=== PATIENT | female | born 1960 | race Caucasian/White ===

== ENCOUNTER 2018-06-05 16:29 | Inpatient (IN) | payer MEDICARE, MEDICAID, SELFPAY ==
[2018-06-05] VITALS (7 sets, daily range): BP systolic 77–128; BP diastolic 63–96; PULSE 105–127; RESP 16–24; TEMP 36.3–37.1; O2SAT 86–97; BMI 36.6; BMI 36.3; BMI 36.4
--- NOTE | 2018-06-05 16:48 | ED.VISSUMM ---
- ER Visit Summary Date of Service: 06/05/18 Chief Complaint: Cough, cellulitis History of Present Illness: The patient is a 57 F presents to the emergency department multiple complaints. The patient does have multiple medical comorbidities. She is on Coumadin for history of blood clot. She states that over the past 3 days, she had increasing pain and redness on her left posterior thigh. She states she has been having some pain with sitting. She is unsure if she has had fever. She states she is never really had anything like this before. She also been having upper respiratory symptoms. She had a productive cough. She does describe some mild shortness of breath. She does have a history of COPD but is not on home oxygen. She states that she has not been able to establish care with a primary care because of her Medicare. She is to follow with primary care in [place], but has not been able to see someone in some time. Physical Examination: Vital signs reviewed General: Well-nourished, well-developed Head: Normocephalic, atraumatic Eyes: Pupils equal and reactive, extraocular muscles intact Neck, supple, no lymphadenopathy Heart: Regular rate and rhythm Respiratory: No distress, scant wheeze throughout Abdomen: Soft, nontender, nondistended, no peritoneal signs Back: Nontender Extremities: Cellulitis on the left posterior thigh into the buttock. No crepitus., no edema, no cords Skin: Normal color no rash Neuro: Alert and oriented, no focal or lateralizing deficits Test Results: [] Emergency Department Course and Treatment: The patient presents with a left buttock abscess with surrounding cellulitis. She has had systemic symptoms. My suspicion is that she may be septic from this. Metabolic workup was pursued. She does have a leukocytosis. She has mild renal insufficiency, but I am unsure if this is acute or chronic and she has not been here before. Her lactate was normal. The patient was consented for incision and drainage. The area was prepped with chlorhexidine. Lidocaine with epinephrine was injected locally. A cruciate incision was made. A gross amount of purulence was able to be expressed. Loculations were broken with hemostats. The patient did tolerate this procedure. Wound culture was sent. The patient will be started on broad-spectrum antibiotics. Given her systemic symptoms and leukocytosis I do feel that she is going require admission for IV antibiotics. The patient was discussed with the hospitalist. Treatment Plan: [] Disposition: Admission Impression: 1. Left gluteal abscess with cellulitis 2. Sepsis 3. Dyspnea 4. Incision and drainage This note was generated with [employer] - [employer] dictation software. It may contain incorrect words, spelling, and punctuation that were not noted in review of the chart prior to signing ED Disposition - Plan for ED Patient: Chief Complaint: Abscess Referrals: Care Physician,No Primary [Primary Care Provider] -
[2018-06-05] MEDS: 0.9% Normal Saline 1,000 ML 1000 ML IV (17:36)
[2018-06-05] MEDS: Morphine 4 MG/ML Syringe IV (17:38)
[2018-06-05 17:39] LABS: Absolute Lymphocyte Count 2.46 X10^3/ul (0.83-4.51); Absolute Neutrophil Count 9.8 X10^3/uL (2.0-7.7); Basophil# 0.02 X10^3/uL; Basophil% 0.1 % (0-1); Eosinophil# 0.25 X10^3/uL; Eosinophils% 1.8 % (0-5); Hematocrit 41.9 % (37-47); Hemoglobin 13.4 g/dl (12.0-15.0); Lymphocyte # 2.46 X10^3/ul (4.0); Lymphocyte % 17.9 % (19-41); Mean Corpuscular Hgb 28.9 pg (27.0-32.0); Mean Corpuscular Volume 90.5 fL (81-99); Mean Platelet Vol. 10.6 fl (6.2-12.0); Monocyte# 1.14 X10^3/uL; Monocyte% 8.3 % (0-10); Neutrophil # 9.81 X10^3/uL (2.7-7.7); Neutrophil % 71.7 % (47-70); Platelet Count 227 K/mm3 (150-450); RBC Distribution Width CV 13.1 % (11.6-14.6); RBC Distribution Width SD 42.9 fl (35.1-43.9); Red Blood Count 4.63 M/mm3 (4.2-5.4); White Blood Count 13.7 K/mm3 (4.4-11.0)
[2018-06-05] MEDS: Ondansetron 4 MG/2 ML Vial IV (17:39)
[2018-06-05 17:42] LABS: International Normalized Ratio 2.1; Prothrombin Time (Protime)PT. 23.3 SECONDS (11.7-14.9)
[2018-06-05 17:45] LABS: ALB/GLOB Ratio 0.6 RATIO (0.9-2.4); AST(SGOT) 20 U/L (15-37); Alanine Aminotransfer ALT/SGPT 34 U/L (13-56); Albumin, Serum 2.8 g/dL (3.2-5.0); Alkaline Phosphatase 117 U/L (45-117); Anion Gap 9 (5-15); BUN 17 mg/dL (7-18); Calcium,Total 9.2 mg/dL (8.5-10.1); Chloride 106 mmol/L (98-107); Creatinine, Serum 1.42 mg/dL (0.55-1.02); EST Glomerular Filtration Rate 41 mL/min (>60); Est Glom Filt Rate - Afr Amer 49 mL/min (>60); Estimated Creatinine Clearance 36.59 ml/min; Globulin 4.4 g/dL (2.2-4.2); Glucose 110 mg/dL (74-106); Potassium 3.9 mmol/L (3.5-5.1); Protein, Total 7.2 g/dL (6.4-8.2); Sodium Level 140 mmol/L (136-145)
[2018-06-05 17:46] LABS: POSITIVE COUNT NO; POSITIVE DIFFERENTIAL NO; POSITIVE MORPHOLOGY NO
[2018-06-05 18:05] LABS: Lactic Acid 1.3 mmol/L (0.4-2.0)
[2018-06-05] MEDS: Piperacil/Tazobactam 3.375 GM/50 ML ML IV ×2 (18:35→22:45)
--- NOTE | 2018-06-05 19:05 | RAD_ITS ---
STUDY: X-RAY CHEST REASON FOR EXAM: Female, 57 years old. Cough TECHNIQUE: PA and lateral COMPARISON: None. FINDINGS: There is mild nonspecific bilateral perihilar interstitial thickening.. There appears to be minor discoid atelectasis in the right lower lobe There is no demonstrated pleural abnormality. Heart is enlarged. Normal mediastinum and kathleen. Normal visualized pulmonary arteries. Tortuous mildly calcified aortic arch and descending thoracic aorta. Dorsal spine demonstrates moderate spondylosis Normal visualized ribs, clavicles, and shoulders. There is no demonstrated abnormality of the visualized soft tissue structures of the upper abdomen. RAD/Chest PA and Lateral IMPRESSION: Nonspecific bilateral perihilar interstitial thickening. Minor discoid atelectasis in the right lower lobe Electronically Signed: Jasvir Green MD at 19:59 EST , Service support ,
--- NOTE | 2018-06-05 19:41 | PCM.HP.STD ---
Problem List (1) Left posterior thigh abscess Status: Acute (2) COPD Status: Chronic (3) History of a stroke Status: Chronic (4) History of blood clot Status: Chronic (5) CKD stage III Status: Chronic (6) Hypertension Status: Chronic History of Present Illness Date of Admission: 06/05/18 Chief Complaint: Cough and pain over the left buttock The patient is a 57 year old F with multiple comorbidities as listed above including DVT on Coumadin, stroke, COPD came to ED with pain over the left thigh and buttock. Patient is not able to sit for past 3 days. Patient also complained of fever with chills for 2-3 days. Patient has chronic cough but it got worse with clear mucus past 3 weeks. In ED, she did not had fever or chills but tachycardia, blood pressure 77/63 but no tachypnea or hypoxia with mild leukocytosis with left shift. She was found to have posterior aspect of left thigh abscess on the exam. Dr. Sheffield, ER physician did incision and drainage according to him it was about 10 cm. Surrounding area is erythematous and indurated. Chest x-ray is done. Past Medical History Past Medical History (Chronic Problems): Chronic Problems COPD (Chronic) History of a stroke (Chronic) History of blood clot (Chronic) CKD stage III (Chronic) Hypertension (Chronic) Allergies No Known Allergies Allergy (Verified 06/05/18 16:31) Home Medications: Ambulatory Orders Medication Instructions Recorded Aspirin [Aspirin, Baby] 81 mg PO DAILY@0800 06/05/18 B-Complex with Vitamin C [Super B 1 tab PO DAILY 06/05/18 Complex-Vitamin C] Calcium Carbonate [Calcium] 600 mg PO DAILY 06/05/18 Carvedilol [Coreg] 12.5 mg PO BID 06/05/18 Cetirizine HCl [Zyrtec] 10 mg PO DAILY 06/05/18 Duloxetine HCl 120 mg PO QHS 06/05/18 Ergocalciferol [Vitamin D] 100,000 unit PO QWEEK 06/05/18 Fenofibrate 54 mg PO DAILY 06/05/18 Fluticasone 0.05% [Flonase Nasal 1 spray NASAL DAILY 06/05/18 [place]] Fluticasone Propionate [Flovent 2 puff INHALATION BID 06/05/18 Hfa] Guaifenesin 400 mg PO QHS 06/05/18 Hydrochlorothiazide [Hctz] 12.5 mg PO DAILY 06/05/18 Lisinopril 40 mg PO DAILY 06/05/18 Mirabegron [Myrbetriq] 25 mg PO DAILY 06/05/18 Multivitamin [Multiple Vitamins] 1 tab PO BID 06/05/18 Omeprazole 40 mg PO DAILY 06/05/18 Simvastatin 40 mg PO QHS 06/05/18 Tiotropium Alicia [Spiriva 2 puff NASAL DAILY 06/05/18 Respimat] Ubidecarenone [Co Q-10] 100 mg PO DAILY 06/05/18 Warfarin Sodium 1.5 mg PO TUTH 06/05/18 Warfarin [Coumadin (PBKC)] 3 mg PO SUMOWEFRSA 06/05/18 Smoking Status: Current every day smoker Review of Systems Constitutional: Reports: Chills, Fever HEENT: Denies: Head Aches, Sinus Congestion, Sinus Drainage Cardiovascular: Denies: Chest Pain, Palpitations Respiratory: Reports: Cough. Denies: Shortness of Breath, Shortness of breath at rest, Sputum production Gastrointestinal: Denies: Abdominal Pain, Nausea, Vomiting Genitourinary: Denies: Dysuria Musculoskeletal: Reports: Leg Pain, Muscle pain. Denies: Joint Pain, Joint Tenderness Skin: Denies: Rash, Wounds Neurological: Reports: Balance problems. Denies: Focal weakness, Numbness, Tingling Psychiatric: Denies: Anxiety, Depression, Homicidal Ideations, Suicidal Ideations Hematologic/ Lymphatic: Denies: Easy Bruising, Easy Bleeding VTE Information - Inpt Only VTE Present on Admission: No VTE Mechan Device Prophylaxis: None Reason prophylaxis not ordered:: Procedure Not Indicated - Already on Coumadin. INR therapeutic Patient Problems: Active and Suspected Problems Left posterior thigh abscess (Acute) - Physical Exam General: Alert, Oriented x3, Cooperative HEENT: Atraumatic, PERRLA, EOMI, Normocephalic Oral: Dry Mucosa, - - White crust in the posterior aspect of tongue and the deep pharynx pharyngeal throat Neck: Supple, No JVD, Negative Carotid Bruits Lungs: No rhonchi, No wheeze, No rales, Diminished Cardiovascular: Regular rate, Regular Rhythm, Normal S1, Normal S2, No murmurs Abdomen: Bowel Sounds Present, Soft, Non Tender, Non-Distended, - - Chronic urinary incontinence. Prolapse ureter with cystocele Extremities: No edema, Capillary Refill Less than 3 Seconds Skin: Ulcer/ Wound, Rash Present - Surrounding cellulitis present about 10 cm with induration, - - Abscess status post IND in the posterior aspect of left thigh Musculoskeletal: No Tenderness to Palpation of Joints or Extremities Neurological: Cranial nerves II-XII grossly intact Psych/Mental Status: Normal Affect, Appropriate Vital Signs Temp Pulse Resp BP Pulse Ox 97.3 F L 113 H 24 H 119/96 H 86 06/05/18 16:31 06/05/18 18:39 06/05/18 18:39 06/05/18 18:39 06/05/18 18:39 Oxygen Delivery Method Room Air Weight: 207 lb 0.225 oz Body Mass Index (BMI) 36.6 Laboratory Tests Past 24 Hrs 06/05/18 06/05/18 06/05/18 17:15 17:15 17:15 WBC 13.7 H RBC 4.63 Hgb 13.4 Hct 41.9 MCV 90.5 MCH 28.9 MCHC 32.0 RDW 13.1 RDW Differential 42.9 Plt Count 227 MPV 10.6 Immature Gran % (Auto) 0.200 Neut % (Auto) 71.7 H Lymph % (Auto) 17.9 L [place] % (Auto) 8.3 Eos % (Auto) 1.8 Baso % (Auto) 0.1 Absolute Neuts (auto) 9.8 H Absolute Lymphs (auto) 2.46 Total Counted Not Reportable PT 23.3 H INR 2.1 Sodium 140 Potassium 3.9 Chloride 106 Carbon Dioxide 25.0 Anion Gap 9 BUN 17 Creatinine 1.42 H Estim Creat Clear Calc 36.59 Est GFR (MDRD) Af Amer 49 L Est GFR (MDRD) Non-Af 41 L BUN/Creatinine Ratio 12.0 Glucose 110 H Lactic Acid Calcium 9.2 Total Bilirubin 0.40 AST 20 ALT 34 Alkaline Phosphatase 117 Total Protein 7.2 Albumin 2.8 L Globulin 4.4 H Albumin/Globulin Ratio 0.6 L 06/05/18 17:15 WBC RBC Hgb Hct MCV MCH MCHC RDW RDW Differential Plt Count MPV Immature Gran % (Auto) Neut % (Auto) Lymph % (Auto) [place] % (Auto) Eos % (Auto) Baso % (Auto) Absolute Neuts (auto) Absolute Lymphs (auto) Total Counted PT INR Sodium Potassium Chloride Carbon Dioxide Anion Gap BUN Creatinine Estim Creat Clear Calc Est GFR (MDRD) Af Amer Est GFR (MDRD) Non-Af BUN/Creatinine Ratio Glucose Lactic Acid 1.3 Calcium Total Bilirubin AST ALT Alkaline Phosphatase Total Protein Albumin Globulin Albumin/Globulin Ratio Assessment/Plan All Active Problems Left posterior thigh abscess (Acute) The patient is a 57 year old F with multiple comorbidities as listed above including DVT on Coumadin, stroke, COPD came to ED with pain over the left thigh and buttock. Patient is not able to sit for past 3 days. Patient also complained of fever with chills for 2-3 days. Patient has chronic cough but it got worse with clear mucus past 3 weeks. In ED, she did not had fever or chills but tachycardia, blood pressure 77/63 but no tachypnea or hypoxia with mild leukocytosis with left shift. She was found to have posterior aspect of left thigh abscess on the exam. Dr. Sheffield, ER physician did incision and drainage according to him it was about 10 cm. Surrounding area is erythematous and indurated. Chest x-ray is done. 1. Left posterior medial abscess status post incision and drainage in ER: Blood cultures x2, wound culture sent from ER. Patient is being admitted on [facility] for further treatment. Patient was given 1 dose IV vancomycin and Zosyn in ER and will continue on the floor. MRSA from wound. Wound care dressing. 2. COPD with chronic cough probably URI: Chest x-ray shows nonspecific perihilar interstitial stranding with discoid atelectasis in right lower lobe. Mucinex, incentive spirometry and chest physiotherapy. DuoNeb as needed. Influenza test ordered. 3. History of a stroke about 10 years ago with residual balance with blood clot on Coumadin: Patient does not remember which side but seems she has right facial droop. She also was told she had a blood clot unclear whether venous or arterial and she is on Coumadin. INR is therapeutic continue Coumadin. Does not have primary care physician. 4. Hypertension, possible history of coronary artery disease: She further states she has a minor heart attack and she is on aspirin, Coreg, lisinopril and HCTZ and, simvastatin fenofibrate. No echo, stress test or cardiac cath in our system. Probably she had in [place] currently stable. Continue home medications 5. Abnormal kidney function, unclear whether acute or chronic kidney disease: Creatinine 1.42, BUN 17 seems most probably CKD stage III. IV fluid normal saline. 6. Mild hyperglycemia, ruled out diabetes mellitus: A1c ordered for tomorrow a.m. 7. Dyslipidemia: Patient is on both fenofibrate and simvastatin 40 mrem daily. Hold fenofibrate. Lipid profile tomorrow a.m. This note was generated with [employer] dictation software. Every effort was made to ensure accuracy, however computerized risk control field representative mistakes may persist. Clinical Impression(s) from Imaging Studies Chest X-Ray 06/05/18 19:05 IMPRESSION: Nonspecific bilateral perihilar interstitial thickening. Minor discoid atelectasis in the right lower lobe Code Visit Inpatient E&M: 61388 Init Hosp L3
[2018-06-05] MEDS: 0.9% Normal Saline 1,000 ML 100 ML IV (21:25)
[2018-06-05] MEDS: guaiFENesin 1,200 MG Tablet 1200 MG PO (21:50)
[2018-06-05] MEDS: DULoxetine Hcl 60 MG Capsule 120 MG PO (21:52)
[2018-06-05] MEDS: Atorvastatin Calcium 20 MG Tablet PO (21:52)
[2018-06-05] MEDS: Carvedilol 12.5 MG Tablet PO (21:53)
--- NOTE | 2018-06-05 22:14 | PCM.RX.CS ---
Consult Pharmacy has been consulted to manage selected antiobiotic: Vancomycin Type of Consult: New start Suspected Infection: Skin/Soft tissue Prior Doses of Antibiotics Received/Current Regimen: Medications Vancomycin HCl (Vancomycin) 1,000 mg in 200 mls @ 200 mls/hr IV Q24H DORENE Discontinued Medications Vancomycin HCl 1,500 mg/ (Sodium Chloride) 530 mls @ 250 mls/hr IV X1 ONE Stop: 06/05/18 20:37 Last Admin: 06/05/18 21:49 Dose: 250 mls/hr Labs: Sodium 140 mmol/L (136-145) 06/05/18 17:15 Potassium 3.9 mmol/L (3.5-5.1) 06/05/18 17:15 Chloride 106 mmol/L (98-107) 06/05/18 17:15 Carbon Dioxide 25.0 mmol/L (21.0-32.0) 06/05/18 17:15 Anion Gap 9 (5-15) 06/05/18 17:15 BUN 17 mg/dL (7-18) 06/05/18 17:15 Creatinine 1.42 mg/dL (0.55-1.02) H 06/05/18 17:15 Est GFR (MDRD) Af Amer 49 mL/min (>60) L 06/05/18 17:15 Est GFR (MDRD) Non-Af 41 mL/min (>60) L 06/05/18 17:15 BUN/Creatinine Ratio 12.0 RATIO (10-20) 06/05/18 17:15 Glucose 110 mg/dL (74-106) H 06/05/18 17:15 Microbiology: Microbiology 06/05/18 20:40 Mucosa - Nasopharyngeal Influenza Types A,B Direct FA (SMITH) - Final Weight used for dosin kg Estimated Creatinine Clearance: 36 Goal Trough: 10-15 mcg/mL Pharmacy Plan for Drug Dosing: Pharmacy Service will continue to monitor and adjust dosing as required. Follow-Up Labs: Trough Vancomycin Labs to be done on [date and time ordered]: 06/07/18 @8408
[2018-06-06] VITALS (7 sets, daily range): BP systolic 95–136; BP diastolic 62–79; PULSE 81–90; RESP 16–22; TEMP 36.6–36.9; O2SAT 93–97
[2018-06-06 00:11] LABS: Bedside Glucose 144 mg/dL (70-110)
[2018-06-06 00:51] LABS: M R Staph aureus DNA By PCR Negative (Negative); Staph aureus DNA By PCR POSITIVE (Negative)
[2018-06-06 00:52] LABS: Probe Check PASS; Specimen Processing Control PASS
[2018-06-06] MEDS: Piperacil/Tazobactam 3.375 GM/50 ML ML IV (05:54)
[2018-06-06] MEDS: Morphine 2 MG/ML Syringe IV ×2 (05:54→12:50)
[2018-06-06 06:28] LABS: Basophil# 0.05 X10^3/uL; Basophil% 0.5 % (0-1); Eosinophil# 0.41 X10^3/uL; Hematocrit 39.9 % (37-47); Hemoglobin 12.7 g/dl (12.0-15.0); Lymphocyte % 25.6 % (19-41); Mean Corp Hgb Conc 31.8 g/gl (32-36); Mean Corpuscular Hgb 29.5 pg (27.0-32.0); Mean Corpuscular Volume 92.6 fL (81-99); Mean Platelet Vol. 10.8 fl (6.2-12.0); Monocyte# 1.07 X10^3/uL; Monocyte% 10.5 % (0-10); Neutrophil # 6.02 X10^3/uL (2.7-7.7); Neutrophil % 59.2 % (47-70); Platelet Count 201 K/mm3 (150-450); RBC Distribution Width CV 13.3 % (11.6-14.6); RBC Distribution Width SD 43.9 fl (35.1-43.9); Red Blood Count 4.31 M/mm3 (4.2-5.4); White Blood Count 10.2 K/mm3 (4.4-11.0)
[2018-06-06 06:31] LABS: International Normalized Ratio 1.9
[2018-06-06 06:34] LABS: POSITIVE COUNT NO; POSITIVE DIFFERENTIAL NO; POSITIVE MORPHOLOGY NO
[2018-06-06] MEDS: Ipratropium/Albuterol Sulfate 3 ML AMPUL.NEB INHALATION ×3 (06:45→19:00)
[2018-06-06 07:01] LABS: Bedside Glucose 95 mg/dL (70-110)
[2018-06-06 07:32] LABS: Anion Gap 10 (5-15); BUN 23 mg/dL (7-18); BUN/Creat Ratio 17.6 RATIO (10-20); Calcium,Total 8.6 mg/dL (8.5-10.1); Chloride 113 mmol/L (98-107); Cholesterol 105 mg/dL (200); Creatinine, Serum 1.31 mg/dL (0.55-1.02); EST Glomerular Filtration Rate 45 mL/min (>60); Est Glom Filt Rate - Afr Amer 54 mL/min (>60); Estimated Creatinine Clearance 39.67 ml/min; Glucose 91 mg/dL (74-106); High Density Lipoprotein 28 mg/dL; Potassium 4.1 mmol/L (3.5-5.1); Sodium Level 144 mmol/L (136-145); Triglycerides 145 mg/dL; Very Low Density Lipoprotein 29 mg/dL (5-40)
--- NOTE | 2018-06-06 08:09 | PCM.PN.HOSP ---
Patient Problems: Active and Suspected Problems Left posterior thigh abscess (Acute) Subjective: Still with pain in left buttocks, unable to lay directly on it. Vitals/I&O's: Vital Signs Temp Pulse Resp BP Pulse Ox 36.9 C 83 22 H 97/62 93 06/06/18 02:20 06/06/18 06:46 06/06/18 06:46 06/06/18 02:20 06/06/18 06:46 Oxygen Flow Rate (L/min) 1 Oxygen Delivery Method Nasal Cannula Weight: 93.168 kg Body Mass Index (BMI) 36.3 Intake and Output for Last 24 Hours 06/04/18 06/05/18 06/06/18 23:59 23:59 23:59 Intake Total 2029 Balance 2029 General: Alert, No apparent distress HEENT: Atraumatic, Normocephalic Oral: Moist Mucosa, No Gingival or Mucosal Lesions/ Ulcerations Neck: No Nodes, Thyroid Normal Size and Texture Lungs: Clear to auscultation, Normal air movement, No rhonchi, No wheeze Cardiovascular: Regular rate, Regular Rhythm, Normal S1, Normal S2, No murmurs Abdomen: Bowel Sounds Present, Soft, Non Tender, Non-Distended, No Hepato-splenomegaly Extremities: No edema, No Calf Tenderness Skin: - - opened lesion on left buttocks, near anus. no purulence could be expressed. indurated there but also more superficially. decreased erythema overall. Psych/Mental Status: Normal Affect, Appropriate Microbiology Past 72 Hours 06/05/18 20:40 Mucosa - Nasopharyngeal Influenza Types A,B Direct FA (SMITH) - Final Laboratory Results 06/05/18 17:15: WBC 13.7 H, RBC 4.63, Hgb 13.4, Hct 41.9, MCV 90.5, MCH 28.9, MCHC 32.0, RDW 13.1, RDW Differential 42.9, Plt Count 227, MPV 10.6, Immature Gran % (Auto) 0.200, Neut % (Auto) 71.7 H, Lymph % (Auto) 17.9 L, [place] % (Auto) 8.3, Eos % (Auto) 1.8, Baso % (Auto) 0.1, Absolute Neuts (auto) 9.8 H, Absolute Lymphs (auto) 2.46, Total Counted Not Reportable 06/05/18 17:15: PT 23.3 H, INR 2.1 06/05/18 17:15: Sodium 140, Potassium 3.9, Chloride 106, Carbon Dioxide 25.0, Anion Gap 9, BUN 17, Creatinine 1.42 H, Estim Creat Clear Calc 36.59, Est GFR (MDRD) Af Amer 49 L, Est GFR (MDRD) Non-Af 41 L, BUN/Creatinine Ratio 12.0, Glucose 110 H, Calcium 9.2, Total Bilirubin 0.40, AST 20, ALT 34, Alkaline Phosphatase 117, Total Protein 7.2, Albumin 2.8 L, Globulin 4.4 H, Albumin/Globulin Ratio 0.6 L 06/05/18 17:15: Lactic Acid 1.3 06/05/18 22:47: POC Glucose 144 H 06/05/18 23:03: S.aureus Protein A PCR POSITIVE H, MRSA (PCR) Negative 06/06/18 05:50: WBC 10.2, RBC 4.31, Hgb 12.7, Hct 39.9, MCV 92.6, MCH 29.5, MCHC 31.8 L, RDW 13.3, RDW Differential 43.9, Plt Count 201, MPV 10.8, Immature Gran % (Auto) 0.200, Neut % (Auto) 59.2, Lymph % (Auto) 25.6, [place] % (Auto) 10.5 H, Eos % (Auto) 4.0, Baso % (Auto) 0.5, Absolute Neuts (auto) 6.0, Absolute Lymphs (auto) 2.60, Total Counted Not Reportable 06/06/18 05:50: Sodium 144, Potassium 4.1, Chloride 113 H, Carbon Dioxide 21.0, Anion Gap 10, BUN 23 H, Creatinine 1.31 H, Estim Creat Clear Calc 39.67, Est GFR (MDRD) Af Amer 54 L, Est GFR (MDRD) Non-Af 45 L, BUN/Creatinine Ratio 17.6, Glucose 91, Calcium 8.6, Triglycerides 145, Cholesterol 105, LDL Cholesterol 48, VLDL Cholesterol 29, HDL Cholesterol 28 L 06/06/18 05:50: Hemoglobin A1c Pending 06/06/18 05:50: PT 22.0 H, INR 1.9 06/06/18 06:49: POC Glucose 95 Current Medications Al Hydroxide/Mg Hydroxide (Mylanta Ii) 30 ml PO Q6H PRN PRN PRN Reason: Gastric burning Albuterol/Ipratropium (Duoneb) 3 ml INHALATION Q6HWA.RT [facility] Last Admin: 06/06/18 06:45 Dose: 3 ml Aspirin (Aspirin, Baby) 81 mg PO DAILY@0800 [facility] Atorvastatin Calcium (Lipitor) 20 mg PO QHS [facility] Last Admin: 06/05/18 21:52 Dose: 20 mg Bisacodyl (Dulcolax) 10 mg RECTAL DAILY PRN PRN PRN Reason: Constipation Calcium Carbonate (Tums) 500 mg PO DAILY [facility] Carvedilol (Coreg) 12.5 mg PO BID [facility] Last Admin: 06/05/18 21:53 Dose: 12.5 mg Dextrose (D50w Syringe) 0 gm IV X1 PRN; Protocol PRN Reason: Hypoglycemia Duloxetine HCl (Cymbalta) 120 mg PO QHS [facility] Last Admin: 06/05/18 21:52 Dose: 120 mg Ergocalciferol (Vitamin D) 100,000 unit PO QWEEK [facility] Famotidine (Pepcid) 20 mg PO DAILY [facility] Fluticasone Propionate (Flonase Nasal [place]) 1 spray NASAL DAILY [facility] Glucagon () 1 mg IM .X1 PRN PRN Reason: Hypoglycemia Guaifenesin (Mucinex) 1,200 mg PO BID [facility] Last Admin: 06/05/18 21:50 Dose: 1,200 mg Piperacillin Sod/Tazobactam Sod (Zosyn) 3.375 gm in 50 mls @ 12.5 mls/hr IV Q8 [facility] Last Admin: 06/06/18 05:54 Dose: 12.5 mls/hr Vancomycin IV Pharmacy to Dose (1 ea/ Sodium Chloride) 500 mls @ 250 mls/hr IV PRN PRN; Protocol Sodium Chloride () 1,000 mls @ 100 mls/hr IV .Q10H [facility] Stop: 06/06/18 06:34 Last Admin: 06/05/18 21:25 Dose: 100 mls/hr Vancomycin HCl (Vancomycin) 1,000 mg in 200 mls @ 200 mls/hr IV Q24H [facility] Insulin Human Lispro (Humalog Kwikpen (Bkc)) 0 unit SQ ACHS [facility]; Protocol Last Admin: 06/06/18 07:33 Dose: Not Given Loratadine (Claritin) 10 mg PO DAILY [facility] Magnesium Hydroxide (Milk Of Magnesia) 30 ml PO DAILY PRN PRN PRN Reason: Constipation Morphine Sulfate () 1 - 2 mg IV Q4H PRN PRN PRN Reason: SEVERE PAIN (6-10/10) Last Admin: 06/06/18 05:54 Dose: 2 mg Multivitamins (Allbee W/C Caplet, Thera B Comp/C) 1 capsule PO DAILYCM [facility] Multivitamins (Multivitamin) 1 tablet PO BIDCM [facility] Non-Formulary Medication (Tiotropium [place]) 2 puff NASAL DAILY [facility] Nutritional Formula (Lactose Free) (Ensure Enlive) 120 ml PO 4X/DAY [facility] Last Admin: 06/05/18 22:46 Dose: 120 ml Ondansetron HCl (Zofran) 4 mg IV Q8H PRN PRN PRN Reason: NAUSEA Oxycodone HCl (Oxyir) 5 mg PO Q4H PRN PRN PRN Reason: SEVERE PAIN (6-10/10) Pantoprazole Sodium (Protonix) 40 mg PO DAILY [facility] Polyethylene Glycol (Miralax) 17 gm PO DAILY [facility] Psyllium Hydrophilic Mucilloid (Metamucil) 1 packet PO DAILY PRN PRN PRN Reason: CONSTIPATION Senna/Docusate Sodium (Senokot-S, Darline-Colace) 2 tablet PO BID PRN PRN Reason: constipation Sodium Chloride () 5 - 15 ml IV UD PRN PRN Reason: SALINE FLUSH Warfarin Sodium (Coumadin (Pbkc)) 3 mg PO SuMoWeFrSa@1700 [facility] Last Admin: 06/05/18 22:02 Dose: 3 mg Warfarin Sodium (Coumadin (Pbkc)) 1.5 mg PO TuTh@1700 [facility] Zolpidem Tartrate (Ambien (Generic)) 5 mg PO QHS PRN PRN PRN Reason: INSOMNIA Medical Necessity - Tobacco Use Smoking Status: Current every day smoker Tobacco Use: Cigarettes Assessment/Plan All Active Problems Left posterior thigh abscess (Acute) 1. left buttock abscess and cellulitis. suspect staph MRSA swab negative. MSSA positive DC Zosyn, continue Vancomycin monitor closely to see if development of any new abscess. Consider imaging if worse. Continue local wound care 2. CKD 3 stable monitor closely while on Vancomycin. 3. History of CVA on Coumadin (afib?) Continue ASA, statin, coumadin 4. DVT proph: coumadin. Code Visit Inpatient E&M: 03495 Subs Hosp L2
--- NOTE | 2018-06-06 08:17 | PN_ITS ---
Patient Problems: Active and Suspected Problems Left posterior thigh abscess (Acute) Subjective: Still with pain in left buttocks, unable to lay directly on it. Vitals/I&O's: Vital Signs Temp Pulse Resp BP Pulse Ox 36.9 C 83 22 H 97/62 93 06/06/18 02:20 06/06/18 06:46 06/06/18 06:46 06/06/18 02:20 06/06/18 06:46 Oxygen Flow Rate (L/min) 1 Oxygen Delivery Method Nasal Cannula Weight: 93.168 kg Body Mass Index (BMI) 36.3 Intake and Output for Last 24 Hours 06/04/18 06/05/18 06/06/18 23:59 23:59 23:59 Intake Total 2029 Balance 2029 General: Alert, No apparent distress HEENT: Atraumatic, Normocephalic Oral: Moist Mucosa, No Gingival or Mucosal Lesions/ Ulcerations Neck: No Nodes, Thyroid Normal Size and Texture Lungs: Clear to auscultation, Normal air movement, No rhonchi, No wheeze Cardiovascular: Regular rate, Regular Rhythm, Normal S1, Normal S2, No murmurs Abdomen: Bowel Sounds Present, Soft, Non Tender, Non-Distended, No Hepato- splenomegaly Extremities: No edema, No Calf Tenderness Skin: - - opened lesion on left buttocks, near anus. no purulence could be expressed. indurated there but also more superficially. decreased erythema overall. Psych/Mental Status: Normal Affect, Appropriate Microbiology Past 72 Hours 06/05/18 20:40 Mucosa - Nasopharyngeal Influenza Types A,B Direct FA (SMITH) - Final Laboratory Results 06/05/18 17:15: WBC 13.7 H, RBC 4.63, Hgb 13.4, Hct 41.9, MCV 90.5, MCH 28.9, MCHC 32.0, RDW 13.1, RDW Differential 42.9, Plt Count 227, MPV 10.6, Immature Gran % (Auto) 0.200, Neut % (Auto) 71.7 H, Lymph % (Auto) 17.9 L, [place] % (Auto) 8.3, Eos % (Auto) 1.8, Baso % (Auto) 0.1, Absolute Neuts (auto) 9.8 H, Absolute Lymphs (auto) 2.46, Total Counted Not Reportable 06/05/18 17:15: PT 23.3 H, INR 2.1 06/05/18 17:15: Sodium 140, Potassium 3.9, Chloride 106, Carbon Dioxide 25.0, Anion Gap 9, BUN 17, Creatinine 1.42 H, Estim Creat Clear Calc 36.59, Est GFR (MDRD) Af Amer 49 L, Est GFR (MDRD) Non-Af 41 L, BUN/Creatinine Ratio 12.0, Glucose 110 H, Calcium 9.2, Total Bilirubin 0.40, AST 20, ALT 34, Alkaline Phosphatase 117, Total Protein 7.2, Albumin 2.8 L, Globulin 4.4 H, Albumin/Globulin Ratio 0.6 L 06/05/18 17:15: Lactic Acid 1.3 06/05/18 22:47: POC Glucose 144 H 06/05/18 23:03: S.aureus Protein A PCR POSITIVE H, MRSA (PCR) Negative 06/06/18 05:50: WBC 10.2, RBC 4.31, Hgb 12.7, Hct 39.9, MCV 92.6, MCH 29.5, MCHC 31.8 L, RDW 13.3, RDW Differential 43.9, Plt Count 201, MPV 10.8, Immature Gran % (Auto) 0.200, Neut % (Auto) 59.2, Lymph % (Auto) 25.6, [place] % (Auto) 10.5 H, Eos % (Auto) 4.0, Baso % (Auto) 0.5, Absolute Neuts (auto) 6.0, Absolute Lymphs (auto) 2.60, Total Counted Not Reportable 06/06/18 05:50: Sodium 144, Potassium 4.1, Chloride 113 H, Carbon Dioxide 21.0, Anion Gap 10, BUN 23 H, Creatinine 1.31 H, Estim Creat Clear Calc 39.67, Est GFR (MDRD) Af Amer 54 L, Est GFR (MDRD) Non-Af 45 L, BUN/Creatinine Ratio 17.6, Glucose 91, Calcium 8.6, Triglycerides 145, Cholesterol 105, LDL Cholesterol 48, VLDL Cholesterol 29, HDL Cholesterol 28 L 06/06/18 05:50: Hemoglobin A1c Pending 06/06/18 05:50: PT 22.0 H, INR 1.9 06/06/18 06:49: POC Glucose 95 Current Medications Al Hydroxide/Mg Hydroxide (Mylanta Ii) 30 ml PO Q6H PRN PRN PRN Reason: Gastric burning Albuterol/Ipratropium (Duoneb) 3 ml INHALATION Q6HWA.RT [facility] Last Admin: 06/06/18 06:45 Dose: 3 ml Aspirin (Aspirin, Baby) 81 mg PO DAILY@0800 [facility] Atorvastatin Calcium (Lipitor) 20 mg PO QHS [facility] Last Admin: 06/05/18 21:52 Dose: 20 mg Bisacodyl (Dulcolax) 10 mg RECTAL DAILY PRN PRN PRN Reason: Constipation Calcium Carbonate (Tums) 500 mg PO DAILY [facility] Carvedilol (Coreg) 12.5 mg PO BID [facility] Last Admin: 06/05/18 21:53 Dose: 12.5 mg Dextrose (D50w Syringe) 0 gm IV X1 PRN; Protocol PRN Reason: Hypoglycemia Duloxetine HCl (Cymbalta) 120 mg PO QHS [facility] Last Admin: 06/05/18 21:52 Dose: 120 mg Ergocalciferol (Vitamin D) 100,000 unit PO QWEEK [facility] Famotidine (Pepcid) 20 mg PO DAILY [facility] Fluticasone Propionate (Flonase Nasal [place]) 1 spray NASAL DAILY [facility] Glucagon () 1 mg IM .X1 PRN PRN Reason: Hypoglycemia Guaifenesin (Mucinex) 1,200 mg PO BID [facility] Last Admin: 06/05/18 21:50 Dose: 1,200 mg Piperacillin Sod/Tazobactam Sod (Zosyn) 3.375 gm in 50 mls @ 12.5 mls/hr IV Q8 [facility] Last Admin: 06/06/18 05:54 Dose: 12.5 mls/hr Vancomycin IV Pharmacy to Dose (1 ea/ Sodium Chloride) 500 mls @ 250 mls/hr IV PRN PRN; Protocol Sodium Chloride () 1,000 mls @ 100 mls/hr IV .Q10H [facility] Stop: 06/06/18 06:34 Last Admin: 06/05/18 21:25 Dose: 100 mls/hr Vancomycin HCl (Vancomycin) 1,000 mg in 200 mls @ 200 mls/hr IV Q24H [facility] Insulin Human Lispro (Humalog Kwikpen (Bkc)) 0 unit SQ ACHS [facility]; Protocol Last Admin: 06/06/18 07:33 Dose: Not Given Loratadine (Claritin) 10 mg PO DAILY [facility] Magnesium Hydroxide (Milk Of Magnesia) 30 ml PO DAILY PRN PRN PRN Reason: Constipation Morphine Sulfate () 1 - 2 mg IV Q4H PRN PRN PRN Reason: SEVERE PAIN (6-10/10) Last Admin: 06/06/18 05:54 Dose: 2 mg Multivitamins (Allbee W/C Caplet, Thera B Comp/C) 1 capsule PO DAILYCM [facility] Multivitamins (Multivitamin) 1 tablet PO BIDCM [facility] Non-Formulary Medication (Tiotropium [place]fant) 2 puff NASAL DAILY [facility] Nutritional Formula (Lactose Free) (Ensure Enlive) 120 ml PO 4X/DAY [facility] Last Admin: 06/05/18 22:46 Dose: 120 ml Ondansetron HCl (Zofran) 4 mg IV Q8H PRN PRN PRN Reason: NAUSEA Oxycodone HCl (Oxyir) 5 mg PO Q4H PRN PRN PRN Reason: SEVERE PAIN (6-10/10) Pantoprazole Sodium (Protonix) 40 mg PO DAILY [facility] Polyethylene Glycol (Miralax) 17 gm PO DAILY [facility] Psyllium Hydrophilic Mucilloid (Metamucil) 1 packet PO DAILY PRN PRN PRN Reason: CONSTIPATION Senna/Docusate Sodium (Senokot-S, Darline-Colace) 2 tablet PO BID PRN PRN Reason: constipation Sodium Chloride () 5 - 15 ml IV UD PRN PRN Reason: SALINE FLUSH Warfarin Sodium (Coumadin (Pbkc)) 3 mg PO SuMoWeFrSa@1700 [facility] Last Admin: 06/05/18 22:02 Dose: 3 mg Warfarin Sodium (Coumadin (Pbkc)) 1.5 mg PO TuTh@1700 [facility] Zolpidem Tartrate (Ambien (Generic)) 5 mg PO QHS PRN PRN PRN Reason: INSOMNIA Medical Necessity - Tobacco Use Smoking Status: Current every day smoker Tobacco Use: Cigarettes Assessment/Plan All Active Problems Left posterior thigh abscess (Acute) 1. left buttock abscess and cellulitis. suspect staph MRSA swab negative. MSSA positive DC Zosyn, continue Vancomycin monitor closely to see if development of any new abscess. Consider imaging if worse. Continue local wound care 2. CKD 3 stable monitor closely while on Vancomycin. 3. History of CVA on Coumadin (afib?) Continue ASA, statin, coumadin 4. DVT proph: coumadin. Code Visit Inpatient E&M: 97581 Subs Hosp L2
[2018-06-06 08:48] LABS: Hemoglobin A1c 6.3 % (4.2-6.3)
[2018-06-06] MEDS: oxyCODONE 5 MG Tablet PO ×3 (09:18→21:57)
[2018-06-06] MEDS: Carvedilol 12.5 MG Tablet PO ×2 (09:23→21:58)
[2018-06-06] MEDS: Famotidine 20 MG Tablet PO (09:23)
[2018-06-06] MEDS: Aspirin 81 MG TAB.CHEW PO (09:23)
[2018-06-06] MEDS: Loratadine 10 MG Tablet PO (09:23)
[2018-06-06] MEDS: Vitamin B Comp W-C Capsule 1 CAP PO (09:23)
[2018-06-06] MEDS: Multivitamins,Therapeutic Tablet 1 TABLET PO ×2 (09:23→18:00)
[2018-06-06] MEDS: Mirabegron 25 MG TAB.ER.24H PO (09:23)
[2018-06-06] MEDS: Calcium Carbonate 500 MG Tablet PO (09:23)
[2018-06-06] MEDS: Pantoprazole Sodium 40 MG Tablet PO (09:23)
[2018-06-06] MEDS: Polyethylene Glycol 3350 17 GM PACKET PO (09:24)
[2018-06-06] MEDS: guaiFENesin 1,200 MG Tablet 1200 MG PO ×2 (09:40→21:57)
--- NOTE | 2018-06-06 11:10 | CASEMGMT ---
SHERRI KOCH Face to Face with patient for initial transition planning/care coordination assessment. RN CM introduced self and role at [facility]. Patient lying in bed, alert and oriented. Patient willing to participate in assessment and is able to answer all questions appropriately. Care providers, pharmacy, and demographics verified. Patient wishes to discharge home, denies need for home health at this time. Patient does not have current PCP list Patient states she has no further needs or concerns at this time. CM to follow for discharge planning needs that may arise. PCP: Last saw Gaby in January but does not take current insurance. List of PCPs in [place] in-network with insurance provided. Specialists: None Preferred Pharmacy: [facility] Insurance: [employer] [facility] Prescription Benefit: yes Living Will/HPOA: None LNOK: Son Living Arrangements: Patient lives with son in 1 story house, no steps to enter. Patient states she is independent at home. Transportation: Self/Son DME/HHC: Patient states she has nebulizer and oxygen @ 2lpm through [employer]. States she has portable tanks at home but does not use. Disposition Plan: Patient to discharge home with family support and follow-up plans in place. Hanane LOPEZ, RN, CM
[2018-06-06] MEDS: 0.9% NaCl Peripheral Flush Adult/Peds IV (12:51)
[2018-06-06 13:01] LABS: Bedside Glucose 118 mg/dL (70-110)
[2018-06-06 16:55] LABS: Bedside Glucose 99 mg/dL (70-110)
[2018-06-06] MEDS: Fluticasone 0.05% 1 SPRAY NASAL.SRY NASAL (21:58)
[2018-06-06] MEDS: DULoxetine Hcl 60 MG Capsule 120 MG PO (21:58)
[2018-06-06] MEDS: Atorvastatin Calcium 20 MG Tablet PO (21:59)
[2018-06-06] MEDS: Vancomycin IV 1,000 MG/200 ML BAG 200 MG IV (21:59)
[2018-06-06 22:20] LABS: Bedside Glucose 116 mg/dL (70-110)
[2018-06-07 04:10] VITALS: BP 118/70; PULSE 89; RESP 16; TEMP 36.4; O2SAT 95
[2018-06-07] MEDS: oxyCODONE 5 MG Tablet PO (04:19)
[2018-06-07 05:58] LABS: International Normalized Ratio 2.2; Prothrombin Time (Protime)PT. 24.4 SECONDS (11.7-14.9)
[2018-06-07 06:37] LABS: Anion Gap 8 (5-15); BUN 20 mg/dL (7-18); BUN/Creat Ratio 19.6 RATIO (10-20); Calcium,Total 9.1 mg/dL (8.5-10.1); Chloride 113 mmol/L (98-107); Creatinine, Serum 1.02 mg/dL (0.55-1.02); EST Glomerular Filtration Rate 59 mL/min (>60); Est Glom Filt Rate - Afr Amer 72 mL/min (>60); Estimated Creatinine Clearance 50.94 ml/min; Glucose 108 mg/dL (74-106); Potassium 4.4 mmol/L (3.5-5.1); Sodium Level 146 mmol/L (136-145)
[2018-06-07 06:41] LABS: Bedside Glucose 102 mg/dL (70-110)
[2018-06-07 06:55] VITALS: PULSE 94; RESP 16; O2SAT 95
[2018-06-07] MEDS: Ipratropium/Albuterol Sulfate 3 ML AMPUL.NEB INHALATION ×2 (06:55→13:12)
[2018-06-07] MEDS: Vitamin B Comp W-C Capsule 1 CAP PO (08:23)
[2018-06-07] MEDS: Aspirin 81 MG TAB.CHEW PO (08:24)
[2018-06-07] MEDS: Multivitamins,Therapeutic Tablet 1 TABLET PO (08:24)
[2018-06-07] MEDS: Loratadine 10 MG Tablet PO (08:25)
[2018-06-07] MEDS: Polyethylene Glycol 3350 17 GM PACKET PO (08:25)
[2018-06-07] MEDS: Carvedilol 12.5 MG Tablet PO (08:25)
[2018-06-07] MEDS: guaiFENesin 1,200 MG Tablet 1200 MG PO (08:26)
[2018-06-07] MEDS: Mirabegron 25 MG TAB.ER.24H PO (08:26)
[2018-06-07] MEDS: Famotidine 20 MG Tablet PO (08:27)
[2018-06-07] MEDS: Pantoprazole Sodium 40 MG Tablet PO (08:27)
[2018-06-07] MEDS: Calcium Carbonate 500 MG Tablet PO (08:27)
[2018-06-07] MEDS: Cefazolin 1 GM/50 ML BAG IV ×2 (08:30→13:44)
[2018-06-07 10:00] VITALS: RESP 18
--- NOTE | 2018-06-07 11:16 | PCM.DC ---
- Discharge Diagnoses Current Active Problems: Current Active and Chronic Problems Left posterior thigh abscess (Acute) COPD (Chronic) History of a stroke (Chronic) History of blood clot (Chronic) CKD stage III (Chronic) Hypertension (Chronic) You will use the following diet at home:: Cardiac Your food should be the consistency of: Regular Discharge Activity: Return to Normal Activity Keep extremity elevated above heart level: Left Leg Call your doctor if your incision/area has: Continuous Slow Oozing, Increased Pain/ Swelling, Increased Redness Call your doctor if you observe: Fever of 101 or Higher Cleanse incision/area with: Soap & Water, Keep Dressing Clean & Dry Allergies/Adverse Reactions: Allergies No Known Allergies Allergy (Verified 06/05/18 16:31) Medications to take at Discharge Aspirin [Aspirin, Baby] 81 mg PO DAILY@0800 06/05/18 B-Complex with Vitamin C [Super B Complex-Vitamin C] 1 tab PO DAILY 06/05/18 Calcium Carbonate [Calcium] 600 mg PO DAILY 06/05/18 Carvedilol [Coreg] 12.5 mg PO BID 06/05/18 Cetirizine HCl [Zyrtec] 10 mg PO DAILY 06/05/18 Duloxetine HCl 120 mg PO QHS 06/05/18 Ergocalciferol [Vitamin D] 100,000 unit PO QWEEK 06/05/18 Fenofibrate 54 mg PO DAILY 06/05/18 Fluticasone 0.05% [Flonase Nasal [place]] 1 spray NASAL DAILY 06/05/18 Fluticasone Propionate [Flovent Hfa] 2 puff INHALATION BID 06/05/18 Hydrochlorothiazide [Hctz] 12.5 mg PO DAILY 06/05/18 Lisinopril 40 mg PO DAILY 06/05/18 Mirabegron [Myrbetriq] 25 mg PO DAILY 06/05/18 Multivitamin [Multiple Vitamins] 1 tab PO BID 06/05/18 Omeprazole 40 mg PO DAILY 06/05/18 Simvastatin 40 mg PO QHS 06/05/18 Tiotropium [place] [Spiriva Respimat] 2 puff INHALATION DAILY 06/05/18 Ubidecarenone [Co Q-10] 100 mg PO DAILY 06/05/18 Warfarin Sodium 1.5 mg PO TUTH 06/05/18 Warfarin [Coumadin] 3 mg PO SUMOWEFRSA 06/05/18 Albuterol Inhaler [Ventolin Hfa] 1 - 2 puff INHALATION Q4H PRN PRN #1 inhaler 06/07/18 Cephalexin [Keflex] 500 mg PO Q8 #21 capsule 06/07/18 Guaifenesin [Mucinex] 1,200 mg PO BID #14 tablet 06/07/18 Oxycodone [Oxyir] 5 mg PO Q6H PRN 3 Days #12 tablet 06/07/18 The following prescriptions were given: Albuterol Inhaler [Ventolin Hfa] 1 - 2 puff INHALATION Q4H PRN PRN #1 inhaler PRN Reason: Shortness Of Breath Cephalexin [Keflex] 500 mg PO Q8 #21 capsule Guaifenesin [Mucinex] 1,200 mg PO BID #14 tablet Oxycodone [Oxyir] 5 mg PO Q6H PRN 3 Days #12 tablet PRN Reason: Severe Pain (6-10/10) Orders to be completed after discharge: Prothrombin Time w/INR Time Frame: 1 Week, Location: Laboratory Primary Care Physician: Care Physician,No Primary [Primary Care Provider] - Within 2 Weeks Test Results: Test results from this visit will be discussed in further detail at your follow-up appointment, if applicable. Proposed Discharge Date: 06/07/18
--- NOTE | 2018-06-07 11:23 | DS.PCM_ITS ---
Discharge Date and Diagnosis - Problem List Patient Problems: Active and Suspected Problems Abscess, gluteal, left (Acute) Left posterior thigh abscess (Acute) Date of Admission: 06/05/18 Date of Discharge: 06/07/18 - Primary Discharge Diagnosis Active and Suspected Problems Abscess, gluteal, left (Acute) Left posterior thigh abscess (Acute) - Secondary Discharge Diagnosis Chronic Problems COPD (Chronic) History of a stroke (Chronic) History of blood clot (Chronic) CKD stage III (Chronic) Hypertension (Chronic) Hospital Course and Treatment Imaging Results: Clinical Impression(s) from Imaging Studies Chest X-Ray 06/05/18 19:05 IMPRESSION: Nonspecific bilateral perihilar interstitial thickening. Minor discoid atelectasis in the right lower lobe Electronically Signed: Jasvir Green MD at 19:59 EST , Service support , Consultations 06/06/18 05:10 Consult: Onc/Wound/billet driller Routine Comment: Operations: None Procedures: - - I+D of left gluteal abscess in ED. Summary of Care Provided: The patient is a 57 year old F presents with left gluteal abscess. I+D in the ER. +MSSA. Will discharge with keflex. 1. left buttock abscess and cellulitis. +MSSA Keflex for 7 days 2. CKD 3 improved 3. History of CVA on Coumadin (afib?) Continue ASA, statin, coumadin Follow up INR with PCP. 4. Bronchitis Mild MDI. guaifenesin with codeine.[] Patient Problems: Active and Suspected Problems Abscess, gluteal, left (Acute) Left posterior thigh abscess (Acute) - Physical Exam General: Alert, No apparent distress HEENT: Atraumatic, Normocephalic Oral: Moist Mucosa, No Gingival or Mucosal Lesions/ Ulcerations Neck: Supple, No JVD, Negative Carotid Bruits Lungs: Clear to auscultation, Normal air movement Extremities: No edema, No Calf Tenderness Skin: - - wound with no purulence expressed. greatly improved erythema. Psych/Mental Status: Normal Affect, Appropriate Vital Signs Temp Pulse Resp BP Pulse Ox 36.4 C L 94 18 118/70 95 06/07/18 04:10 06/07/18 06:55 06/07/18 10:00 06/07/18 04:10 06/07/18 06:55 Oxygen Flow Rate (L/min) 2 Oxygen Delivery Method Nasal Cannula Weight: 93.168 kg Body Mass Index (BMI) 36.3 Intake and Output for Last 24 Hours 06/05/18 06/06/18 06/07/18 23:59 23:59 23:59 Intake Total 2630 / 2630 878 / 878 Balance 2630 / 2630 878 / 878 Microbiology Past 72 Hours 06/05/18 18:20 Gram Stain - Final Wound - Leg, Left Wound Culture - Final Staphylococcus aureus 06/05/18 20:40 Influenza Types A,B Direct FA (SMITH) - Final Mucosa - Nasopharyngeal Laboratory Tests Past 24 Hrs 06/07/18 06/07/18 05:10 05:10 PT 24.4 H INR 2.2 Sodium 146 H Potassium 4.4 Chloride 113 H Carbon Dioxide 25.0 Anion Gap 8 BUN 20 H Creatinine 1.02 Estim Creat Clear Calc 50.94 Est GFR (MDRD) Af Amer 72 Est GFR (MDRD) Non-Af 59 L BUN/Creatinine Ratio 19.6 Glucose 108 H Calcium 9.1 POC Glucose 06/07/18 06/06/18 06/06/18 06:34 21:51 16:53 POC Glucose 102 116 H 99 06/06/18 12:41 POC Glucose 118 H Discharge Diet: Low fat/ Low Cholesterol Discharge Activity: Return to Normal Activity Keep extremity elevated above heart level: Left Leg Call your doctor if your incision/area has: Continuous Slow Oozing, Increased Pain/ Swelling, Increased Redness Call your doctor if you observe: Fever of 101 or Higher Cleanse incision/area with: Soap & Water, Keep Dressing Clean & Dry Home Medications: Medications to take at Discharge Aspirin [Aspirin, Baby] 81 mg PO DAILY@0800 06/05/18 B-Complex with Vitamin C [Super B Complex-Vitamin C] 1 tab PO DAILY 06/05/18 Calcium Carbonate [Calcium] 600 mg PO DAILY 06/05/18 Carvedilol [Coreg] 12.5 mg PO BID 06/05/18 Cetirizine HCl [Zyrtec] 10 mg PO DAILY 06/05/18 Duloxetine HCl 120 mg PO QHS 06/05/18 Ergocalciferol [Vitamin D] 100,000 unit PO QWEEK 06/05/18 Fenofibrate 54 mg PO DAILY 06/05/18 Fluticasone 0.05% [Flonase Nasal [place]] 1 spray NASAL DAILY 06/05/18 Fluticasone Propionate [Flovent Hfa] 2 puff INHALATION BID 06/05/18 Hydrochlorothiazide [Hctz] 12.5 mg PO DAILY 06/05/18 Lisinopril 40 mg PO DAILY 06/05/18 Mirabegron [Myrbetriq] 25 mg PO DAILY 06/05/18 Multivitamin [Multiple Vitamins] 1 tab PO BID 06/05/18 Omeprazole 40 mg PO DAILY 06/05/18 Simvastatin 40 mg PO QHS 06/05/18 Tiotropium [place] [Spiriva Respimat] 2 puff INHALATION DAILY 06/05/18 Ubidecarenone [Co Q-10] 100 mg PO DAILY 06/05/18 Warfarin Sodium 1.5 mg PO TUTH 06/05/18 Warfarin [Coumadin] 3 mg PO SUMOWEFRSA 06/05/18 Albuterol Inhaler [Ventolin Hfa] 1 - 2 puff INHALATION Q4H PRN PRN #1 inhaler 06/07/18 Cephalexin [Keflex] 500 mg PO Q8 #21 capsule 06/07/18 Guaifenesin [Mucinex] 1,200 mg PO BID #14 tablet 06/07/18 Oxycodone [Oxyir] 5 mg PO Q6H PRN 3 Days #12 tablet 06/07/18 Following Prescrptions Were Given to Patient: Albuterol Inhaler [Ventolin Hfa] 1 - 2 puff INHALATION Q4H PRN PRN #1 inhaler PRN Reason: Shortness Of Breath Cephalexin [Keflex] 500 mg PO Q8 #21 capsule Guaifenesin [Mucinex] 1,200 mg PO BID #14 tablet Oxycodone [Oxyir] 5 mg PO Q6H PRN 3 Days #12 tablet PRN Reason: Severe Pain (6-10/10) Other Amb Orders: Prothrombin Time w/INR Time Frame: 1 Week, Location: Laboratory Primary Care Physician: Care Physician,No Primary [Primary Care Provider] - Within 2 Weeks Disposition: Home Minutes spent on discharge:: 35 Patient Condition:: Good Medical Necessity - Tobacco Use Smoking Status: Current every day smoker Tobacco Use: Cigarettes Meaningful Use Info Meaningful Use Diagnoses (Choose all that apply): None applicable Code Visit Inpatient E&M: 06666 Disch Hosp
[2018-06-07 12:15] LABS: Bedside Glucose 141 mg/dL (70-110)
[2018-06-07 13:12] VITALS: PULSE 94; RESP 16
== END 2018-06-07 15:11 | disposition home or self-care (01) | DRG 872 ==
LOC: ED 17:31 → MS3 19:42
PROVIDERS: Admitting Provider Internal Medicine; Emergency Provider Emergency Medicine; Referring Provider Internal Medicine
DX: A41.9 Sepsis, unspecified organism (principal); L02.31 Cutaneous abscess of buttock; L02.416 Cutaneous abscess of left lower limb; L03.116 Cellulitis of left lower limb; L03.317 Cellulitis of buttock; E78.5 Hyperlipidemia, unspecified; A49.01 Methicillin susceptible Staphylococcus aureus infection, unspecified site; I12.9 Hypertensive chronic kidney disease with stage 1 through stage 4 chronic kidney disease, or unspecified chronic kidney disease; N18.3 Chronic kidney disease, stage 3 (moderate); J44.9 Chronic obstructive pulmonary disease, unspecified; F17.210 Nicotine dependence, cigarettes, uncomplicated; Z79.01 Long term (current) use of anticoagulants; Z86.718 Personal history of other venous thrombosis and embolism; Z86.73 Personal history of transient ischemic attack (TIA), and cerebral infarction without residual deficits
CPT/HCPCS: 36415; 71046; 80048; 80053; 80061; 82962; 83036; 83605; 85025; 85610; 87040; 87070; 87077; 87186; 87205; 87640; 87804; 94640; 94667; 94668; 97802; 99284; 99406; J7030; J7040; A4216; J2405

== ENCOUNTER → 2018-06-14 14:08 | Outpatient (CLI) | payer MEDICARE, SELFPAY ==
[2018-06-05 20:16] VITALS: BMI 36.3
[2018-06-14 14:48] LABS: International Normalized Ratio 2.1; Prothrombin Time (Protime)PT. 23.6 SECONDS (11.7-14.9)
== END ==
DX: Z79.01 Long term (current) use of anticoagulants (principal)
CPT/HCPCS: 85610

== ENCOUNTER → 2019-03-25 09:59 | Outpatient (CLI) | payer MEDICARE, SELFPAY ==
[2018-06-05 20:16] VITALS: BMI 36.3
[2019-03-25 10:33] LABS: International Normalized Ratio 2.3
== END ==
PROVIDERS: Referring Provider Family Medicine; Visit Provider Family Medicine
DX: Z86.73 Personal history of transient ischemic attack (TIA), and cerebral infarction without residual deficits (principal)
CPT/HCPCS: 85610

== ENCOUNTER → 2019-07-02 10:05 | Outpatient (CLI) | payer MEDICARE, SELFPAY ==
[2018-06-05 20:16] VITALS: BMI 36.3
[2019-07-02 10:33] LABS: International Normalized Ratio 2.9; Prothrombin Time (Protime)PT. 30.7 SECONDS (11.7-14.9)
== END ==
PROVIDERS: Referring Provider Family Medicine; Visit Provider Family Medicine
DX: I63.9 Cerebral infarction, unspecified (principal)
CPT/HCPCS: 85610

== ENCOUNTER 2019-07-25 16:29 | Emergency (ER) | payer MEDICARE, SELFPAY ==
[2018-06-05 20:16] VITALS: BMI 36.3
[2019-07-25 16:30] VITALS: BP 128/74; PULSE 95; RESP 17; TEMP 36.6; O2SAT 95; BMI 36.6
--- NOTE | 2019-07-25 16:59 | ED.VIS.GEN ---
History of Present Illness Chief Complaint: Laceration Detail of Chief Complaint: Left index finger laceration Informant: Patient Onset: Today Current Severity: Mild Maximum Severity: Mild Narrative: Patient presents with laceration to the distal aspect of the left index finger. She was using a knife to cut open a bag of popcorn and sliced the end of her left index finger. She is currently on Coumadin. She was able to get bleeding controlled. She is unsure of her last tetanus update. She is very adamant that she does not want stitches. - Past Medical History (1) CKD stage III Status: Chronic (2) COPD Status: Chronic (3) History of a stroke Status: Chronic (4) History of blood clot Status: Chronic (5) Hypertension Status: Chronic Past Medical History - Allergies and Home Meds Allergies/Adverse Reactions: Allergies No Known Allergies Allergy (Verified 07/25/19 16:30) Primary Care Physician: Cipriano Jones MD [Primary Care Provider] - Prior records reviewed: Yes Lives: With Family Smoking Status: Current every day smoker Review of Systems General: Denies: Chills, Fever Eyes: Denies: Visual changes - bilaterally ENT: Denies: Bilateral ear pain Cardiovascular: Denies: Chest pain Respiratory: Denies: Dyspnea, Cough Musculoskeletal: Reports: Extremity Pain Skin: Reports: Wounds Neurological: Denies: Weakness, Parasthesia Allergy: Denies: Uticaria Physical Exam Vital Signs/Narrative: Vital Signs Temp Pulse Resp BP Pulse Ox 07/25/19 16:30 97.8 F 95 17 128/74 H 95 Inital Vital Signs reviewed: Yes General: Well nourished, Well developed Head: Normocephalic ENT: Moist mucous membranes Neck: Supple Cardiovascular: Regular rate, Regular rhythm Respiratory: No distress, CTA bilaterally Abdomen: Soft, Nontender Extremities: - - Three-quarter centimeter flap laceration to the distal aspect of the left index finger. Bleeding controlled. Full range of motion. Sensation intact distally. Neurological: Alert, Oriented x3, Normal Strength, Normal Sensation Psychological: Normal affect Diagnostic/Tx/Re-eval - Medical Decision Making Wound was cleansed. Dermabond is placed over the wound. She will get a big bulky dressing to protect her finger. Tetanus update will be provided. She is due for an INR check this coming Friday. She states has been on the same dose of Coumadin for quite some time and her numbers have always been within range. It will not be rechecked at this time. ED Disposition - Plan for ED Patient: Disposition: Home or Assisted Living Diagnosis: Laceration of left index finger Instructions: LACERATION, Extremity (Skin Glue) Referrals: Cipriano Jones MD [Primary Care Provider] - 1-2 Weeks
[2019-07-25 17:13] VITALS: RESP 16
[2019-07-25] MEDS: Diphth,Pertuss(Acell),Tet Vac 0.5 ML Vial IM (17:13)
== END 2019-07-25 17:27 | disposition home or self-care (01) ==
LOC: ED 17:19
PROVIDERS: Emergency Provider Emergency Medicine; PCP Family Medicine
DX: S61.211A Laceration without foreign body of left index finger without damage to nail, initial encounter (principal); F17.200 Nicotine dependence, unspecified, uncomplicated; Y28.1XXA Contact with knife, undetermined intent, initial encounter; Z79.01 Long term (current) use of anticoagulants
CPT/HCPCS: 90471; 90715; 99282

== ENCOUNTER 2019-08-11 17:17 | Emergency (ER) | payer MEDICARE, SELFPAY ==
[2019-08-11 17:18] VITALS: BP 160/78; PULSE 96; RESP 16; TEMP 36.5; O2SAT 97; BMI 36.5
--- NOTE | 2019-08-11 18:23 | ED.DCSUM_ITS ---
History of Present Illness Chief Complaint: Lower Extremity Injury Informant: Patient Onset: Month(s) Context: Gradual Onset Timing: Continuous, Waxes and wanes Narrative: Patient is a 58-year-old female with history of tobacco use, hypertension and peripheral vascular disease presenting with right leg pain. Patient states she had worsening right leg pain for the past year. She had a home visit which check for peripheral arterial disease. She was told she has severe disease in her right leg. She notes that for the past few months she has had worsening pain with exertion in her right leg. She takes Tylenol but is not have any significant relief. Patient is on Coumadin because of a history of clot in her brain causing a stroke. Patient denies any numbness of the foot but notes she sometimes has some tingling. She states she can walk around [employer] without getting pain in her leg. She did not know if she should follow-up with her primary care doctor what she should do so she came to the emergency room today. Patient recently had a Coumadin check and was told it was normal. Her next Coumadin check is in 1 month. Past Medical History - Allergies and Home Meds Allergies/Adverse Reactions: Allergies No Known Allergies Allergy (Verified 08/11/19 17:18) Primary Care Physician: Cipriano Jones MD [Primary Care Provider] - Ayden Varner MD [STAFF PHYSICIAN] - Past Medical History: - - COPD, history of blood clot, history of stroke, CKD 3, hypertension, peripheral vascular disease Surgical History: noncontributory Smoking Status: Current every day smoker Review of Systems General: Denies: Chills, Fever, Sweats Eyes: Denies: Visual changes - bilaterally, Diplopia ENT: Denies: Rhinorrhea, Sore throat Cardiovascular: Denies: Chest pain, Palpitations Respiratory: Denies: Dyspnea, Cough, Dyspnea on exertion Gastrointestinal: Denies: Abdominal pain, Nausea, Vomiting, Diarrhea, Melena, Hematochezia Genitourinary: Denies: Dysuria, Hematuria, Frequency Musculoskeletal: Reports: Extremity Pain - Right leg. Denies: Back pain Skin: Denies: Rash, Wounds Neurological: Reports: Parasthesia - Intermittent?right foot. Denies: Headache, Weakness, Numbness Physical Exam Vital Signs/Narrative: Vital Signs Temp Pulse Resp BP Pulse Ox 08/11/19 17:18 97.7 F L 96 16 160/78 H 97 Inital Vital Signs reviewed: Yes General: Well nourished, Well developed, No Acute Distress Head: Normocephalic, Atraumatic Eyes: Perrl, EOMI ENT: Moist mucous membranes, No rhinorrhea Neck: Supple, Nontender Cardiovascular: Regular rate, Regular rhythm Respiratory: No distress, Chest nontender Back: Nontender, Normal Inspection Extremities: Nontender, No edema, - - Normal range of motion, no deformity. On the right foot patient has 1+ palpable PT pulse. It is triphasic on Doppler. Patient very faint DP pulse with palpation. It is biphasic on Doppler. Foot is warm with brisk capillary refill.. Negative for: Edema, Calf Tenderness Skin: Normal color, No rash Neurological: Alert, Oriented x3, Cranial nerves II-XII grossly intact, Normal Strength, Normal Sensation Psychological: Normal affect, Normal Mood Diagnostic/Tx/Re-eval - Medical Decision Making Patient is evaluated for chronic right leg pain. Is not significantly changed over the past few days. Patient had an outpatient evaluation of her leg which s howed severe stenosis of her right leg arteries. Patient was concerned as her PCP did not do anything about it and did not know what else to do so she came to the emergency room. Patient is neurovascularly intact. She does not have any signs or symptoms consistent with an acute arterial occlusion. I do not think she requires imaging emergently at this time. She is already on Coumadin. She does have an INR check which was therapeutic. Patient is instructed that she really needs to follow-up with her primary care doctor about this. I do not suspect cellulitis, DVT or other acute pathology that could be causing her leg pain. Likely she does have chronic intermittent claudication that is contributed to her pain. Her history is consistent with this. She is also referred to Dr. Varner as he does vascular surgery for further evaluation of this issue. Patient is ambulatory in the emergency room. Patient is counseled on signs and symptoms requiring return to the emergency room. Patient verbalizes agreement and understand this plan. Patient discharged home in stable and improved condition. ED Disposition - Plan for ED Patient: Disposition: Home or Assisted Living Diagnosis: PAD (peripheral artery disease), Right leg pain Instructions: ED PVD Referrals: Cipriano Jones MD [Primary Care Provider] - Ayden Varner MD [STAFF PHYSICIAN] -
== END 2019-08-11 18:34 | disposition home or self-care (01) ==
PROVIDERS: Emergency Provider Emergency Medicine; PCP Family Medicine
DX: I73.9 Peripheral vascular disease, unspecified (principal); M79.604 Pain in right leg; J44.9 Chronic obstructive pulmonary disease, unspecified; I12.9 Hypertensive chronic kidney disease with stage 1 through stage 4 chronic kidney disease, or unspecified chronic kidney disease; N18.3 Chronic kidney disease, stage 3 (moderate); F17.200 Nicotine dependence, unspecified, uncomplicated; Z79.01 Long term (current) use of anticoagulants
CPT/HCPCS: 99282

== ENCOUNTER → 2019-11-15 14:05 | Outpatient (CLI) | payer MEDICARE, SELFPAY ==
[2019-11-15 15:49] LABS: International Normalized Ratio 1.3
== END ==
PROVIDERS: PCP Family Medicine; Referring Provider Family Medicine; Visit Provider Family Medicine
DX: G45.9 Transient cerebral ischemic attack, unspecified (principal); Z86.718 Personal history of other venous thrombosis and embolism
CPT/HCPCS: 85610

== ENCOUNTER → 2019-12-07 15:16 | Outpatient (CLI) | payer MEDICARE, SELFPAY ==
[2019-12-07 15:38] LABS: International Normalized Ratio 2.9
== END ==
PROVIDERS: PCP Family Medicine; Referring Provider Family Medicine; Visit Provider Family Medicine
DX: G45.9 Transient cerebral ischemic attack, unspecified (principal); Z86.718 Personal history of other venous thrombosis and embolism
CPT/HCPCS: 85610

== ENCOUNTER → 2019-12-21 10:11 | Outpatient (CLI) | payer MEDICARE, SELFPAY ==
[2019-12-21 10:32] LABS: Prothrombin Time (Protime)PT. 38.7 SECONDS (11.7-14.9)
== END ==
PROVIDERS: PCP Family Medicine; Referring Provider Family Medicine; Visit Provider Family Medicine
DX: G45.9 Transient cerebral ischemic attack, unspecified (principal); Z86.718 Personal history of other venous thrombosis and embolism
CPT/HCPCS: 85610

== ENCOUNTER 2019-12-23 18:46 | Emergency (ER) | payer MEDICARE, SELFPAY ==
[2019-12-23 18:47] VITALS: BP 121/59; PULSE 94; RESP 16; TEMP 37.1; O2SAT 96; BMI 37.2
--- NOTE | 2019-12-23 19:25 | RAD_ITS ---
STUDY: X-RAY - LEFT ANKLE REASON FOR EXAM: Female, 59 years old. fall, pain and bruising TECHNIQUE: 3 view(s) of the ankle. COMPARISON: None. FINDINGS: Old healed fracture of the medial malleolus. No acute fracture or dislocation. Small plantar calcaneal spur. No obvious ankle joint effusion. Joint spaces are well-maintained. Moderate lateral soft tissue swelling. RAD/Ankle min 3 Views IMPRESSION: Lateral soft tissue swelling. Otherwise no acute findings. Electronically Signed: Marjan Otto MD at 19:43 EDT Tel , Service support ,
--- NOTE | 2019-12-23 19:57 | ED.VISSUMM ---
- ER Visit Summary Date of Service: 12/23/19 Chief Complaint: Left ankle injury History of Present Illness: The patient is a 59 F who presents with a left ankle injury. It occurred 4 days ago. She states that she tripped and fell injuring her left ankle. She is having electrical pain. Is worse with movement. She has noted some swelling in her ankle that is traveling up her leg. She is on Coumadin for history of a stroke. Her INR was 4.02 days ago. She called her doctor who told her to stop taking her Coumadin for 1 day. When she told that about the injury they told her to come here to get evaluated. Physical Examination: Vital signs are reviewed. Left ankle exam reveals diffuse ankle and foot swelling. She has no tenderness to palpation anywhere patient is full range of motion with minimal pain. She does have ecchymosis of the lower leg up into the calf. There are no hematomas. She does have a right knee abrasion as well. She has great distal pulses. She is neurovascularly intact distally. Test Results: Ankle x-ray reveals soft tissue swelling Emergency Department Course and Treatment: The patient had an ankle x-ray shows only soft tissue swelling. She is having no active bleeding at this time. I do not feel she needs a recheck of her Coumadin today. She will use ice and keep her leg elevated. Since her INR is therapeutic I do not feel she needs an ultrasound of her leg as I doubt that this is a DVT. She will call her doctor tomorrow for follow-up. Treatment Plan: [] Disposition: Discharge Impression: Left ankle sprain This note was generated with [employer] dictation software. It may contain incorrect words, spelling, and punctuation that were not noted in review of the chart prior to signing ED Disposition - Plan for ED Patient: Disposition: Home or Assisted Living Instructions: ED Sprain Ankle W X Ray Referrals: Cipriano Jones MD [Primary Care Provider] -
[2019-12-23 20:07] VITALS: BP 120/60; PULSE 78; RESP 18; O2SAT 96
== END 2019-12-23 20:07 | disposition home or self-care (01) ==
PROVIDERS: Emergency Provider Emergency Medicine; PCP Family Medicine
DX: S93.402A Sprain of unspecified ligament of left ankle, initial encounter (principal); F17.200 Nicotine dependence, unspecified, uncomplicated; E78.00 Pure hypercholesterolemia, unspecified; I10 Essential (primary) hypertension; W01.0XXA Fall on same level from slipping, tripping and stumbling without subsequent striking against object, initial encounter; Z79.01 Long term (current) use of anticoagulants; Z86.73 Personal history of transient ischemic attack (TIA), and cerebral infarction without residual deficits; Z79.82 Long term (current) use of aspirin
CPT/HCPCS: 73610; 99282

== ENCOUNTER → 2019-12-28 11:57 | Outpatient (CLI) | payer MEDICARE, SELFPAY ==
[2019-12-23 18:47] VITALS: BMI 37.2
[2019-12-28 12:26] LABS: International Normalized Ratio 2.4
== END ==
PROVIDERS: PCP Family Medicine; Referring Provider Family Medicine; Visit Provider Family Medicine
DX: G45.9 Transient cerebral ischemic attack, unspecified (principal); Z86.718 Personal history of other venous thrombosis and embolism
CPT/HCPCS: 85610

== ENCOUNTER → 2020-01-21 12:58 | Outpatient (CLI) | payer MEDICARE, SELFPAY ==
[2019-12-23 18:47] VITALS: BMI 37.2
[2020-01-21 13:39] LABS: Prothrombin Time (Protime)PT. 12.4 SECONDS (11.7-14.9)
== END ==
PROVIDERS: PCP Family Medicine; Referring Provider Family Medicine; Visit Provider Family Medicine
DX: G45.9 Transient cerebral ischemic attack, unspecified (principal); Z86.718 Personal history of other venous thrombosis and embolism
CPT/HCPCS: 85610

== ENCOUNTER → 2020-01-24 15:12 | Outpatient (CLI) | payer MEDICARE, SELFPAY ==
[2020-01-24 15:43] LABS: International Normalized Ratio 1.4; Prothrombin Time (Protime)PT. 16.4 SECONDS (11.7-14.9)
== END ==
PROVIDERS: PCP Family Medicine; Referring Provider Family Medicine; Visit Provider Family Medicine
DX: G45.9 Transient cerebral ischemic attack, unspecified (principal); Z86.718 Personal history of other venous thrombosis and embolism
CPT/HCPCS: 85610

== ENCOUNTER → 2020-01-27 15:19 | Outpatient (CLI) | payer MEDICARE, SELFPAY ==
[2020-01-27 16:28] LABS: International Normalized Ratio 2.1; Prothrombin Time (Protime)PT. 22.8 SECONDS (11.7-14.9)
== END ==
PROVIDERS: PCP Family Medicine; Referring Provider Family Medicine; Visit Provider Family Medicine
DX: G45.9 Transient cerebral ischemic attack, unspecified (principal); Z86.718 Personal history of other venous thrombosis and embolism
CPT/HCPCS: 85610

== ENCOUNTER → 2020-02-07 16:00 | Outpatient (CLI) | payer MEDICARE, SELFPAY ==
[2020-02-07 17:23] LABS: Prothrombin Time (Protime)PT. 41.6 SECONDS (11.7-14.9)
[2020-02-07 17:40] LABS: International Normalized Ratio 4.4
== END ==
PROVIDERS: PCP Family Medicine; Referring Provider Family Medicine; Visit Provider Family Medicine
DX: G45.9 Transient cerebral ischemic attack, unspecified (principal); Z86.718 Personal history of other venous thrombosis and embolism
CPT/HCPCS: 85610

== ENCOUNTER → 2020-02-22 11:21 | Outpatient (CLI) | payer MEDICARE, SELFPAY ==
[2020-02-22 11:46] LABS: International Normalized Ratio 2.7; Prothrombin Time (Protime)PT. 28.5 SECONDS (11.7-14.9)
== END ==
PROVIDERS: PCP Family Medicine; Referring Provider Family Medicine; Visit Provider Family Medicine
DX: G45.9 Transient cerebral ischemic attack, unspecified (principal); Z86.718 Personal history of other venous thrombosis and embolism
CPT/HCPCS: 85610

== ENCOUNTER → 2020-05-01 10:31 | Outpatient (CLI) | payer MEDICARE, SELFPAY ==
[2020-05-01 10:51] LABS: International Normalized Ratio 1.6; Prothrombin Time (Protime)PT. 18.1 SECONDS (11.7-14.9)
== END ==
PROVIDERS: PCP Family Medicine; Visit Provider Family Medicine
DX: G45.9 Transient cerebral ischemic attack, unspecified (principal); Z86.718 Personal history of other venous thrombosis and embolism
CPT/HCPCS: 85610

== ENCOUNTER → 2020-05-04 09:54 | Outpatient (CLI) | payer MEDICARE, SELFPAY ==
[2020-05-04 10:22] LABS: International Normalized Ratio 2.2; Prothrombin Time (Protime)PT. 23.9 SECONDS (11.7-14.9)
== END ==
PROVIDERS: PCP Family Medicine; Referring Provider Family Medicine; Visit Provider Family Medicine
DX: G45.9 Transient cerebral ischemic attack, unspecified (principal); Z86.718 Personal history of other venous thrombosis and embolism
CPT/HCPCS: 85610

== ENCOUNTER → 2020-05-11 12:49 | Outpatient (CLI) | payer MEDICARE, SELFPAY ==
[2020-05-11 16:12] LABS: International Normalized Ratio 1.3; Prothrombin Time (Protime)PT. 15.2 SECONDS (11.7-14.9)
== END ==
PROVIDERS: PCP Family Medicine; Referring Provider Family Medicine; Visit Provider Family Medicine
DX: G45.9 Transient cerebral ischemic attack, unspecified (principal); Z86.718 Personal history of other venous thrombosis and embolism
CPT/HCPCS: 85610

== ENCOUNTER → 2020-05-16 12:14 | Outpatient (CLI) | payer MEDICARE, SELFPAY ==
[2020-05-16 12:52] LABS: International Normalized Ratio 1.9; Prothrombin Time (Protime)PT. 21.6 SECONDS (11.7-14.9)
== END ==
PROVIDERS: PCP Family Medicine; Referring Provider Family Medicine; Visit Provider Family Medicine
DX: G45.9 Transient cerebral ischemic attack, unspecified (principal); Z86.718 Personal history of other venous thrombosis and embolism
CPT/HCPCS: 85610

== ENCOUNTER → 2020-05-19 10:43 | Outpatient (CLI) | payer MEDICARE, SELFPAY ==
[2020-05-19 11:50] LABS: International Normalized Ratio 2.5; Prothrombin Time (Protime)PT. 26.4 SECONDS (11.7-14.9)
== END ==
PROVIDERS: PCP Family Medicine; Referring Provider Family Medicine; Visit Provider Family Medicine
DX: G45.9 Transient cerebral ischemic attack, unspecified (principal); Z86.718 Personal history of other venous thrombosis and embolism
CPT/HCPCS: 85610

== ENCOUNTER → 2020-06-02 15:24 | Outpatient (CLI) | payer MEDICARE, SELFPAY ==
[2020-06-02 16:12] LABS: Prothrombin Time (Protime)PT. 40.8 SECONDS (11.7-14.9)
[2020-06-02 16:43] LABS: International Normalized Ratio 4.3
== END ==
PROVIDERS: PCP Family Medicine; Referring Provider Family Medicine; Visit Provider Family Medicine
DX: G45.9 Transient cerebral ischemic attack, unspecified (principal); Z86.718 Personal history of other venous thrombosis and embolism
CPT/HCPCS: 85610

== ENCOUNTER → 2020-06-09 15:13 | Outpatient (CLI) | payer MEDICARE, SELFPAY ==
[2020-06-09 15:45] LABS: International Normalized Ratio 3.3
== END ==
PROVIDERS: PCP Family Medicine; Visit Provider Family Medicine
DX: G45.9 Transient cerebral ischemic attack, unspecified (principal); Z86.718 Personal history of other venous thrombosis and embolism
CPT/HCPCS: 85610

== ENCOUNTER → 2020-06-15 15:07 | Outpatient (CLI) | payer MEDICARE, SELFPAY ==
[2020-06-15 16:26] LABS: Prothrombin Time (Protime)PT. 36.7 SECONDS (11.7-14.9)
[2020-06-15 16:48] LABS: International Normalized Ratio 3.7
== END ==
PROVIDERS: PCP Family Medicine; Referring Provider Family Medicine; Visit Provider Family Medicine
DX: G45.9 Transient cerebral ischemic attack, unspecified (principal); Z86.718 Personal history of other venous thrombosis and embolism
CPT/HCPCS: 85610

== ENCOUNTER → 2020-06-22 09:20 | Outpatient (CLI) | payer MEDICARE, SELFPAY ==
[2020-06-22 09:39] LABS: Prothrombin Time (Protime)PT. 44.5 SECONDS (11.7-14.9)
[2020-06-22 09:56] LABS: International Normalized Ratio 4.7
== END ==
PROVIDERS: PCP Family Medicine; Referring Provider Family Medicine; Visit Provider Family Medicine
DX: G45.9 Transient cerebral ischemic attack, unspecified (principal); Z86.718 Personal history of other venous thrombosis and embolism
CPT/HCPCS: 85610

== ENCOUNTER → 2020-06-27 14:58 | Outpatient (CLI) | payer MEDICARE, SELFPAY ==
[2020-06-27 16:07] LABS: Prothrombin Time (Protime)PT. 38.9 SECONDS (11.7-14.9)
== END ==
PROVIDERS: PCP Family Medicine; Referring Provider Family Medicine; Visit Provider Family Medicine
DX: G45.9 Transient cerebral ischemic attack, unspecified (principal); Z86.718 Personal history of other venous thrombosis and embolism
CPT/HCPCS: 85610

== ENCOUNTER → 2020-07-04 15:03 | Outpatient (CLI) | payer MEDICARE, SELFPAY ==
[2020-07-04 15:42] LABS: International Normalized Ratio 1.8; Prothrombin Time (Protime)PT. 20.5 SECONDS (11.7-14.9)
== END ==
PROVIDERS: PCP Family Medicine; Referring Provider Family Medicine; Visit Provider Family Medicine
DX: G45.9 Transient cerebral ischemic attack, unspecified (principal); Z86.718 Personal history of other venous thrombosis and embolism
CPT/HCPCS: 85610

== ENCOUNTER → 2020-07-13 15:09 | Outpatient (CLI) | payer MEDICARE, SELFPAY ==
[2020-07-13 15:27] LABS: International Normalized Ratio 1.7; Prothrombin Time (Protime)PT. 19.1 SECONDS (11.7-14.9)
== END ==
PROVIDERS: PCP Family Medicine; Visit Provider Family Medicine
DX: G45.9 Transient cerebral ischemic attack, unspecified (principal); Z86.718 Personal history of other venous thrombosis and embolism
CPT/HCPCS: 85610

== ENCOUNTER → 2020-07-21 10:00 | Outpatient (CLI) | payer MEDICARE, SELFPAY ==
[2020-07-21 10:21] LABS: International Normalized Ratio 3.4; Prothrombin Time (Protime)PT. 33.9 SECONDS (11.7-14.9)
== END ==
PROVIDERS: PCP Family Medicine; Referring Provider Family Medicine; Visit Provider Family Medicine
DX: G45.9 Transient cerebral ischemic attack, unspecified (principal); Z86.718 Personal history of other venous thrombosis and embolism
CPT/HCPCS: 85610

== ENCOUNTER → 2020-07-31 15:46 | Outpatient (CLI) | payer MEDICARE, SELFPAY ==
[2020-07-31 17:03] LABS: International Normalized Ratio 3.5
== END ==
PROVIDERS: PCP Family Medicine; Visit Provider Family Medicine
DX: G45.9 Transient cerebral ischemic attack, unspecified (principal); Z86.718 Personal history of other venous thrombosis and embolism
CPT/HCPCS: 85610

== ENCOUNTER → 2020-08-10 14:59 | Outpatient (CLI) | payer MEDICARE, SELFPAY ==
[2020-08-10 15:30] LABS: International Normalized Ratio 2.3; Prothrombin Time (Protime)PT. 24.1 SECONDS (11.7-14.9)
== END ==
PROVIDERS: PCP Family Medicine; Referring Provider Family Medicine; Visit Provider Family Medicine
DX: D68.59 Other primary thrombophilia (principal); Z79.01 Long term (current) use of anticoagulants
CPT/HCPCS: 85610

== ENCOUNTER 2020-08-17 09:48 | Emergency (ER) | payer MEDICARE, SELFPAY ==
[2020-08-17 09:50] VITALS: BP 158/102; PULSE 107; RESP 19; TEMP 36.2; O2SAT 97; BMI 35.3
--- NOTE | 2020-08-17 10:19 | CT_ITS ---
STUDY: CT ABDOMEN AND PELVIS WITH CONTRAST REASON FOR EXAM: Female, 59 years old. Left lower quadrant pain, n/v RADIATION DOSAGE (If Supplied By Facility): CTDIvol = ( 17.99 ) mGy, DLP = ( 1126.05 ) mGycm TECHNIQUE: Transaxial images were obtained from the dome of the diaphragm to the symphysis pubis without oral contrast. IV 100mL Isovue-300 was administered. Sagittal and coronal images were reconstructed. Individualized dose optimization techniques were used for this CT. COMPARISON: None. FINDINGS: The visualized lung bases are unremarkable. The visualized portions of the heart are within normal limits. Normal liver. Normal gallbladder and extrahepatic biliary system. Normal spleen. Normal pancreas. Normal bilateral adrenal glands. Severe left renal atrophy. Multiple bilateral renal cysts. No evidence for obstruction or hydronephrosis. Normal visualized stomach. Normal small intestine. Normal colon. The appendix is visualized and appears normal. Normal abdominal aorta. Normal inferior vena cava. Normal retroperitoneum. Normal urinary bladder. Nonspecific low-attenuation is seen at the lower uterine segment/cervix. Small foci of gas within the anterior left lower abdominal subcutaneous tissues may represent an injection site. Normal osseous structures. CT/Abdomen/Pelvis W IV Cont ONLY IMPRESSION: No acute process identified. Severe left renal atrophy and bilateral renal cysts. Low-attenuation at the cervix/lower uterine segment is nonspecific and may be further evaluated by pelvic sonogram/gynecologic evaluation. Electronically Signed: Andres Resendez MD at 12:30 EDT Tel , Service support ,
--- NOTE | 2020-08-17 10:20 | ED.VIS.GI ---
History of Present Illness Chief Complaint: Abd Pain - Abdominal Pain/Flank Pain Onset: Days - 4 Context: Gradual Onset Timing: Continuous, Waxes and wanes Quality: Aching Location: - - Left side Current Severity: Mild Maximum Severity: Moderate Worsened by: Food Relieved by: Nothing - Nausea/Vomiting/Emesis GI Symptom: Nausea, Vomiting Onset: Yesterday Quality: Nonbilious. Negative for: Blood streaks, Coffee ground, Hematemesis Severity: Mild - Diarrhea/Melena/Hematochezia GI Symptom: Negative for: Diarrhea, Melena, Hematochezia Associated Symptoms: Frequency. Negative for: Dysuria, Hematuria, Urgency Narrative: Patient states since this past weekend she has been nauseated, now vomiting occasionally just food contents nothing that looks like coffee-ground emesis or blood, the nausea is the worst symptom she is having some mild pain with it on the left side when she has it. Also, she stopped smoking several months ago and has had an increased cough with sputum production ever since, but she denies any dyspnea or chest pain. Today she states that she was at PCP office seeing a nurse practitioner for preoperative appointment so that she could have low back surgery tomorrow. During the appointment, they were concerned about her breathing/lungs although the patient states she is not and was not dyspneic, she was sent to the emergency department for that reason. - Past Medical History (1) CKD stage III Status: Chronic (2) COPD Status: Chronic (3) History of a stroke Status: Chronic (4) History of blood clot Status: Chronic (5) Hypertension Status: Chronic (6) Type 2 diabetes mellitus Status: Chronic Past Medical History - Allergies and Home Meds Allergies/Adverse Reactions: Allergies No Known Allergies Allergy (Verified 08/17/20 09:50) Primary Care Physician: Cipriano Jones MD [Primary Care Provider] - Surgical History: noncontributory Smoking Status: Current some day smoker Review of Systems General: Reports: Chills - at times when feels hot. Denies: Malaise, Sweats Eyes: Reports: - - no loss of taste/smell. Denies: Visual changes - bilaterally, Diplopia ENT: Denies: Bilateral ear pain, Rhinorrhea, Sore throat Cardiovascular: Denies: Chest pain, Palpitations Respiratory: Reports: Cough, Sputum. Denies: Dyspnea, Dyspnea on exertion Gastrointestinal: Reports: Abdominal pain, Nausea, Vomiting. Denies: Diarrhea, Melena, Hematochezia Genitourinary: Denies: Dysuria, Hematuria, Frequency Musculoskeletal: Reports: Back pain - chronic low, unchanged. Denies: Myalgias, Swelling, Extremity Pain Skin: Denies: Rash, Wounds Neurological: Denies: Headache, Weakness, Numbness Physical Exam Vital Signs/Narrative: Vital Signs Temp Pulse Resp BP Pulse Ox 08/17/20 09:50 97.2 F L 107 H 19 H 158/102 H 97 Inital Vital Signs reviewed: Yes General: Well nourished, Well developed, Obese, No Acute Distress - Conversive in full sentences Head: Normocephalic, Atraumatic Eyes: Perrl, EOMI ENT: Moist mucous membranes, No rhinorrhea Neck: Supple, Nontender, No lymphadenopathy, No JVD Cardiovascular: Regular rate, Regular rhythm, No murmurs Respiratory: No distress, CTA bilaterally, Chest nontender, Diminished - thorughout, symmetrically Abdomen: Soft, Nondistended, Normal bowel sounds, Tender - Mild throughout left side including left lower quadrant. No other tenderness. Obesity limits exam somewhat.. Negative for: Guarding, Rebound tenderness, Pulsatile mass Back: Nontender, Normal Inspection. Negative for: CVA tenderness Extremities: Nontender, No edema. Negative for: Calf Tenderness Skin: Normal color, No rash, No Trauma Neurological: Alert, Oriented x3, Cranial nerves II-XII grossly intact, Normal Strength, Normal Sensation, Normal Gait Psychological: Normal affect, Normal Mood Diagnostic/Tx/Re-eval Impressions Abdomen/Pelvis CT 08/17/20 10:19 IMPRESSION: No acute process identified. Severe left renal atrophy and bilateral renal cysts. Low-attenuation at the cervix/lower uterine segment is nonspecific and may be further evaluated by pelvic sonogram/gynecologic evaluation. Electronically Signed: Andres Resendez MD at 12:30 EDT Tel , Service support , Chest X-Ray 08/17/20 11:45 IMPRESSION: No acute cardiopulmonary process identified. Electronically Signed: Andres Resendez MD at 12:16 EDT Tel , Service support , 08/17/20 10:19 Abdomen/Pelvis W IV Cont ONLY [CT] Stat 08/17/20 11:45 Chest 1 View (Portable) [RAD] Stat 08/17/20 10:50 Mucosa - Nose SARS-CoV-2 Antigen (Rapid) - Final Laboratory Results 08/17/20 08/17/20 08/17/20 10:35 10:35 11:39 WBC 7.6 RBC 5.52 H Hgb 15.1 H Hct 47.0 MCV 85.1 MCH 27.4 MCHC 32.1 RDW Std Deviation 46.3 H RDW Coeff of Cami 15.8 H Plt Count 191 MPV 9.8 Immature Gran % (Auto) 0.100 Neut % (Auto) 65.4 Lymph % (Auto) 23.2 [place] % (Auto) 8.8 Eos % (Auto) 1.7 Baso % (Auto) 0.8 Absolute Neuts (auto) 5.0 Absolute Lymphs (auto) 1.77 Nucleated RBC % 0 Sodium 140 Potassium 3.6 Chloride 109 H Carbon Dioxide 25.0 Anion Gap 6 BUN 12 Creatinine 0.84 Estim Creat Clear Calc 60.39 Est GFR (MDRD) Af Amer 89 Est GFR (MDRD) Non-Af 74 BUN/Creatinine Ratio 14.3 Glucose 99 Calcium 9.9 Total Bilirubin 0.40 AST 20 ALT 32 Alkaline Phosphatase 142 H Troponin I < 0.015 Total Protein 7.2 Albumin 3.6 Globulin 3.6 Albumin/Globulin Ratio 1.0 Lipase 158 Urine Color Yellow Urine Clarity Sl. Cloudy Urine pH 6.0 Ur Specific [place]ila 1.020 Urine Protein 15 H Urine Glucose (UA) Normal Urine Ketones Negative Urine Occult Blood Negative Urine Nitrite Negative Urine Bilirubin Negative Urine Urobilinogen 1 H Ur Leukocyte Esterase 100 H Urine RBC 0 SEEN Urine WBC 0-5 SEEN Ur Squamous Epith Cells 0-5 SEEN Urine Bacteria 0 SEEN Urine Mucus 0 SEEN - Medical Decision Making As above work-up is unremarkable. Her vital signs are stable except for some hypertension. She states she is on warfarin because of a posterior circulation stroke, since she was scheduled for surgery she has been off of it for a while and doing Lovenox shots. She has had no bleeding. Therefore I do not think she has pulmonary embolus, nor are her symptoms compatible with the likelihood of having that. Her abdominal CT is unremarkable. I do not think that the mild nonspecific findings of the cervix are related to her symptoms and can be followed up on as an outpatient. When asked if she is on something for her stomach, she indicates that she is on a PPI but was advised to stop all of her medications for surgery, including that 1. I recommend that she restarted and she was given a prescription for Reglan to use as needed, and advised to follow-up with her primary doctor. She is comfortable with that plan. ED Disposition - Plan for ED Patient: Disposition: Home or Assisted Living Diagnosis: Cough, Left sided abdominal pain Instructions: ED Abdominal Pain Unkn Cause Fem Prescriptions: Metoclopramide [Reglan] 10 mg PO Q6H PRN #16 tab PRN Reason: Nausea/Vomiting Transmission Status: Pending to [facility] Referrals: Cipriano Jones MD [Primary Care Provider] - 1 Week if not improving Additional Instructions: Go back onto your stomach pill, which should be either omeprazole, esomeprazole, pantoprazole.
[2020-08-17] MEDS: Ondansetron 4 MG/2 ML Vial IV (10:44)
[2020-08-17] MEDS: 0.9% Normal Saline 1,000 ML 1000 ML IV (10:44)
[2020-08-17 10:50] LABS: Absolute Lymphocyte Count 1.77 X10^3/uL (0.83-4.51); Basophil# 0.06 X10^3/uL; Basophil% 0.8 % (0-1); Eosinophil# 0.13 X10^3/uL; Eosinophils% 1.7 % (0-5); Hemoglobin 15.1 g/dL (12.0-15.0); Lymphocyte # 1.77 X10^3/ul (4.0); Lymphocyte % 23.2 % (19-41); Mean Corp Hgb Conc 32.1 g/dL (32-36); Mean Corpuscular Hgb 27.4 pg (27.0-32.0); Mean Corpuscular Volume 85.1 fL (81-99); Mean Platelet Vol. 9.8 fl (6.2-12.0); Monocyte# 0.67 X10^3/uL; Monocyte% 8.8 % (0-10); NRBC Flagged by Analyzer 0 % (0-5); Neutrophil % 65.4 % (47-70); Platelet Count 191 K/mm3 (150-450); RBC Distribution Width CV 15.8 % (11.6-14.6); RBC Distribution Width SD 46.3 fl (35.1-43.9); Red Blood Count 5.52 M/mm3 (4.2-5.4); White Blood Count 7.6 K/mm3 (4.4-11.0)
[2020-08-17 11:08] LABS: AST(SGOT) 20 U/L (15-37); Alanine Aminotransfer ALT/SGPT 32 U/L (13-56); Albumin, Serum 3.6 g/dL (3.2-5.0); Alkaline Phosphatase 142 U/L (45-117); Anion Gap 6 (5-15); BUN 12 mg/dL (7-18); BUN/Creat Ratio 14.3 RATIO (10-20); Calcium,Total 9.9 mg/dL (8.5-10.1); Chloride 109 mmol/L (98-107); Creatinine, Serum 0.84 mg/dL (0.55-1.02); EST Glomerular Filtration Rate 74 mL/min (>60); Est Glom Filt Rate - Afr Amer 89 mL/min (>60); Estimated Creatinine Clearance 60.39 ml/min; Globulin 3.6 g/dL (2.2-4.2); Glucose 99 mg/dL (74-106); Lipase 158 U/L (73-393); Potassium 3.6 mmol/L (3.5-5.1); Protein, Total 7.2 g/dL (6.4-8.2); Sodium Level 140 mmol/L (136-145)
--- NOTE | 2020-08-17 11:45 | RAD_ITS ---
STUDY: X-RAY CHEST REASON FOR EXAM: Female, 59 years old. Cough TECHNIQUE: Single frontal view of the chest. COMPARISON: 06/05/2018. FINDINGS: Cardiac silhouette unremarkable. Pulmonary vascularity unremarkable. Aorta unremarkable. No focal airspace opacities. No pleural effusions. Upper abdomen unremarkable. Osseous structures intact. No pneumothorax. RAD/Chest 1 View (Portable) IMPRESSION: No acute cardiopulmonary process identified. Electronically Signed: Andres Resendez MD at 12:16 EDT Tel , Service support ,
[2020-08-17 11:46] LABS: Bacteria 0 SEEN /hpf (None Seen); Mucous, Urine 0 SEEN /hpf (<or=2+); Red Blood Cells-Urine 0 SEEN /hpf (0-5)
[2020-08-17 11:52] LABS: Color, Urine Yellow (Yellow); Glucose, Dipstick Normal (Normal); Ketone-Dipstick Negative (Negative); Leukocyte Esterase-Dipstick 100 /ul (Negative); Nitrite-Dipstick Negative (Negative); Occult Blood-Urine Negative /ul (Negative); Protein-Dipstick 15 mg/dl (Negative); Urine Bilirubin Dipstick Negative (Negative); Urine Clarity Sl. Cloudy (Clear); Urine Urobilinogen 1 mg/dl (Normal)
[2020-08-17 11:57] LABS: Squamous Epithelial Cells - UA 0-5 SEEN /hpf (5-10); White Blood Cells 0-5 SEEN /hpf (0-5)
[2020-08-17 12:20] VITALS: BP 170/98; PULSE 105; RESP 29; O2SAT 93
[2020-08-17 13:21] VITALS: BP 156/89; PULSE 106; RESP 13; O2SAT 95
== END 2020-08-17 13:22 | disposition home or self-care (01) ==
PROVIDERS: Emergency Provider Emergency Medicine; PCP Family Medicine
DX: R05 Cough (principal); R10.9 Unspecified abdominal pain; E66.9 Obesity, unspecified; F17.200 Nicotine dependence, unspecified, uncomplicated; E11.22 Type 2 diabetes mellitus with diabetic chronic kidney disease; I12.9 Hypertensive chronic kidney disease with stage 1 through stage 4 chronic kidney disease, or unspecified chronic kidney disease; J44.9 Chronic obstructive pulmonary disease, unspecified; N18.30 Chronic kidney disease, stage 3 unspecified; Z86.73 Personal history of transient ischemic attack (TIA), and cerebral infarction without residual deficits; Z79.01 Long term (current) use of anticoagulants; Z79.82 Long term (current) use of aspirin; Z79.84 Long term (current) use of oral hypoglycemic drugs
CPT/HCPCS: 71045; 74177; 80053; 81001; 83690; 84484; 85025; 87426; 96361; 96374; 99283; J7030; Q9967; A4216; J2405

== ENCOUNTER → 2020-08-22 14:59 | Outpatient (CLI) | payer MEDICARE, SELFPAY ==
[2020-08-17 09:50] VITALS: BMI 35.3
[2020-08-22 15:38] LABS: International Normalized Ratio 1.6
== END ==
PROVIDERS: PCP Family Medicine; Visit Provider Family Medicine
DX: Z79.01 Long term (current) use of anticoagulants (principal)
CPT/HCPCS: 85610

== ENCOUNTER → 2020-08-25 15:35 | Outpatient (CLI) | payer MEDICARE, SELFPAY ==
[2020-08-17 09:50] VITALS: BMI 35.3
[2020-08-25 16:07] LABS: International Normalized Ratio 2.3; Prothrombin Time (Protime)PT. 24.8 SECONDS (11.7-14.9)
== END ==
PROVIDERS: PCP Family Medicine; Visit Provider Family Medicine
DX: D68.59 Other primary thrombophilia (principal); Z79.01 Long term (current) use of anticoagulants
CPT/HCPCS: 85610

== ENCOUNTER 2020-08-26 16:22 | Emergency (ER) | payer MEDICARE, SELFPAY ==
[2020-08-26 16:24] VITALS: BP 118/75; PULSE 105; RESP 20; TEMP 36.1; O2SAT 95; BMI 35.2
--- NOTE | 2020-08-26 16:43 | ED.VIS.GEN ---
History of Present Illness Chief Complaint: Laceration Informant: Patient Onset: Hours Context: Sudden Onset Timing: Continuous Quality: Bleeding left medial heel Location: Left medial heel Current Severity: Mild Maximum Severity: Moderate Worsened by: Patient on Coumadin for VTE Relieved by: Nothing Associated Symptoms: No other symptoms Narrative: Patient is a 59-year-old woman who was diagnosed 5 to 6 months ago with diabetes. And is presently on Coumadin for DVT. She was attempting to shave the callus formation of her heel. She sustained a cut medial side of the left heel. Tetanus will need updated. She denies paresthesia, anesthesia motors. She does not see a rn transplant. 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: Acute (2) CKD stage III Status: Chronic (3) COPD Status: Chronic (4) History of blood clot Status: Chronic (5) Hypertension Status: Chronic (6) Type 2 diabetes mellitus Status: Chronic Past Medical History - Allergies and Home Meds Allergies/Adverse Reactions: Allergies No Known Allergies Allergy (Verified 08/26/20 16:23) Primary Care Physician: Cipriano Jones MD [Primary Care Provider] - Prior records reviewed: Yes Past Medical History: - - Vesely documented Surgical History: noncontributory Lives: Alone Smoking Status: Former smoker Alcohol: Rare Drugs: None Review of Systems General: Denies: Chills, Fever, Malaise, Subjective Musculoskeletal: Denies: Swelling, Extremity Pain Skin: Reports: Wounds. Denies: Rash, Abscess Endocrine: Denies: Polyuria, Polydipsia Hematologic: Reports: Easy bruising, Easy bleeding Physical Exam Vital Signs/Narrative: Vital Signs Temp Pulse Resp BP Pulse Ox 08/26/20 16:24 97 F L 105 H 20 H 118/75 95 Inital Vital Signs reviewed: Yes General: Well nourished, Well developed, Obese, No Acute Distress Head: Normocephalic, Atraumatic Eyes: Perrl, EOMI. Negative for: Pale conjunctiva, Scleral icterus Cardiovascular: Regular rate, Regular rhythm Respiratory: No distress Extremities: Nontender, No edema, - - The posterior medial aspect of the left heel is bleeding. There is multiple areas where patient has shaved the skin off. There is no evidence infection. DP PT pulse are palpable. Skin: Normal color, Trauma Neurological: Alert, Oriented x3, Cranial nerves II-XII grossly intact, Normal Strength, Normal Sensation Psychological: Normal affect Diagnostic/Tx/Re-eval - Medical Decision Making Patient was instructed she should not use a razor to attempt to cut off the callus of her heels since she is diabetic and on Coumadin. Recommend follow-up with rn transplant. She is referred to podiatry [facility]. The wound was cleansed and dressing was applied per nursing staff. Tetanus was updated. ED Disposition - Plan for ED Patient: Disposition: Home or Assisted Living Diagnosis: Avulsion of skin of left foot, extermination inspector current use of anticoagulant Instructions: ED Skin Avulsion Referrals: Cipriano Jones MD [Primary Care Provider] - As Needed Nettie Arias DPM [STAFF PHYSICIAN] - 3-5 Days
[2020-08-26] MEDS: Diphth,Pertuss(Acell),Tet Vac 0.5 ML Vial IM (16:56)
[2020-08-26] MEDS: BACITRACIN 15 GM Tube 1 APPLIC TOPICAL (16:58)
[2020-08-26 17:05] VITALS: PULSE 97; RESP 14; O2SAT 98
== END 2020-08-26 17:05 | disposition home or self-care (01) ==
LOC: ED 16:48
PROVIDERS: Emergency Provider Emergency Medicine; PCP Family Medicine
DX: S91.312A Laceration without foreign body, left foot, initial encounter (principal); E66.9 Obesity, unspecified; J44.9 Chronic obstructive pulmonary disease, unspecified; I12.9 Hypertensive chronic kidney disease with stage 1 through stage 4 chronic kidney disease, or unspecified chronic kidney disease; E11.22 Type 2 diabetes mellitus with diabetic chronic kidney disease; N18.30 Chronic kidney disease, stage 3 unspecified; X58.XXXA Exposure to other specified factors, initial encounter; Z87.891 Personal history of nicotine dependence; Z79.01 Long term (current) use of anticoagulants; Z79.82 Long term (current) use of aspirin; Z79.899 Other long term (current) drug therapy; Z79.84 Long term (current) use of oral hypoglycemic drugs
CPT/HCPCS: 90471; 90715; 99283

== ENCOUNTER → 2020-08-31 15:11 | Outpatient (CLI) | payer MEDICARE, SELFPAY ==
[2020-08-26 16:24] VITALS: BMI 35.2
[2020-08-31 15:46] LABS: International Normalized Ratio 2.9; Prothrombin Time (Protime)PT. 29.5 SECONDS (11.7-14.9)
== END ==
PROVIDERS: PCP Family Medicine; Referring Provider Family Medicine; Visit Provider Family Medicine
DX: D68.59 Other primary thrombophilia (principal); Z79.01 Long term (current) use of anticoagulants
CPT/HCPCS: 85610

== ENCOUNTER 2020-09-09 15:45 | Emergency (ER) | payer MEDICARE, SELFPAY ==
[2020-09-09 15:46] VITALS: BP 149/89; PULSE 107; RESP 16; TEMP 36.7; O2SAT 97; BMI 35.2
[2020-09-09 16:28] LABS: Absolute Lymphocyte Count 1.96 X10^3/uL (0.83-4.51); Basophil# 0.04 X10^3/uL; Basophil% 0.6 % (0-1); Eosinophil# 0.23 X10^3/uL; Eosinophils% 3.3 % (0-5); Hematocrit 48.9 % (37-47); Hemoglobin 15.1 g/dL (12.0-15.0); Lymphocyte # 1.96 X10^3/ul (0.83-4.51); Lymphocyte % 27.8 % (19-41); Mean Corp Hgb Conc 30.9 g/dL (32-36); Mean Corpuscular Hgb 25.7 pg (27.0-32.0); Mean Corpuscular Volume 83.2 fL (81-99); Mean Platelet Vol. 9.7 fl (6.2-12.0); Monocyte% 11.4 % (0-10); NRBC Flagged by Analyzer 0 % (0-5); Neutrophil % 56.8 % (47-70); Platelet Count 258 K/mm3 (150-450); RBC Distribution Width CV 15.3 % (11.6-14.6); RBC Distribution Width SD 46.5 fl (35.1-43.9); Red Blood Count 5.88 M/mm3 (4.2-5.4)
--- NOTE | 2020-09-09 16:32 | EDS_ITS ---
HPI History of Present Illness Chief Complaint: Wound Informant: patient Onset/Context/Timing Onset: Weeks (1) Context: Gradual Onset Timing: Continuous Quality: sore, red Location: right lower leg Current Severity: Moderate Maximum Severity: Moderate Worsened by: walking Relieved by: rest Associated Symptoms Associated Symptoms: none Narrative Narrative: Patient states she has had 2 wounds on both of her shins for a long time, she occasionally picks at the scab and the right one subsequently started getting red around it and progressing over the past week. It is sore. She is a diabetic and states her blood sugars were little high today at 125. She denies any fevers, chills, or other systemic symptoms that are new. She does state that for the past month her right upper extremity has been achy throughout it. She denies any chest pain or shortness of breath or symptoms that worsen with exertion. She states that she recently has been resting with her arm on her head or chin for a long period of time each time, and it makes her arm ache worse when she does that. [facility] Medical History (Updated 09/09/20 @ 17:[address] Jensen Mora MD) Anxiety COPD (chronic obstructive pulmonary disease) Coronary artery disease Depression Diabetes Former smoker Hypertension Kidney disease Stroke/cerebrovascular accident Home Medications B-complex with vitamin C [Super B Complex-Vitamin C] 1 tab PO DAILY 06/05/18 [History Last Taken 06/04/18] aspirin 81 mg PO DAILY@0800 06/05/18 [History Last Taken 06/04/18] carvedilol [Coreg] 12.5 mg PO BID 06/05/18 [History Last Taken 06/04/18] coenzyme Q10 [Co Q-10] 100 mg PO DAILY 06/05/18 [History Last Taken 06/04/18] duloxetine 120 mg PO QHS 06/05/18 [History Last Taken 06/04/18] fenofibrate 54 mg PO DAILY 06/05/18 [History Last Taken 06/04/18] fluticasone propionate 1 spray NASAL DAILY 06/05/18 [History Last Taken 06/04/18] mirabegron [Myrbetriq] 25 mg PO DAILY 06/05/18 [History Last Taken 06/04/18] multivitamin [Multiple Vitamins] 1 tab PO DAILY 06/05/18 [History Last Taken 06/04/18] omeprazole 40 mg PO DAILY 06/05/18 [History Last Taken 06/04/18] guaifenesin [Mucus Relief ER] 1,200 mg PO BID #14 tablet 06/07/18 [Rx Last Taken Unknown] albuterol sulfate 2 puff INHALATION Q4H PRN PRN 08/17/20 [History Last Taken Unknown] amlodipine 5 mg PO DAILY 08/17/20 [History Last Taken Unknown] atorvastatin 40 mg PO QHS 08/17/20 [History Last Taken Unknown] cetirizine 10 mg PO DAILY 08/17/20 [History Last Taken Unknown] enoxaparin 40 mg SQ DAILY 08/17/20 [History Last Taken Unknown] fluticasone furoate-vilanterol 1 puff INHALATION DAILY 08/17/20 [History Last Taken Unknown] metformin 1,000 mg PO BID 08/17/20 [History Last Taken Unknown] warfarin 4.5 mg PO DAILY 08/17/20 [History Last Taken 09/08/20] cephalexin 500 mg PO Q6 #40 capsule 09/09/20 [Rx Last Taken Unknown] Allergy/AdvReac Type Severity Reaction Status Date / Time No Known Allergies Allergy Verified 09/09/20 15:46 Social History Smoking Status: Former smoker ROS ROS ED Constitutional Constitutional ED: Denies chills or fever(s) Eyes Eyes: Denies change in vision or diplopia ENT ENT ED: Denies rhinorrhea or sore throat Cardiovascular Cardiovascular: Denies chest pain or palpitations Respiratory/Chest Respiratory/Chest: Denies cough or dyspnea Gastrointestinal Gastrointestinal: Denies abdominal pain, diarrhea, nausea or vomiting Genitourinary Genitourinary ED: Denies dysuria or hematuria Musculoskeletal Musculoskeletal: Reports extremity pain; Denies back pain or neck pain Integumentary Reports rash; Denies abscess Neurologic Neurologic: Denies headache(s), paresthesias or weakness Psychiatric Psychiatric: Denies anxiety or suicidal thoughts EXAM Physical Exam Const Vital Signs: 09/09/20 15:46 Temperature 98.1 F Temperature Source Temporal Pulse Rate 107 H Respiratory Rate 16 Blood Pressure 149/89 H Blood Pressure Mean 109 Pulse Ox 97 Oxygen Delivery Method Room Air Positive well nourished and well developed General Appearance ED: well developed and NAD HEENT Reports moist mucous membranes normocephalic and atraumatic Eyes PERRL and EOMs intact bilaterally Neck full ROM and supple Resp normal respiratory effort and clear to auscultation bilaterally Cardio regular rate, regular rhythm and no murmurs GI non-tender and non-distended Auscultation: normoactive bowel sounds Palpation: soft Back/Spine no CVA tenderness General Back: other FROM Extremity normal to inspection Extremity Narrative: Tender right lower leg around wound that appears to be infected. No abscess. Full range of motion all joints. General Extremety ED: Yes tenderness; Negative for edema or pulses abnormal General Extremity: Negative for edema or pulses abnormal Neuro oriented x3, CN's II-XII intact bilaterally and no sensory deficits noted Sensorium / Orientation: awake and alert Motor Exam: strength 5/5 throughout Psych mental status grossly normal and thought process normal Skin no wounds Rashes: rashes noted Cellulitis Narrative: Tender erythema surrounding and most dense at a scabbed superficial 1 cm diameter wound proximal ureña; cellulitis extends distally toward ankle but not all the way, and feathers/lightens as it goes distal. No lymphangitis. Right lower leg erythematous dry and flat indistinct mild MDM MDM MDM Narrative Medical decision making narrative: Patient does not have a leukocytosis and clinically does not look septic. I do not think she needs further work-up at this time, there is no palpable subcutaneous emphysema, this is clearly appears to be focused around the small ulcerated scabbed wound on her proximal ureña and seems to be spreading distally consistent with cellulitis. She was given a dose of empiric IV Unasyn, and will be prescribed cephalexin to use at home, this is not consistent with MRSA. We discussed reasons to return, she will follow-up and is comfortable with this plan. General wound care recommended for her wound. Lab Data Attestation: I reviewed the patient's lab results. Labs: Laboratory Results - last 24 hr 09/09/20 09/09/20 16:20 16:20 WBC 7.0 RBC 5.88 H Hgb 15.1 H Hct 48.9 H MCV 83.2 MCH 25.7 L MCHC 30.9 L RDW Std Deviation 46.5 H RDW Coeff of Cami 15.3 H Plt Count 258 MPV 9.7 Immature Gran % (Auto) 0.100 Neut % (Auto) 56.8 Lymph % (Auto) 27.8 Bond % (Auto) 11.4 H Eos % (Auto) 3.3 Baso % (Auto) 0.6 Absolute Neuts (auto) 4.0 Absolute Lymphs (auto) 1.96 Nucleated RBC % 0 Sodium 141 Potassium 3.9 Chloride 109 H Carbon Dioxide 25.0 Anion Gap 7 BUN 17 Creatinine 0.96 Estim Creat Clear Calc 52.84 Est GFR (MDRD) Af Amer 76 Est GFR (MDRD) Non-Af 63 BUN/Creatinine Ratio 17.7 Glucose 120 H Calcium 9.8 Discharge Plan Triage Chief Complaint: Wound ED Provider: Jensen Mora Dx/Rx/DC Orders Clinical Impression: Cellulitis of leg, right Instructions: ED Cellulitis Prescriptions: New cephalexin 500 mg capsule 500 mg PO Q6 Qty: 40 RF: 0 No Action multivitamin [Multiple Vitamins] 1 EACH tablet 1 tab PO DAILY RF: 0 carvedilol [Coreg] 12.5 MG tablet 12.5 mg PO BID RF: 0 omeprazole 40 MG capsule,delayed release(DR/EC) 40 mg PO DAILY RF: 0 aspirin 81 MG tablet,chewable 81 mg PO DAILY@0800 RF: 0 fluticasone propionate 1 SPRAY spray,suspension 1 spray NASAL DAILY RF: 0 B-complex with vitamin C [Super B Complex-Vitamin C] 1 EACH tablet 1 tab PO DAILY RF: 0 coenzyme Q10 [Co Q-10] 100 MG capsule 100 mg PO DAILY RF: 0 duloxetine 60 MG capsule,delayed release(DR/EC) 120 mg PO QHS RF: 0 fenofibrate 54 MG tablet 54 mg PO DAILY RF: 0 mirabegron [Myrbetriq] 25 MG tablet extended release 24 hr 25 mg PO DAILY RF: 0 guaifenesin [Mucus Relief ER] 1,200 MG tablet 1,200 mg PO BID Qty: 14 RF: 0 atorvastatin 40 MG tablet 40 mg PO QHS RF: 0 cetirizine 10 MG tablet 10 mg PO DAILY RF: 0 amlodipine 5 MG tablet 5 mg PO DAILY RF: 0 warfarin 4 MG tablet 4.5 mg PO DAILY RF: 0 metformin 500 MG tablet extended release 24 hr 1,000 mg PO BID RF: 0 enoxaparin 40 MG/0.4 ML syringe 40 mg SQ DAILY RF: 0 fluticasone furoate-vilanterol 1 EACH blister with device 1 puff INHALATION DAILY RF: 0 albuterol sulfate 1 INHALER inhaler 2 puff INHALATION Q4H PRN PRN (Reason: Shortness Of Breath) RF: 0 Primary Care Provider: Cipriano Jones Referrals: Cipriano Jones MD [Primary Care Provider] - 3-5 Days if not improving Disposition Disposition: Home, self care
[2020-09-09 16:40] LABS: Anion Gap 7 (5-15); BUN 17 mg/dL (7-18); BUN/Creat Ratio 17.7 RATIO (10-20); Calcium,Total 9.8 mg/dL (8.5-10.1); Chloride 109 mmol/L (98-107); Creatinine, Serum 0.96 mg/dL (0.55-1.02); EST Glomerular Filtration Rate 63 mL/min (>60); Est Glom Filt Rate - Afr Amer 76 mL/min (>60); Estimated Creatinine Clearance 52.84 ml/min; Glucose 120 mg/dL (74-106); Potassium 3.9 mmol/L (3.5-5.1); Sodium Level 141 mmol/L (136-145)
[2020-09-09 17:33] VITALS: BP 148/85; PULSE 98; RESP 16
== END 2020-09-09 17:35 | disposition home or self-care (01) ==
PROVIDERS: Emergency Provider Emergency Medicine; PCP Family Medicine
DX: L03.115 Cellulitis of right lower limb (principal); I25.10 Atherosclerotic heart disease of native coronary artery without angina pectoris; Z87.891 Personal history of nicotine dependence
CPT/HCPCS: 80048; 85025; 96365; 99283; A4216; J0295

== ENCOUNTER → 2020-09-28 14:59 | Outpatient (CLI) | payer MEDICARE, SELFPAY ==
[2020-09-09 15:46] VITALS: BMI 35.2
[2020-09-28 15:27] LABS: International Normalized Ratio 2.3; Prothrombin Time (Protime)PT. 24.2 SECONDS (11.7-14.9)
== END ==
PROVIDERS: PCP Family Medicine; Visit Provider Family Medicine
DX: D68.59 Other primary thrombophilia (principal); Z79.01 Long term (current) use of anticoagulants
CPT/HCPCS: 85610

== ENCOUNTER → 2020-10-31 15:26 | Outpatient (CLI) | payer MEDICARE, SELFPAY ==
[2020-10-31 18:16] LABS: Prothrombin Time (Protime)PT. 44.6 SECONDS (11.7-14.9)
[2020-10-31 18:17] LABS: International Normalized Ratio 4.9
== END ==
PROVIDERS: PCP Family Medicine; Referring Provider Family Medicine; Visit Provider Family Medicine
DX: D68.59 Other primary thrombophilia (principal); Z79.01 Long term (current) use of anticoagulants
CPT/HCPCS: 85610

== ENCOUNTER → 2020-11-08 14:58 | Outpatient (CLI) | payer MEDICARE, SELFPAY ==
[2020-11-08 15:33] LABS: International Normalized Ratio 2.8
== END ==
PROVIDERS: PCP Family Medicine; Referring Provider Family Medicine; Visit Provider Family Medicine
DX: D68.59 Other primary thrombophilia (principal); Z79.01 Long term (current) use of anticoagulants
CPT/HCPCS: 85610

== ENCOUNTER → 2020-11-14 14:59 | Outpatient (CLI) | payer MEDICARE, SELFPAY ==
[2020-11-14 15:27] LABS: International Normalized Ratio 2.5; Prothrombin Time (Protime)PT. 25.8 SECONDS (11.7-14.9)
== END ==
PROVIDERS: PCP Family Medicine; Referring Provider Family Medicine; Visit Provider Family Medicine
DX: D68.59 Other primary thrombophilia (principal); Z79.01 Long term (current) use of anticoagulants
CPT/HCPCS: 85610

== ENCOUNTER → 2020-11-28 15:06 | Outpatient (CLI) | payer MEDICARE, SELFPAY ==
[2020-11-28 15:28] LABS: International Normalized Ratio 3.2; Prothrombin Time (Protime)PT. 32.1 SECONDS (11.7-14.9)
== END ==
PROVIDERS: PCP Family Medicine; Visit Provider Family Medicine
DX: D68.59 Other primary thrombophilia (principal); Z79.01 Long term (current) use of anticoagulants
CPT/HCPCS: 85610

== ENCOUNTER → 2020-12-06 15:07 | Outpatient (CLI) | payer MEDICARE, SELFPAY ==
[2020-12-06 15:33] LABS: International Normalized Ratio 2.1; Prothrombin Time (Protime)PT. 22.5 SECONDS (11.7-14.9)
== END ==
PROVIDERS: PCP Family Medicine; Referring Provider Family Medicine; Visit Provider Family Medicine
DX: D68.59 Other primary thrombophilia (principal); Z79.01 Long term (current) use of anticoagulants
CPT/HCPCS: 85610

== ENCOUNTER → 2020-12-25 | Outpatient (CLI) | payer MEDICARE, SELFPAY ==
[2020-12-25 15:19] LABS: International Normalized Ratio 3.2; Prothrombin Time (Protime)PT. 31.8 SECONDS (11.7-14.9)
== END | disposition home or self-care (01) ==
LOC: LABSPEC 14:58
PROVIDERS: PCP Family Medicine; Visit Provider Family Medicine
DX: D68.59 Other primary thrombophilia (principal); Z79.01 Long term (current) use of anticoagulants
CPT/HCPCS: 85610

== ENCOUNTER → 2021-01-09 15:09 | Outpatient (CLI) | payer MEDICARE, SELFPAY ==
[2021-01-09 15:31] LABS: International Normalized Ratio 3.1; Prothrombin Time (Protime)PT. 31.5 SECONDS (11.7-14.9)
== END ==
PROVIDERS: PCP Family Medicine; Referring Provider Family Medicine; Visit Provider Family Medicine
DX: D68.59 Other primary thrombophilia (principal); Z79.01 Long term (current) use of anticoagulants
CPT/HCPCS: 85610

== ENCOUNTER → 2021-01-20 09:00 | Outpatient (CLI) | payer MEDICARE, SELFPAY ==
[2021-01-19 16:23] LABS: Prothrombin Time (Protime)PT. 30.1 SECONDS (11.7-14.9)
== END ==
PROVIDERS: PCP Family Medicine; Referring Provider Family Medicine; Visit Provider Family Medicine
DX: D68.59 Other primary thrombophilia (principal); Z79.01 Long term (current) use of anticoagulants
CPT/HCPCS: 85610

== ENCOUNTER → 2021-02-12 15:15 | Outpatient (CLI) | payer MEDICARE, SELFPAY ==
[2021-02-12 15:57] LABS: International Normalized Ratio 2.6; Prothrombin Time (Protime)PT. 27.4 SECONDS (11.7-14.9)
== END ==
PROVIDERS: PCP Family Medicine; Referring Provider Family Medicine; Visit Provider Family Medicine
DX: D68.59 Other primary thrombophilia (principal); Z79.01 Long term (current) use of anticoagulants
CPT/HCPCS: 85610

== ENCOUNTER → 2021-03-16 14:58 | Outpatient (CLI) | payer MEDICARE, SELFPAY ==
[2021-03-16 15:20] LABS: International Normalized Ratio 2.6; Prothrombin Time (Protime)PT. 27.3 SECONDS (11.7-14.9)
== END ==
PROVIDERS: PCP Family Medicine; Visit Provider Family Medicine
DX: D68.59 Other primary thrombophilia (principal); Z79.01 Long term (current) use of anticoagulants
CPT/HCPCS: 85610

== ENCOUNTER 2021-04-30 11:51 | Emergency (ER) | payer MEDICARE, SELFPAY ==
[2021-04-30 11:52] VITALS: BP 104/64; PULSE 90; RESP 18; TEMP 36.6; O2SAT 90; BMI 37.2
--- NOTE | 2021-04-30 13:10 | RAD_ITS ---
STUDY: X-RAY CHEST REASON FOR EXAM: Female, 60 years old. cough TECHNIQUE: Single AP portable view of the chest. COMPARISON: 08/17/2020 FINDINGS: Patchy alveolar opacities in lung bases consistent with bibasilar pneumonia. There is no demonstrated pleural abnormality. Normal size heart. Normal mediastinum and kathleen. Normal visualized pulmonary arteries. Normal visualized aortic arch and descending thoracic aorta. Normal visualized thoracic spine. Normal visualized ribs, clavicles, and shoulders. There is no demonstrated abnormality of the visualized soft tissue structures of the upper abdomen. RAD/Chest 1 View (Portable) IMPRESSION: Bibasilar pneumonia. Electronically Signed: Kian Borges MD at 13:29 EST Tel , Service support ,
--- NOTE | 2021-04-30 13:10 | RAD_ITS ---
STUDY: X-RAY - RIGHT SHOULDER REASON FOR EXAM: Female, 60 years old. fall TECHNIQUE: 2 view(s) of the shoulder. COMPARISON: None. FINDINGS: Normal glenohumeral articulation. Normal acromioclavicular joint. Normal acromion. Normal humeral head and visualized proximal humerus. The soft tissue structures are unremarkable. Normal visualized pulmonary apex. RAD/Shoulder min 2 Views IMPRESSION: Normal x-ray examination of the shoulder. Electronically Signed: Kian Borges MD at 13:28 EST Tel , Service support ,
[2021-04-30 13:29] LABS: Color, Urine Yellow (Yellow); Glucose, Dipstick Normal (Normal); Ketone-Dipstick 5 mg/dl (Negative); Leukocyte Esterase-Dipstick 500 /ul (Negative); Nitrite-Dipstick Negative (Negative); Occult Blood-Urine Negative /ul (Negative); Protein-Dipstick 30 mg/dl (Negative); Urine Clarity Sl. Cloudy (Clear); Urine Urobilinogen Normal (Normal)
[2021-04-30 13:30] LABS: Urine Bilirubin Dipstick 1 mg/dL (Negative)
[2021-04-30 13:36] LABS: Bacteria 1+ /hpf (None Seen); Hyaline Cast 0-5 SEEN /lpf (0-5); Mucous, Urine RARE /hpf (<or=2+); Red Blood Cells-Urine 0-5 SEEN /hpf (0-5); Squamous Epithelial Cells - UA 0-5 SEEN /hpf (5-10); White Blood Cells 10-25 SEEN /hpf (0-5)
--- NOTE | 2021-04-30 14:38 | ED.VIS.FALL ---
HPI HPI - Fall History of Present Illness Chief Complaint: Fall Narrative Narrative: Patient presenting for evaluation secondary to multiple complaints. First off patient states that she suffered a mechanical fall over a baby gate. She reports that this happened a couple of days ago, she fell onto her right shoulder, and she is having continuous pain. Pain seems to be mainly worse with range of motion, not necessarily worse with palpation. She denies hitting her head or loss of consciousness. Is not any sort of anticoagulants. Patient additionally states that she has been dealing with some burning on urination think she may have a urinary tract infection. She denies any flank pain. She denies any hematuria. Additionally patient states she has been dealing with a cough and some generalized fatigue. She reports that has been going on over the course of maybe the last 2 weeks. Review of systems otherwise negative. [facility] Medical History Anxiety COPD (chronic obstructive pulmonary disease) Coronary artery disease Depression Diabetes Former smoker Hypertension Kidney disease Stroke/cerebrovascular accident Home Medications B-complex with vitamin C [Super B Complex-Vitamin C] 1 tab PO DAILY 06/05/18 [History Last Taken 06/04/18] aspirin 81 mg PO DAILY@0800 06/05/18 [History Last Taken 06/04/18] carvedilol [Coreg] 12.5 mg PO BID 06/05/18 [History Last Taken 06/04/18] coenzyme Q10 [Co Q-10] 100 mg PO DAILY 06/05/18 [History Last Taken 06/04/18] duloxetine 120 mg PO QHS 06/05/18 [History Last Taken 06/04/18] fenofibrate 54 mg PO DAILY 06/05/18 [History Last Taken 06/04/18] fluticasone propionate 1 spray NASAL DAILY 06/05/18 [History Last Taken 06/04/18] mirabegron [Myrbetriq] 25 mg PO DAILY 06/05/18 [History Last Taken 06/04/18] multivitamin [Multiple Vitamins] 1 tab PO DAILY 06/05/18 [History Last Taken 06/04/18] omeprazole 40 mg PO DAILY 06/05/18 [History Last Taken 06/04/18] guaifenesin [Mucus Relief ER] 1,200 mg PO BID #14 tablet 06/07/18 [Rx Last Taken Unknown] albuterol sulfate 2 puff INHALATION Q4H PRN PRN 08/17/20 [History Last Taken Unknown] amlodipine 5 mg PO DAILY 08/17/20 [History Last Taken Unknown] atorvastatin 40 mg PO QHS 08/17/20 [History Last Taken Unknown] cetirizine 10 mg PO DAILY 08/17/20 [History Last Taken Unknown] enoxaparin 40 mg SQ DAILY 08/17/20 [History Last Taken Unknown] fluticasone furoate-vilanterol 1 puff INHALATION DAILY 08/17/20 [History Last Taken Unknown] metformin 1,000 mg PO BID 08/17/20 [History Last Taken Unknown] warfarin 4.5 mg PO DAILY 08/17/20 [History Last Taken 09/08/20] cephalexin 500 mg PO Q6 #40 capsule 09/09/20 [Rx Last Taken Unknown] cephalexin 500 mg PO Q12 #14 capsule 04/30/21 [Rx Last Taken Unknown] Allergy/AdvReac Type Severity Reaction Status Date / Time No Known Allergies Allergy Verified 04/30/21 11:55 Social History Smoking Status: Former smoker ROS ROS ED Constitutional Constitutional ED: Reports other Details: Fatigue ENT ENT ED: Denies rhinorrhea Cardiovascular Cardiovascular: Denies chest pain Respiratory/Chest Respiratory/Chest: Reports cough Gastrointestinal Gastrointestinal: Denies abdominal pain, diarrhea, nausea or vomiting Genitourinary Genitourinary ED: Reports dysuria Musculoskeletal Musculoskeletal: Reports other Details: Shoulder pain Integumentary Denies rash Neurologic Neurologic: Denies paresthesias or weakness Psychiatric Psychiatric: Denies depression Endocrine Endocrinology: Denies fatigue Allergic/Immunologic Allergic/Immunologic ED: Denies urticaria EXAM Physical Exam Const Vital Signs: 04/30/21 11:52 04/30/21 12:34 Temperature 98 F Temperature Source Temporal Pulse Rate 90 Respiratory Rate 18 Respiratory Effort Normal Non-Labored Respiratory Depth Normal Respiratory Pattern Normal Blood Pressure 104/64 Blood Pressure Mean 77 Pulse Ox 90 Oxygen Delivery Method Room Air Room Air Positive well nourished and well developed General Appearance ED: well developed and NAD HEENT Reports moist mucous membranes Negative for trauma or tenderness Eyes EOMs intact bilaterally Neck no lymphadenopathy, supple and no JVD Chest Wall inspection of chest normal Resp normal respiratory effort and clear to auscultation bilaterally Cardio regular rate, regular rhythm, no murmurs and peripheral pulses 2+ throughout GI normal to inspection, nondistended, normoactive bowel sounds, non-tender and no masses Palpation: soft Back/Spine normal to inspection Extremity normal to inspection Extremity Narrative: Normal range of motion of the right shoulder, minimal pain on range of motion. No signs of deformity. Normal distal sensation and pulses. General Extremety ED: Negative for tenderness Neuro oriented x3 and no sensory deficits noted Sensorium / Orientation: alert Motor Exam: strength 5/5 throughout Psych mental status grossly normal Skin no rashes or lesions noted MDM MDM MDM Narrative Medical decision making narrative: Patient presented for evaluation secondary to a fall, dysuria, and a cough. Chest x-ray was obtained by my personal review as well as radiology demonstrates bibasilar infiltrates. Coronavirus testing was added and was noted to be positive. Shoulder x-ray by my personal interpretation as well as radiology is noted to be negative. Urinalysis was positive for infection. Patient has had Covid symptoms for greater than 2 weeks, does not have hypoxia and is not generally ill appearing. I do not believe that she requires inpatient management. Patient does have a UTI that I believe can be treated with a course of Keflex. She was given reassurance about her mechanical fall and injuries. Patient was discharged Lab Data Labs: Laboratory Results - last 24 hr 04/30/21 13:25 Urine Color Yellow Urine Clarity Sl. Cloudy Urine pH 5.0 Ur Specific [place] 1.020 Urine Protein 30 H Urine Glucose (UA) Normal Urine Ketones 5 H Urine Occult Blood Negative Urine Nitrite Negative Urine Bilirubin 1 H Urine Urobilinogen Normal Ur Leukocyte Esterase 500 H Urine RBC 0-5 SEEN Urine WBC 10-25 SEEN Ur Squamous Epith Cells 0-5 SEEN Urine Bacteria 1+ Hyaline Casts 0-5 SEEN Urine Mucus RARE Radiography Diagnostic Testing: Clinical Impression(s) from Imaging Studies Chest X-Ray 04/30/21 13:10 IMPRESSION: Bibasilar pneumonia. Electronically Signed: Kian Borges MD at 13:29 EST Tel , Service support , Shoulder X-Ray 04/30/21 13:10 IMPRESSION: Normal x-ray examination of the shoulder. Electronically Signed: Kian Borges MD at 13:28 EST Tel , Service support , Discharge Plan Triage Chief Complaint: Fall ED Provider: Сергей Martin Dx/Rx/DC Orders Clinical Impression: Contusion of right shoulder, COVID-19, Urinary tract infection Instructions: Coronavirus Disease 2019 (COVID-19): Caring for Yourself or Others, ED CYSTITIS Female Adult Prescriptions: New cephalexin 500 mg capsule 500 mg PO Q12 Qty: 14 RF: 0 No Action multivitamin [Multiple Vitamins] 1 EACH tablet 1 tab PO DAILY RF: 0 carvedilol [Coreg] 12.5 MG tablet 12.5 mg PO BID RF: 0 omeprazole 40 MG capsule,delayed release(DR/EC) 40 mg PO DAILY RF: 0 aspirin 81 MG tablet,chewable 81 mg PO DAILY@0800 RF: 0 fluticasone propionate 1 SPRAY spray,suspension 1 spray NASAL DAILY RF: 0 B-complex with vitamin C [Super B Complex-Vitamin C] 1 EACH tablet 1 tab PO DAILY RF: 0 coenzyme Q10 [Co Q-10] 100 MG capsule 100 mg PO DAILY RF: 0 duloxetine 60 MG capsule,delayed release(DR/EC) 120 mg PO QHS RF: 0 fenofibrate 54 MG tablet 54 mg PO DAILY RF: 0 mirabegron [Myrbetriq] 25 MG tablet extended release 24 hr 25 mg PO DAILY RF: 0 guaifenesin [Mucus Relief ER] 1,200 MG tablet 1,200 mg PO BID Qty: 14 RF: 0 atorvastatin 40 MG tablet 40 mg PO QHS RF: 0 cetirizine 10 MG tablet 10 mg PO DAILY RF: 0 amlodipine 5 MG tablet 5 mg PO DAILY RF: 0 warfarin 4 MG tablet 4.5 mg PO DAILY RF: 0 metformin 500 MG tablet extended release 24 hr 1,000 mg PO BID RF: 0 enoxaparin 40 MG/0.4 ML syringe 40 mg SQ DAILY RF: 0 fluticasone furoate-vilanterol 1 EACH blister with device 1 puff INHALATION DAILY RF: 0 albuterol sulfate 1 INHALER inhaler 2 puff INHALATION Q4H PRN PRN (Reason: Shortness Of Breath) RF: 0 cephalexin 500 mg capsule 500 mg PO Q6 Qty: 40 RF: 0 Primary Care Provider: Cipriano Jones Referrals: Cipriano Jones MD [Primary Care Provider] - 5-7 Days Disposition Disposition: Home, Self Care
[2021-04-30] MEDS: Cephalexin 250 MG Capsule 500 MG PO (15:00)
== END 2021-04-30 15:08 | disposition home or self-care (01) ==
PROVIDERS: Emergency Provider Emergency Medicine; PCP Family Medicine
DX: S40.011A Contusion of right shoulder, initial encounter (principal); U07.1 COVID-19; N39.0 Urinary tract infection, site not specified; I25.10 Atherosclerotic heart disease of native coronary artery without angina pectoris; Z87.891 Personal history of nicotine dependence; W19.XXXA Unspecified fall, initial encounter
CPT/HCPCS: 71045; 73030; 81001; 87426; 99283

== ENCOUNTER 2021-05-04 04:47 | Inpatient (IN) | payer MEDICARE, SELFPAY ==
[2021-05-04] VITALS (50 sets, daily range): BP systolic 73–210; BP diastolic 47–117; PULSE 74–150; RESP 14–40; TEMP 36.4–40; O2SAT 42–99; BMI 33.6; BMI 33.0
--- NOTE | 2021-05-04 04:59 | CT_ITS ---
EXAM: CT ANGIOGRAPHY CHEST WITHOUT AND WITH INTRAVENOUS CONTRAST : 1960 CLINICAL INDICATION: pulmonary embolism COVID 19 TECHNIQUE: Helically acquired angiography images were obtained of the chest without and with intravenous contrast. This CT exam was performed using one or more of the following dose reduction techniques: automated exposure control, adjustment of the mA and/or kV according to patient size, and/or use of iterative reconstruction technique. This report was created using [employer] report generation technology. MIP reconstructed images were created and reviewed. CONTRAST: IV 100mL [id number] COMPARISON: None. FINDINGS: PULMONARY ARTERIES: Unremarkable. Normal in caliber. No evidence of pulmonary embolism. AORTA: Unremarkable. Normal in caliber. No evidence of dissection. GREAT VESSELS OF AORTIC ARCH: Unremarkable. Normal in caliber. No evidence of dissection. LUNGS AND PLEURAL SPACES: Patchy multilobar pulmonary infiltrates, with peripheral groundglass opacities. Moderate emphysematous changes predominantly in the upper lobes. No mass. No pleural effusion or thickening. No pneumothorax. HEART: Mild cardiomegaly. No pericardial effusion. No signs of right heart strain, ratio of right ventricle to left ventricle measures less than 1. MEDIASTINUM: Unremarkable. No mediastinal or hilar adenopathy. Esophagus is unremarkable. No hiatal hernia. THYROID: Unremarkable. No thyroid lesions. BONES/JOINTS: Degenerative changes of the spine. No suspicious lytic or blastic abnormality. TUBES, LINES AND DEVICES: Endotracheal and enteric tubes in place. CT/CTA Chest W/WO Contrast IMPRESSION: 1. Patchy multilobar pulmonary infiltrates, with peripheral groundglass opacities. Findings are consistent with pneumonia, with typical features of COVID 19 infection. 2. No evidence of pulmonary embolism. 3. Moderate emphysematous changes predominantly in the upper lobes. Individualized dose optimization techniques were used for this CT. at 0741 Reported and signed by: Tucker Jamison MD Electronically Signed: Tucker Jamison MD at 7:40 EST Tel , Service support ,
--- NOTE | 2021-05-04 04:59 | EKG12_ITS ---
Test Reason : DYSRHYTHMIA Blood Pressure : / mmHG Vent. Rate : 150 BPM Atrial Rate : 150 BPM P-R Int : 118 ms QRS Dur : 072 ms QT Int : 266 ms P-R-T Axes : 053 067 057 degrees QTc Int : 420 ms Sinus tachycardia Otherwise normal ECG Confirmed by DAVID HDZ, JEANNA ([id number]), associate editor SCOT MOORE ([id number]) on 05/08/2021 9:35:27 AM Referred By: Confirmed By:JEANNA HERNANDEZ MD
--- NOTE | 2021-05-04 05:03 | EX.ED.DYSGE1 ---
HPI History of Present Illness Chief Complaint: General Illness Informant: patient and EMS Narrative Narrative: 60-year-old female presenting to the emergency department via EMS with a chief complaint of whole body pain. EMS notes that they were called by family patient states that she hurts all over. He states that her pulse oximeter was reading around 50% and that she would not leave oxygen on. The patient appears encephalopathic. I see that the patient was in the emergency room about 4 days ago and diagnosed with Covid and a UTI. At that time she was noting Covid symptoms for about 2 weeks. PFSH PFS Medical History Anxiety COPD (chronic obstructive pulmonary disease) Coronary artery disease Depression Diabetes Former smoker Hypertension Kidney disease Stroke/cerebrovascular accident Home Medications B-complex with vitamin C [Super B Complex-Vitamin C] 1 tab PO DAILY 06/05/18 [History Last Taken 06/04/18] aspirin 81 mg PO DAILY@0800 06/05/18 [History Last Taken 06/04/18] carvedilol [Coreg] 12.5 mg PO BID 06/05/18 [History Last Taken 06/04/18] coenzyme Q10 [Co Q-10] 100 mg PO DAILY 06/05/18 [History Last Taken 06/04/18] duloxetine 120 mg PO QHS 06/05/18 [History Last Taken 06/04/18] fenofibrate 54 mg PO DAILY 06/05/18 [History Last Taken 06/04/18] fluticasone propionate 1 spray NASAL DAILY 06/05/18 [History Last Taken 06/04/18] mirabegron [Myrbetriq] 25 mg PO DAILY 06/05/18 [History Last Taken 06/04/18] multivitamin [Multiple Vitamins] 1 tab PO DAILY 06/05/18 [History Last Taken 06/04/18] omeprazole 40 mg PO DAILY 06/05/18 [History Last Taken 06/04/18] guaifenesin [Mucus Relief ER] 1,200 mg PO BID #14 tablet 06/07/18 [Rx Last Taken Unknown] albuterol sulfate 2 puff INHALATION Q4H PRN PRN 08/17/20 [History Last Taken Unknown] amlodipine 5 mg PO DAILY 08/17/20 [History Last Taken Unknown] atorvastatin 40 mg PO QHS 08/17/20 [History Last Taken Unknown] cetirizine 10 mg PO DAILY 08/17/20 [History Last Taken Unknown] enoxaparin 40 mg SQ DAILY 08/17/20 [History Last Taken Unknown] fluticasone furoate-vilanterol 1 puff INHALATION DAILY 08/17/20 [History Last Taken Unknown] metformin 1,000 mg PO BID 08/17/20 [History Last Taken Unknown] warfarin 4.5 mg PO DAILY 08/17/20 [History Last Taken 09/08/20] cephalexin 500 mg PO Q6 #40 capsule 09/09/20 [Rx Last Taken Unknown] cephalexin 500 mg PO Q12 #14 capsule 04/30/21 [Rx Last Taken Unknown] Allergy/AdvReac Type Severity Reaction Status Date / Time No Known Allergies Allergy Verified 05/04/21 05:01 Social History (Updated 05/04/21 @ 05:[address] Alexy Muhammad, DO) Smoking Status: Current every day smoker ROS ROS ED Review of Systems ROS Unobtainable: due to mental status EXAM Physical Exam Const Vital Signs: 05/04/21 04:50 05/04/21 05:02 05/04/21 05:19 Temperature 97.7 F L Temperature Source Temporal Pulse Rate 128 H 114 H Respiratory Rate 29 H 40 H 40 H Respiratory Effort Short of Breath Respiratory Pattern Tachypnea Blood Pressure 150/76 H 126/87 H Blood Pressure Mean 100 100 Pulse Ox 42 88 78 Oxygen Delivery Method Room Air Non-Rebreather Non-Rebreather Oxygen Flow Rate (L/min) 15 15 Fraction of Inspired Oxygen (FIO2) 05/04/21 05:25 05/04/21 05:29 05/04/21 05:37 Temperature 101 F H Temperature Source Core Pulse Rate 140 H 131 H 148 H Respiratory Rate 14 16 16 Respiratory Effort Respiratory Pattern Normal Blood Pressure 201/108 H 210/117 H Blood Pressure Mean 139 148 Pulse Ox 86 81 87 Oxygen Delivery Method Mechanical Ventilator Mechanical Ventilator Oxygen Flow Rate (L/min) Fraction of Inspired Oxygen (FIO2) 100 05/04/21 05:50 05/04/21 06:00 05/04/21 06:03 Temperature Temperature Source Pulse Rate 150 H 149 H Respiratory Rate 16 18 Respiratory Effort Respiratory Pattern Blood Pressure 187/116 H 167/86 H Blood Pressure Mean 139 113 Pulse Ox 86 87 88 Oxygen Delivery Method Mechanical Ventilator Mechanical Ventilator Oxygen Flow Rate (L/min) Fraction of Inspired Oxygen (FIO2) 100 Positive well nourished, well developed and obese General Appearance ED: well developed Nutritional Appearance: obese HEENT Reports normocephalic, head/scalp atraumatic, TM's clear and moist mucous membranes Negative for trauma Tympanic Membrane ED: Yes TM's clear Eyes PERRL and EOMs intact bilaterally Neck no lymphadenopathy, supple and no JVD Resp clear to auscultation bilaterally Resp Narrative: Patient is tachypneic Cardio regular rate and no murmurs Rate: tachycardic GI normal to inspection, nondistended, normoactive bowel sounds and non-tender Palpation: soft Back/Spine no CVA tenderness and normal ROM Extremity normal to inspection General Extremety ED: Negative for edema General Extremity: Negative for edema Neuro CN's II-XII intact bilaterally Sensorium / Orientation: alert Motor Exam: strength 5/5 throughout Psych mental status grossly normal Mood & Affect: Negative for depressed or tearful Skin no rashes or lesions noted and no wounds MDM MDM MDM Narrative Medical decision making narrative: Patient is cursing at staff fighting staff removing oxygen and resisting IV. We were able to convince her to put a nonrebreather mask on. Unfortunately even on a nonrebreather patient is 70% with a good waveform. I informed the patient that she either needs to have BiPAP or be intubated. The patient tried BiPAP for approximately 2 seconds and then took the mask off. Patient was moved to resuscitation room where she underwent RSI using etomidate and rocuronium. An 8-0 endotracheal tube was passed on the first attempt and secured into place. Equal breath sounds bilateral with good color change. An OG was placed by this physician. My interpretation of the plain films after intubation was adequate placement of the endotracheal tube and OG tube with bilateral multifocal areas of infiltrate. Patient received Decadron 500 cc fluid bolus and was sedated using propofol and fentanyl. Tylenol for fever. Patient was taken to CT to rule out pulmonary embolism. Results of this are currently pending. The patient on the ventilator is still 83 to 85%. I spoke with our director of business services Dr. Looney and our hospitalist Dr. Olvera and the patient will be admitted to the ICU. Lab Data Attestation: I reviewed the patient's lab results. Labs: Laboratory Results - last 24 hr 05/04/21 05/04/21 05/04/21 05:06 05:06 05:06 WBC 7.4 RBC 5.82 H Hgb 13.4 Hct 44.0 MCV 75.6 L MCH 23.0 L MCHC 30.5 L RDW Std Deviation 48.3 H RDW Coeff of Cami 18.7 H Plt Count 259 MPV 10.6 Immature Gran % (Auto) 0.500 Neut % (Auto) 81.4 H Lymph % (Auto) 14.6 L [place] % (Auto) 3.4 Eos % (Auto) 0.0 Baso % (Auto) 0.1 Absolute Neuts (auto) 6.0 Absolute Lymphs (auto) 1.08 Nucleated RBC % 0 Differential Comment SCANNED PT 16.8 H INR 1.4 APTT 34.7 Fibrinogen 534 H D-Dimer Quant (PE/DVT) 0.92 H* Sodium 137 Potassium 3.9 Chloride 104 Carbon Dioxide 24.0 Anion Gap 9 BUN 26 H Creatinine 0.94 Estim Creat Clear Calc 53.31 Est GFR (MDRD) Af Amer 79 Est GFR (MDRD) Non-Af 65 BUN/Creatinine Ratio 27.7 H Glucose 116 H Lactic Acid Calcium 9.1 Total Bilirubin 0.30 AST 88 H ALT 34 Alkaline Phosphatase 157 H Lactate Dehydrogenase 856 H Total Creatine Kinase 123 Troponin I High Sens 25 C-React Prot Ext Range 76.20 H B-Natriuretic Peptide Total Protein 7.1 Albumin 2.6 L Globulin 4.5 H Albumin/Globulin Ratio 0.6 L Procalcitonin Urine Color Urine Clarity Urine pH Ur Specific [place] Urine Protein Urine Glucose (UA) Urine Ketones Urine Occult Blood Urine Nitrite Urine Bilirubin Urine Urobilinogen Ur Leukocyte Esterase Urine RBC Urine WBC Ur Squamous Epith Cells Urine Bacteria Urine Mucus 05/04/21 05/04/21 05/04/21 05:06 05:11 05:31 WBC RBC Hgb Hct MCV MCH MCHC RDW Std Deviation RDW Coeff of Cami Plt Count MPV Immature Gran % (Auto) Neut % (Auto) Lymph % (Auto) [place] % (Auto) Eos % (Auto) Baso % (Auto) Absolute Neuts (auto) Absolute Lymphs (auto) Nucleated RBC % Differential Comment PT INR APTT Fibrinogen D-Dimer Quant (PE/DVT) Sodium Potassium Chloride Carbon Dioxide Anion Gap BUN Creatinine Estim Creat Clear Calc Est GFR (MDRD) Af Amer Est GFR (MDRD) Non-Af BUN/Creatinine Ratio Glucose Lactic Acid 2.1 H* Calcium Total Bilirubin AST ALT Alkaline Phosphatase Lactate Dehydrogenase Total Creatine Kinase Troponin I High Sens C-React Prot Ext Range B-Natriuretic Peptide 49.5 Total Protein Albumin Globulin Albumin/Globulin Ratio Procalcitonin Urine Color Yellow Urine Clarity Clear Urine pH 5.0 Ur Specific [place] 1.015 Urine Protein 30 H Urine Glucose (UA) Normal Urine Ketones Negative Urine Occult Blood 10 H Urine Nitrite Negative Urine Bilirubin Negative Urine Urobilinogen 1 H Ur Leukocyte Esterase Negative Urine RBC 0-5 SEEN Urine WBC 0-5 SEEN Ur Squamous Epith Cells 0 SEEN Urine Bacteria 1+ Urine Mucus 0 SEEN 05/04/21 05:33 WBC RBC Hgb Hct MCV MCH MCHC RDW Std Deviation RDW Coeff of Cami Plt Count MPV Immature Gran % (Auto) Neut % (Auto) Lymph % (Auto) [place] % (Auto) Eos % (Auto) Baso % (Auto) Absolute Neuts (auto) Absolute Lymphs (auto) Nucleated RBC % Differential Comment PT INR APTT Fibrinogen D-Dimer Quant (PE/DVT) Sodium Potassium Chloride Carbon Dioxide Anion Gap BUN Creatinine Estim Creat Clear Calc Est GFR (MDRD) Af Amer Est GFR (MDRD) Non-Af BUN/Creatinine Ratio Glucose Lactic Acid Calcium Total Bilirubin AST ALT Alkaline Phosphatase Lactate Dehydrogenase Total Creatine Kinase Troponin I High Sens C-React Prot Ext Range B-Natriuretic Peptide Total Protein Albumin Globulin Albumin/Globulin Ratio Procalcitonin 0.43 H Urine Color Urine Clarity Urine pH Ur Specific [place] Urine Protein Urine Glucose (UA) Urine Ketones Urine Occult Blood Urine Nitrite Urine Bilirubin Urine Urobilinogen Ur Leukocyte Esterase Urine RBC Urine WBC Ur Squamous Epith Cells Urine Bacteria Urine Mucus ABG Data ABG results: ABG 05/04/21 06:12 Specimen Type ART Sample Site L Radial pH 7.25 L Bicarbonate Actual 22.1 Total CO2 24 Base Excess -5 L O2 Saturation 88 L O2 % 100 ABG pCO2 50.6 H ABG pO2 64 L Earnest Test Positive O2 Delivery Device ET Tube Vent Mode AC Radiography Diagnostic Testing: Clinical Impression(s) from Imaging Studies Chest X-Ray 05/04/21 05:45 IMPRESSION: 1. Endotracheal tube with tip 3 cm above the anika. 2. Worsening bilateral pulmonary infiltrates especially in the lower lobes. Findings consistent with pneumonia. at 0616 Reported and signed by: Tucker Jamison MD Electronically Signed: Tucker Jamison MD at 6:16 EST Tel , Service support , EKG Initial EKG: Attestation: I personally reviewed and interpreted this EKG as follows: Comments: Sinus tachycardia with a ventricular rate of 150 bpm. Critical Care Time Critical Care Time: Yes Critical care time (excluding procedures): 30-74 minutes ( minutes), Including time spent:, Discussing w/Patient &/or Family/Storeroom Keeper, Discussing w/Consultants, Arranging Admission or Transfer and Performing Direct Patient Care at Bedside Discharge Plan Dx/Rx/DC Orders Clinical Impression: COVID-19, COPD, Hypertension, Type 2 diabetes mellitus, Acute hypoxemic respiratory failure due to COVID-19, Subtherapeutic international normalized ratio (INR), Encephalopathy due to 2019-nCoV Disposition Disposition: Acute Care Hospital [facility]
[2021-05-04 05:12] LABS: Absolute Lymphocyte Count 1.08 X10^3/uL (0.83-4.51); Basophil# 0.01 X10^3/uL; Basophil% 0.1 % (0-1); Hemoglobin 13.4 g/dL (12.0-15.0); Lymphocyte # 1.08 X10^3/ul (0.83-4.51); Lymphocyte % 14.6 % (19-41); Mean Corp Hgb Conc 30.5 g/dL (32-36); Mean Corpuscular Volume 75.6 fL (81-99); Mean Platelet Vol. 10.6 fl (6.2-12.0); Monocyte# 0.25 X10^3/uL; Monocyte% 3.4 % (0-10); NRBC Flagged by Analyzer 0 % (0-5); Neutrophil # 6.03 X10^3/uL (2.7-7.7); Neutrophil % 81.4 % (47-70); POSITIVE MORPHOLOGY YES; Platelet Count 259 K/mm3 (150-450); RBC Distribution Width CV 18.7 % (11.6-14.6); RBC Distribution Width SD 48.3 fl (35.1-43.9); Red Blood Count 5.82 M/mm3 (4.2-5.4); White Blood Count 7.4 K/mm3 (4.4-11.0)
--- NOTE | 2021-05-04 05:12 | ED.RN ---
PATIENT RESTLESS/DELIRIOUS AND RIPPING BIPAP MASK OFF. PATIENT OXYGEN SATURATION MID 80'S ON NON-REBREATHER. PATIENT MADE AWARE OF RISKS OF TAKING BIPAP MASK OFF. NEW ORDERS PLACED.
[2021-05-04 05:13] LABS: Differential Indicated SCAN CRITERIA MET
[2021-05-04] MEDS: Etomidate 20 MG/10 ML Vial IV (05:18)
[2021-05-04] MEDS: Rocuronium Bromide 50 MG/5 ML Vial 52 MG IV (05:19)
[2021-05-04 05:21] LABS: International Normalized Ratio 1.4; Prothrombin Time (Protime)PT. 16.8 SECONDS (11.7-14.9)
[2021-05-04 05:22] LABS: Fibrinogen 534 mg/dl (203-444); Partial Thromboplast Time 34.7 Seconds (24.1-36.2)
[2021-05-04 05:25] LABS: Differential Comment SCANNED
[2021-05-04 05:35] LABS: BNP,B-Type NATRIURETIC PEPTIDE 49.5 pg/mL (0-100); D-Dimer Quantitative (DVT/PE) 0.92 FEU/ug/m (0.27-0.49)
[2021-05-04 05:38] LABS: ALB/GLOB Ratio 0.6 RATIO (0.9-2.4); AST(SGOT) 88 U/L (15-37); Alanine Aminotransfer ALT/SGPT 34 U/L (13-56); Albumin, Serum 2.6 g/dL (3.2-5.0); Alkaline Phosphatase 157 U/L (45-117); Anion Gap 9 (5-15); BUN 26 mg/dL (7-18); BUN/Creat Ratio 27.7 RATIO (10-20); CPK Total, Creatine Kinase 123 U/L (26-192); Calcium,Total 9.1 mg/dL (8.5-10.1); Chloride 104 mmol/L (98-107); Creatinine, Serum 0.94 mg/dL (0.55-1.02); EST Glomerular Filtration Rate 65 mL/min (>60); Est Glom Filt Rate - Afr Amer 79 mL/min (>60); Estimated Creatinine Clearance 53.31 ml/min; Globulin 4.5 g/dL (2.2-4.2); Glucose 116 mg/dL (74-106); LDH 856 U/L (84-246); Potassium 3.9 mmol/L (3.5-5.1); Protein, Total 7.1 g/dL (6.4-8.2); Sodium Level 137 mmol/L (136-145); Troponin-I HS 25 pg/mL (3.0-54.0)
[2021-05-04] MEDS: Propofol 10MG/Ml 1,000 MG/100 ML Bottle 5.2 MG CONT INF (05:38)
[2021-05-04] MEDS: Acetaminophen 650 MG Suppository RC (05:44)
--- NOTE | 2021-05-04 05:45 | RAD_ITS ---
EXAM: XR CHEST, 1 VIEW : 1960 CLINICAL INDICATION: tube placement TECHNIQUE: Frontal view of the chest. This report was created using [employer] report generation technology. COMPARISON: 04/30/21 FINDINGS: LUNGS AND PLEURAL SPACES: Worsening bilateral pulmonary infiltrates especially in the lower lobes. No pneumothorax. No effusion. HEART: Unremarkable. Cardiac silhouette not enlarged. MEDIASTINUM: Central airways and mediastinal contour are unremarkable. BONES/JOINTS: Unremarkable. SOFT TISSUES: Unremarkable. TUBES, LINES AND DEVICES: Endotracheal tube with tip 3 cm above the anika. Enteric tube extending below the level of the GE junction into the stomach. RAD/Chest 1 View (Portable) IMPRESSION: 1. Endotracheal tube with tip 3 cm above the anika. 2. Worsening bilateral pulmonary infiltrates especially in the lower lobes. Findings consistent with pneumonia. at 0616 Reported and signed by: Tucker Jamison MD Electronically Signed: Tucker Jamison MD at 6:16 EST Tel , Service support ,
[2021-05-04 05:53] LABS: Lactic Acid 2.1 mmol/L (0.4-1.9)
[2021-05-04 05:57] LABS: Mucous, Urine 0 SEEN /hpf (<or=2+); Squamous Epithelial Cells - UA 0 SEEN /hpf (5-10)
[2021-05-04 06:01] LABS: Color, Urine Yellow (Yellow); Glucose, Dipstick Normal (Normal); Ketone-Dipstick Negative (Negative); Leukocyte Esterase-Dipstick Negative /ul (Negative); Nitrite-Dipstick Negative (Negative); Occult Blood-Urine 10 /ul (Negative); Protein-Dipstick 30 mg/dl (Negative); Specific Gravity, Urine 1.015 (1.002-1.030); Urine Bilirubin Dipstick Negative (Negative); Urine Clarity Clear (Clear); Urine Urobilinogen 1 mg/dl (Normal)
[2021-05-04 06:07] LABS: Bacteria 1+ /hpf (None Seen); Red Blood Cells-Urine 0-5 SEEN /hpf (0-5); White Blood Cells 0-5 SEEN /hpf (0-5)
[2021-05-04 06:14] LABS: Procalcitonin 0.43 ng/mL (0.00-0.09)
[2021-05-04 06:16] LABS: Allen Test Positive; Base Excess -5 mmol/L (-2 to +2); Bicarbonate 22.1 mmol/L (22-26); Blood Gas Specimen Type ART; FI02 100; Mode AC; O2 Delivery Device ET Tube; PO2 64 mmHG (75-100); SITE L Radial; SO2 88 % (95-99); Total Carbon Dioxide 24 mmol/L; pCO2 50.6 mmHg (35-45); pH 7.25 (7.35-7.45)
[2021-05-04] MEDS: fentaNYL 100 MCG/2 ML Ampul IV (06:23)
--- NOTE | 2021-05-04 06:55 | RAD_ITS ---
EXAM: XR ABDOMEN, 1 VIEW : 1960 CLINICAL INDICATION: NG Insertion TECHNIQUE: Frontal supine view of the abdomen/pelvis. This report was created using [employer] report generation technology. COMPARISON: None. FINDINGS: LOWER THORAX: Bilateral lower lobe infiltrates. GASTROINTESTINAL TRACT: Unremarkable. Non-obstructive. No bowel or stomach distention. ORGANS: Unremarkable as visualized. No organomegaly. No abnormal calcifications. BONES/JOINTS: No acute pathology. SOFT TISSUES: No acute pathology. TUBES, LINES AND DEVICES: Enteric tube with tip in the body of the stomach. RAD/Abdomen Single View (Portable) IMPRESSION: Enteric tube with tip in the body of the stomach. at 0732 Reported and signed by: Tucker Jamison MD Electronically Signed: Tucker Jamison MD at 7:32 EST Tel , Service support ,
--- NOTE | 2021-05-04 06:58 | NURSING ---
DR SANDOVAL IN ER
--- NOTE | 2021-05-04 07:00 | NURSING ---
ICU JAIME NASSAR, ACUTE HYPOXEMIC RESP FAILURE
--- NOTE | 2021-05-04 07:14 | HP.PCM.HOS_ITS ---
HPI - General General Date of Admission: 05/04/21 Chief Complaint: hypoxia HPI Narrative JANNETH TSANG, is a 60 F who presents presents to the emergency room with chief complaint of diffuse myalgias. EMS was called to the patient's home where she had a pulse ox reading around 50%. Patient was very encephalopathic as well and does not leaving oxygen on. Patient was sent to the emergency room and was emergently intubated. Patient previously was in the emergency room about 4 days prior diagnosed with a urinary tract affection as well as COVID-19. Apparently patient was having Covid type symptoms for about 2 weeks prior. I was informed by the emergency room physician that she was unvaccinated. There is no family present at bedside. [facility] Medical History Anxiety COPD (chronic obstructive pulmonary disease) Coronary artery disease Depression Diabetes Former smoker Hypertension Kidney disease Stroke/cerebrovascular accident Home Medications B-complex with vitamin C [Super B Complex-Vitamin C] 1 tab PO DAILY 06/05/18 [History Last Taken 06/04/18] aspirin 81 mg PO DAILY@0800 06/05/18 [History Last Taken 06/04/18] carvedilol [Coreg] 12.5 mg PO BID 06/05/18 [History Last Taken 06/04/18] coenzyme Q10 [Co Q-10] 100 mg PO DAILY 06/05/18 [History Last Taken 06/04/18] duloxetine 120 mg PO QHS 06/05/18 [History Last Taken 06/04/18] fenofibrate 54 mg PO DAILY 06/05/18 [History Last Taken 06/04/18] fluticasone propionate 1 spray NASAL DAILY 06/05/18 [History Last Taken 06/04/18] mirabegron [Myrbetriq] 25 mg PO DAILY 06/05/18 [History Last Taken 06/04/18] multivitamin [Multiple Vitamins] 1 tab PO DAILY 06/05/18 [History Last Taken 06/04/18] omeprazole 40 mg PO DAILY 06/05/18 [History Last Taken 06/04/18] guaifenesin [Mucus Relief ER] 1,200 mg PO BID #14 tablet 06/07/18 [Rx Last Taken Unknown] albuterol sulfate 2 puff INHALATION Q4H PRN PRN 08/17/20 [History Last Taken Unknown] amlodipine 5 mg PO DAILY 08/17/20 [History Last Taken Unknown] atorvastatin 40 mg PO QHS 08/17/20 [History Last Taken Unknown] cetirizine 10 mg PO DAILY 08/17/20 [History Last Taken Unknown] enoxaparin 40 mg SQ DAILY 08/17/20 [History Last Taken Unknown] fluticasone furoate-vilanterol 1 puff INHALATION DAILY 08/17/20 [History Last Taken Unknown] metformin 1,000 mg PO BID 08/17/20 [History Last Taken Unknown] warfarin 4.5 mg PO DAILY 08/17/20 [History Last Taken 09/08/20] cephalexin 500 mg PO Q6 #40 capsule 09/09/20 [Rx Last Taken Unknown] cephalexin 500 mg PO Q12 #14 capsule 04/30/21 [Rx Last Taken Unknown] Allergy/AdvReac Type Severity Reaction Status Date / Time No Known Allergies Allergy Verified 05/04/21 05:01 unable to obtain unable to obtain Social History Smoking Status: Current every day smoker ROS Review of Systems ROS Unobtainable: due to endotracheal tube Vital Signs Vital Signs Vital Signs: 05/04/21 04:50 05/04/21 05:02 05/04/21 05:19 Temperature 36.5 C L Temperature Source Temporal Pulse Rate 128 H 114 H Respiratory Rate 29 H 40 H 40 H Respiratory Effort Short of Breath Respiratory Pattern Tachypnea Blood Pressure 150/76 H 126/87 H Blood Pressure Mean 100 100 Pulse Ox 42 88 78 Oxygen Delivery Method Room Air Non-Rebreather Non-Rebreather Oxygen Flow Rate (L/min) 15 15 Fraction of Inspired Oxygen (FIO2) 05/04/21 05:25 05/04/21 05:29 05/04/21 05:37 Temperature 38.3 C H Temperature Source Core Pulse Rate 140 H 131 H 148 H Respiratory Rate 14 16 16 Respiratory Effort Respiratory Pattern Normal Blood Pressure 201/108 H 210/117 H Blood Pressure Mean 139 148 Pulse Ox 86 81 87 Oxygen Delivery Method Mechanical Ventilator Mechanical Ventilator Oxygen Flow Rate (L/min) Fraction of Inspired Oxygen (FIO2) 100 05/04/21 05:50 05/04/21 06:00 05/04/21 06:03 Temperature Temperature Source Pulse Rate 150 H 149 H Respiratory Rate 16 18 Respiratory Effort Respiratory Pattern Blood Pressure 187/116 H 167/86 H Blood Pressure Mean 139 113 Pulse Ox 86 87 88 Oxygen Delivery Method Mechanical Ventilator Mechanical Ventilator Oxygen Flow Rate (L/min) Fraction of Inspired Oxygen (FIO2) 100 05/04/21 06:37 05/04/21 07:04 Temperature 39.4 C H 39.3 C H Temperature Source Core Core Pulse Rate 126 H 126 H Respiratory Rate 27 H 33 H Respiratory Effort Respiratory Pattern Blood Pressure 128/94 H 101/57 L Blood Pressure Mean 105 71 Pulse Ox 85 88 Oxygen Delivery Method Mechanical Ventilator Mechanical Ventilator Oxygen Flow Rate (L/min) Fraction of Inspired Oxygen (FIO2) Weight Weight: 86.1 kg Body Mass Index (BMI) 33.6 Physical Exam Const Constitutional Narrative: Intubated and sedated. HEENT HEENT Narrative: ET tube and OG tube in place Eyes Eyes Narrative: Slight proptosis Neck no lymphadenopathy Resp Resp Narrative: Coarse breath sounds bilaterally Cardio Cardio Narrative: Tachycardic but regular. GI normal to inspection, nondistended, normoactive bowel sounds, soft to palpation, non-tender and non-distended GI Narrative: Obese Extremity normal to inspection and no clubbing, cyanosis or edema Skin no rashes or lesions noted and no wounds Results Lab / Micro Data Attestation: I reviewed the patient's lab results. Result Diagrams: 05/04/21 05:06 05/04/21 05:06 Labs: Laboratory Results - last 24 hr 05/04/21 05:06: WBC 7.4, RBC 5.82 H, Hgb 13.4, Hct 44.0, MCV 75.6 L, MCH 23.0 L, MCHC 30.5 L, RDW Std Deviation 48.3 H, RDW Coeff of Cami 18.7 H, Plt Count 259, MPV 10.6, Immature Gran % (Auto) 0.500, Neut % (Auto) 81.4 H, Lymph % (Auto) 14.6 L, [place] % (Auto) 3.4, Eos % (Auto) 0.0, Baso % (Auto) 0.1, Absolute Neuts (auto) 6.0, Absolute Lymphs (auto) 1.08, Nucleated RBC % 0, Differential Comment SCANNED 05/04/21 05:06: PT 16.8 H, INR 1.4, APTT 34.7, Fibrinogen 534 H, D-Dimer Quant (PE/DVT) 0.92 H* 05/04/21 05:06: Sodium 137, Potassium 3.9, Chloride 104, Carbon Dioxide 24.0, Anion Gap 9, BUN 26 H, Creatinine 0.94, Estim Creat Clear Calc 53.31, Est GFR (MDRD) Af Amer 79, Est GFR (MDRD) Non-Af 65, BUN/Creatinine Ratio 27.7 H, Glucose 116 H, Calcium 9.1, Total Bilirubin 0.30, AST 88 H, ALT 34, Alkaline Phosphatase 157 H, Lactate Dehydrogenase 856 H, Total Creatine Kinase 123, Troponin I High Sens 25, C-React Prot Ext Range 76.20 H, Total Protein 7.1, Albumin 2.6 L, Globulin 4.5 H, Albumin/Globulin Ratio 0.6 L 05/04/21 05:06: B-Natriuretic Peptide 49.5 05/04/21 05:11: Lactic Acid 2.1 H* 05/04/21 05:31: Urine Color Yellow, Urine Clarity Clear, Urine pH 5.0, Ur Specific [place] 1.015, Urine Protein 30 H, Urine Glucose (UA) Normal, Urine Ketones Negative, Urine Occult Blood 10 H, Urine Nitrite Negative, Urine Bilirubin Negative, Urine Urobilinogen 1 H, Ur Leukocyte Esterase Negative, Urine RBC 0-5 SEEN, Urine WBC 0-5 SEEN, Ur Squamous Epith Cells 0 SEEN, Urine Ba cteria 1+, Urine Mucus 0 SEEN 05/04/21 05:33: Procalcitonin 0.43 H ABG Data ABG results: ABG 05/04/21 06:12 Specimen Type ART Sample Site L Radial pH 7.25 L Bicarbonate Actual 22.1 Total CO2 24 Base Excess -5 L O2 Saturation 88 L O2 % 100 ABG pCO2 50.6 H ABG pO2 64 L Earnest Test Positive O2 Delivery Device ET Tube Vent Mode AC Radiology Impression Chest X-Ray 05/04/21 05:45 IMPRESSION: 1. Endotracheal tube with tip 3 cm above the anika. 2. Worsening bilateral pulmonary infiltrates especially in the lower lobes. Findings consistent with pneumonia. at 0616 Reported and signed by: Tucker Jamison MD Electronically Signed: Tucker Jamison MD at 6:16 EST Tel , Service support , CTA of the chest personally reviewed is final report currently pending at the time of this dictation that showed diffuse bilateral dense infiltrates primarily in the bases. No pneumothorax nor any pneumomediastinum. Assessment & Plan Assessment/Plan (1) Encephalopathy due to 2019-nCoV: (2) Subtherapeutic international normalized ratio (INR): (3) Acute hypoxemic respiratory failure due to COVID-19: (4) COVID-19: PLAN: 1. Acute hypoxic and hypercapnic respiratory failure Secondary to COVID-19 pneumonia plus COPD. Waiting on final interpretation of the CT of the chest We will check patient for bacterial pneumonia Intubated on Pulmonary consult Pulmonary toilet 2. Acute COVID-19 pneumonia Reportedly unvaccinated though this has not been verified yet. This would make sense though given her delayed presentation. Apparently the onset was around the 10th Patient has received dexamethasone in emergency room and will continue on floor. Patient is out of the window for remdesivir Consult infectious disease to see if she be a candidate for baricitinib 3. Metabolic encephalopathy Likely due to hypercapnia but also hypoxia 4. Abnormal urinalysis Not indicative of a urinary tract infection and therefore urinary tract infection ruled out 5. Atrial fibrillation Subtherapeutic INR 1.4 Fully anticoagulated with weight-based enoxaparin Continue with carvedilol 6. Diabetes mellitus type 2 Anticipate worsening glycemic control with dexamethasone Sliding scale insulin Hold Metformin 7. VTE prophylaxis: Not indicated as patient is anticoagulated. Charges/Coding Visit Charges Inpatient E&M: 86957 Init Hosp L3
--- NOTE | 2021-05-04 07:15 | NURSING ---
ICU 7
--- NOTE | 2021-05-04 08:20 | RAD_ITS ---
History: Pneumonia EXAMINATION/TECHNIQUE: XR Chest 1 View: Portable COMPARISON: May 04, 2021 FINDINGS: LINES/DEVICES: Endotracheal and endogastric tubes remain in satisfactory position. LUNGS: There space opacification of both lungs not significantly changed. No pneumothorax. MEDIASTINUM AND CARDIOVASCULAR STRUCTURES: Cardiac silhouette not enlarged. Central airways and mediastinal contour are unremarkable. BONES AND SOFT TISSUES: Unremarkable. RAD/Chest 1 View (Portable) IMPRESSION: Stable bilateral pneumonia. Satisfactory intubation. at 0918 Reported and signed by: Alphonso Shoemaker MD Electronically Signed: Alphonso Shoemaker MD at 9:17 EST Tel , Service support ,
[2021-05-04 09:16] LABS: Reflex Lactate? Y
[2021-05-04 10:01] LABS: Allen Test Positive; Base Excess -5 mmol/L (-2 to +2); Bicarbonate 21.3 mmol/L (22-26); Blood Gas Specimen Type ART; FI02 100; Mode AC; O2 Delivery Device Adult Vent; PEEP 18; PO2 70 mmHG (75-100); RR 16; SITE R Radial; SO2 92 % (95-99); Total Carbon Dioxide 23 mmol/L; Vt 400; pCO2 43.8 mmHg (35-45)
--- NOTE | 2021-05-04 10:20 | EX.PCM.CONCC ---
Assessment & Plan Assessment/Plan (1) Acute hypoxemic respiratory failure due to COVID-19: (2) Subtherapeutic international normalized ratio (INR): (3) Encephalopathy due to 2019-nCoV: (4) Type 2 diabetes mellitus: (5) History of blood clot: (6) COPD: PLAN: RECOMMENDATIONS: 1. Continue Decadron to complete a 10-day course 2. Wean PEEP/FiO2 as tolerated 3. Diuresis as necessary to maintain euvolemia 4. Initiate empiric antibiotics/baricitinib if okay with infectious disease 5. Agree with transition to full dose Lovenox 6. Blood sugar checks with probable Lantus IMPRESSIONS: 1. Acute combined respiratory failure secondary to ARDS secondary to COVID-19 in the setting of COPD Patient with extensive emphysematous changes noted on CT scan and a P to F ratio of less than 100. Patient does not appear to be significantly volume overloaded. Cannot exclude a secondary bacterial infection. Infectious disease has been consulted. Could consider empiric antibiotics given high fevers, especially patient is getting baricitinib. 2. Metabolic encephalopathy Patient with hypoxia and hypercarbia on presentation. Patient with very poor vent synchrony initially, so is receiving significant sedation. We will continue to monitor closely. Cannot rule out the need for paralysis to allow for vent synchrony. 3. Recent UTI/A. fib/subtherapeutic INR/nonvaccinated status/diabetes mellitus type 2 Complicates care, management, recovery and prognosis. Coumadin will be very difficult to control in the acute setting. Agree with transition to Lovenox. Will need to follow blood sugars closely. Anticipate need for sliding scale and Lantus forthcoming with the use of Decadron. Patient is currently rate controlled. TIME: 35 minutes critical care time spent addressing patient's ARDS, encephalopathy, A. fib, diabetes mellitus, review of all data and collaboration with care team HPI Consult Data Date of Consult: 05/04/21 HPI Narrative HPI Narrative: JANNETH TSANG is a 60 F, with past medical history listed below, who presents to [facility] on 05[facility]04[facility]2021 via EMS secondary to a chief complaint of whole body pain. Family had reported patient to be evaluated. EMS reported that her saturations were around 50% and she was encephalopathic placed patient reportedly had been in the ER 4 days prior with COVID and a UTI. Patient reportedly has had symptoms for 2 weeks. In the ER, patient was febrile to 101 ?F, tachycardic as high as 148 breaths/min and hypertensive at 210/117. Patient was unable to tolerate a nonrebreather after being noted to be 42% on room air. Patient was subsequently intubated and was noted to have saturations in the upper 80s despite 100% FiO2. Laboratory work-up showed a white blood cell count of 7.4, hemoglobin 13.4 and platelets of 259. D-dimer was slightly elevated 0.9 and INR was 1.4. Chemistries were relatively unremarkable except for an elevated alkaline phosphatase of 157, lactate dehydrogenase of 856 and a CRP of 76.2. Lactate was elevated at 2.1 and BNP was normal at 49.5. UA was unremarkable. Procalcitonin was 0.43. ABG on the ventilator showed a pH of 7.25. Chest x-ray showed bilateral pulmonary infiltrates. Patient arrived at the intensive care unit with very poor vent synchrony and coughing. Significant increase in sedation was effective, but PEEP had to be increased to 16 to achieve appropriate saturations. Patient reportedly is a smoker and unvaccinated, but no additional information could be obtained secondary to intubation and sedation. [facility] Medical History Anxiety COPD (chronic obstructive pulmonary disease) Coronary artery disease Depression Diabetes Former smoker Hypertension Kidney disease Stroke/cerebrovascular accident Home Medications B-complex with vitamin C [Super B Complex-Vitamin C] 1 tab PO DAILY 06/05/18 [History Last Taken 06/04/18] aspirin 81 mg PO DAILY@0800 06/05/18 [History Last Taken 06/04/18] carvedilol [Coreg] 12.5 mg PO BID 06/05/18 [History Last Taken 06/04/18] coenzyme Q10 [Co Q-10] 100 mg PO DAILY 06/05/18 [History Last Taken 06/04/18] duloxetine 120 mg PO QHS 06/05/18 [History Last Taken 06/04/18] fenofibrate 54 mg PO DAILY 06/05/18 [History Last Taken 06/04/18] fluticasone propionate 1 spray NASAL DAILY 06/05/18 [History Last Taken 06/04/18] mirabegron [Myrbetriq] 25 mg PO DAILY 06/05/18 [History Last Taken 06/04/18] multivitamin [Multiple Vitamins] 1 tab PO DAILY 06/05/18 [History Last Taken 06/04/18] omeprazole 40 mg PO DAILY 06/05/18 [History Last Taken 06/04/18] guaifenesin [Mucus Relief ER] 1,200 mg PO BID #14 tablet 06/07/18 [Rx Last Taken Unknown] albuterol sulfate 2 puff INHALATION Q4H PRN PRN 08/17/20 [History Last Taken Unknown] amlodipine 5 mg PO DAILY 08/17/20 [History Last Taken Unknown] atorvastatin 40 mg PO QHS 08/17/20 [History Last Taken Unknown] cetirizine 10 mg PO DAILY 08/17/20 [History Last Taken Unknown] enoxaparin 40 mg SQ DAILY 08/17/20 [History Last Taken Unknown] fluticasone furoate-vilanterol 1 puff INHALATION DAILY 08/17/20 [History Last Taken Unknown] metformin 1,000 mg PO BID 08/17/20 [History Last Taken Unknown] warfarin 4.5 mg PO DAILY 08/17/20 [History Last Taken 09/08/20] cephalexin 500 mg PO Q6 #40 capsule 09/09/20 [Rx Last Taken Unknown] cephalexin 500 mg PO Q12 #14 capsule 04/30/21 [Rx Last Taken Unknown] Allergy/AdvReac Type Severity Reaction Status Date / Time No Known Allergies Allergy Verified 05/04/21 05:01 Family History unable to obtain Surgical History unable to obtain Social History Smoking Status: Current every day smoker ROS Review of Systems ROS Unobtainable: due to encephalopathy and due to endotracheal tube Physical Exam Const Constitutional Narrative: Better synchrony with sedation. Not following commands General Appearance: intubated and patient mechanically ventilated Nutritional Appearance: obese HEENT Mouth: endotracheal tube in place and OG tube in place Eyes Eyes Narrative: Slight proptosis Neck no lymphadenopathy Chest inspection of chest normal Chest: symmetrical chest wall rise; Negative for crepitus Resp Auscultation: rhonchi throughout and diminished lung sounds; Negative for rales or wheezes Cardio regular rhythm, no murmurs, no rub and no gallops Rate: tachycardic GI normal to inspection, nondistended, normoactive bowel sounds, soft to palpation, non-tender and non-distended Extremity normal to inspection and no clubbing, cyanosis or edema Skin no rashes or lesions noted and no wounds Neuro Neuro Narrative: Intubated and sedated Lab / Micro Data Result Diagrams: 05/04/21 05:06 05/04/21 05:06 Labs: Laboratory Results - last 24 hr 05/04/21 05:06: WBC 7.4, RBC 5.82 H, Hgb 13.4, Hct 44.0, MCV 75.6 L, MCH 23.0 L, MCHC 30.5 L, RDW Std Deviation 48.3 H, RDW Coeff of Cami 18.7 H, Plt Count 259, MPV 10.6, Immature Gran % (Auto) 0.500, Neut % (Auto) 81.4 H, Lymph % (Auto) 14.6 L, [place] % (Auto) 3.4, Eos % (Auto) 0.0, Baso % (Auto) 0.1, Absolute Neuts (auto) 6.0, Absolute Lymphs (auto) 1.08, Nucleated RBC % 0, Differential Comment SCANNED 05/04/21 05:06: PT 16.8 H, INR 1.4, APTT 34.7, Fibrinogen 534 H, D-Dimer Quant (PE/DVT) 0.92 H* 05/04/21 05:06: Sodium 137, Potassium 3.9, Chloride 104, Carbon Dioxide 24.0, Anion Gap 9, BUN 26 H, Creatinine 0.94, Estim Creat Clear Calc 53.31, Est GFR (MDRD) Af Amer 79, Est GFR (MDRD) Non-Af 65, BUN/Creatinine Ratio 27.7 H, Glucose 116 H, Calcium 9.1, Total Bilirubin 0.30, AST 88 H, ALT 34, Alkaline Phosphatase 157 H, Lactate Dehydrogenase 856 H, Total Creatine Kinase 123, Troponin I High Sens 25, C-React Prot Ext Range 76.20 H, Total Protein 7.1, Albumin 2.6 L, Globulin 4.5 H, Albumin/Globulin Ratio 0.6 L 05/04/21 05:06: B-Natriuretic Peptide 49.5 05/04/21 05:11: Lactic Acid 2.1 H* 05/04/21 05:31: Urine Color Yellow, Urine Clarity Clear, Urine pH 5.0, Ur Specific [place] 1.015, Urine Protein 30 H, Urine Glucose (UA) Normal, Urine Ketones Negative, Urine Occult Blood 10 H, Urine Nitrite Negative, Urine Bilirubin Negative, Urine Urobilinogen 1 H, Ur Leukocyte Esterase Negative, Urine RBC 0-5 SEEN, Urine WBC 0-5 SEEN, Ur Squamous Epith Cells 0 SEEN, Urine Bacteria 1+, Urine Mucus 0 SEEN 05/04/21 05:33: Procalcitonin 0.43 H ABG Data ABG results: ABG 05/04/21 05/04/21 06:12 09:55 Specimen Type ART ART Sample Site L Radial R Radial pH 7.25 L 7.30 L Bicarbonate Actual 22.1 21.3 L Total CO2 24 23 Base Excess -5 L -5 L O2 Saturation 88 L 92 L O2 % 100 100 ABG pCO2 50.6 H 43.8 ABG pO2 64 L 70 L Earnest Test Positive Positive Respiration Rate 16 O2 Delivery Device ET Tube Adult Vent Vent Mode AC AC Tidal Volume 400 POC PEEP 18 Radiology Impression Chest CTA 05/04/21 04:59 IMPRESSION: 1. Patchy multilobar pulmonary infiltrates, with peripheral groundglass opacities. Findings are consistent with pneumonia, with typical features of COVID 19 infection. 2. No evidence of pulmonary embolism. 3. Moderate emphysematous changes predominantly in the upper lobes. Individualized dose optimization techniques were used for this CT. at 0741 Reported and signed by: Tucker Jamison MD Electronically Signed: Tucker Jamison MD at 7:40 EST Tel , Service support , Chest X-Ray 05/04/21 05:45 IMPRESSION: 1. Endotracheal tube with tip 3 cm above the anika. 2. Worsening bilateral pulmonary infiltrates especially in the lower lobes. Findings consistent with pneumonia. at 0616 Reported and signed by: Tucker Jamison MD Electronically Signed: Tucker Jamison MD at 6:16 EST Tel , Service support , KUB X-Ray 05/04/21 06:55 IMPRESSION: Enteric tube with tip in the body of the stomach. at 0732 Reported and signed by: Tucker Jamison MD Electronically Signed: Tucker Jamison MD at 7:32 EST Tel , Service support , Chest X-Ray 05/04/21 08:20 IMPRESSION: Stable bilateral pneumonia. Satisfactory intubation. at 0918 Reported and signed by: Alphonso Shoemaker MD Electronically Signed: Alphonso Shoemaker MD at 9:17 EST Tel , Service support , Charges/Coding Procedures Hospitalists Procedures: [id number]
--- NOTE | 2021-05-04 10:38 | CON.PCM.ID_ITS ---
Assessment & Plan Assessment/Plan (1) COVID-19: PLAN: COVID-19 pneumonia with respiratory failure in a patient with und erlying COPD. At this time we will continue low-dose dexamethasone 6 mg IV daily, will also initiate IL-6 antagonist given the severity of her presentation. On full dose low molecular weight heparin at this time. HPI Consult Data Date of Consult: 05/04/21 HPI Narrative HPI Narrative: JANNETH TSANG, is a 60 F who presents with progressive shortness of breath and was intubated shortly upon presentation to the emergency department. Patient is currently in the ICU on a ventilator sedated. Patient is COVID-19 positive. Patient has multiple comorbidities including history of tobacco abuse complicated by COPD, on chronic anticoagulant therapy for history of thromboembolic disease. Patient was started on low-dose dexamethasone and full dose low molecular weight heparin. Chest x-ray shows bilateral infiltrates. Apparently patient has not had COVID-19 vaccination. History is basically obtained through reviewing the chart. [facility] Medical History Anxiety COPD (chronic obstructive pulmonary disease) Coronary artery disease Depression Diabetes Former smoker Hypertension Kidney disease Stroke/cerebrovascular accident Home Medications B-complex with vitamin C [Super B Complex-Vitamin C] 1 tab PO DAILY 06/05/18 [History Last Taken 06/04/18] aspirin 81 mg PO DAILY@0800 06/05/18 [History Last Taken 06/04/18] carvedilol [Coreg] 12.5 mg PO BID 06/05/18 [History Last Taken 06/04/18] coenzyme Q10 [Co Q-10] 100 mg PO DAILY 06/05/18 [History Last Taken 06/04/18] duloxetine 120 mg PO QHS 06/05/18 [History Last Taken 06/04/18] fenofibrate 54 mg PO DAILY 06/05/18 [History Last Taken 06/04/18] fluticasone propionate 1 spray NASAL DAILY 06/05/18 [History Last Taken 06/04/18] mirabegron [Myrbetriq] 25 mg PO DAILY 06/05/18 [History Last Taken 06/04/18] multivitamin [Multiple Vitamins] 1 tab PO DAILY 06/05/18 [History Last Taken 06/04/18] omeprazole 40 mg PO DAILY 06/05/18 [History Last Taken 06/04/18] guaifenesin [Mucus Relief ER] 1,200 mg PO BID #14 tablet 06/07/18 [Rx Last Taken Unknown] albuterol sulfate 2 puff INHALATION Q4H PRN PRN 08/17/20 [History Last Taken Unknown] amlodipine 5 mg PO DAILY 08/17/20 [History Last Taken Unknown] atorvastatin 40 mg PO QHS 08/17/20 [History Last Taken Unknown] cetirizine 10 mg PO DAILY 08/17/20 [History Last Taken Unknown] enoxaparin 40 mg SQ DAILY 08/17/20 [History Last Taken Unknown] fluticasone furoate-vilanterol 1 puff INHALATION DAILY 08/17/20 [History Last Taken Unknown] metformin 1,000 mg PO BID 08/17/20 [History Last Taken Unknown] warfarin 4.5 mg PO DAILY 08/17/20 [History Last Taken 09/08/20] cephalexin 500 mg PO Q6 #40 capsule 09/09/20 [Rx Last Taken Unknown] cephalexin 500 mg PO Q12 #14 capsule 04/30/21 [Rx Last Taken Unknown] Allergy/AdvReac Type Severity Reaction Status Date / Time No Known Allergies Allergy Verified 05/04/21 05:01 Family History unable to obtain Surgical History unable to obtain Social History Smoking Status: Current every day smoker Physical Exam Narrative Patient sedated on the ventilator FiO2 100%. Orogastric tube in place to suction. Lungs are some scattered rhonchi heart exam S1-S2 abdomen soft nontender Lab / Micro Data Result Diagrams: 05/04/21 05:06 05/04/21 05:06 Labs: Laboratory Results - last 24 hr 05/04/21 05:06: WBC 7.4, RBC 5.82 H, Hgb 13.4, Hct 44.0, MCV 75.6 L, MCH 23.0 L, MCHC 30.5 L, RDW Std Deviation 48.3 H, RDW Coeff of Cami 18.7 H, Plt Count 259, MPV 10.6, Immature Gran % (Auto) 0.500, Neut % (Auto) 81.4 H, Lymph % (Auto) 14.6 L, [place] % (Auto) 3.4, Eos % (Auto) 0.0, Baso % (Auto) 0.1, Absolute Neuts (auto) 6.0, Absolute Lymphs (auto) 1.08, Nucleated RBC % 0, Differential Comment SCANNED 05/04/21 05:06: PT 16.8 H, INR 1.4, APTT 34.7, Fibrinogen 534 H, D-Dimer Quant (PE/DVT) 0.92 H* 05/04/21 05:06: Sodium 137, Potassium 3.9, Chloride 104, Carbon Dioxide 24.0, Anion Gap 9, BUN 26 H, Creatinine 0.94, Estim Creat Clear Calc 53.31, Est GFR (MDRD) Af Amer 79, Est GFR (MDRD) Non-Af 65, BUN/Creatinine Ratio 27.7 H, Glucose 116 H, Calcium 9.1, Total Bilirubin 0.30, AST 88 H, ALT 34, Alkaline Phosphatase 157 H, Lactate Dehydrogenase 856 H, Total Creatine Kinase 123, Troponin I High Sens 25, C-React Prot Ext Range 76.20 H, Total Protein 7.1, Albumin 2.6 L, Globulin 4.5 H, Albumin/Globulin Ratio 0.6 L 05/04/21 05:06: B-Natriuretic Peptide 49.5 05/04/21 05:11: Lactic Acid 2.1 H* 05/04/21 05:31: Urine Color Yellow, Urine Clarity Clear, Urine pH 5.0, Ur Spec ific [place] 1.015, Urine Protein 30 H, Urine Glucose (UA) Normal, Urine Ketones Negative, Urine Occult Blood 10 H, Urine Nitrite Negative, Urine Bilirubin Negative, Urine Urobilinogen 1 H, Ur Leukocyte Esterase Negative, Urine RBC 0-5 SEEN, Urine WBC 0-5 SEEN, Ur Squamous Epith Cells 0 SEEN, Urine Bacteria 1+, Urine Mucus 0 SEEN 05/04/21 05:33: Procalcitonin 0.43 H ABG Data ABG results: ABG 05/04/21 05/04/21 06:12 09:55 Specimen Type ART ART Sample Site L Radial R Radial pH 7.25 L 7.30 L Bicarbonate Actual 22.1 21.3 L Total CO2 24 23 Base Excess -5 L -5 L O2 Saturation 88 L 92 L O2 % 100 100 ABG pCO2 50.6 H 43.8 ABG pO2 64 L 70 L Earnest Test Positive Positive Respiration Rate 16 O2 Delivery Device ET Tube Adult Vent Vent Mode AC AC Tidal Volume 400 POC PEEP 18 Radiology Impression Chest CTA 05/04/21 04:59 IMPRESSION: 1. Patchy multilobar pulmonary infiltrates, with peripheral groundglass opacities. Findings are consistent with pneumonia, with typical features of COVID 19 infection. 2. No evidence of pulmonary embolism. 3. Moderate emphysematous changes predominantly in the upper lobes. Individualized dose optimization techniques were used for this CT. at 0741 Reported and signed by: Tucker Jamison MD Electronically Signed: Tucker Jamison MD at 7:40 EST Tel , Service support , Chest X-Ray 05/04/21 05:45 IMPRESSION: 1. Endotracheal tube with tip 3 cm above the anika. 2. Worsening bilateral pulmonary infiltrates especially in the lower lobes. Findings consistent with pneumonia. at 0616 Reported and signed by: Tucker Jamison MD Electronically Signed: Tucker Jamison MD at 6:16 EST Tel , Service support , KUB X-Ray 05/04/21 06:55 IMPRESSION: Enteric tube with tip in the body of the stomach. at 0732 Reported and signed by: Tucker Jamison MD Electronically Signed: Tucker Jamison MD at 7:32 EST Tel , Service support , Chest X-Ray 05/04/21 08:20 IMPRESSION: Stable bilateral pneumonia. Satisfactory intubation. at 0918 Reported and signed by: Alphonso Shoemaker MD Electronically Signed: Alphonso Shoemaker MD at 9:17 EST Tel , Service support ,
[2021-05-04] MEDS: Propofol 10MG/Ml 1,000 MG/100 ML Bottle 18.1 MG CONT INF ×4 (11:09→23:02)
[2021-05-04] MEDS: Chlorhexidine 15 ML PO ×2 (11:41→21:01)
[2021-05-04] MEDS: Enoxaparin 100 MG/ML Syringe 90 MG SC ×2 (11:41→21:01)
[2021-05-04] MEDS: Insulin Lispro 100 UNIT/ML INSULN.PEN SC ×2 (11:42→18:02)
[2021-05-04] MEDS: Carvedilol 12.5 MG Tablet NG (11:42)
[2021-05-04] MEDS: Acetaminophen 650 MG/20 ML UDC GT (12:12)
[2021-05-04 12:31] LABS: Bedside Glucose 164 mg/dL (70-110)
--- NOTE | 2021-05-04 13:11 | CASEMGMT ---
Patient currently on vent. RN CM assessment deferred at this time.
--- NOTE | 2021-05-04 13:16 | PCS.PANDOC ---
PANDEMIC DOCUMENTATION INITIATED: Date: 05/04/2021 Time: 729
[2021-05-04 14:25] LABS: Lactic Acid 1.1 mmol/L (0.4-1.9)
[2021-05-04] MEDS: TITRATION PARAMETER CHANGE 1 EACH IV ×2 (14:32)
[2021-05-04] MEDS: 0.9% Saline Lock 10 ML Syringe IV ×2 (15:29→21:00)
[2021-05-04 22:30] LABS: Bedside Glucose 174 mg/dL (70-110)
[2021-05-05] VITALS (35 sets, daily range): BP systolic 86–120; BP diastolic 47–89; PULSE 72–96; RESP 13–31; TEMP 36.2–38.2; O2SAT 87–94
[2021-05-05] MEDS: CHLORHEXIDINE GLUC 2% CLOTH 1 EACH TOWELETTE TOPICAL (00:30)
[2021-05-05] MEDS: TITRATION PARAMETER CHANGE 1 EACH IV ×4 (01:00→09:21)
[2021-05-05 01:06] LABS: Bedside Glucose 146 mg/dL (70-110)
[2021-05-05] MEDS: Propofol 10MG/Ml 1,000 MG/100 ML Bottle 20.1 MG CONT INF (04:14)
[2021-05-05 04:17] LABS: Absolute Lymphocyte Count 1.27 X10^3/uL (0.83-4.51); Absolute Neutrophil Count 16.7 X10^3/uL (2.0-7.7); Basophil# 0.03 X10^3/uL; Basophil% 0.2 % (0-1); Hematocrit 41.5 % (37-47); Hemoglobin 12.4 g/dL (12.0-15.0); Lymphocyte # 1.27 X10^3/ul (0.83-4.51); Lymphocyte % 6.7 % (19-41); Mean Corp Hgb Conc 29.9 g/dL (32-36); Mean Corpuscular Hgb 23.4 pg (27.0-32.0); Mean Corpuscular Volume 78.2 fL (81-99); Mean Platelet Vol. 11.6 fl (6.2-12.0); Monocyte# 0.39 X10^3/uL; Monocyte% 2.1 % (0-10); NRBC Flagged by Analyzer 0.1 % (0-5); Neutrophil # 16.74 X10^3/uL (2.7-7.7); Neutrophil % 88.9 % (47-70); POSITIVE COUNT YES; Platelet Count 181 K/mm3 (150-450); RBC Distribution Width CV 19.1 % (11.6-14.6); RBC Distribution Width SD 52.2 fl (35.1-43.9); Red Blood Count 5.31 M/mm3 (4.2-5.4); White Blood Count 18.8 K/mm3 (4.4-11.0)
[2021-05-05 04:21] LABS: Differential Indicated SCAN CRITERIA MET
[2021-05-05] MEDS: Etomidate 20 MG/10 ML Vial 10 MG IV ×2 (05:50→06:40)
[2021-05-05 05:57] LABS: Differential Comment SCANNED; Platelet Estimate ADEQUATE (ADEQ)
[2021-05-05] MEDS: Propofol 10MG/Ml 1,000 MG/100 ML Bottle 25.1 MG CONT INF ×2 (06:20→08:56)
[2021-05-05 06:43] LABS: ALB/GLOB Ratio 0.6 RATIO (0.9-2.4); AST(SGOT) 100 U/L (15-37); Alanine Aminotransfer ALT/SGPT 44 U/L (13-56); Albumin, Serum 2.4 g/dL (3.2-5.0); Alkaline Phosphatase 204 U/L (45-117); Anion Gap 9 (5-15); BUN 44 mg/dL (7-18); BUN/Creat Ratio 31.7 RATIO (10-20); Calcium,Total 8.3 mg/dL (8.5-10.1); Chloride 108 mmol/L (98-107); Creatinine, Serum 1.39 mg/dL (0.55-1.02); EST Glomerular Filtration Rate 41 mL/min (>60); Est Glom Filt Rate - Afr Amer 50 mL/min (>60); Estimated Creatinine Clearance 36.05 ml/min; Globulin 4.1 g/dL (2.2-4.2); Glucose 129 mg/dL (74-106); Potassium 4.8 mmol/L (3.5-5.1); Protein, Total 6.5 g/dL (6.4-8.2); Sodium Level 141 mmol/L (136-145)
[2021-05-05 06:46] LABS: Bedside Glucose 122 mg/dL (70-110)
--- NOTE | 2021-05-05 07:07 | PN.CC_ITS ---
Assessment & Plan Assessment/Plan (1) Acute hypoxemic respiratory failure due to COVID-19: (2) Subtherapeutic international normalized ratio (INR): (3) Encephalopathy due to 2019-nCoV: (4) Type 2 diabetes mellitus: (5) History of blood clot: (6) COPD: PLAN: RECOMMENDATIONS: 1. Continue Decadron to complete a 10-day course. Actemra per ID 2. Wean PEEP/FiO2 as tolerated 3. Diuresis as necessary to maintain euvolemia 4. Antibiotics per infectious disease 5. Agree with transition to full dose Lovenox 6. Blood sugar checks with probable Lantus in the future IMPRESSIONS: 1. Acute combined respiratory failure secondary to ARDS secondary to COVID- 19 in the setting of COPD Patient with extensive emphysematous changes noted on CT scan and a P to F ratio of less than 100. Patient does not appear to be significantly volume overloaded. Cannot exclude a secondary bacterial infection. Infectious disease is following. No antibiotics at this time. Unable to diurese secondary to acute kidney injury 2. Metabolic encephalopathy Patient with hypoxia and hypercarbia on presentation. Patient with very poor vent synchrony initially, so is receiving significant sedation. We will continue to monitor closely. Cannot rule out the need for paralysis to allow for vent synchrony. 3. Recent UTI/A. fib/subtherapeutic INR/nonvaccinated status/diabetes mellitus type 2 Complicates care, management, recovery and prognosis. Coumadin will be very difficult to control in the acute setting. Agree with transition to Lovenox. Will need to follow blood sugars closely. Anticipate need for sliding scale and Lantus forthcoming with the use of Decadron. Patient is currently rate controlled. 4. Acute kidney injury Clinical suspicion for ATN versus prerenal etiology. We will continue to monitor for 24 hours, but may need to get nephrology involved. No indication for renal replacement therapy at this time. TIME: 35 minutes critical care time spent addressing patient's ARDS, encephalopathy, A. fib, diabetes mellitus, review of all data and collaboration with care team Subjective Subjective Patient did okay overnight. However, this morning patient started to have significant problems with vent dyssynchrony. Patient desaturated quickly and was not responsive to coaching. Patient was given etomidate 10 mg x 2 to allow for initiation of a Precedex drip. Objective Data Objective Data Vital Signs: Vital Signs Temp Pulse Resp BP Pulse Ox 37.1 C 90 19 H 106/58 L 90 05/05/21 07:00 05/05/21 07:00 05/05/21 07:00 05/05/21 07:00 05/05/21 07:00 Oxygen Flow Rate (L/min) 15 Oxygen Delivery Method Mechanical Ventilator Weight: 83.8 kg Body Mass Index (BMI) 33.0 Intake & Output: Intake and Output for Last 24 Hours 05/03/21 05/04/21 05/05/21 23:59 23:59 23:59 Intake Total 1444.04 / 1556.54 499.46 / 499.46 Output Total 1000 / 1200 480 / 480 Balance 444.04 / 356.54 19.46 / 19.46 Lab / Micro Data Result Diagrams: 05/05/21 03:45 05/05/21 05:50 Labs: Laboratory Results - last 24 hr 05/04/21 11:39: POC Glucose 164 H 05/04/21 13:13: Lactic Acid 1.1 05/04/21 18:01: POC Glucose 174 H 05/05/21 00:22: POC Glucose 146 H 05/05/21 03:45: WBC 18.8 H, RBC 5.31, Hgb 12.4, Hct 41.5, MCV 78.2 L, MCH 23.4 L , MCHC 29.9 L, RDW Std Deviation 52.2 H, RDW Coeff of Cami 19.1 H, Plt Count 181, MPV 11.6, Immature Gran % (Auto) 2.100 H, Neut % (Auto) 88.9 H, Lymph % (Auto) 6.7 L, [place] % (Auto) 2.1, Eos % (Auto) 0.0, Baso % (Auto) 0.2, Absolute Neuts (auto) 16.7 H, Absolute Lymphs (auto) 1.27, Nucleated RBC % 0.1, Differential Comment SCANNED, Platelet Estimate ADEQUATE 05/05/21 03:45: Sodium Cancelled, Potassium Cancelled, Chloride Cancelled, Carbon Dioxide Cancelled, Anion Gap Cancelled, BUN Cancelled, Creatinine Cancelled, Estim Creat Clear Calc Cancelled, Est GFR (MDRD) Af Amer Cancelled, Est GFR (MDRD) Non-Af Cancelled, BUN/Creatinine Ratio Cancelled, Glucose Cancelled, Calcium Cancelled, Total Bilirubin Cancelled, AST Cancelled, ALT Cancelled, Alkaline Phosphatase Cancelled, Total Protein Cancelled, Albumin Cancelled, Globulin Cancelled, Albumin/Globulin Ratio Cancelled 05/05/21 05:50: Sodium 141, Potassium 4.8, Chloride 108 H, Carbon Dioxide 24.0, Anion Gap 9, BUN 44 H, Creatinine 1.39 H, Estim Creat Clear Calc 36.05, Est GFR (MDRD) Af Amer 50 L, Est GFR (MDRD) Non-Af 41 L, BUN/Creatinine Ratio 31.7 H, Glucose 129 H, Calcium 8.3 L, Total Bilirubin 0.50, AST 100 H, ALT 44, Alkaline Phosphatase 204 H, Total Protein 6.5, Albumin 2.4 L, Globulin 4.1, Albumin/Globulin Ratio 0.6 L 05/05/21 06:02: POC Glucose 122 H Micro: Microbiology 05/04/21 08:10 Sputum, Induced/Lukens Gram Stain - Final 05/04/21 05:31 Urine Catheter - Antonio Legionella Antigen - Final 05/04/21 05:31 Urine Catheter - Antonio Streptococcus pneumoniae Antigen (M - Final ABG Data ABG results: ABG 05/04/21 09:55 Specimen Type ART Sample Site R Radial pH 7.30 L Bicarbonate Actual 21.3 L Total CO2 23 Base Excess -5 L O2 Saturation 92 L O2 % 100 ABG pCO2 43.8 ABG pO2 70 L Earnest Test Positive Respiration Rate 16 O2 Delivery Device Adult Vent Vent Mode AC Tidal Volume 400 POC PEEP 18 Radiography Diagnostic Testing: Radiology Impression Chest CTA 05/04/21 04:59 IMPRESSION: 1. Patchy multilobar pulmonary infiltrates, with peripheral groundglass opacities. Findings are consistent with pneumonia, with typical features of COVID 19 infection. 2. No evidence of pulmonary embolism. 3. Moderate emphysematous changes predominantly in the upper lobes. Individualized dose optimization techniques were used for this CT. at 0741 Reported and signed by: Tucker Jamison MD Electronically Signed: Tucker Jamison MD at 7:40 EST Tel , Service support , KUB X-Ray 05/04/21 06:55 IMPRESSION: Enteric tube with tip in the body of the stomach. at 0732 Reported and signed by: Tucker Jamison MD Electronically Signed: Tucker Jamison MD at 7:32 EST Tel , Service support , Chest X-Ray 05/04/21 08:20 IMPRESSION: Stable bilateral pneumonia. Satisfactory intubation. at 0918 Reported and signed by: Alphonso Shoemaker MD Electronically Signed: Alphonso Shoemaker MD at 9:17 EST Tel , Service support , Physical Exam Const Constitutional Narrative: Poor synchrony on initial assessment General Appearance: intubated and patient mechanically ventilated Nutritional Appearance: obese HEENT Mouth: endotracheal tube in place and OG tube in place Eyes Eyes Narrative: Slight proptosis Neck no lymphadenopathy Chest inspection of chest normal Chest: symmetrical chest wall rise; Negative for crepitus Resp Auscultation: rhonchi throughout and diminished lung sounds; Negative for rales or wheezes Cardio regular rhythm, no murmurs, no rub and no gallops Rate: tachycardic GI normal to inspection, nondistended, normoactive bowel sounds, soft to palpation, non-tender and non-distended Extremity normal to inspection and no clubbing, cyanosis or edema Skin no rashes or lesions noted and no wounds Neuro Neuro Narrative: Intubated and sedated Charges/Coding Procedures Hospitalists Procedures: [id number] Critial Care 1st Hr
[2021-05-05 09:26] LABS: Allen Test Positive; Base Excess -3 mmol/L (-2 to +2); Bicarbonate 23.1 mmol/L (22-26); Blood Gas Specimen Type ART; FI02 90; Mode BiLevel; O2 Delivery Device Adult Vent; PO2 58 mmHG (75-100); PS 5; RR 12; SITE R Radial; SO2 88 % (95-99); Total Carbon Dioxide 25 mmol/L; pCO2 44.4 mmHg (35-45); pH 7.33 (7.35-7.45)
[2021-05-05] MEDS: Dexmedetomidine 1,000 mcg in 0.9% NS 240 mL 16.8 MCG CONT INF (09:26)
[2021-05-05] MEDS: dexAMETHasone 10 MG/ML Vial 6 MG IV (11:00)
[2021-05-05] MEDS: Enoxaparin 100 MG/ML Syringe 90 MG SC ×2 (11:00→21:52)
[2021-05-05] MEDS: Chlorhexidine 15 ML PO ×2 (11:01→21:52)
[2021-05-05 11:41] LABS: Bedside Glucose 105 mg/dL (70-110)
[2021-05-05] MEDS: Furosemide 20 MG/2 ML VIAL IV (12:20)
--- NOTE | 2021-05-05 12:52 | PN.HOSP_ITS ---
Subjective Subjective Per RN, drops her sats when coming down on sedation. Objective Data Objective Data Vital Signs: Vital Signs Temp Pulse Resp BP Pulse Ox 37.7 C H 75 22 H 95/47 L 93 05/05/21 12:00 05/05/21 12:00 05/05/21 12:00 05/05/21 12:00 05/05/21 12:00 Oxygen Flow Rate (L/min) 15 Oxygen Delivery Method Mechanical Ventilator Weight: 83.8 kg Body Mass Index (BMI) 33.0 Intake & Output: Intake and Output for Last 24 Hours 05/03/21 05/04/21 05/05/21 23:59 23:59 23:59 Intake Total 1444.04 / 1556.54 976.71 / 976.71 Output Total 1000 / 1200 530 / 530 Balance 444.04 / 356.54 446.71 / 446.71 Lab / Micro Data Result Diagrams: 05/05/21 03:45 05/05/21 05:50 Labs: Laboratory Results - last 24 hr 05/04/21 13:13: Lactic Acid 1.1 05/04/21 18:01: POC Glucose 174 H 05/05/21 00:22: POC Glucose 146 H 05/05/21 03:45: WBC 18.8 H, RBC 5.31, Hgb 12.4, Hct 41.5, MCV 78.2 L, MCH 23.4 L , MCHC 29.9 L, RDW Std Deviation 52.2 H, RDW Coeff of Cami 19.1 H, Plt Count 181, MPV 11.6, Immature Gran % (Auto) 2.100 H, Neut % (Auto) 88.9 H, Lymph % (Auto) 6.7 L, Brantley % (Auto) 2.1, Eos % (Auto) 0.0, Baso % (Auto) 0.2, Absolute Neuts (auto) 16.7 H, Absolute Lymphs (auto) 1.27, Nucleated RBC % 0.1, Differential Comment SCANNED, Platelet Estimate ADEQUATE 05/05/21 03:45: Sodium Cancelled, Potassium Cancelled, Chloride Cancelled, Carbon Dioxide Cancelled, Anion Gap Cancelled, BUN Cancelled, Creatinine Cancelled, Estim Creat Clear Calc Cancelled, Est GFR (MDRD) Af Amer Cancelled, Est GFR (MDRD) Non-Af Cancelled, BUN/Creatinine Ratio Cancelled, Glucose Cancelled, Calcium Cancelled, Total Bilirubin Cancelled, AST Cancelled, ALT Cancelled, Alkaline Phosphatase Cancelled, Total Protein Cancelled, Albumin Cancelled, Globulin Cancelled, Albumin/Globulin Ratio Cancelled 05/05/21 05:50: Sodium 141, Potassium 4.8, Chloride 108 H, Carbon Dioxide 24.0, Anion Gap 9, BUN 44 H, Creatinine 1.39 H, Estim Creat Clear Calc 36.05, Est GFR (MDRD) Af Amer 50 L, Est GFR (MDRD) Non-Af 41 L, BUN/Creatinine Ratio 31.7 H, Glucose 129 H, Calcium 8.3 L, Total Bilirubin 0.50, AST 100 H, ALT 44, Alkaline Phosphatase 204 H, Total Protein 6.5, Albumin 2.4 L, Globulin 4.1, Albumin/Globulin Ratio 0.6 L 05/05/21 06:02: POC Glucose 122 H 05/05/21 10:59: POC Glucose 105 Micro: Microbiology 05/04/21 08:10 Sputum, Induced/Lukens Gram Stain - Final 05/04/21 05:31 Urine Catheter - Antonio Legionella Antigen - Final 05/04/21 05:31 Urine Catheter - Antonio Streptococcus pneumoniae Antigen (M - Final ABG Data ABG results: ABG 05/05/21 09:19 Specimen Type ART Sample Site R Radial pH 7.33 L Bicarbonate Actual 23.1 Total CO2 25 Base Excess -3 L O2 Saturation 88 L O2 % 90 ABG pCO2 44.4 ABG pO2 58 L Earnest Test Positive Respiration Rate 12 O2 Delivery Device Adult Vent Vent Mode BiLevel POC Pressure Suppt 5 Clinical Comments Physical Exam Const Constitutional Narrative: intubated and sedated. Resp normal respiratory effort, no retractions, no use of accessory muscles and clear to auscultation bilaterally Cardio regular rate, regular rhythm, S1 normal heart sound and S2 normal heart sound GI normal to inspection, nondistended, normoactive bowel sounds, soft to palpation, non-tender and non-distended Extremity normal to inspection Assessment & Plan Assessment/Plan (1) Encephalopathy due to 2019-nCoV: (2) Subtherapeutic international normalized ratio (INR): (3) Acute hypoxemic respiratory failure due to COVID-19: (4) COVID-19: PLAN: 1. Acute hypoxic and hypercapnic respiratory failure Secondary to COVID-19 pneumonia plus COPD. Waiting on final interpretation of the CT of the chest We will check patient for bacterial pneumonia Intubated on Pulmonary consult Pulmonary toilet 05/05: Still on 100% FiO2. 2. Acute COVID-19 pneumonia Reportedly unvaccinated though this has not been verified yet. This would make sense though given her delayed presentation. Apparently the onset was around the 10th Patient has received dexamethasone in emergency room and will continue on floor. Patient is out of the window for remdesivir ID consulted 05/04: pt received tocilizumab 3. Metabolic encephalopathy Likely due to hypercapnia but also hypoxia Cannot rule out anoxic encephalopathy 4. Abnormal urinalysis Not indicative of a urinary tract infection and therefore urinary tract infection ruled out 5. Atrial fibrillation Subtherapeutic INR 1.4 Fully anticoagulated with weight-based enoxaparin Continue with carvedilol 6. Diabetes mellitus type 2 Fair control at this time. methasone Sliding scale insulin Hold Metformin 7. VTE prophylaxis: Not indicated as patient is anticoagulated. Charges/Coding Visit Charges Inpatient E&M: 32702 Subs Hosp L2
[2021-05-05] MEDS: Propofol 10MG/Ml 1,000 MG/100 ML Bottle 15.1 MG CONT INF (13:38)
[2021-05-05] MEDS: Acetaminophen 650 MG/20 ML UDC GT (14:10)
[2021-05-05] MEDS: Insulin Lispro 100 UNIT/ML INSULN.PEN SC (17:24)
[2021-05-05] MEDS: Propofol 10MG/Ml 1,000 MG/100 ML Bottle 17.6 MG CONT INF ×2 (18:02→21:05)
[2021-05-05 18:51] LABS: Bedside Glucose 156 mg/dL (70-110)
[2021-05-05] MEDS: Dexmedetomidine 1,000 mcg in 0.9% NS 240 mL 27.2 MCG CONT INF (18:56)
[2021-05-05] MEDS: Carvedilol 12.5 MG Tablet NG (21:52)
[2021-05-06] VITALS (33 sets, daily range): BP systolic 96–125; BP diastolic 56–67; PULSE 73–82; RESP 14–29; TEMP 38.4–39.4; O2SAT 90–93
[2021-05-06] MEDS: Insulin Lispro 100 UNIT/ML INSULN.PEN SC ×2 (00:29→17:38)
[2021-05-06 00:51] LABS: Bedside Glucose 154 mg/dL (70-110)
[2021-05-06] MEDS: Propofol 10MG/Ml 1,000 MG/100 ML Bottle 17.6 MG CONT INF (01:56)
[2021-05-06] MEDS: Dexmedetomidine 1,000 mcg in 0.9% NS 240 mL 27.2 MCG CONT INF (04:28)
[2021-05-06] MEDS: Acetaminophen 650 MG/20 ML UDC GT ×3 (04:57→21:11)
[2021-05-06 05:11] LABS: Allen Test Positive; Base Excess -2 mmol/L (-2 to +2); Bicarbonate 23.1 mmol/L (22-26); Blood Gas Specimen Type ART; FI02 85; Mode BiLevel; O2 Delivery Device Adult Vent; PO2 59 mmHG (75-100); PS 5; RR 12; SITE L Radial; SO2 89 % (95-99); Total Carbon Dioxide 24 mmol/L; pCO2 41.1 mmHg (35-45); pH 7.36 (7.35-7.45)
[2021-05-06 05:39] LABS: Hematocrit 39.8 % (37-47); Hemoglobin 12.1 g/dL (12.0-15.0); Mean Corp Hgb Conc 30.4 g/dL (32-36); Mean Corpuscular Hgb 23.8 pg (27.0-32.0); Mean Corpuscular Volume 78.2 fL (81-99); Mean Platelet Vol. 11.1 fl (6.2-12.0); POSITIVE COUNT YES; POSITIVE DIFFERENTIAL YES; POSITIVE MORPHOLOGY YES; Platelet Count 259 K/mm3 (150-450); RBC Distribution Width SD 51.9 fl (35.1-43.9); Red Blood Count 5.09 M/mm3 (4.2-5.4); White Blood Count 23.7 K/mm3 (4.4-11.0)
[2021-05-06 05:48] LABS: Differential Indicated MANUAL DIFF
[2021-05-06] MEDS: Propofol 10MG/Ml 1,000 MG/100 ML Bottle 20.5 MG CONT INF ×5 (06:00→19:48)
[2021-05-06 06:18] LABS: Lymphocyte 5 % (19-41); Metamyelocyte 2 % (0-1); Myelocyte 3 % (0-0); Neutrophil-Band 11 % (0-5); Neutrophil-Segmented 79 % (47-70); Platelet Estimate ADEQUATE (ADEQ); Total Cells Counted 100 (MANUAL DIFF)
[2021-05-06 06:19] LABS: Absolute Neutrophil Count 21.4 X10^3/uL (2.0-7.7); Anisocytosis 1+; Microcytosis 1+; Neutrophil # 21.38 X10^3/uL (2.7-7.7)
[2021-05-06 06:20] LABS: Absolute Lymphocyte Count 1.19 X10^3/uL (0.83-4.51); Lymphocyte # 1.19 X10^3/ul (0.83-4.51)
[2021-05-06 06:23] LABS: ALB/GLOB Ratio 0.5 RATIO (0.9-2.4); AST(SGOT) 71 U/L (15-37); Alanine Aminotransfer ALT/SGPT 33 U/L (13-56); Alkaline Phosphatase 191 U/L (45-117); Anion Gap 9 (5-15); BUN 50 mg/dL (7-18); BUN/Creat Ratio 44.6 RATIO (10-20); Calcium,Total 8.1 mg/dL (8.5-10.1); Chloride 110 mmol/L (98-107); Creatinine, Serum 1.12 mg/dL (0.55-1.02); EST Glomerular Filtration Rate 53 mL/min (>60); Est Glom Filt Rate - Afr Amer 64 mL/min (>60); Estimated Creatinine Clearance 44.74 ml/min; Globulin 4.2 g/dL (2.2-4.2); Glucose 147 mg/dL (74-106); Potassium 4.2 mmol/L (3.5-5.1); Protein, Total 6.2 g/dL (6.4-8.2); Sodium Level 142 mmol/L (136-145)
[2021-05-06] MEDS: TITRATION PARAMETER CHANGE 1 EACH IV (06:26)
--- NOTE | 2021-05-06 07:01 | PN.CC_ITS ---
Assessment & Plan Assessment/Plan (1) Acute hypoxemic respiratory failure due to COVID-19: (2) Subtherapeutic international normalized ratio (INR): (3) Encephalopathy due to 2019-nCoV: (4) Type 2 diabetes mellitus: (5) History of blood clot: (6) COPD: PLAN: RECOMMENDATIONS: 1. Continue Decadron to complete a 10-day course. Actemra per ID 2. Wean PEEP/FiO2 as tolerated 3. Diuresis as necessary to maintain euvolemia 4. Antibiotics per infectious disease 5. Agree with transition to full dose Lovenox 6. Blood sugar checks with probable Lantus in the future IMPRESSIONS: 1. Acute combined respiratory failure secondary to ARDS secondary to COVID- 19 in the setting of COPD Patient with extensive emphysematous changes noted on CT scan and a P to F ratio of less than 100. Patient does not appear to be significantly volume overloaded. Cannot exclude a secondary bacterial infection versus response to Actemra versus drug fever with Precedex. Infectious disease is following. No antibiotics at this time. Unable to diurese secondary to acute kidney injury. Patient did receive Actemra yesterday. Patient appears to be tolerating APRV well and ABG shows adequate oxygenation and ventilation 2. Metabolic encephalopathy Patient with hypoxia and hypercarbia on presentation. Patient with very poor vent synchrony initially, so is receiving significant sedation. We will continue to monitor closely. Cannot rule out the need for paralysis and transition to conventional ventilation to allow for vent synchrony. 3. Recent UTI/A. fib/subtherapeutic INR/nonvaccinated status/diabetes mellitus type 2 Complicates care, management, recovery and prognosis. Coumadin will be very difficult to control in the acute setting. Agree with transition to Lovenox. Will need to follow blood sugars closely. Anticipate need for sliding scale and Lantus forthcoming with the use of Decadron. Patient is currently rate controlled. 4. Acute kidney injury Clinical suspicion for ATN versus prerenal etiology. We will continue to monitor for 24 hours, but may need to get nephrology involved. No indication for renal replacement therapy at this time. TIME: 32 minutes critical care time spent addressing patient's ARDS, encephalopathy, A. fib, diabetes mellitus, review of all data and collaboration with care team Subjective Subjective Patient did okay overnight. Patient did have to be transition to APRV yesterday to maintain saturations. ABG this morning shows adequate oxygenation and ventilation on the current settings. Patient did spike a fever overnight, but remains on Precedex, fentanyl and propofol for vent synchrony. Objective Data Objective Data Vital Signs: Vital Signs Temp Pulse Resp BP Pulse Ox 38.6 C H 77 25 H 109/58 L 93 05/06/21 05:00 05/06/21 05:00 05/06/21 05:00 05/06/21 05:00 05/06/21 05:00 Oxygen Flow Rate (L/min) 15 Oxygen Delivery Method Mechanical Ventilator Weight: 85.6 kg Body Mass Index (BMI) 33.0 Intake & Output: Intake and Output for Last 24 Hours 05/04/21 05/05/21 05/06/21 23:59 23:59 23:59 Intake Total 1444.04 / 1556.54 1947.10 / 2030.57 711.99 / 711.99 Output Total 1000 / 1200 1180 / 1180 610 / 610 Balance 444.04 / 356.54 767.10 / 850.57 101.99 / 101.99 Lab / Micro Data Result Diagrams: 05/06/21 04:50 05/06/21 04:50 Labs: Laboratory Results - last 24 hr 05/05/21 10:59: POC Glucose 105 05/05/21 17:12: POC Glucose 156 H 05/06/21 00:28: POC Glucose 154 H 05/06/21 04:50: WBC 23.7 H, RBC 5.09, Hgb 12.1, Hct 39.8, MCV 78.2 L, MCH 23.8 L , MCHC 30.4 L, RDW Std Deviation 51.9 H, RDW Coeff of Cami 19.0 H, Plt Count 259, MPV 11.1, Neut % (Auto) Not Reportable, Absolute Neuts (auto) 21.4 H, Absolute Lymphs (auto) 1.19, Total Counted 100, Neutrophils % (Manual) 79 H, Band Neutrophils % 11 H, Lymphocytes % (Manual) 5 L, Metamyelocytes % 2 H, Myelocytes % 3 H, Diff Path Review May , Platelet Estimate ADEQUATE, Anisocytosis 1+, Microcytosis 1+ 05/06/21 04:50: Sodium 142, Potassium 4.2, Chloride 110 H, Carbon Dioxide 23.0, Anion Gap 9, BUN 50 H, Creatinine 1.12 H, Estim Creat Clear Calc 44.74, Est GFR (MDRD) Af Amer 64, Est GFR (MDRD) Non-Af 53 L, BUN/Creatinine Ratio 44.6 H, Glucose 147 H, Calcium 8.1 L, Total Bilirubin 0.40, AST 71 H, ALT 33, Alkaline Phosphatase 191 H, Total Protein 6.2 L, Albumin 2.0 L, Globulin 4.2, Albumin/Globulin Ratio 0.5 L Micro: Microbiology 05/04/21 08:10 Sputum, Induced/Lukens Gram Stain - Final 05/04/21 05:31 Urine Catheter - Antonio Legionella Antigen - Final 05/04/21 05:31 Urine Catheter - Antonio Streptococcus pneumoniae Antigen (M - Final ABG Data ABG results: ABG 05/05/21 05/06/21 09:19 05:06 Specimen Type ART ART Sample Site R Radial L Radial pH 7.33 L 7.36 Bicarbonate Actual 23.1 23.1 Total CO2 25 24 Base Excess -3 L -2 O2 Saturation 88 L 89 L O2 % 90 85 ABG pCO2 44.4 41.1 ABG pO2 58 L 59 L Earnest Test Positive Positive Respiration Rate 12 12 O2 Delivery Device Adult Vent Adult Vent Vent Mode BiLevel BiLevel POC Pressure Suppt 5 5 Clinical Comments Physical Exam Const Constitutional Narrative: Better vent synchrony today General Appearance: intubated and patient mechanically ventilated Nutritional Appearance: obese HEENT Mouth: endotracheal tube in place and OG tube in place Eyes Eyes Narrative: Slight proptosis Neck no lymphadenopathy Chest inspection of chest normal Chest: symmetrical chest wall rise; Negative for crepitus Resp Auscultation: rhonchi throughout and diminished lung sounds; Negative for rales or wheezes Cardio regular rhythm, no murmurs, no rub and no gallops Rate: tachycardic GI normal to inspection, nondistended, normoactive bowel sounds, soft to palpation, non-tender and non-distended Extremity normal to inspection and no clubbing, cyanosis or edema Skin no rashes or lesions noted and no wounds Neuro Neuro Narrative: Intubated and sedated Charges/Coding Procedures Hospitalists Procedures: [id number] [place] [facility] Care 1st Hr
[2021-05-06] MEDS: Furosemide 40 MG/4 ML Vial IV (08:41)
[2021-05-06] MEDS: Vital AF 1.2 Cal Liquid 1,000 ML 10 ML GT (08:42)
--- NOTE | 2021-05-06 10:11 | PN.HOSP_ITS ---
Subjective Subjective Gets very agitated. Still on high FiO2. Objective Data Objective Data Vital Signs: Vital Signs Temp Pulse Resp BP Pulse Ox 38.8 C H 77 25 H 105/58 L 92 05/06/21 08:00 05/06/21 09:16 05/06/21 09:16 05/06/21 09:00 05/06/21 09:16 Oxygen Flow Rate (L/min) 15 Oxygen Delivery Method Mechanical Ventilator Weight: 85.6 kg Body Mass Index (BMI) 33.0 Intake & Output: Intake and Output for Last 24 Hours 05/04/21 05/05/21 05/06/21 23:59 23:59 23:59 Intake Total 1444.04 / 1556.54 1947.10 / 2030.57 855.66 / 855.66 Output Total 1000 / 1200 1180 / 1180 610 / 610 Balance 444.04 / 356.54 767.10 / 850.57 245.66 / 245.66 Lab / Micro Data Result Diagrams: 05/06/21 04:50 05/06/21 04:50 Labs: Laboratory Results - last 24 hr 05/05/21 10:59: POC Glucose 105 05/05/21 17:12: POC Glucose 156 H 05/06/21 00:28: POC Glucose 154 H 05/06/21 04:50: WBC 23.7 H, RBC 5.09, Hgb 12.1, Hct 39.8, MCV 78.2 L, MCH 23.8 L , MCHC 30.4 L, RDW Std Deviation 51.9 H, RDW Coeff of Cami 19.0 H, Plt Count 259, MPV 11.1, Neut % (Auto) Not Reportable, Absolute Neuts (auto) 21.4 H, Absolute Lymphs (auto) 1.19, Total Counted 100, Neutrophils % (Manual) 79 H, Band Neutrophils % 11 H, Lymphocytes % (Manual) 5 L, Metamyelocytes % 2 H, Myelocytes % 3 H, Diff Path Review September, Platelet Estimate ADEQUATE, Anisocytosis 1+, Microcytosis 1+ 05/06/21 04:50: Sodium 142, Potassium 4.2, Chloride 110 H, Carbon Dioxide 23.0, Anion Gap 9, BUN 50 H, Creatinine 1.12 H, Estim Creat Clear Calc 44.74, Est GFR (MDRD) Af Amer 64, Est GFR (MDRD) Non-Af 53 L, BUN/Creatinine Ratio 44.6 H, Glucose 147 H, Calcium 8.1 L, Total Bilirubin 0.40, AST 71 H, ALT 33, Alkaline Phosphatase 191 H, Total Protein 6.2 L, Albumin 2.0 L, Globulin 4.2, Albumin/Globulin Ratio 0.5 L Micro: Microbiology 05/04/21 08:10 Sputum, Induced/Lukens Gram Stain - Final 05/04/21 05:31 Urine Catheter - Antonio Legionella Antigen - Final 05/04/21 05:31 Urine Catheter - Antonio Streptococcus pneumoniae Antigen (M - Final ABG Data ABG results: ABG 05/06/21 05:06 Specimen Type ART Sample Site L Radial pH 7.36 Bicarbonate Actual 23.1 Total CO2 24 Base Excess -2 O2 Saturation 89 L O2 % 85 ABG pCO2 41.1 ABG pO2 59 L Earnest Test Positive Respiration Rate 12 O2 Delivery Device Adult Vent Vent Mode BiLevel POC Pressure Suppt 5 Clinical Comments Physical Exam Const Constitutional Narrative: intubated and sedated. Resp Resp Narrative: coarse breath sounds Cardio regular rate, regular rhythm, S1 normal heart sound and S2 normal heart sound GI normal to inspection, nondistended, normoactive bowel sounds, soft to palpation, non-tender and non-distended Extremity normal to inspection and no clubbing, cyanosis or edema Assessment & Plan Assessment/Plan (1) Encephalopathy due to 2019-nCoV: (2) Subtherapeutic international normalized ratio (INR): (3) Acute hypoxemic respiratory failure due to COVID-19: (4) COVID-19: PLAN: 1. Acute hypoxic and hypercapnic respiratory failure Secondary to COVID-19 pneumonia plus COPD. CTA negative for PE Bacterial work up so far negative. Intubated on Pulmonary consult Pulmonary toilet 05/05: Still on 100% FiO2. 05/06: FiO2 down to 85% 2. Acute COVID-19 pneumonia Reportedly unvaccinated though this has not been verified yet. This would make sense though given her delayed presentation. Apparently the onset was around the 10th Patient has received dexamethasone in emergency room and will continue on floor. Patient is out of the window for remdesivir ID consulted 05/04: pt received tocilizumab 3. Metabolic encephalopathy ongoing Likely due to hypercapnia but also hypoxia Cannot rule out anoxic encephalopathy Recommend head CT when more HDS 4. Abnormal urinalysis Not indicative of a urinary tract infection and therefore urinary tract infection ruled out 5. Atrial fibrillation Subtherapeutic INR 1.4 Fully anticoagulated with weight-based enoxaparin Continue with carvedilol 6. Diabetes mellitus type 2 Fair control at this time. Sliding scale insulin Hold Metformin 7. VTE prophylaxis: Not indicated as patient is anticoagulated. Charges/Coding Visit Charges Inpatient E&M: 74726 Subs Hosp L2
[2021-05-06] MEDS: Senna/Docusate Sodium 1 Tablet 2 TABLET GT ×2 (11:11→21:12)
[2021-05-06] MEDS: dexAMETHasone 10 MG/ML Vial 6 MG IV (11:11)
[2021-05-06] MEDS: CHLORHEXIDINE GLUC 2% CLOTH 1 EACH TOWELETTE TOPICAL (11:12)
[2021-05-06] MEDS: Chlorhexidine 15 ML PO ×2 (11:12→21:12)
[2021-05-06] MEDS: Enoxaparin 100 MG/ML Syringe 90 MG SC ×2 (11:12→21:12)
[2021-05-06] MEDS: Dexmedetomidine 1,000 mcg in 0.9% NS 240 mL 27.8 MCG CONT INF ×2 (13:32→21:15)
[2021-05-06 14:01] LABS: Bedside Glucose 138 mg/dL (70-110)
[2021-05-06] MEDS: Ceftriaxone 1 GM/50 ML BAG IV (14:36)
[2021-05-06 17:15] LABS: Bedside Glucose 196 mg/dL (70-110)
[2021-05-06] MEDS: Carvedilol 12.5 MG Tablet NG (21:12)
[2021-05-07] VITALS (35 sets, daily range): BP systolic 112–156; BP diastolic 58–80; PULSE 71–90; RESP 12–31; TEMP 38.1–39; O2SAT 87–94
[2021-05-07] MEDS: Insulin Lispro 100 UNIT/ML INSULN.PEN SC ×4 (00:15→18:31)
[2021-05-07] MEDS: Propofol 10MG/Ml 1,000 MG/100 ML Bottle 20.5 MG CONT INF ×2 (00:43→06:25)
[2021-05-07 02:41] LABS: Bedside Glucose 185 mg/dL (70-110)
[2021-05-07 05:40] LABS: Allen Test Positive; Base Excess -1 mmol/L (-2 to +2); Bicarbonate 24.7 mmol/L (22-26); Blood Gas Specimen Type ART; FI02 85; Mode BiLevel; O2 Delivery Device Adult Vent; PO2 60 mmHG (75-100); RR 12; SITE L Radial; SO2 89 % (95-99); Total Carbon Dioxide 26 mmol/L; pH 7.36 (7.35-7.45)
[2021-05-07] MEDS: CHLORHEXIDINE GLUC 2% CLOTH 1 EACH TOWELETTE TOPICAL (06:25)
[2021-05-07] MEDS: Acetaminophen 650 MG/20 ML UDC GT (06:27)
[2021-05-07 06:30] LABS: Bedside Glucose 176 mg/dL (70-110)
--- NOTE | 2021-05-07 06:48 | PCM.PN.INT ---
Assessment & Plan Assessment/Plan (1) Acute hypoxemic respiratory failure due to COVID-19: (2) Subtherapeutic international normalized ratio (INR): (3) Encephalopathy due to 2019-nCoV: (4) Type 2 diabetes mellitus: (5) History of blood clot: (6) COPD: PLAN: RECOMMENDATIONS: 1. Continue Decadron to complete a 10-day course. 2. Continue to wean FiO2 for saturations greater than 90%. 3. Diuretics as tolerated by hemodynamics and renal function. 4. Antibiotics per infectious disease. 5. Continue therapeutic Lovenox. 6. Continue appropriate GI prophylaxis. IMPRESSIONS: 1. Acute combined respiratory failure secondary to ARDS d/t COVID-19 in the setting of COPD The patient initially was admitted to the hospital on May 04 after being emergently intubated in the emergency department in the setting of COVID-19 pneumonia. The patient did receive Tocilizumab and was started on Decadron. She also appears to have a secondary bacterial pneumonia with Moraxella isolated from sputum culture. Antimicrobials will be continued accordingly. Plan to continue to wean FiO2 as tolerated for saturations greater than 90%. Continue tube feeds as tolerated. Continue Lovenox as ordered. 2. Acute kidney injury Resolved. Likely prerenal in etiology and related to acute presentation. Okay to utilize diuretics as needed to maintain euvolemic state. 4. Recent UTI/A. fib/subtherapeutic INR/nonvaccinated status/diabetes mellitus type 2 Complicates care, management, recovery and prognosis. Continue sliding scale insulin coverage. TIME: 35 minutes of critical care time, independent of procedures, was spent addressing the patient's acute combined respiratory failure secondary to ARDS in the setting of COVID-19, secondary bacterial pneumonia, acute kidney injury, review of all data and collaboration with the care team. Subjective Subjective The patient was seen and examined at the bedside this morning. Events from the last 24 hours have been reviewed. Today is vent day #4. The patient currently has a fever, with a T-max overnight of 102.2 ?F. She remains on APRV mode of mechanical ventilation with a P high of 24 and FiO2 of 85%. The patient is currently sedated on fentanyl, propofol and Precedex. Trophic tube feeds are currently running. She is currently documented to be overall net +2.7 L for the hospitalization. The patient remains on antimicrobials, Lovenox and Decadron. Objective Data Objective Data The patient's most recent lab work, culture data and imaging studies have all been personally reviewed. Rapid coronavirus antigen testing was positive on April 30. Sputum culture dated May 04 was positive for Moraxella. Vital Signs: Vital Signs Temp Pulse Resp BP Pulse Ox 101.4 F H 76 13 122/69 H 93 05/07/21 03:57 05/07/21 03:57 05/07/21 03:57 05/07/21 03:57 05/07/21 03:57 Oxygen Flow Rate (L/min) 15 Oxygen Delivery Method Mechanical Ventilator Weight: 85.6 kg Body Mass Index (BMI) 33.0 Intake & Output: Intake and Output for Last 24 Hours 05/05/21 05/06/21 05/07/21 23:59 23:59 23:59 Intake Total 1947.10 / 2030.57 2334.25 / 2432.55 675.83 / 675.83 Output Total 1180 / 1180 1160 / 1460 300 / 300 Balance 767.10 / 850.57 1174.25 / 972.55 375.83 / 375.83 Lab / Micro Data Attestation: I reviewed the patient's lab results. Result Diagrams: 05/07/21 09:28 05/07/21 09:28 Labs: Laboratory Results - last 24 hr 05/06/21 11:10: POC Glucose 138 H 05/06/21 17:11: POC Glucose 196 H 05/07/21 00:14: POC Glucose 185 H 05/07/21 06:21: POC Glucose 176 H Micro: Microbiology 05/04/21 08:10 Sputum, Induced/Lukens Gram Stain - Final 05/04/21 08:10 Sputum, Induced/Lukens Respiratory Culture - Final Moraxella(Elle.)Catarrhalis 05/04/21 05:33 Blood Culture (Wb) - Anticubital Left Blood Culture - Preliminary No growth in 48 hours. 05/04/21 05:11 Blood Culture (Wb) - Anticubital Right Blood Culture - Preliminary No growth in 48 hours. 05/04/21 05:31 Urine Catheter - Antonio Legionella Antigen - Final 05/04/21 05:31 Urine Catheter - Antonio Streptococcus pneumoniae Antigen (M - Final ABG Data ABG results: ABG 05/07/21 05:36 Specimen Type ART Sample Site L Radial pH 7.36 Bicarbonate Actual 24.7 Total CO2 26 Base Excess -1 O2 Saturation 89 L O2 % 85 ABG pCO2 44.0 ABG pO2 60 L Earnest Test Positive Respiration Rate 12 O2 Delivery Device Adult Vent Vent Mode BiLevel Clinical Comments Ph24 Th4.5 Physical Exam Const General Appearance: intubated and patient mechanically ventilated Nutritional Appearance: obese HEENT normocephalic and head/scalp atraumatic Mouth: endotracheal tube in place and OG tube in place Eyes PERRL and conjunctivae normal Neck supple General: trachea midline Chest inspection of chest normal Resp Auscultation: rhonchi and diminished lung sounds Cardio regular rate and regular rhythm GI normal to inspection, nondistended, normoactive bowel sounds Extremity no clubbing, cyanosis or edema Skin no rashes or lesions noted Neuro Sensorium / Orientation: sedated on vent Charges/Coding Procedures Hospitalists Procedures: [id number] Critial Care 1st Hr
[2021-05-07] MEDS: TITRATION PARAMETER CHANGE 1 EACH IV (07:34)
[2021-05-07] MEDS: Dexmedetomidine 1,000 mcg in 0.9% NS 240 mL 27.3 MCG CONT INF ×2 (07:35→18:30)
[2021-05-07] MEDS: Chlorhexidine 15 ML PO ×2 (08:00→19:51)
[2021-05-07 09:38] LABS: Hematocrit 41.3 % (37-47); Hemoglobin 12.5 g/dL (12.0-15.0); Mean Corp Hgb Conc 30.3 g/dL (32-36); Mean Corpuscular Hgb 23.9 pg (27.0-32.0); Mean Corpuscular Volume 79.1 fL (81-99); Mean Platelet Vol. 10.5 fl (6.2-12.0); POSITIVE DIFFERENTIAL YES; POSITIVE MORPHOLOGY YES; Platelet Count 251 K/mm3 (150-450); RBC Distribution Width CV 19.7 % (11.6-14.6); Red Blood Count 5.22 M/mm3 (4.2-5.4); White Blood Count 27.1 K/mm3 (4.4-11.0)
[2021-05-07] MEDS: Ceftriaxone 1 GM/50 ML BAG IV (09:38)
[2021-05-07 09:48] LABS: International Normalized Ratio 1.1; Partial Thromboplast Time 28.3 Seconds (24.1-36.2); Prothrombin Time (Protime)PT. 13.7 SECONDS (11.7-14.9)
[2021-05-07] MEDS: Propofol 10MG/Ml 1,000 MG/100 ML Bottle 17.7 MG CONT INF (10:00)
[2021-05-07 10:07] LABS: ALB/GLOB Ratio 0.4 RATIO (0.9-2.4); AST(SGOT) 39 U/L (15-37); Alanine Aminotransfer ALT/SGPT 30 U/L (13-56); Albumin, Serum 1.9 g/dL (3.2-5.0); Alkaline Phosphatase 206 U/L (45-117); Anion Gap 7 (5-15); BUN 44 mg/dL (7-18); BUN/Creat Ratio 51.3 RATIO (10-20); Calcium,Total 8.9 mg/dL (8.5-10.1); Chloride 114 mmol/L (98-107); Creatinine, Serum 0.86 mg/dL (0.55-1.02); EST Glomerular Filtration Rate 72 mL/min (>60); Est Glom Filt Rate - Afr Amer 87 mL/min (>60); Estimated Creatinine Clearance 58.26 ml/min; Globulin 4.4 g/dL (2.2-4.2); Glucose 171 mg/dL (74-106); Potassium 4.5 mmol/L (3.5-5.1); Protein, Total 6.3 g/dL (6.4-8.2); Sodium Level 145 mmol/L (136-145)
[2021-05-07 11:10] LABS: Differential Indicated MANUAL DIFF
[2021-05-07 11:14] LABS: Lymphocyte 2 % (19-41); Monocyte 3 % (0-10); Neutrophil-Band 16 % (0-5); Neutrophil-Segmented 79 % (47-70); Nucleated Red Bld Cells,Manual 1 % (0-5); Total Cells Counted 100 (MANUAL DIFF)
[2021-05-07 11:15] LABS: Platelet Estimate ADEQUATE (ADEQ); Red Cell Morphology NORM C+C NORMAL (NORM C&C)
[2021-05-07 11:16] LABS: Absolute Lymphocyte Count 0.54 X10^3/uL (0.83-4.51); Absolute Neutrophil Count 25.7 X10^3/uL (2.0-7.7)
[2021-05-07] MEDS: Senna/Docusate Sodium 1 Tablet 2 TABLET GT ×2 (11:32→19:49)
[2021-05-07] MEDS: Carvedilol 12.5 MG Tablet NG ×2 (11:32→19:49)
[2021-05-07] MEDS: 0.9% Saline Lock 10 ML Syringe IV ×2 (11:33→18:31)
[2021-05-07] MEDS: Polyethylene Glycol 3350 17 GM PACKET GT ×2 (11:33→19:49)
[2021-05-07] MEDS: Enoxaparin 100 MG/ML Syringe 90 MG SC ×2 (11:33→19:50)
[2021-05-07] MEDS: dexAMETHasone 10 MG/ML Vial 6 MG IV (11:58)
[2021-05-07] MEDS: Propofol 10MG/Ml 1,000 MG/100 ML Bottle 15.1 MG CONT INF (13:13)
[2021-05-07 14:11] LABS: Bedside Glucose 163 mg/dL (70-110)
[2021-05-07] MEDS: Acetaminophen 650 MG Suppository RC ×2 (17:03→18:29)
--- NOTE | 2021-05-07 18:19 | PN.HOSP_ITS ---
Subjective Subjective Patient was seen and examined today, she remains sedated on the ventilator. Objective Data Objective Data Vital Signs: Vital Signs Temp Pulse Resp BP Pulse Ox 101.7 F H 79 24 H 141/72 H 92 05/07/21 15:00 05/07/21 17:53 05/07/21 17:53 05/07/21 15:00 05/07/21 17:53 Oxygen Flow Rate (L/min) 15 Oxygen Delivery Method Mechanical Ventilator Weight: 84.1 kg Body Mass Index (BMI) 33.0 Intake & Output: Intake and Output for Last 24 Hours 05/05/21 05/06/21 05/07/21 23:59 23:59 23:59 Intake Total 1947.10 / 2030.57 2334.25 / 2432.55 1927.83 / 1927.83 Output Total 1180 / 1180 1160 / 1460 1200 / 1200 Balance 767.10 / 850.57 1174.25 / 972.55 727.83 / 727.83 Lab / Micro Data Result Diagrams: 05/07/21 09:28 05/07/21 09:28 Labs: Laboratory Results - last 24 hr 05/07/21 00:14: POC Glucose 185 H 05/07/21 06:21: POC Glucose 176 H 05/07/21 09:28: WBC 27.1 H, RBC 5.22, Hgb 12.5, Hct 41.3, MCV 79.1 L, MCH 23.9 L , MCHC 30.3 L, RDW Std Deviation 54.0 H, RDW Coeff of Cami 19.7 H, Plt Count 251, MPV 10.5, Immature Gran % (Auto) ASSISTANT REAL ESTATE MANAGER, Neut % (Auto) ASSISTANT REAL ESTATE MANAGER, Lymph % (Auto) ASSISTANT REAL ESTATE MANAGER, [place] % (Auto) ASSISTANT REAL ESTATE MANAGER, Eos % (Auto) ASSISTANT REAL ESTATE MANAGER, Baso % (Auto) ASSISTANT REAL ESTATE MANAGER, Absolute Neuts (auto) 25.7 H, Absolute Lymphs (auto) 0.54 L, Total Counted 100, Neutrophils % (Manual) 79 H, Band Neutrophils % 16 H, Lymphocytes % (Manual) 2 L, Monocytes % (Manual) 3, Nucleated RBC % ASSISTANT REAL ESTATE MANAGER, Nucleated RBCs/100 WBC 1, Diff Path Review September, Platelet Estimate ADEQUATE, RBC Morphology NORM C+C 05/07/21 09:28: Sodium 145, Potassium 4.5, Chloride 114 H, Carbon Dioxide 24.0, Anion Gap 7, BUN 44 H, Creatinine 0.86, Estim Creat Clear Calc 58.26, Est GFR (MDRD) Af Amer 87, Est GFR (MDRD) Non-Af 72, BUN/Creatinine Ratio 51.3 H, G lucose 171 H, Calcium 8.9, Total Bilirubin 0.50, AST 39 H, ALT 30, Alkaline Phosphatase 206 H, Total Protein 6.3 L, Albumin 1.9 L, Globulin 4.4 H, Albumin/Globulin Ratio 0.4 L 05/07/21 09:28: PT 13.7, INR 1.1, APTT 28.3 05/07/21 11:37: POC Glucose 163 H Micro: Microbiology 05/04/21 08:10 Sputum, Induced/Lukens Gram Stain - Final 05/04/21 08:10 Sputum, Induced/Lukens Respiratory Culture - Final Moraxella(Elle.)Catarrhalis 05/04/21 05:33 Blood Culture (Wb) - Anticubital Left Blood Culture - Preliminary No growth in 48 hours. 05/04/21 05:11 Blood Culture (Wb) - Anticubital Right Blood Culture - Preliminary No growth in 48 hours. 05/04/21 05:31 Urine Catheter - Antonio Legionella Antigen - Final 05/04/21 05:31 Urine Catheter - Antonio Streptococcus pneumoniae Antigen (M - Final ABG Data ABG results: ABG 05/07/21 05:36 Specimen Type ART Sample Site L Radial pH 7.36 Bicarbonate Actual 24.7 Total CO2 26 Base Excess -1 O2 Saturation 89 L O2 % 85 ABG pCO2 44.0 ABG pO2 60 L Earnest Test Positive Respiration Rate 12 O2 Delivery Device Adult Vent Vent Mode BiLevel Clinical Comments Ph24 Th4.5 Physical Exam Const Constitutional Narrative: Patient is sedated and on the ventilator General Appearance: cooperative, well kempt and well developed Orientation / Consciousness: awake, oriented to person, oriented to place and oriented to time HEENT normocephalic and head/scalp atraumatic Head and Scalp: normocephalic Neck nuchal rigidity, no JVD and thyroid normal General: trachea midline Resp normal respiratory effort, no retractions, no use of accessory muscles and clear to auscultation bilaterally Auscultation: Negative for rales, rhonchi or wheezes Cardio regular rate, regular rhythm, S1 normal heart sound, S2 normal heart sound, no murmurs, no rub and no gallops GI normal to inspection, nondistended, normoactive bowel sounds, soft to palpation, non-tender and non-distended Extremity no clubbing, cyanosis or edema Skin no rashes or lesions noted and skin turgor normal General Skin Exam: no breakdown Neuro Neuro Narrative: Patient is sedated on the ventilator Psych thought process normal Psych Narrative: Patient is sedated and on the ventilator Assessment & Plan Assessment/Plan (1) COVID-19: PLAN: 1. COVID-19 pneumonia with ARDS with an overlay of chronic obstruct vilma pulmonary disease-patient remains on the ventilator at this time, pulmonary medicine is participating in her care #2 acute combined respiratory failure secondary to ARDS with an overlay of COPD #3 adult respiratory distress syndrome #4 type 2 diabetes-blood sugars are being monitored, insulin will be given as needed #5 chronic obstructive pulmonary disease #6 cerebrovascular disease #7 acute kidney injury-resolved at this time #8 secondary bacterial pneumonia with Moraxella-patient is being treated with appropriate antibiotics I was not able to find any evidence of A. fib in this patient although it is mentioned in her medical record progress notes during the time of this admissi on. Charges/Coding Visit Charges Inpatient E&M: 41689 Subs Hosp L2
[2021-05-07] MEDS: Propofol 10MG/Ml 1,000 MG/100 ML Bottle 20.2 MG CONT INF ×2 (18:29→20:29)
[2021-05-07 18:41] LABS: Bedside Glucose 172 mg/dL (70-110)
[2021-05-08] VITALS (36 sets, daily range): BP systolic 130–170; BP diastolic 66–83; PULSE 74–81; RESP 12–30; TEMP 38.6–39.4; O2SAT 91–94
[2021-05-08] MEDS: Insulin Lispro 100 UNIT/ML INSULN.PEN SC ×5 (00:14→23:51)
[2021-05-08] MEDS: Acetaminophen 650 MG/20 ML UDC GT ×3 (00:30→18:06)
[2021-05-08 00:35] LABS: Bedside Glucose 161 mg/dL (70-110)
[2021-05-08] MEDS: Propofol 10MG/Ml 1,000 MG/100 ML Bottle 20.2 MG CONT INF (01:12)
[2021-05-08] MEDS: Dexmedetomidine 1,000 mcg in 0.9% NS 240 mL 27.3 MCG CONT INF (01:12)
[2021-05-08] MEDS: Vital AF 1.2 Cal Liquid 1,000 ML 10 ML GT (04:10)
[2021-05-08] MEDS: CHLORHEXIDINE GLUC 2% CLOTH 1 EACH TOWELETTE TOPICAL (04:25)
[2021-05-08 05:05] LABS: Base Excess 2 mmol/L (-2 to +2); Blood Gas Specimen Type ART; FI02 85; Mode BiLevel; O2 Delivery Device Adult Vent; PO2 56 mmHG (75-100); PS 5; RR 12; SITE L Brach; SO2 86 % (95-99); Total Carbon Dioxide 30 mmol/L; pCO2 53.7 mmHg (35-45); pH 7.33 (7.35-7.45)
[2021-05-08] MEDS: 0.9% Saline Lock 10 ML Syringe IV ×2 (05:16→08:24)
[2021-05-08] MEDS: TITRATION PARAMETER CHANGE 1 EACH IV (05:19)
[2021-05-08] MEDS: Propofol 10MG/Ml 1,000 MG/100 ML Bottle 20.4 MG CONT INF (05:30)
[2021-05-08 05:31] LABS: Absolute Lymphocyte Count 0.98 X10^3/uL (0.83-4.51); Absolute Neutrophil Count 21.6 X10^3/uL (2.0-7.7); Basophil# 0.05 X10^3/uL; Basophil% 0.2 % (0-1); Differential Indicated SCAN CRITERIA MET; Eosinophil# 0.06 X10^3/uL; Eosinophils% 0.3 % (0-5); Hematocrit 40.3 % (37-47); Hemoglobin 11.6 g/dL (12.0-15.0); Lymphocyte # 0.98 X10^3/ul (0.83-4.51); Lymphocyte % 4.1 % (19-41); Mean Corp Hgb Conc 28.8 g/dL (32-36); Mean Corpuscular Hgb 23.3 pg (27.0-32.0); Mean Corpuscular Volume 81.1 fL (81-99); Mean Platelet Vol. 10.9 fl (6.2-12.0); Monocyte# 0.99 X10^3/uL; Monocyte% 4.1 % (0-10); NRBC Flagged by Analyzer 0.5 % (0-5); Neutrophil # 21.56 X10^3/uL (2.7-7.7); Neutrophil % 90.1 % (47-70); POSITIVE DIFFERENTIAL YES; POSITIVE MORPHOLOGY YES; Platelet Count 268 K/mm3 (150-450); RBC Distribution Width CV 19.7 % (11.6-14.6); RBC Distribution Width SD 56.5 fl (35.1-43.9); Red Blood Count 4.97 M/mm3 (4.2-5.4); White Blood Count 23.9 K/mm3 (4.4-11.0)
[2021-05-08 05:46] LABS: ALB/GLOB Ratio 0.5 RATIO (0.9-2.4); AST(SGOT) 31 U/L (15-37); Alanine Aminotransfer ALT/SGPT 34 U/L (13-56); Albumin, Serum 1.9 g/dL (3.2-5.0); Alkaline Phosphatase 203 U/L (45-117); Anion Gap 5 (5-15); BUN 36 mg/dL (7-18); BUN/Creat Ratio 50.6 RATIO (10-20); Chloride 116 mmol/L (98-107); Creatinine, Serum 0.71 mg/dL (0.55-1.02); EST Glomerular Filtration Rate 89 mL/min (>60); Est Glom Filt Rate - Afr Amer 108 mL/min (>60); Estimated Creatinine Clearance 70.57 ml/min; Globulin 4.2 g/dL (2.2-4.2); Glucose 169 mg/dL (74-106); Potassium 4.6 mmol/L (3.5-5.1); Protein, Total 6.1 g/dL (6.4-8.2); Sodium Level 149 mmol/L (136-145)
[2021-05-08 05:55] LABS: Bedside Glucose 151 mg/dL (70-110)
[2021-05-08 05:59] LABS: Atypical Lymphocyte 1+ %
--- NOTE | 2021-05-08 07:20 | PN.CC_ITS ---
Assessment & Plan Assessment/Plan (1) Acute hypoxemic respiratory failure due to COVID-19: (2) Subtherapeutic international normalized ratio (INR): (3) Encephalopathy due to 2019-nCoV: (4) Type 2 diabetes mellitus: (5) History of blood clot: (6) COPD: PLAN: RECOMMENDATIONS: 1. Continue Decadron to complete a 10-day course. 2. Continue to wean FiO2 for saturations greater than 90%. 3. Diuretics as tolerated by hemodynamics and renal function. 4. Antibiotics per infectious disease. 5. Continue therapeutic Lovenox. 6. Continue appropriate GI prophylaxis. IMPRESSIONS: 1. Acute combined respiratory failure secondary to ARDS d/t COVID-19 in the setting of COPD The patient initially was admitted to the hospital on May 04 after being emergently intubated in the emergency department in the setting of COVID-19 pneumonia. The patient did receive Tocilizumab and was started on Decadron. She also appears to have a secondary bacterial pneumonia with Moraxella isolated from sputum culture. Antimicrobials will be continued accordingly. Plan to continue to wean FiO2 as tolerated for saturations greater than 90%. Continue tube feeds as tolerated. Continue Lovenox as ordered. 2. Acute kidney injury Resolved. Likely prerenal in etiology and related to acute presentation. Okay to utilize diuretics as needed to maintain euvolemic state. 4. Recent UTI/A. fib/subtherapeutic INR/nonvaccinated status/diabetes mellitus type 2 Complicates care, management, recovery and prognosis. Continue sliding scale insulin coverage. TIME: 33 minutes of critical care time, independent of procedures, was spent addressing the patient's acute combined respiratory failure secondary to ARDS in the setting of COVID-19, secondary bacterial pneumonia, acute kidney injury, review of all data and collaboration with the care team. Subjective Subjective The patient was seen and examined at the bedside this morning. Events from the last 24 hours have been reviewed. Today is vent day #5. The patient currently has a fever, with a T-max overnight of 102.4 ?F. She remains on APRV mode of mechanical ventilation with a P high of 24 and FiO2 of 85%. The patient is currently sedated on fentanyl, propofol and Precedex. Trophic tube feeds are currently running. She is currently documented to be overall net +3.8 L for the hospitalization. The patient remains on antimicrobials, Lovenox and Decadron. Objective Data Objective Data The patient's most recent lab work, culture data and imaging studies have all been personally reviewed. Rapid coronavirus antigen testing was positive on April 30. Sputum culture dated May 04 was positive for Moraxella. Vital Signs: Vital Signs Temp Pulse Resp BP Pulse Ox 101.6 F H 77 14 152/73 H 91 05/08/21 07:00 05/08/21 07:00 05/08/21 07:00 05/08/21 07:00 05/08/21 07:00 Oxygen Flow Rate (L/min) 15 Oxygen Delivery Method Mechanical Ventilator Weight: 85 kg Body Mass Index (BMI) 33.0 Intake & Output: Intake and Output for Last 24 Hours 05/06/21 05/07/21 05/08/21 23:59 23:59 23:59 Intake Total 2334.25 / 2432.55 2717.66 / 2856.16 737.90 / 737.90 Output Total 1160 / 1460 1625 / 1625 350 / 350 Balance 1174.25 / 972.55 1092.66 / 1231.16 387.90 / 387.90 Lab / Micro Data Attestation: I reviewed the patient's lab results. Result Diagrams: 05/08/21 05:15 05/08/21 05:15 Labs: Laboratory Results - last 24 hr 05/07/21 09:28: WBC 27.1 H, RBC 5.22, Hgb 12.5, Hct 41.3, MCV 79.1 L, MCH 23.9 L , MCHC 30.3 L, RDW Std Deviation 54.0 H, RDW Coeff of Cami 19.7 H, Plt Count 251, MPV 10.5, Immature Gran % (Auto) PRODUCT MARKETING EXECUTIVE, Neut % (Auto) PRODUCT MARKETING EXECUTIVE, Lymph % (Auto) PRODUCT MARKETING EXECUTIVE, [place] % (Auto) PRODUCT MARKETING EXECUTIVE, Eos % (Auto) PRODUCT MARKETING EXECUTIVE, Baso % (Auto) PRODUCT MARKETING EXECUTIVE, Absolute Neuts (auto) 25.7 H, Absolute Lymphs (auto) 0.54 L, Total Counted 100, Neutrophils % (Manual) 79 H, Band Neutrophils % 16 H, Lymphocytes % (Manual) 2 L, Monocytes % (Manual) 3, Nucleated RBC % PRODUCT MARKETING EXECUTIVE, Nucleated RBCs/100 WBC 1, Diff Path Review September, Platelet Estimate ADEQUATE, RBC Morphology NORM C+C 05/07/21 09:28: Sodium 145, Potassium 4.5, Chloride 114 H, Carbon Dioxide 24.0, Anion Gap 7, BUN 44 H, Creatinine 0.86, Estim Creat Clear Calc 58.26, Est GFR (MDRD) Af Amer 87, Est GFR (MDRD) Non-Af 72, BUN/Creatinine Ratio 51.3 H, Glucose 171 H, Calcium 8.9, Total Bilirubin 0.50, AST 39 H, ALT 30, Alkaline Phosphatase 206 H, Total Protein 6.3 L, Albumin 1.9 L, Globulin 4.4 H, Albumin/Globulin Ratio 0.4 L 05/07/21 09:28: PT 13.7, INR 1.1, APTT 28.3 05/07/21 11:37: POC Glucose 163 H 05/07/21 18:27: POC Glucose 172 H 05/08/21 00:13: POC Glucose 161 H 05/08/21 05:09: POC Glucose 151 H 05/08/21 05:15: WBC 23.9 H, RBC 4.97, Hgb 11.6 L, Hct 40.3, MCV 81.1, MCH 23.3 L , MCHC 28.8 L, RDW Std Deviation 56.5 H, RDW Coeff of Cami 19.7 H, Plt Count 268, MPV 10.9, Immature Gran % (Auto) 1.200 H, Neut % (Auto) 90.1 H, Lymph % (Auto) 4.1 L, [place] % (Auto) 4.1, Eos % (Auto) 0.3, Baso % (Auto) 0.2, Absolute Neuts (auto) 21.6 H, Absolute Lymphs (auto) 0.98, Nucleated RBC % 0.5, Atypical Lympho cytes 1+ 05/08/21 05:15: Sodium 149 H, Potassium 4.6, Chloride 116 H, Carbon Dioxide 28.0, Anion Gap 5, BUN 36 H, Creatinine 0.71, Estim Creat Clear Calc 70.57, Est GFR (MDRD) Af Amer 108, Est GFR (MDRD) Non-Af 89, BUN/Creatinine Ratio 50.6 H, Glucose 169 H, Calcium 9.0, Total Bilirubin 0.40, AST 31, ALT 34, Alkaline Phosphatase 203 H, Total Protein 6.1 L, Albumin 1.9 L, Globulin 4.2, Albumin/Globulin Ratio 0.5 L Micro: Microbiology 05/04/21 08:10 Sputum, Induced/Lukens Gram Stain - Final 05/04/21 08:10 Sputum, Induced/Lukens Respiratory Culture - Final Moraxella(Elle.)Catarrhalis 05/04/21 05:33 Blood Culture (Wb) - Anticubital Left Blood Culture - Preli minary No growth in 48 hours. 05/04/21 05:11 Blood Culture (Wb) - Anticubital Right Blood Culture - Preliminary No growth in 48 hours. 05/04/21 05:31 Urine Catheter - Antonio Legionella Antigen - Final 05/04/21 05:31 Urine Catheter - Antonio Streptococcus pneumoniae Antigen (M - Final ABG Data ABG results: ABG 05/08/21 04:59 Specimen Type ART Sample Site L Brach pH 7.33 L Bicarbonate Actual 28.0 H Total CO2 30 Base Excess 2 O2 Saturation 86 L O2 % 85 ABG pCO2 53.7 H ABG pO2 56 L Respiration Rate 12 O2 Delivery Device Adult Vent Vent Mode BiLevel POC Pressure Suppt 5 Clinical Comments pH 24 tH 4.5 Physical Exam Const General Appearance: intubated and patient mechanically ventilated Nutritional Appearance: obese HEENT normocephalic and head/scalp atraumatic Mouth: endotracheal tube in place and OG tube in place Eyes PERRL and conjunctivae normal Neck supple General: trachea midline Chest inspection of chest normal Resp Auscultation: rhonchi and diminished lung sounds Cardio regular rate and regular rhythm GI normal to inspection, nondistended, normoactive bowel sounds Extremity no clubbing, cyanosis or edema Skin no rashes or lesions noted Neuro Sensorium / Orientation: sedated on vent Charges/Coding Procedures Hospitalists Procedures: [id number] Critial Care 1st Hr
[2021-05-08] MEDS: Chlorhexidine 15 ML PO ×2 (08:22→20:30)
[2021-05-08] MEDS: Enoxaparin 100 MG/ML Syringe 90 MG SC ×2 (08:22→20:30)
[2021-05-08] MEDS: Senna/Docusate Sodium 1 Tablet 2 TABLET GT ×2 (08:22→20:29)
[2021-05-08] MEDS: Propofol 10MG/Ml 1,000 MG/100 ML Bottle 17.9 MG CONT INF (08:23)
[2021-05-08] MEDS: Polyethylene Glycol 3350 17 GM PACKET GT ×2 (08:23→20:30)
[2021-05-08] MEDS: Carvedilol 12.5 MG Tablet NG ×2 (08:23→20:30)
[2021-05-08] MEDS: dexAMETHasone 10 MG/ML Vial 6 MG IV (08:23)
[2021-05-08] MEDS: Ceftriaxone 1 GM/50 ML BAG IV (10:07)
[2021-05-08] MEDS: Dexmedetomidine 1,000 mcg in 0.9% NS 240 mL 27.6 MCG CONT INF ×2 (10:18→19:41)
[2021-05-08 10:40] LABS: Pathologist Review Reviewed
[2021-05-08 10:41] LABS: Pathologist Review Reviewed
[2021-05-08] MEDS: Bisacodyl 10 MG Suppository RC (10:57)
[2021-05-08] MEDS: Propofol 10MG/Ml 1,000 MG/100 ML Bottle 15.3 MG CONT INF (14:19)
[2021-05-08 15:45] LABS: Bedside Glucose 160 mg/dL (70-110)
[2021-05-08 18:05] LABS: Bedside Glucose 187 mg/dL (70-110)
--- NOTE | 2021-05-08 19:45 | PN.HOSP_ITS ---
Subjective Subjective Patient was seen and examined today, she remains sedated and on the ventilator Objective Data Objective Data Vital Signs: Vital Signs Temp Pulse Resp BP Pulse Ox 102.9 F H 80 27 H 168/80 H 93 05/08/21 19:00 05/08/21 19:00 05/08/21 19:00 05/08/21 19:00 05/08/21 19:00 Oxygen Flow Rate (L/min) 15 Oxygen Delivery Method Mechanical Ventilator Weight: 85 kg Body Mass Index (BMI) 33.0 Intake & Output: Intake and Output for Last 24 Hours 05/06/21 05/07/21 05/08/21 23:59 23:59 23:59 Intake Total 2334.25 / 2432.55 2717.66 / 2856.16 2215.98 / 2215.98 Output Total 1160 / 1460 1625 / 1625 950 / 950 Balance 1174.25 / 972.55 1092.66 / 1231.16 1265.98 / 1265.98 Lab / Micro Data Result Diagrams: 05/08/21 05:15 05/08/21 05:15 Labs: Laboratory Results - last 24 hr 05/06/21 04:50: Diff Path Review Reviewed 05/07/21 09:28: Diff Path Review Reviewed 05/08/21 00:13: POC Glucose 161 H 05/08/21 05:09: POC Glucose 151 H 05/08/21 05:15: WBC 23.9 H, RBC 4.97, Hgb 11.6 L, Hct 40.3, MCV 81.1, MCH 23.3 L , MCHC 28.8 L, RDW Std Deviation 56.5 H, RDW Coeff of Cami 19.7 H, Plt Count 268, MPV 10.9, Immature Gran % (Auto) 1.200 H, Neut % (Auto) 90.1 H, Lymph % (Auto) 4.1 L, [place] % (Auto) 4.1, Eos % (Auto) 0.3, Baso % (Auto) 0.2, Absolute Neuts (auto) 21.6 H, Absolute Lymphs (auto) 0.98, Nucleated RBC % 0.5, Atypical Lymphocytes 1+ 05/08/21 05:15: Sodium 149 H, Potassium 4.6, Chloride 116 H, Carbon Dioxide 28.0, Anion Gap 5, BUN 36 H, Creatinine 0.71, Estim Creat Clear Calc 70.57, Est GFR (MDRD) Af Amer 108, Est GFR (MDRD) Non-Af 89, BUN/Creatinine Ratio 50.6 H, Glucose 169 H, Calcium 9.0, Total Bilirubin 0.40, AST 31, ALT 34, Alkaline Phosphatase 203 H, Total Protein 6.1 L, Albumin 1.9 L, Globulin 4.2, Albumin/Globulin Ratio 0.5 L 05/08/21 11:04: POC Glucose 160 H 05/08/21 15:56: POC Glucose 187 H Micro: Microbiology 05/04/21 08:10 Sputum, Induced/Lukens Gram Stain - Final 05/04/21 08:10 Sputum, Induced/Lukens Respiratory Culture - Final Moraxella(Elle.)Catarrhalis 05/04/21 05:33 Blood Culture (Wb) - Anticubital Left Blood Culture - Preliminary No growth in 48 hours. 05/04/21 05:11 Blood Culture (Wb) - Anticubital Right Blood Culture - Preliminary No growth in 48 hours. 05/04/21 05:31 Urine Catheter - Antonio Legionella Antigen - Final 05/04/21 05:31 Urine Catheter - Antonio Streptococcus pneumoniae Antigen (M - Final ABG Data ABG results: ABG 05/08/21 04:59 Specimen Type ART Sample Site L Brach pH 7.33 L Bicarbonate Actual 28.0 H Total CO2 30 Base Excess 2 O2 Saturation 86 L O2 % 85 ABG pCO2 53.7 H ABG pO2 56 L Respiration Rate 12 O2 Delivery Device Adult Vent Vent Mode BiLevel POC Pressure Suppt 5 Clinical Comments pH 24 tH 4.5 Physical Exam Narrative Const Constitutional Narrative: Patient is sedated and on the ventilator General Appearance: cooperative, well kempt and well developed Orientation / Consciousness: awake, oriented to person, oriented to place and oriented to time HEENT normocephalic and head/scalp atraumatic Head and Scalp: normocephalic Neck nuchal rigidity, no JVD and thyroid normal General: trachea midline Resp normal respiratory effort, no retractions, no use of accessory muscles and clear to auscultation bilaterally Auscultation: Negative for rales, rhonchi or wheezes Cardio regular rate, regular rhythm, S1 normal heart sound, S2 normal heart sound, no murmurs, no rub and no gallops GI normal to inspection, nondistended, normoactive bowel sounds, soft to palpation, non-tender and non-distended Extremity no clubbing, cyanosis or edema Skin no rashes or lesions noted and skin turgor normal General Skin Exam: no breakdown Neuro Neuro Narrative: Patient is sedated on the ventilator Psych thought process normal Psych Narrative: Patient is sedated and on the ventilator Const Constitutional Narrative: Patient is sedated and on the ventilator General Appearance: cooperative, well kempt and well developed Orientation / Consciousness: awake, oriented to person, oriented to place and oriented to time HEENT normocephalic and head/scalp atraumatic Eyes Eyes Narrative: Slight proptosis Neck nuchal rigidity, no lymphadenopathy, no JVD and thyroid normal General: trachea midline Resp normal respiratory effort, no retractions, no use of accessory muscles and clear to auscultation bilaterally Resp Narrative: coarse breath sounds Auscultation: Negative for rales, rhonchi or wheezes Cardio regular rate, regular rhythm, S1 normal heart sound, S2 normal heart sound, no murmurs, no rub and no gallops Cardio Narrative: Tachycardic but regular. GI normal to inspection, nondistended, normoactive bowel sounds, soft to palpation, non-tender and non-distended GI Narrative: Obese Extremity normal to inspection and no clubbing, cyanosis or edema Skin no rashes or lesions noted, no wounds and skin turgor normal General Skin Exam: no breakdown Neuro Neuro Narrative: Patient is sedated on the ventilator Psych thought process normal Psych Narrative: Patient is sedated and on the ventilator Assessment & Plan Assessment/Plan (1) COVID-19: PLAN: 1. COVID-19 pneumonia with ARDS with an overlay of chronic obstructive pulmonary disease-patient remains on the ventilator at this time, pulmonary medicine is participating in her care. Patient is currently on IV Decadron #2 acute combined respiratory failure secondary to ARDS with an overlay of COPD- pulmonary medicine is adjusting vent settings #3 adult respiratory distress syndrome-pulmonary medicine is participating in her care #4 type 2 diabetes-blood sugars are being monitored, insulin will be given as needed #5 chronic obstructive pulmonary disease-complicates medical care #6 cerebrovascular disease-patient is currently on no aspirin for prevention at this time #7 acute kidney injury-resolved at this time #8 secondary bacterial pneumonia with Moraxella-patient is being treated with appropriate antibiotics I was not able to find any evidence of A. fib in this patient although it is mentioned in her medical record progress notes during the time of this adm ission. Charges/Coding Visit Charges Inpatient E&M: 62256 Subs Hosp L2
[2021-05-08] MEDS: Propofol 10MG/Ml 1,000 MG/100 ML Bottle 12.8 MG CONT INF ×2 (21:51→23:44)
[2021-05-09] VITALS (36 sets, daily range): BP systolic 103–151; BP diastolic 61–97; PULSE 69–99; RESP 13–48; TEMP 38.2–39; O2SAT 80–95
[2021-05-09 00:31] LABS: Bedside Glucose 160 mg/dL (70-110)
[2021-05-09] MEDS: Acetaminophen 650 MG/20 ML UDC GT ×2 (03:34→21:20)
[2021-05-09 03:56] LABS: Hematocrit 40.7 % (37-47); Hemoglobin 11.7 g/dL (12.0-15.0); Mean Corp Hgb Conc 28.7 g/dL (32-36); Mean Corpuscular Hgb 23.1 pg (27.0-32.0); Mean Corpuscular Volume 80.3 fL (81-99); Mean Platelet Vol. 10.6 fl (6.2-12.0); POSITIVE MORPHOLOGY YES; Platelet Count 263 K/mm3 (150-450); RBC Distribution Width CV 19.9 % (11.6-14.6); Red Blood Count 5.07 M/mm3 (4.2-5.4); White Blood Count 17.9 K/mm3 (4.4-11.0)
[2021-05-09 04:10] LABS: Base Excess 3 mmol/L (-2 to +2); Bicarbonate 28.2 mmol/L (22-26); Blood Gas Specimen Type ART; FI02 80; Mode BiLevel; O2 Delivery Device Adult Vent; PO2 52 mmHG (75-100); RR 12; SITE L Radial; SO2 86 % (95-99); Total Carbon Dioxide 30 mmol/L; pCO2 45.8 mmHg (35-45)
[2021-05-09 04:13] LABS: ALB/GLOB Ratio 0.5 RATIO (0.9-2.4); AST(SGOT) 30 U/L (15-37); Alanine Aminotransfer ALT/SGPT 38 U/L (13-56); Albumin, Serum 1.9 g/dL (3.2-5.0); Alkaline Phosphatase 194 U/L (45-117); Anion Gap 5 (5-15); BUN 28 mg/dL (7-18); BUN/Creat Ratio 47.6 RATIO (10-20); Calcium,Total 9.1 mg/dL (8.5-10.1); Chloride 117 mmol/L (98-107); Creatinine, Serum 0.59 mg/dL (0.55-1.02); EST Glomerular Filtration Rate 111 mL/min (>60); Est Glom Filt Rate - Afr Amer 134 mL/min (>60); Estimated Creatinine Clearance 84.93 ml/min; Glucose 164 mg/dL (74-106); Potassium 4.6 mmol/L (3.5-5.1); Protein, Total 5.9 g/dL (6.4-8.2); Sodium Level 152 mmol/L (136-145)
[2021-05-09] MEDS: Dexmedetomidine 1,000 mcg in 0.9% NS 240 mL 27.6 MCG CONT INF (04:23)
[2021-05-09 04:34] LABS: Scan Smear per Review Criteria MANUAL DIFF
[2021-05-09 04:35] LABS: Differential Indicated MANUAL DIFF
[2021-05-09 04:41] LABS: Absolute Lymphocyte Count 2.32 X10^3/uL (0.83-4.51); Absolute Neutrophil Count 13.8 X10^3/uL (2.0-7.7); Metamyelocyte 1 % (0-1); Neutrophil-Band 2 % (0-5); Neutrophil-Segmented 75 % (47-70); Total Cells Counted 100 (MANUAL DIFF)
[2021-05-09 04:42] LABS: Anisocytosis 2+; Atypical Lymphocyte 3+ %; Blast 2 % (0-0); Lymphocyte 13 % (19-41); Monocyte 3 % (0-10); Myelocyte 3 % (0-0); Platelet Estimate ADEQUATE (ADEQ); Promyelocyte 2 % (0-0); Red Cell Morphology NORM C+C NORMAL (NORM C&C)
[2021-05-09] MEDS: Insulin Lispro 100 UNIT/ML INSULN.PEN SC ×3 (06:08→18:47)
[2021-05-09] MEDS: Propofol 10MG/Ml 1,000 MG/100 ML Bottle 12.8 MG CONT INF (06:20)
[2021-05-09 07:25] LABS: Bedside Glucose 167 mg/dL (70-110)
--- NOTE | 2021-05-09 07:33 | PN.CC_ITS ---
Assessment & Plan Assessment/Plan (1) Acute hypoxemic respiratory failure due to COVID-19: (2) Subtherapeutic international normalized ratio (INR): (3) Encephalopathy due to 2019-nCoV: (4) Type 2 diabetes mellitus: (5) History of blood clot: (6) COPD: PLAN: RECOMMENDATIONS: 1. Continue Decadron to complete a 10-day course. 2. Continue to wean FiO2 for saturations greater than 90%. 3. Diuretics as tolerated by hemodynamics and renal function. 4. Antibiotics per infectious disease. 5. Continue therapeutic Lovenox. 6. Continue appropriate GI prophylaxis. 7. Start D5W given rising sodium and chloride. 8. Obtain repeat chest x-ray. IMPRESSIONS: 1. Acute combined respiratory failure secondary to ARDS d/t COVID-19 in the setting of COPD The patient initially was admitted to the hospital on May 04 after being emergently intubated in the emergency department in the setting of COVID-19 pneumonia. The patient did receive Tocilizumab and was started on Decadron. She also appears to have a secondary bacterial pneumonia with Moraxella isolated from sputum culture. Antimicrobials will be continued accordingly. Plan to continue to wean FiO2 as tolerated for saturations greater than 90%. Continue tube feeds as tolerated. Continue Lovenox as ordered. Obtain repeat chest x- ray this morning. 2. Acute kidney injury Resolved. Likely prerenal in etiology and related to acute presentation. Okay to utilize diuretics as needed to maintain euvolemic state. 3. Hypernatremia/hyperchloremia Start D5W and recheck labs tomorrow morning. Increase free water flushes as well. 4. Recent UTI/A. fib/subtherapeutic INR/nonvaccinated status/diabetes mellitus type 2 Complicates care, management, recovery and prognosis. Continue sliding scale insulin coverage. TIME: 31 minutes of critical care time, independent of procedures, was spent addressing the patient's acute combined respiratory failure secondary to ARDS in the setting of COVID-19, secondary bacterial pneumonia, acute kidney injury, review of all data and collaboration with the care team. Subjective Subjective The patient was seen and examined at the bedside this morning. Events from the last 24 hours have been reviewed. Today is vent day #6. The patient remains fe brile this morning with a temperature of 101.1 ?F. She remains on APRV mode of mechanical ventilation with a P high of 24 and FiO2 of 80%. The patient is currently sedated on fentanyl, propofol and Precedex. Trophic tube feeds are currently running. She is currently documented to be overall net +5 L for the hospitalization. The patient remains on antimicrobials, Lovenox and Decadron. Sodium is increased to 152 this morning with a chloride of 117. Creatinine is within normal limits. Objective Data Objective Data The patient's most recent lab work, culture data and imaging studies have all been personally reviewed. Rapid coronavirus antigen testing was positive on April 30. Sputum culture dated May 04 was positive for Moraxella. Vital Signs: Vital Signs Temp Pulse Resp BP Pulse Ox 101.1 F H 74 38 H 124/69 H 89 05/09/21 07:00 05/09/21 07:25 05/09/21 07:25 05/09/21 07:00 05/09/21 07:25 Oxygen Flow Rate (L/min) 15 Oxygen Delivery Method Mechanical Ventilator Weight: 86.2 kg Body Mass Index (BMI) 33.0 Intake & Output: Intake and Output for Last 24 Hours 05/07/21 05/08/21 05/09/21 23:59 23:59 23:59 Intake Total 2717.66 / 2856.16 2538.60 / 2685.65 654.81 / 654.81 Output Total 1625 / 1625 950 / 1325 725 / 725 Balance 1092.66 / 1231.16 1588.60 / 1360.65 -70.19 / -70.19 Lab / Micro Data Attestation: I reviewed the patient's lab results. Result Diagrams: 05/09/21 03:45 05/09/21 03:45 Labs: Laboratory Results - last 24 hr 05/06/21 04:50: Diff Path Review Reviewed 05/07/21 09:28: Diff Path Review Reviewed 05/08/21 11:04: POC Glucose 160 H 05/08/21 15:56: POC Glucose 187 H 05/08/21 23:50: POC Glucose 160 H 05/09/21 03:45: WBC 17.9 H, RBC 5.07, Hgb 11.7 L, Hct 40.7, MCV 80.3 L, MCH 23.1 L, MCHC 28.7 L, RDW Std Deviation 56.0 H, RDW Coeff of Cami 19.9 H, Plt Count 263, MPV 10.6, Immature Gran % (Auto) INDUSTRIAL RADIOGRAPHER, Neut % (Auto) INDUSTRIAL RADIOGRAPHER, Lymph % (Auto) INDUSTRIAL RADIOGRAPHER, [place] % (Auto) INDUSTRIAL RADIOGRAPHER, Eos % (Auto) INDUSTRIAL RADIOGRAPHER, Baso % (Auto) INDUSTRIAL RADIOGRAPHER, Absolute Neuts (auto) 13.8 H, Absolute Lymphs (auto) 2.32, Total Counted 100, Neutrophils % (Manual) 75 H, Band Neutrophils % 2, Lymphocytes % (Manual) 13 L, Monocytes % (Manual) 3, Metamyelocytes % 1, Myelocytes % 3 H, Promyelocytes % 2 H, Blast Cells % 2 H*, Nucleated RBC % INDUSTRIAL RADIOGRAPHER, Diff Path Review May foll, Atypical Lymphocytes 3+, Platelet Estimate ADEQUATE, RBC Morphology NORM C+C, Anisocytosis 2+ 05/09/21 03:45: Sodium 152 H, Potassium 4.6, Chloride 117 H, Carbon Dioxide 30.0, Anion Gap 5, BUN 28 H, Creatinine 0.59, Estim Creat Clear Calc 84.93, Est GFR (MDRD) Af Amer 134, Est GFR (MDRD) Non-Af 111, BUN/Creatinine Ratio 47.6 H, Glucose 164 H, Calcium 9.1, Total Bilirubin 0.40, AST 30, ALT 38, Alkaline Phosphatase 194 H, Total Protein 5.9 L, Albumin 1.9 L, Globulin 4.0, Albumin/Globulin Ratio 0.5 L 05/09/21 06:05: POC Glucose 167 H Micro: Microbiology 05/04/21 08:10 Sputum, Induced/Lukens Gram Stain - Final 05/04/21 08:10 Sputum, Induced/Lukens Respiratory Culture - Final Moraxella(Elle.)Catarrhalis 05/04/21 05:33 Blood Culture (Wb) - Anticubital Left Blood Culture - Preliminary No growth in 48 hours. 05/04/21 05:11 Blood Culture (Wb) - Anticubital Right Blood Culture - Preliminary No growth in 48 hours. 05/04/21 05:31 Urine Catheter - Antonio Legionella Antigen - Final 05/04/21 05:31 Urine Catheter - Antonio Streptococcus pneumoniae Antigen (M - Final ABG Data ABG results: ABG 05/09/21 04:04 Specimen Type ART Sample Site L Radial pH 7.40 Bicarbonate Actual 28.2 H Total CO2 30 Base Excess 3 H O2 Saturation 86 L O2 % 80 ABG pCO2 45.8 H ABG pO2 52 L Earnest Test N/A Respiration Rate 12 O2 Delivery Device Adult Vent Vent Mode BiLevel Physical Exam Const General Appearance: intubated and patient mechanically ventilated Nutritional Appearance: obese HEENT normocephalic and head/scalp atraumatic Mouth: endotracheal tube in place and OG tube in place Eyes PERRL and conjunctivae normal Neck supple General: trachea midline Chest inspection of chest normal Resp Effort and Inspection: tachypneic Auscultation: diminished lung sounds; Negative for rales, rhonchi or wheezes Cardio regular rate and regular rhythm GI normal to inspection, nondistended, normoactive bowel sounds Extremity no clubbing, cyanosis or edema Skin no rashes or lesions noted Neuro Sensorium / Orientation: sedated on vent Charges/Coding Procedures Hospitalists Procedures: [id number] Critial Care 1st Hr
[2021-05-09] MEDS: Senna/Docusate Sodium 1 Tablet 2 TABLET GT ×2 (07:59→21:21)
[2021-05-09] MEDS: Carvedilol 12.5 MG Tablet NG ×2 (07:59→21:21)
[2021-05-09] MEDS: Polyethylene Glycol 3350 17 GM PACKET GT ×2 (08:00→21:20)
[2021-05-09] MEDS: dexAMETHasone 10 MG/ML Vial 6 MG IV (08:00)
[2021-05-09] MEDS: Enoxaparin 100 MG/ML Syringe 90 MG SC ×2 (08:00→21:20)
[2021-05-09] MEDS: Chlorhexidine 15 ML PO ×2 (08:01→21:21)
--- NOTE | 2021-05-09 09:50 | RAD_ITS ---
INDICATION: Respiratory Failure EXAMINATION/TECHNIQUE: X-RAY - XR Chest 1 View COMPARISON: 05/04/2021. FINDINGS: Poor inspiratory effort is visualized that limits evaluation. LINES/DEVICES: Endotracheal tube visualized with tip 1.6 cm above the anika. Gastric tube visualized with tip in the stomach. Right upper extremity PICC visualizes catheter tip in the SVC. EKG leads are seen superimposing the chest. LUNGS: Prominence of the bronchovascular interstitial lung markings is visualized in bilateral lung roland with patchy airspace opacification visualized in bilateral lung roland, increased opacification in the right upper lung roland are seen in comparison to the prior study. Mild haziness overlying bilateral hemidiaphragms but no evidence of fluid level to suggest pleural effusion. No evidence of pneumothorax or parenchymal lung masses seen. MEDIASTINUM AND CARDIOVASCULAR STRUCTURES: Cardiac silhouette is prominent in size however this is partially artifactual due to the poor inspiratory effort. BONES AND SOFT TISSUES: Unremarkable. RAD/Chest 1 View (Portable) IMPRESSION: Bronchovascular prominence and bilateral airspace opacification demonstrates prominence in comparison to the prior study. Electronically Signed: John Jane MD at 10:23 EST Tel , Service support ,
[2021-05-09 10:27] LABS: Triglycerides 826 mg/dL
[2021-05-09] MEDS: Ceftriaxone 1 GM/50 ML BAG IV (11:00)
[2021-05-09] MEDS: Acetaminophen 650 MG Suppository RC (11:47)
[2021-05-09] MEDS: Propofol 10MG/Ml 1,000 MG/100 ML Bottle 15.5 MG CONT INF ×3 (11:55→21:06)
[2021-05-09] MEDS: 0.9% Saline Lock 10 ML Syringe IV (12:06)
[2021-05-09 12:15] LABS: Bedside Glucose 180 mg/dL (70-110)
[2021-05-09] MEDS: Dexmedetomidine 1,000 mcg in 0.9% NS 240 mL 23.7 MCG CONT INF (14:01)
[2021-05-09] MEDS: Magnesium Citrate 300 ML 150 ML GT (14:24)
--- NOTE | 2021-05-09 15:15 | RAD_ITS ---
INDICATION: sudden increased hypoxia on vent EXAMINATION/TECHNIQUE: X-RAY - XR Chest 1 View COMPARISON: 05/09/2021. FINDINGS: LINES/DEVICES: Endotracheal tube is visualized with tip 2.3 cm above the anika. Gastric tube is visualized with tip in the stomach. Right upper extremity PICC visualizes catheter tip in the SVC. LUNGS: Prominence of the bronchovascular interstitial lung markings is visualized bilaterally, scattered areas of patchy airspace opacification visualized in bilateral lung roland, subtle fluid-filled visualized along the right minor fissure, haziness overlying bilateral lower lung. No evidence of pneumothorax is seen. MEDIASTINUM AND CARDIOVASCULAR STRUCTURES: Cardiomegaly demonstrates no significant change in comparison to the prior study. BONES AND SOFT TISSUES: Degenerative bone changes are seen. RAD/Chest 1 View (Portable) IMPRESSION: Congestive changes demonstrate slight prominence in comparison to the prior study. Electronically Signed: John Jane MD at 15:29 EST Tel , Service support ,
[2021-05-09 15:47] LABS: Pathologist Review Reviewed
--- NOTE | 2021-05-09 17:00 | NURSING ---
Care assumed of pt; fentanyl running at 200mcg/min, previously charted at 100mcg/min, precedex running at 1.1mcg, propofol running at 30mcg
[2021-05-09 18:46] LABS: Bedside Glucose 181 mg/dL (70-110)
--- NOTE | 2021-05-09 18:57 | PCM.PN.HOSP ---
Subjective Subjective Patient was seen and examined today in the ICU, she remains sedated and on the ventilator, her current oxygen setting is at 100%. I talked briefly with critical care about her care. Objective Data Objective Data Vital Signs: Vital Signs Temp Pulse Resp BP Pulse Ox 100.9 F H 89 24 H 129/68 H 92 05/09/21 18:00 05/09/21 18:00 05/09/21 18:00 05/09/21 18:00 05/09/21 18:00 Oxygen Flow Rate (L/min) 15 Oxygen Delivery Method Mechanical Ventilator Weight: 86.2 kg Body Mass Index (BMI) 33.0 Intake & Output: Intake and Output for Last 24 Hours 05/07/21 05/08/21 05/09/21 23:59 23:59 23:59 Intake Total 2717.66 / 2856.16 2538.60 / 2685.65 2025.93 / 2025.93 Output Total 1625 / 1625 950 / 1325 2250 / 2250 Balance 1092.66 / 1231.16 1588.60 / 1360.65 -224.07 / -224.07 Lab / Micro Data Result Diagrams: 05/09/21 03:45 05/09/21 03:45 Labs: Laboratory Results - last 24 hr 05/08/21 23:50: POC Glucose 160 H 05/09/21 03:45: WBC 17.9 H, RBC 5.07, Hgb 11.7 L, Hct 40.7, MCV 80.3 L, MCH 23.1 L, MCHC 28.7 L, RDW Std Deviation 56.0 H, RDW Coeff of Cami 19.9 H, Plt Count 263, MPV 10.6, Immature Gran % (Auto) PIPE FITTINGS MOLDER, Neut % (Auto) PIPE FITTINGS MOLDER, Lymph % (Auto) PIPE FITTINGS MOLDER, [place] % (Auto) PIPE FITTINGS MOLDER, Eos % (Auto) PIPE FITTINGS MOLDER, Baso % (Auto) PIPE FITTINGS MOLDER, Absolute Neuts (auto) 13.8 H, Absolute Lymphs (auto) 2.32, Total Counted 100, Neutrophils % (Manual) 75 H, Band Neutrophils % 2, Lymphocytes % (Manual) 13 L, Monocytes % (Manual) 3, Metamyelocytes % 1, Myelocytes % 3 H, Promyelocytes % 2 H, Blast Cells % 2 H*, Nucleated RBC % PIPE FITTINGS MOLDER, Diff Path Review Reviewed, Atypical Lymphocytes 3+, Platelet Estimate ADEQUATE, RBC Morphology NORM C+C, Anisocytosis 2+ 05/09/21 03:45: Sodium 152 H, Potassium 4.6, Chloride 117 H, Carbon Dioxide 30.0, Anion Gap 5, BUN 28 H, Creatinine 0.59, Estim Creat Clear Calc 84.93, Est GFR (MDRD) Af Amer 134, Est GFR (MDRD) Non-Af 111, BUN/Creatinine Ratio 47.6 H, Glucose 164 H, Calcium 9.1, Total Bilirubin 0.40, AST 30, ALT 38, Alkaline Phosphatase 194 H, Total Protein 5.9 L, Albumin 1.9 L, Globulin 4.0, Albumin/Globulin Ratio 0.5 L 05/09/21 03:45: Triglycerides 826 H 05/09/21 06:05: POC Glucose 167 H 05/09/21 11:39: POC Glucose 180 H 05/09/21 18:42: POC Glucose 181 H Micro: Microbiology 05/04/21 05:11 Blood Culture (Wb) - Anticubital Right Blood Culture - Final No growth in 5 days. 05/04/21 05:33 Blood Culture (Wb) - Anticubital Left Blood Culture - Final No growth in 5 days. 05/04/21 08:10 Sputum, Induced/Lukens Gram Stain - Final 05/04/21 08:10 Sputum, Induced/Lukens Respiratory Culture - Final Moraxella(Elle.)Catarrhalis 05/04/21 05:31 Urine Catheter - Antonio Legionella Antigen - Final 05/04/21 05:31 Urine Catheter - Antonio Streptococcus pneumoniae Antigen (M - Final ABG Data ABG results: ABG 05/09/21 04:04 Specimen Type ART Sample Site L Radial pH 7.40 Bicarbonate Actual 28.2 H Total CO2 30 Base Excess 3 H O2 Saturation 86 L O2 % 80 ABG pCO2 45.8 H ABG pO2 52 L Earnest Test N/A Respiration Rate 12 O2 Delivery Device Adult Vent Vent Mode BiLevel Radiography Diagnostic Testing: Radiology Impression Chest X-Ray 05/09/21 09:50 IMPRESSION: Bronchovascular prominence and bilateral airspace opacification demonstrates prominence in comparison to the prior study. Electronically Signed: John Jane MD at 10:23 EST Tel , Service support , Chest X-Ray 05/09/21 15:15 IMPRESSION: Congestive changes demonstrate slight prominence in comparison to the prior study. Electronically Signed: John Jane MD at 15:29 EST Tel , Service support , Physical Exam Narrative Const Constitutional Narrative: Patient is sedated and on the ventilator General Appearance: cooperative, well kempt and well developed Orientation / Consciousness: awake, oriented to person, oriented to place and oriented to time HEENT normocephalic and head/scalp atraumatic Head and Scalp: normocephalic Neck nuchal rigidity, no JVD and thyroid normal General: trachea midline Resp normal respiratory effort, no retractions, no use of accessory muscles and clear to auscultation bilaterally Auscultation: Negative for rales, rhonchi or wheezes Cardio regular rate, regular rhythm, S1 normal heart sound, S2 normal heart sound, no murmurs, no rub and no gallops GI normal to inspection, nondistended, normoactive bowel sounds, soft to palpation, non-tender and non-distended Extremity no clubbing, cyanosis or edema Skin no rashes or lesions noted and skin turgor normal General Skin Exam: no breakdown Neuro Neuro Narrative: Patient is sedated on the ventilator Psych thought process normal Psych Narrative: Patient is sedated and on the ventilator Const Constitutional Narrative: Patient is sedated and on the ventilator at this time General Appearance: cooperative, well kempt and well developed Orientation / Consciousness: awake, oriented to person, oriented to place and oriented to time HEENT normocephalic and head/scalp atraumatic Head and Scalp: normocephalic Eyes conjunctivae normal Eyes Narrative: Slight proptosis Neck nuchal rigidity, no JVD and thyroid normal General: trachea midline Resp normal respiratory effort, no retractions, no use of accessory muscles and clear to auscultation bilaterally Resp Narrative: coarse breath sounds Auscultation: Negative for rales, rhonchi or wheezes Cardio regular rate, regular rhythm, S1 normal heart sound, S2 normal heart sound, no murmurs, no rub and no gallops Cardio Narrative: Tachycardic but regular. GI normal to inspection, nondistended, normoactive bowel sounds, soft to palpation, non-tender and non-distended GI Narrative: Obese Extremity normal to inspection and no clubbing, cyanosis or edema Skin no rashes or lesions noted and no wounds General Skin Exam: no breakdown Neuro Neuro Narrative: Patient is sedated and on the ventilator Psych thought process normal Psych Narrative: Patient is sedated and on the ventilator Assessment & Plan Assessment/Plan (1) COVID-19: PLAN: 1. COVID-19 pneumonia with ARDS with an overlay of chronic obstructive pulmonary disease-patient remains on the ventilator at this time, pulmonary medicine is participating in her care. Patient is currently on IV Decadron #2 acute combined respiratory failure secondary to ARDS with an overlay of COPD-pulmonary medicine is adjusting vent settings #3 adult respiratory distress syndrome-pulmonary medicine is participating in her care #4 type 2 diabetes-blood sugars are being monitored, insulin will be given as needed #5 chronic obstructive pulmonary disease-complicates medical care #6 cerebrovascular disease-patient is currently on no aspirin for prevention at this time #7 acute kidney injury-resolved at this time #8 secondary bacterial pneumonia with Moraxella-patient is being treated with appropriate antibiotics I was not able to find any evidence of A. fib in this patient although it is mentioned in her medical record progress notes during the time of this admission. Overall outlook for this patient remains extremely guarded Charges/Coding Visit Charges Inpatient E&M: 35494 Subs Hosp L2
[2021-05-10] VITALS (46 sets, daily range): BP systolic 90–115; BP diastolic 55–80; PULSE 82–100; RESP 16–38; TEMP 37.6–38.6; O2SAT 70–97
[2021-05-10] MEDS: Dexmedetomidine 1,000 mcg in 0.9% NS 240 mL 23.7 MCG CONT INF (00:18)
[2021-05-10 01:40] LABS: Bedside Glucose 185 mg/dL (70-110)
[2021-05-10] MEDS: Propofol 10MG/Ml 1,000 MG/100 ML Bottle 15.5 MG CONT INF ×3 (03:27→19:47)
[2021-05-10 03:49] LABS: Absolute Lymphocyte Count 0.92 X10^3/uL (0.83-4.51); Absolute Neutrophil Count 21.7 X10^3/uL (2.0-7.7); Basophil# 0.16 X10^3/uL; Basophil% 0.7 % (0-1); Eosinophil# 0.22 X10^3/uL; Eosinophils% 0.9 % (0-5); Hematocrit 39.6 % (37-47); Hemoglobin 11.4 g/dL (12.0-15.0); Lymphocyte # 0.92 X10^3/ul (0.83-4.51); Lymphocyte % 3.8 % (19-41); Mean Corp Hgb Conc 28.8 g/dL (32-36); Mean Corpuscular Hgb 23.5 pg (27.0-32.0); Mean Corpuscular Volume 81.5 fL (81-99); Mean Platelet Vol. 11.6 fl (6.2-12.0); Monocyte# 0.75 X10^3/uL; Monocyte% 3.1 % (0-10); NRBC Flagged by Analyzer 0.4 % (0-5); Neutrophil # 21.74 X10^3/uL (2.7-7.7); Neutrophil % 90.2 % (47-70); POSITIVE DIFFERENTIAL YES; POSITIVE MORPHOLOGY YES; Platelet Count 204 K/mm3 (150-450); RBC Distribution Width CV 19.6 % (11.6-14.6); RBC Distribution Width SD 55.6 fl (35.1-43.9); Red Blood Count 4.86 M/mm3 (4.2-5.4); White Blood Count 24.1 K/mm3 (4.4-11.0)
[2021-05-10 03:51] LABS: Differential Indicated SCAN CRITERIA MET
[2021-05-10 04:36] LABS: ALB/GLOB Ratio 0.5 RATIO (0.9-2.4); AST(SGOT) 24 U/L (15-37); Alanine Aminotransfer ALT/SGPT 31 U/L (13-56); Albumin, Serum 1.6 g/dL (3.2-5.0); Alkaline Phosphatase 152 U/L (45-117); Anion Gap 7 (5-15); BUN 31 mg/dL (7-18); BUN/Creat Ratio 58.7 RATIO (10-20); Calcium,Total 8.5 mg/dL (8.5-10.1); Chloride 113 mmol/L (98-107); Creatinine, Serum 0.53 mg/dL (0.55-1.02); EST Glomerular Filtration Rate 126 mL/min (>60); Est Glom Filt Rate - Afr Amer 152 mL/min (>60); Estimated Creatinine Clearance 94.54 ml/min; Globulin 3.4 g/dL (2.2-4.2); Glucose 178 mg/dL (74-106); Potassium 4.4 mmol/L (3.5-5.1); Sodium Level 146 mmol/L (136-145)
[2021-05-10 05:41] LABS: Base Excess 2 mmol/L (-2 to +2); Bicarbonate 27.2 mmol/L (22-26); Blood Gas Specimen Type ART; FI02 80; Mode BiLevel; O2 Delivery Device Adult Vent; PO2 60 mmHG (75-100); RR 12; SITE L Radial; SO2 89 % (95-99); Total Carbon Dioxide 29 mmol/L; pCO2 48.6 mmHg (35-45); pH 7.36 (7.35-7.45)
[2021-05-10] MEDS: Insulin Lispro 100 UNIT/ML INSULN.PEN SC ×4 (06:12→18:06)
[2021-05-10 07:10] LABS: Bedside Glucose 185 mg/dL (70-110)
--- NOTE | 2021-05-10 07:29 | PN.CC_ITS ---
Assessment & Plan Assessment/Plan (1) Acute hypoxemic respiratory failure due to COVID-19: (2) Subtherapeutic international normalized ratio (INR): (3) Encephalopathy due to 2019-nCoV: (4) Type 2 diabetes mellitus: (5) History of blood clot: (6) COPD: PLAN: RECOMMENDATIONS: 1. Continue Decadron to complete a 10-day course. 2. Continue to wean FiO2 for saturations greater than 90%. 3. Continue proning trials. 4. Diuretics as tolerated by hemodynamics and renal function. 5. Antibiotics per infectious disease. 6. Continue therapeutic Lovenox. 7. Continue appropriate GI prophylaxis. 8. Continue D5W. 9. Ongoing goals of care discussion with the patient's family. IMPRESSIONS: 1. Acute combined respiratory failure secondary to ARDS d/t COVID-19 in the setting of COPD The patient initially was admitted to the hospital on May 04 after being emergently intubated in the emergency department in the setting of COVID-19 pneumonia. The patient did receive Tocilizumab and was started on Decadron. She also appears to have a secondary bacterial pneumonia with Moraxella isolated from sputum culture. Antimicrobials will be continued accordingly. Plan to continue to wean FiO2 as tolerated for saturations greater than 90%. Continue tube feeds as tolerated. Continue Lovenox as ordered. Despite the aforementioned, the patient's respiratory status still remains quite tenuous with worsening hypoxemia. 2. Acute kidney injury Resolved. Likely prerenal in etiology and related to acute presentation. Okay to utilize diuretics as needed to maintain euvolemic state. 3. Hypernatremia/hyperchloremia Start D5W and recheck labs tomorrow morning. Increase free water flushes as well. 4. Recent UTI/A. fib/subtherapeutic INR/nonvaccinated status/diabetes mellitus type 2 Complicates care, management, recovery and prognosis. Continue sliding scale insulin coverage. TIME: 34 minutes of critical care time, independent of procedures, was spent addressing the patient's acute combined respiratory failure secondary to ARDS in the setting of COVID-19, secondary bacterial pneumonia, acute kidney injury, review of all data and collaboration with the care team. Subjective Subjective The patient was seen and examined at the bedside this morning. Events from the last 24 hours have been reviewed. Today is vent day #7. The patient currently has a low-grade fever but remains otherwise hemodynamically stable. She remains on APRV mode of mechanical ventilation with a P high of 28 and FiO2 of 80%. Due to refractory hypoxemia, the patient was placed in prone position yesterday evening. She remains sedated on fentanyl, propofol and Precedex. Tube feeds are currently on hold. She is currently documented to be overall net +6.5 L for the hospitalization. The patient remains on antimicrobials, Lovenox and Decadron. White count is elevated at 24,000. Sodium and chloride are improving. Creatinine is within normal limits. I did speak with the patient's daughter this afternoon and updated her on the patient's overall clinical status. I explained my concern that given her trajectory over the last 48 to 72 hours her prognosis is quite poor. The patient is going to discuss with her siblings and consider a transition to DNR CCA. Objective Data Objective Data The patient's most recent lab work, culture data and imaging studies have all been personally reviewed. Rapid coronavirus antigen testing was positive on April 30. Sputum culture dated May 04 was positive for Moraxella. Vital Signs: Vital Signs Temp Pulse Resp BP Pulse Ox 100.5 F H 90 18 110/70 92 05/10/21 07:00 05/10/21 07:00 05/10/21 07:00 05/10/21 07:00 05/10/21 07:00 Oxygen Flow Rate (L/min) 15 Oxygen Delivery Method Mechanical Ventilator Weight: 86.2 kg Body Mass Index (BMI) 33.0 Intake & Output: Intake and Output for Last 24 Hours 05/08/21 05/09/21 05/10/21 23:59 23:59 23:59 Intake Total 2538.60 / 2685.65 3329.12 / 3488.32 669.08 / 669.08 Output Total 950 / 1325 2250 / 2250 250 / 250 Balance 1588.60 / 1360.65 1079.12 / 1238.32 419.08 / 419.08 Lab / Micro Data Attestation: I reviewed the patient's lab results. Result Diagrams: 05/10/21 03:45 05/10/21 03:45 Labs: Laboratory Results - last 24 hr 05/09/21 03:45: Diff Path Review Reviewed 05/09/21 03:45: Triglycerides 826 H 05/09/21 11:39: POC Glucose 180 H 05/09/21 18:42: POC Glucose 181 H 05/09/21 23:58: POC Glucose 185 H 05/10/21 03:45: WBC 24.1 H, RBC 4.86, Hgb 11.4 L, Hct 39.6, MCV 81.5, MCH 23.5 L , MCHC 28.8 L, RDW Std Deviation 55.6 H, RDW Coeff of Cami 19.6 H, Plt Count 204, MPV 11.6, Immature Gran % (Auto) 1.300 H, Neut % (Auto) 90.2 H, Lymph % (Auto) 3.8 L, [place] % (Auto) 3.1, Eos % (Auto) 0.9, Baso % (Auto) 0.7, Absolute Neuts (auto) 21.7 H, Absolute Lymphs (auto) 0.92, Nucleated RBC % 0.4 05/10/21 03:45: Sodium 146 H, Potassium 4.4, Chloride 113 H, Carbon Dioxide 26.0, Anion Gap 7, BUN 31 H, Creatinine 0.53 L, Estim Creat Clear Calc 94.54, Est GFR (MDRD) Af Amer 152, Est GFR (MDRD) Non-Af 126, BUN/Creatinine Ratio 58.7 H, Glucose 178 H, Calcium 8.5, Total Bilirubin 0.40, AST 24, ALT 31, Alkaline Phosphatase 152 H, Total Protein 5.0 L, Albumin 1.6 L, Globulin 3.4, Albumin/Globulin Ratio 0.5 L 05/10/21 06:11: POC Glucose 185 H Micro: Microbiology 05/04/21 05:11 Blood Culture (Wb) - Anticubital Right Blood Culture - Final No growth in 5 days. 05/04/21 05:33 Blood Culture (Wb) - Anticubital Left Blood Culture - Final No growth in 5 days. 05/04/21 08:10 Sputum, Induced/Lukens Gram Stain - Final 05/04/21 08:10 Sputum, Induced/Lukens Respiratory Culture - Final Moraxella(Elle.)Catarrhalis 05/04/21 05:31 Urine Catheter - Antonio Legionella Antigen - Final 05/04/21 05:31 Urine Catheter - Antonio Streptococcus pneumoniae Antigen (M - Final ABG Data ABG results: ABG 05/10/21 05:32 Specimen Type ART Sample Site L Radial pH 7.36 Bicarbonate Actual 27.2 H Total CO2 29 Base Excess 2 O2 Saturation 89 L O2 % 80 ABG pCO2 48.6 H ABG pO2 60 L Earnest Test N/A Respiration Rate 12 O2 Delivery Device Adult Vent Vent Mode BiLevel Radiography Diagnostic Testing: Radiology Impression Chest X-Ray 05/09/21 09:50 IMPRESSION: Bronchovascular prominence and bilateral airspace opacification demonstrates prominence in comparison to the prior study. Electronically Signed: John Jane MD at 10:23 EST Tel , Service support , Chest X-Ray 05/09/21 15:15 IMPRESSION: Congestive changes demonstrate slight prominence in comparison to the prior study. Electronically Signed: John Jane MD at 15:29 EST Tel , Service support , Physical Exam Const Constitutional Narrative: Currently in prone position. General Appearance: intubated and patient mechanically ventilated Nutritional Appearance: obese HEENT normocephalic and head/scalp atraumatic Mouth: endotracheal tube in place and OG tube in place Eyes PERRL and conjunctivae normal Neck supple General: trachea midline Chest inspection of chest normal Resp Effort and Inspection: tachypneic Auscultation: diminished lung sounds; Negative for rales, rhonchi or wheezes Cardio regular rate and regular rhythm GI normal to inspection, nondistended, normoactive bowel sounds Extremity no clubbing, cyanosis or edema Skin no rashes or lesions noted Neuro Sensorium / Orientation: sedated on vent Charges/Coding Procedures Hospitalists Procedures: [id number] Critial Care 1st Hr
--- NOTE | 2021-05-10 10:00 | NURSING ---
Pt turned from prone position to supine position with staff assist x5.
--- NOTE | 2021-05-10 11:23 | RAD_ITS ---
STUDY: X-RAY CHEST REASON FOR EXAM: Female, 60 years old. Fever and cough, respiratory failure TECHNIQUE: Single AP portable view of the chest. COMPARISON: Yesterday FINDINGS: Stable appearance of the support lines and tubes, ET tube tip remains 2.5 cm above the anika. Persistent diffuse interstitial and airspace opacifications in both lung roland essentially unchanged from yesterday''s study. There is no demonstrated pleural abnormality. Normal size heart. Normal mediastinum and kathleen. Normal visualized pulmonary arteries. Normal visualized aortic arch and descending thoracic aorta. There are diffuse degenerative changes of the visualized thoracic spine. Normal visualized ribs, clavicles, and shoulders. There is no demonstrated abnormality of the visualized soft tissue structures of the upper abdomen. RAD/Chest 1 View (Portable) IMPRESSION: No interval change Electronically Signed: Jorge Hwang MD at 13:52 EST , Service support ,
[2021-05-10] MEDS: Propofol 10MG/Ml 1,000 MG/100 ML Bottle 25.9 MG CONT INF ×2 (11:55→15:25)
[2021-05-10] MEDS: Dexmedetomidine 1,000 mcg in 0.9% NS 240 mL 21.6 MCG CONT INF (11:55)
--- NOTE | 2021-05-10 12:00 | CHAPLAIN ---
Type of Pastoral Visit ___ Initial Visit ___ Follow-up Visit ___ On-call Visit ___ General Patient Visit ___ Spiritual Assessment ___ Family Conference ___ Bereavement ___ Rapid Response ___ Code Blue _x__ Other (describe below) Pastoral Care Referral From ___ Patient _x__ Family ___ Nurse ___ Physician ___ Vmware Architect ___ Gynecological Assistant ___ Other (describe below) Sacrament/Intervention ___ Active listening ___ Anointing ___ Judaism ___ Bereavement ___ Communion ___ Luz exploration ___ ___ Life review _x__ Prayer ___ Reconciliation ___ Sacrament of Sick _x__ Supportive presence ___ Wedding ___ Other (describe below) Pastoral Comments patient is on vent; daughter has come to visit; offer of support given to daughter who requests a prayer; offered prayer to patient as put to her ear
--- NOTE | 2021-05-10 12:20 | CASEMGMT ---
RN CM Face to Face with daughter, Zoila, for initial transition planning/care coordination assessment as patient is currently on ventilator. RN CM introduced self and role at [facility]. Daughter willing to participate in assessment and is able to answer all questions appropriately. Care providers, pharmacy, and demographics verified. Daughter states she has no further needs or concerns at this time. CM to follow for discharge planning needs that may arise. PCP: Karen Specialists: Daughter wasn't sure Preferred Pharmacy: [facility] Insurance: [facility] Prescription Benefit: yes Living Will/HPOA: none LNOK: 3 children, Zoila is the oldest Living Arrangements: Patient lives with son in a house. Patient is in basement apartment, son lives up above. Patient's other daughter is currently staying with patient. Patient was independent prior to hospitalization Transportation: self. family DME/HHC: Patient has access to walker and shower chair. Patient has previously been the [facility]. Disposition Plan: TBD by course of treatment and progress with therapy. Hanane LOPEZ, RN, CM
[2021-05-10] MEDS: Ceftriaxone 1 GM/50 ML BAG IV (12:53)
[2021-05-10] MEDS: CHLORHEXIDINE GLUC 2% CLOTH 1 EACH TOWELETTE TOPICAL (12:56)
[2021-05-10] MEDS: Chlorhexidine 15 ML PO ×2 (12:56→20:37)
[2021-05-10] MEDS: Senna/Docusate Sodium 1 Tablet 2 TABLET GT ×2 (13:35→20:38)
[2021-05-10] MEDS: Polyethylene Glycol 3350 17 GM PACKET GT ×2 (13:35→20:38)
[2021-05-10] MEDS: dexAMETHasone 10 MG/ML Vial 6 MG IV (13:35)
[2021-05-10] MEDS: Enoxaparin 100 MG/ML Syringe 90 MG SC ×2 (13:36→20:38)
[2021-05-10] MEDS: Furosemide 40 MG/4 ML Vial IV ×2 (13:43→18:05)
--- NOTE | 2021-05-10 14:00 | NURSING ---
Pt turned to prone position from supine position with staff assist x5.
[2021-05-10 14:16] LABS: Bedside Glucose 174 mg/dL (70-110)
[2021-05-10] MEDS: 0.9% Saline Lock 10 ML Syringe IV (18:05)
[2021-05-10 18:21] LABS: Bedside Glucose 199 mg/dL (70-110)
--- NOTE | 2021-05-10 20:43 | PN.HOSP_ITS ---
Subjective Subjective Patient was seen and examined today, she is currently still on the ventilator and is under paralysis at this time. I talked briefly with pulmonary medicine about her care. Objective Data Objective Data Vital Signs: Vital Signs Temp Pulse Resp BP Pulse Ox 100.4 F H 91 16 99/63 94 05/10/21 20:00 05/10/21 20:00 05/10/21 20:00 05/10/21 20:00 05/10/21 20:00 Oxygen Flow Rate (L/min) 15 Oxygen Delivery Method Mechanical Ventilator Weight: 86.2 kg Body Mass Index (BMI) 33.0 Intake & Output: Intake and Output for Last 24 Hours 05/08/21 05/09/21 05/10/21 23:59 23:59 23:59 Intake Total 2538.60 / 2685.65 3329.12 / 3488.32 3031.42 / 3031.42 Output Total 950 / 1325 2250 / 2250 650 / 650 Balance 1588.60 / 1360.65 1079.12 / 1238.32 2381.42 / 2381.42 Lab / Micro Data Result Diagrams: 05/11/21 04:45 05/11/21 04:45 Labs: Laboratory Results - last 24 hr 05/09/21 23:58: POC Glucose 185 H 05/10/21 03:45: WBC 24.1 H, RBC 4.86, Hgb 11.4 L, Hct 39.6, MCV 81.5, MCH 23.5 L , MCHC 28.8 L, RDW Std Deviation 55.6 H, RDW Coeff of Cami 19.6 H, Plt Count 204, MPV 11.6, Immature Gran % (Auto) 1.300 H, Neut % (Auto) 90.2 H, Lymph % (Auto) 3.8 L, [place] % (Auto) 3.1, Eos % (Auto) 0.9, Baso % (Auto) 0.7, Absolute Neuts (auto) 21.7 H, Absolute Lymphs (auto) 0.92, Nucleated RBC % 0.4 05/10/21 03:45: Sodium 146 H, Potassium 4.4, Chloride 113 H, Carbon Dioxide 26.0, Anion Gap 7, BUN 31 H, Creatinine 0.53 L, Estim Creat Clear Calc 94.54, Est GFR (MDRD) Af Amer 152, Est GFR (MDRD) Non-Af 126, BUN/Creatinine Ratio 58.7 H, Glucose 178 H, Calcium 8.5, Total Bilirubin 0.40, AST 24, ALT 31, Alkaline Phosphatase 152 H, Total Protein 5.0 L, Albumin 1.6 L, Globulin 3.4, Albumin/Globulin Ratio 0.5 L 05/10/21 06:11: POC Glucose 185 H 05/10/21 13:51: POC Glucose 174 H 05/10/21 18:01: POC Glucose 199 H Micro: Microbiology 05/04/21 05:11 Blood Culture (Wb) - Anticubital Right Blood Culture - Final No growth in 5 days. 05/04/21 05:33 Blood Culture (Wb) - Anticubital Left Blood Culture - Final No growth in 5 days. 05/04/21 08:10 Sputum, Induced/Lukens Gram Stain - Final 05/04/21 08:10 Sputum, Induced/Lukens Respiratory Culture - Final Moraxella(Elle.)Catarrhalis 05/04/21 05:31 Urine Catheter - Antonio Legionella Antigen - Final 05/04/21 05:31 Urine Catheter - Antonio Streptococcus pneumoniae Antigen (M - Final ABG Data ABG results: ABG 05/10/21 05:32 Specimen Type ART Sample Site L Radial pH 7.36 Bicarbonate Actual 27.2 H Total CO2 29 Base Excess 2 O2 Saturation 89 L O2 % 80 ABG pCO2 48.6 H ABG pO2 60 L Earnest Test N/A Respiration Rate 12 O2 Delivery Device Adult Vent Vent Mode BiLevel Radiography Diagnostic Testing: Radiology Impression Chest X-Ray 05/10/21 11:23 IMPRESSION: No interval change Electronically Signed: Jorge Hwang MD at 13:52 EST , Service support , Physical Exam Narrative Const Constitutional Narrative: Patient is sedated and on the ventilator General Appearance: cooperative, well kempt and well developed Orientation / Consciousness: awake, oriented to person, oriented to place and oriented to time HEENT normocephalic and head/scalp atraumatic Head and Scalp: normocephalic Neck nuchal rigidity, no JVD and thyroid normal General: trachea midline Resp normal respiratory effort, no retractions, no use of accessory muscles and clear to auscultation bilaterally Auscultation: Negative for rales, rhonchi or wheezes Cardio regular rate, regular rhythm, S1 normal heart sound, S2 normal heart sound, no murmurs, no rub and no gallops GI normal to inspection, nondistended, normoactive bowel sounds, soft to palpation, non-tender and non-distended Extremity no clubbing, cyanosis or edema Skin no rashes or lesions noted and skin turgor normal General Skin Exam: no breakdown Neuro Neuro Narrative: Patient is sedated on the ventilator Psych thought process normal Psych Narrative: Patient is sedated and on the ventilator Const Constitutional Narrative: Patient is sedated and on the ventilator General Appearance: cooperative, well kempt and well developed Orientation / Consciousness: awake, oriented to person, oriented to place and o riented to time HEENT normocephalic, head/scalp atraumatic and moist oral mucous membranes Head and Scalp: normocephalic Eyes conjunctivae normal Eyes Narrative: Slight proptosis Neck nuchal rigidity and thyroid normal General: trachea midline Resp normal respiratory effort, no retractions, no use of accessory muscles and clear to auscultation bilaterally Resp Narrative: coarse breath sounds Auscultation: Negative for rales, rhonchi or wheezes Cardio regular rate, regular rhythm, S1 normal heart sound, S2 normal heart sound, no murmurs, no rub and no gallops Cardio Narrative: Tachycardic but regular. GI non-distended GI Narrative: Obese Extremity no clubbing, cyanosis or edema Skin no rashes or lesions noted General Skin Exam: no breakdown Neuro Neuro Narrative: Patient is sedated and on the ventilator Psych thought process normal Psych Narrative: Patient is sedated and on the ventilator Assessment & Plan Assessment/Plan (1) COPD: (2) COVID-19: PLAN: 1. COVID-19 pneumonia with ARDS with an overlay of chronic obstructive pulmonary disease-patient remains on the ventilator at this time, pulmonary medicine is participating in her care. Patient is currently on IV Decadron #2 acute combined respiratory failure secondary to ARDS with an overlay of COPD- pulmonary medicine is adjusting vent settings #3 adult respiratory distress syndrome-pulmonary medicine is participating in her care #4 type 2 diabetes-blood sugars are being monitored, insulin will be given as needed #5 chronic obstructive pulmonary disease-complicates medical care #6 cerebrovascular disease-patient is currently on no aspirin for prevention at this time #7 acute kidney injury-resolved at this time #8 secondary bacterial pneumonia with Moraxella-patient is being treated with appropriate antibiotics Overall outlook for this patient remains extremely guarded, patient was made a DNR CC arrest with intubation today Charges/Coding Visit Charges Inpatient E&M: 68457 Subs Hosp L2
[2021-05-11] VITALS (35 sets, daily range): BP systolic 104–167; BP diastolic 62–88; PULSE 84–107; RESP 16; TEMP 36.8–38.2; O2SAT 75–100
[2021-05-11] MEDS: Insulin Lispro 100 UNIT/ML INSULN.PEN SC ×3 (00:36→11:59)
[2021-05-11 00:46] LABS: Bedside Glucose 233 mg/dL (70-110)
[2021-05-11 04:53] LABS: Absolute Lymphocyte Count 0.94 X10^3/uL (0.83-4.51); Absolute Neutrophil Count 22.1 X10^3/uL (2.0-7.7); Basophil# 0.08 X10^3/uL; Basophil% 0.3 % (0-1); Eosinophil# 0.01 X10^3/uL; Hematocrit 41.1 % (37-47); Hemoglobin 11.5 g/dL (12.0-15.0); Lymphocyte # 0.94 X10^3/ul (0.83-4.51); Lymphocyte % 3.9 % (19-41); Mean Corpuscular Hgb 23.6 pg (27.0-32.0); Mean Corpuscular Volume 84.2 fL (81-99); Mean Platelet Vol. 11.4 fl (6.2-12.0); Monocyte# 0.45 X10^3/uL; Monocyte% 1.9 % (0-10); NRBC Flagged by Analyzer 0.3 % (0-5); Neutrophil # 22.11 X10^3/uL (2.7-7.7); Neutrophil % 91.8 % (47-70); POSITIVE DIFFERENTIAL YES; POSITIVE MORPHOLOGY YES; Platelet Count 149 K/mm3 (150-450); RBC Distribution Width CV 19.2 % (11.6-14.6); RBC Distribution Width SD 56.7 fl (35.1-43.9); Red Blood Count 4.88 M/mm3 (4.2-5.4); White Blood Count 24.1 K/mm3 (4.4-11.0)
[2021-05-11 05:01] LABS: Differential Indicated SCAN CRITERIA MET
[2021-05-11] MEDS: Propofol 10MG/Ml 1,000 MG/100 ML Bottle 10.3 MG CONT INF (05:08)
[2021-05-11 05:18] LABS: Atypical Lymphocyte 1+ %
[2021-05-11 06:04] LABS: ALB/GLOB Ratio 0.4 RATIO (0.9-2.4); AST(SGOT) 19 U/L (15-37); Alanine Aminotransfer ALT/SGPT 27 U/L (13-56); Albumin, Serum 1.6 g/dL (3.2-5.0); Alkaline Phosphatase 195 U/L (45-117); Anion Gap 4 (5-15); BUN 34 mg/dL (7-18); BUN/Creat Ratio 64.9 RATIO (10-20); Calcium,Total 8.6 mg/dL (8.5-10.1); Chloride 107 mmol/L (98-107); Creatinine, Serum 0.52 mg/dL (0.55-1.02); EST Glomerular Filtration Rate 127 mL/min (>60); Est Glom Filt Rate - Afr Amer 154 mL/min (>60); Estimated Creatinine Clearance 96.36 ml/min; Globulin 3.8 g/dL (2.2-4.2); Glucose 176 mg/dL (74-106); Potassium 5.3 mmol/L (3.5-5.1); Protein, Total 5.4 g/dL (6.4-8.2); Sodium Level 140 mmol/L (136-145)
--- NOTE | 2021-05-11 07:15 | PN.CC_ITS ---
Assessment & Plan Assessment/Plan (1) Acute hypoxemic respiratory failure due to COVID-19: (2) Subtherapeutic international normalized ratio (INR): (3) Encephalopathy due to 2019-nCoV: (4) Type 2 diabetes mellitus: (5) History of blood clot: (6) COPD: PLAN: RECOMMENDATIONS: 1. Continue Decadron to complete a 10-day course. 2. Continue to wean FiO2 for saturations greater than 90%. 3. Continue proning trials. 4. Diuretics as tolerated by hemodynamics and renal function. 5. Antibiotics per infectious disease. 6. Continue therapeutic Lovenox. 7. Continue appropriate GI prophylaxis. 8. Stop D5W. 9. Continue cis atracurium for an additional 24 hours. IMPRESSIONS: 1. Acute combined respiratory failure secondary to ARDS d/t COVID-19 in the setting of COPD The patient initially was admitted to the hospital on May 04 after being emergently intubated in the emergency department in the setting of COVID-19 pneumonia. The patient did receive Tocilizumab and was started on Decadron. She also appears to have a secondary bacterial pneumonia with Moraxella isolated from sputum culture. Antimicrobials will be continued accordingly. Plan to continue to wean FiO2 as tolerated for saturations greater than 90%. Continue tube feeds as tolerated. Continue Lovenox as ordered. Despite the aforementioned, the patient's respiratory status still remains quite tenuous with worsening hypoxemia. Therefore, she will continue to undergo proning trials as tolerated. Plan to continue cis atracurium for an additional 24 h ours. 2. Acute kidney injury Resolved. Likely prerenal in etiology and related to acute presentation. Okay to utilize diuretics as needed to maintain euvolemic state. 3. Recent UTI/A. fib/subtherapeutic INR/nonvaccinated status/diabetes mellitus type 2 Complicates care, management, recovery and prognosis. Continue sliding scale insulin coverage. CODE status: Discussed CODE status at length including difference between FULL code, DNR-CCA and DNR-CC status. Following discussions about the differences in these status, patient's family requested DNR CCA CODE STATUS. TIME: 35 minutes of critical care time, independent of procedures, was spent addressing the patient's acute combined respiratory failure secondary to ARDS in the setting of COVID-19, secondary bacterial pneumonia, acute kidney injury, review of all data and collaboration with the care team. Subjective Subjective The patient was seen and examined at the bedside this morning. Events from the last 24 hours have been reviewed. Today is day #8. The patient is currently afebrile and hemodynamically stable. She is maintaining appropriate oxygen saturations at the present time on assist control mode of mechanical ventilation with an FiO2 requirement of 65% and PEEP of 16. The patient is currently sedated on fentanyl and propofol. She remains on cis atracurium. The patient is in prone position with improvement in her oxygenation status since yesterday afternoon. The patient is documented to be overall net +9.8 L for the hospitalization. The patient remains on antimicrobials, Lovenox, twice daily Lasix and Decadron. White count is elevated at 24,000. Platelet count is dropped to 149,000. Potassium is increased at 5.3. Creatinine is within normal limits. Objective Data Objective Data The patient's most recent lab work, culture data and imaging studies have all been personally reviewed. Rapid coronavirus antigen testing was positive on April 30. Sputum culture dated May 04 was positive for Moraxella. Vital Signs: Vital Signs Temp Pulse Resp BP Pulse Ox 98.5 F 84 16 121/66 H 95 05/11/21 06:00 05/11/21 07:00 05/11/21 07:00 05/11/21 07:00 05/11/21 07:00 Oxygen Flow Rate (L/min) 15 Oxygen Delivery Method Mechanical Ventilator Weight: 86.2 kg Body Mass Index (BMI) 33.0 Intake & Output: Intake and Output for Last 24 Hours 05/09/21 05/10/21 05/11/21 23:59 23:59 23:59 Intake Total 3329.12 / 3488.32 3438.23 / 3641.71 1804.77 / 1804.77 Output Total 2250 / 2250 1075 / 1075 475 / 475 Balance 1079.12 / 1238.32 2363.23 / 2566.71 1329.77 / 1329.77 Lab / Micro Data Attestation: I reviewed the patient's lab results. Result Diagrams: 05/11/21 04:45 05/11/21 04:45 Labs: Laboratory Results - last 24 hr 05/10/21 13:51: POC Glucose 174 H 05/10/21 18:01: POC Glucose 199 H 05/11/21 00:35: POC Glucose 233 H 05/11/21 04:45: WBC 24.1 H, RBC 4.88, Hgb 11.5 L, Hct 41.1, MCV 84.2, MCH 23.6 L , MCHC 28.0 L, RDW Std Deviation 56.7 H, RDW Coeff of Cami 19.2 H, Plt Count 149 L, MPV 11.4, Immature Gran % (Auto) 2.100 H, Neut % (Auto) 91.8 H, Lymph % (Auto) 3.9 L, [place] % (Auto) 1.9, Eos % (Auto) 0.0, Baso % (Auto) 0.3, Absolute Neuts (auto) 22.1 H, Absolute Lymphs (auto) 0.94, Nucleated RBC % 0.3, Atypical Lymphocytes 1+ 05/11/21 04:45: Sodium 140, Potassium 5.3 H, Chloride 107, Carbon Dioxide 29.0, Anion Gap 4 L, BUN 34 H, Creatinine 0.52 L, Estim Creat Clear Calc 96.36, Est GFR (MDRD) Af Amer 154, Est GFR (MDRD) Non-Af 127, BUN/Creatinine Ratio 64.9 H, Glucose 176 H, Calcium 8.6, Total Bilirubin 0.30, AST 19, ALT 27, Alkaline Phosphatase 195 H, Total Protein 5.4 L, Albumin 1.6 L, Globulin 3.8, Albumin/Globulin Ratio 0.4 L Micro: Microbiology 05/04/21 05:11 Blood Culture (Wb) - Anticubital Right Blood Culture - Final No growth in 5 days. 05/04/21 05:33 Blood Culture (Wb) - Anticubital Left Blood Culture - Final No growth in 5 days. 05/04/21 08:10 Sputum, Induced/Lukens Gram Stain - Final 05/04/21 08:10 Sputum, Induced/Lukens Respiratory Culture - Final Moraxella(Elle.)Catarrhalis 05/04/21 05:31 Urine Catheter - Antonio Legionella Antigen - Final 05/04/21 05:31 Urine Catheter - Antonio Streptococcus pneumoniae Antigen (M - Final Radiography Diagnostic Testing: Radiology Impression Chest X-Ray 05/10/21 11:23 IMPRESSION: No interval change Electronically Signed: Jorge Hwang MD at 13:52 EST , Service support , Physical Exam Const Constitutional Narrative: Currently in prone position. General Appearance: intubated and patient mechanically ventilated Nutritional Appearance: obese HEENT normocephalic and head/scalp atraumatic Mouth: endotracheal tube in place and OG tube in place Eyes PERRL and conjunctivae normal Neck supple General: trachea midline Chest inspection of chest normal Resp Effort and Inspection: tachypneic Auscultation: diminished lung sounds; Negative for rales, rhonchi or wheezes Cardio regular rate and regular rhythm GI normal to inspection, nondistended, normoactive bowel sounds Extremity no clubbing, cyanosis or edema Skin no rashes or lesions noted Neuro Sensorium / Orientation: sedated on vent Charges/Coding Procedures Hospitalists Procedures: 73167 Critial Care 1st Hr
[2021-05-11 08:16] LABS: Bedside Glucose 182 mg/dL (70-110)
[2021-05-11] MEDS: Chlorhexidine 15 ML PO ×2 (08:25→20:55)
[2021-05-11] MEDS: dexAMETHasone 10 MG/ML Vial 6 MG IV (09:39)
[2021-05-11] MEDS: Furosemide 40 MG/4 ML Vial IV ×2 (09:39→19:43)
[2021-05-11] MEDS: Enoxaparin 100 MG/ML Syringe 90 MG SC ×2 (09:41→20:54)
[2021-05-11] MEDS: Ceftriaxone 1 GM/50 ML BAG IV (09:51)
[2021-05-11] MEDS: CHLORHEXIDINE GLUC 2% CLOTH 1 EACH TOWELETTE TOPICAL (10:01)
--- NOTE | 2021-05-11 10:50 | NURSING ---
pt returned to back x 5 assist x1 hour sats dropped to 76 ,returned to prone position per 5 assist, sats 100% on 90% ,
[2021-05-11 12:00] LABS: Bedside Glucose 153 mg/dL (70-110)
[2021-05-11 16:46] LABS: Bedside Glucose 142 mg/dL (70-110)
[2021-05-11] MEDS: Propofol 10MG/Ml 1,000 MG/100 ML Bottle 7.8 MG CONT INF (16:55)
[2021-05-11] MEDS: 0.9% Saline Lock 10 ML Syringe IV (19:43)
[2021-05-11] MEDS: Senna/Docusate Sodium 1 Tablet 2 TABLET GT (20:55)
[2021-05-11] MEDS: Polyethylene Glycol 3350 17 GM PACKET GT (20:55)
[2021-05-11] MEDS: Carvedilol 12.5 MG Tablet NG (20:55)
[2021-05-12] VITALS (34 sets, daily range): BP systolic 86–158; BP diastolic 54–84; PULSE 90–126; RESP 16–28; TEMP 37.9–38.7; O2SAT 25–93
[2021-05-12] MEDS: Acetaminophen 650 MG/20 ML UDC GT ×3 (00:33→16:58)
[2021-05-12 00:56] LABS: Bedside Glucose 130 mg/dL (70-110)
[2021-05-12] MEDS: Propofol 10MG/Ml 1,000 MG/100 ML Bottle 12.9 MG CONT INF (03:03)
[2021-05-12 04:26] LABS: Absolute Lymphocyte Count 0.98 X10^3/uL (0.83-4.51); Absolute Neutrophil Count 22.2 X10^3/uL (2.0-7.7); Basophil# 0.09 X10^3/uL; Basophil% 0.4 % (0-1); Eosinophil# 0.03 X10^3/uL; Eosinophils% 0.1 % (0-5); Hematocrit 42.9 % (37-47); Hemoglobin 12.1 g/dL (12.0-15.0); Lymphocyte # 0.98 X10^3/ul (0.83-4.51); Lymphocyte % 3.9 % (19-41); Mean Corp Hgb Conc 28.2 g/dL (32-36); Mean Corpuscular Hgb 23.9 pg (27.0-32.0); Mean Corpuscular Volume 84.8 fL (81-99); Mean Platelet Vol. 11.7 fl (6.2-12.0); Monocyte% 3.2 % (0-10); NRBC Flagged by Analyzer 0.4 % (0-5); Neutrophil # 22.16 X10^3/uL (2.7-7.7); Neutrophil % 88.6 % (47-70); POSITIVE COUNT YES; POSITIVE DIFFERENTIAL YES; POSITIVE MORPHOLOGY YES; RBC Distribution Width CV 19.5 % (11.6-14.6); RBC Distribution Width SD 57.2 fl (35.1-43.9); Red Blood Count 5.06 M/mm3 (4.2-5.4)
[2021-05-12] MEDS: TITRATION PARAMETER CHANGE 1 EACH IV (04:57)
[2021-05-12 05:08] LABS: Differential Indicated SCAN CRITERIA MET
[2021-05-12 05:26] LABS: Anion Gap 5 (5-15); BUN 31 mg/dL (7-18); BUN/Creat Ratio 70.8 RATIO (10-20); Calcium,Total 8.6 mg/dL (8.5-10.1); Chloride 105 mmol/L (98-107); Creatinine, Serum 0.44 mg/dL (0.55-1.02); EST Glomerular Filtration Rate 156 mL/min (>60); Est Glom Filt Rate - Afr Amer 189 mL/min (>60); Estimated Creatinine Clearance 113.88 ml/min; Glucose 126 mg/dL (74-106); Sodium Level 140 mmol/L (136-145)
[2021-05-12] MEDS: Propofol 10MG/Ml 1,000 MG/100 ML Bottle 10.5 MG CONT INF ×3 (05:48→19:21)
[2021-05-12] MEDS: Insulin Lispro 100 UNIT/ML INSULN.PEN SC ×4 (06:24→23:53)
--- NOTE | 2021-05-12 06:40 | PCM.PN.INT ---
Assessment & Plan Assessment/Plan (1) Acute hypoxemic respiratory failure due to COVID-19: (2) Subtherapeutic international normalized ratio (INR): (3) Encephalopathy due to 2019-nCoV: (4) Type 2 diabetes mellitus: (5) History of blood clot: (6) COPD: PLAN: RECOMMENDATIONS: 1. Continue Decadron to complete a 10-day course. 2. Continue to wean FiO2 for saturations greater than 90%. 3. Continue proning trials. 4. Diuretics as tolerated by hemodynamics and renal function. 5. Antibiotics per infectious disease. 6. Continue therapeutic Lovenox. 7. Continue appropriate GI prophylaxis. 8. Discontinue cis atracurium. IMPRESSIONS: 1. Acute combined respiratory failure secondary to ARDS d/t COVID-19/CAP in the setting of COPD The patient initially was admitted to the hospital on May 04 after being emergently intubated in the emergency department in the setting of COVID-19 pneumonia. The patient did receive Tocilizumab and was started on Decadron. She also appears to have a secondary bacterial pneumonia with Moraxella isolated from sputum culture. Antimicrobials will be continued accordingly. Plan to continue to wean FiO2 as tolerated for saturations greater than 90%. Continue tube feeds as tolerated. Continue Lovenox as ordered. Despite the aforementioned, the patient's respiratory status still remains quite tenuous. Therefore, she will continue to undergo proning trials as tolerated. Plan to stop cis atracurium today. Continued diuresis as tolerated by hemodynamics and renal function. 2. Acute kidney injury Resolved. Likely prerenal in etiology and related to acute presentation. Okay to utilize diuretics as needed to maintain euvolemic state. 3. Recent UTI/A. fib/subtherapeutic INR/nonvaccinated status/diabetes mellitus type 2 Complicates care, management, recovery and prognosis. Continue sliding scale insulin coverage. CODE status: Discussed CODE status at length including difference between FULL code, DNR-CCA and DNR-CC status. Following discussions about the differences in these status, patient's family requested DNR CCA CODE STATUS. TIME: 37 minutes of critical care time, independent of procedures, was spent addressing the patient's acute combined respiratory failure secondary to ARDS in the setting of COVID-19, secondary bacterial pneumonia, acute kidney injury, review of all data and collaboration with the care team. Subjective Subjective The patient was seen and examined at the bedside this morning. Events from the last 24 hours have been reviewed. Today is day #9. The patient is currently afebrile and hemodynamically stable. She is maintaining appropriate oxygen saturations at the present time on assist control mode of mechanical ventilation with an FiO2 requirement of 70% and PEEP of 16. The patient is currently sedated on fentanyl and propofol. She is currently paralyzed on cis atracurium. Yesterday, the patient readily desaturated when she was placed back in supine position. The patient is currently documented to be overall net +10.5 L for the hospitalization. She remains on antimicrobials, Decadron, therapeutic Lovenox and scheduled Lasix. White count remains elevated at 25,000. Platelet count is stable to 144,000. Creatinine remains within normal limits. Objective Data Objective Data The patient's most recent lab work, culture data and imaging studies have all been personally reviewed. Rapid coronavirus antigen testing was positive on April 30. Sputum culture dated May 04 was positive for Moraxella. Vital Signs: Vital Signs Temp Pulse Resp BP Pulse Ox 101.5 F H 121 H 16 145/78 H 91 05/12/21 06:00 05/12/21 06:00 05/12/21 06:00 05/12/21 06:00 05/12/21 06:00 Oxygen Flow Rate (L/min) 15 Oxygen Delivery Method Mechanical Ventilator Weight: 87.5 kg Body Mass Index (BMI) 33.0 Intake & Output: Intake and Output for Last 24 Hours 05/10/21 05/11/21 05/12/21 23:59 23:59 23:59 Intake Total 3438.23 / 3641.71 4116.35 / 4173.20 767.88 / 767.88 Output Total 1075 / 1075 2635 / 2635 195 / 195 Balance 2363.23 / 2566.71 1481.35 / 1538.20 572.88 / 572.88 Lab / Micro Data Attestation: I reviewed the patient's lab results. Result Diagrams: 05/12/21 04:00 05/12/21 04:00 Labs: Laboratory Results - last 24 hr 05/11/21 06:22: POC Glucose 182 H 05/11/21 11:50: POC Glucose 153 H 05/11/21 16:40: POC Glucose 142 H 05/12/21 00:31: POC Glucose 130 H 05/12/21 04:00: WBC 25.0 H, RBC 5.06, Hgb 12.1, Hct 42.9, MCV 84.8, MCH 23.9 L, MCHC 28.2 L, RDW Std Deviation 57.2 H, RDW Coeff of Cami 19.5 H, Plt Count 144 L, MPV 11.7, Immature Gran % (Auto) 3.800 H, Neut % (Auto) 88.6 H, Lymph % (Auto) 3.9 L, [place] % (Auto) 3.2, Eos % (Auto) 0.1, Baso % (Auto) 0.4, Absolute Neuts (auto) 22.2 H, Absolute Lymphs (auto) 0.98, Nucleated RBC % 0.4 05/12/21 04:00: Sodium 140, Potassium 5.0, Chloride 105, Carbon Dioxide 30.0, Anion Gap 5, BUN 31 H, Creatinine 0.44 L, Estim Creat Clear Calc 113.88, Est GFR (MDRD) Af Amer 189, Est GFR (MDRD) Non-Af 156, BUN/Creatinine Ratio 70.8 H, Glucose 126 H, Calcium 8.6 Micro: Microbiology 05/04/21 05:11 Blood Culture (Wb) - Anticubital Right Blood Culture - Final No growth in 5 days. 05/04/21 05:33 Blood Culture (Wb) - Anticubital Left Blood Culture - Final No growth in 5 days. 05/04/21 08:10 Sputum, Induced/Lukens Gram Stain - Final 05/04/21 08:10 Sputum, Induced/Lukens Respiratory Culture - Final Moraxella(Elle.)Catarrhalis 05/04/21 05:31 Urine Catheter - Antonio Legionella Antigen - Final 05/04/21 05:31 Urine Catheter - Antonio Streptococcus pneumoniae Antigen (M - Final Physical Exam Const Constitutional Narrative: Currently in prone position. General Appearance: intubated and patient mechanically ventilated Nutritional Appearance: obese HEENT normocephalic and head/scalp atraumatic Mouth: endotracheal tube in place and OG tube in place Eyes PERRL and conjunctivae normal Neck supple General: trachea midline Resp Auscultation: diminished lung sounds; Negative for rales, rhonchi or wheezes Cardio S1 normal heart sound and S2 normal heart sound Rate: tachycardic GI normal to inspection, nondistended, normoactive bowel sounds Extremity no clubbing, cyanosis or edema Skin no rashes or lesions noted Neuro Sensorium / Orientation: sedated on vent Charges/Coding Procedures Hospitalists Procedures: [id number] Critial Care 1st Hr
[2021-05-12 06:56] LABS: Bedside Glucose 162 mg/dL (70-110)
[2021-05-12 06:59] LABS: Platelet Estimate ADEQUATE (ADEQ)
[2021-05-12] MEDS: dexAMETHasone 10 MG/ML Vial 6 MG IV (08:00)
[2021-05-12] MEDS: Furosemide 40 MG/4 ML Vial IV ×2 (08:01→17:01)
[2021-05-12] MEDS: Enoxaparin 100 MG/ML Syringe 90 MG SC ×2 (08:12→21:19)
[2021-05-12] MEDS: Polyethylene Glycol 3350 17 GM PACKET GT ×2 (08:13→21:20)
[2021-05-12] MEDS: Carvedilol 12.5 MG Tablet NG ×2 (08:13→21:19)
[2021-05-12] MEDS: Chlorhexidine 15 ML PO ×2 (08:13→21:31)
[2021-05-12] MEDS: Senna/Docusate Sodium 1 Tablet 2 TABLET GT ×2 (08:13→21:19)
[2021-05-12] MEDS: Ceftriaxone 1 GM/50 ML BAG IV (08:32)
--- NOTE | 2021-05-12 10:05 | NURSING ---
repositioned to supine, fio2 100% pulse 88%
[2021-05-12 11:55] LABS: Bedside Glucose 205 mg/dL (70-110)
[2021-05-12] MEDS: CHLORHEXIDINE GLUC 2% CLOTH 1 EACH TOWELETTE TOPICAL (11:58)
--- NOTE | 2021-05-12 14:09 | PN.HOSP_ITS ---
Subjective Subjective Patient was seen and examined today, she remains sedated and on the ventilator. Objective Data Objective Data Vital Signs: Vital Signs Temp Pulse Resp BP Pulse Ox 100.5 F H 105 H 26 H 126/66 H 87 05/12/21 13:00 05/12/21 13:00 05/12/21 13:00 05/12/21 13:00 05/12/21 13:00 Oxygen Flow Rate (L/min) 15 Oxygen Delivery Method Mechanical Ventilator Weight: 87.5 kg Body Mass Index (BMI) 33.0 Intake & Output: Intake and Output for Last 24 Hours 05/10/21 05/11/21 05/12/21 23:59 23:59 23:59 Intake Total 3438.23 / 3641.71 4116.35 / 4173.20 936.51 / 936.51 Output Total 1075 / 1075 2635 / 2635 195 / 195 Balance 2363.23 / 2566.71 1481.35 / 1538.20 741.51 / 741.51 Lab / Micro Data Result Diagrams: 05/12/21 04:00 05/12/21 04:00 Labs: Laboratory Results - last 24 hr 05/11/21 16:40: POC Glucose 142 H 05/12/21 00:31: POC Glucose 130 H 05/12/21 04:00: WBC 25.0 H, RBC 5.06, Hgb 12.1, Hct 42.9, MCV 84.8, MCH 23.9 L, MCHC 28.2 L, RDW Std Deviation 57.2 H, RDW Coeff of Cami 19.5 H, MPV 11.7, Imm ature Gran % (Auto) 3.800 H, Neut % (Auto) 88.6 H, Lymph % (Auto) 3.9 L, [place] % (Auto) 3.2, Eos % (Auto) 0.1, Baso % (Auto) 0.4, Absolute Neuts (auto) 22.2 H, Absolute Lymphs (auto) 0.98, Nucleated RBC % 0.4, Platelet Estimate ADEQUATE 05/12/21 04:00: Sodium 140, Potassium 5.0, Chloride 105, Carbon Dioxide 30.0, Anion Gap 5, BUN 31 H, Creatinine 0.44 L, Estim Creat Clear Calc 113.88, Est GFR (MDRD) Af Amer 189, Est GFR (MDRD) Non-Af 156, BUN/Creatinine Ratio 70.8 H, Glucose 126 H, Calcium 8.6 05/12/21 06:22: POC Glucose 162 H 05/12/21 11:38: POC Glucose 205 H Micro: Microbiology 05/04/21 05:11 Blood Culture (Wb) - Anticubital Right Blood Culture - Final No growth in 5 days. 05/04/21 05:33 Blood Culture (Wb) - Anticubital Left Blood Culture - Final No growth in 5 days. 05/04/21 08:10 Sputum, Induced/Lukens Gram Stain - Final 05/04/21 08:10 Sputum, Induced/Lukens Respiratory Culture - Final Moraxella(Elle.)Catarrhalis 05/04/21 05:31 Urine Catheter - Antonio Legionella Antigen - Final 05/04/21 05:31 Urine Catheter - Antonio Streptococcus pneumoniae Antigen (M - Final Physical Exam Narrative Const Constitutional Narrative: Patient is sedated and on the ventilator General Appearance: cooperative, well kempt and well developed Orientation / Consciousness: awake, oriented to person, oriented to place and oriented to time HEENT normocephalic and head/scalp atraumatic Head and Scalp: normocephalic Neck nuchal rigidity, no JVD and thyroid normal General: trachea midline Resp normal respiratory effort, no retractions, no use of accessory muscles and clear to auscultation bilaterally Auscultation: Negative for rales, rhonchi or wheezes Cardio regular rate, regular rhythm, S1 normal heart sound, S2 normal heart sound, no murmurs, no rub and no gallops GI normal to inspection, nondistended, normoactive bowel sounds, soft to palpation, non-tender and non-distended Extremity no clubbing, cyanosis or edema Skin no rashes or lesions noted and skin turgor normal General Skin Exam: no breakdown Neuro Neuro Narrative: Patient is sedated on the ventilator Psych thought process normal Psych Narrative: Patient is sedated and on the ventilator Const Constitutional Narrative: Patient is sedated on the ventilator General Appearance: cooperative, well kempt and well developed Orientation / Consciousness: awake, oriented to person, oriented to place and oriented to time HEENT head/scalp atraumatic Head and Scalp: normocephalic Eyes conjunctivae normal Eyes Narrative: Slight proptosis Neck no JVD General: trachea midline Resp normal respiratory effort, no retractions, no use of accessory muscles and clear to auscultation bilaterally Resp Narrative: coarse breath sounds Auscultation: Negative for rales, rhonchi or wheezes Cardio regular rate, regular rhythm, S1 normal heart sound, S2 normal heart sound, no gallops and no clicks Cardio Narrative: Tachycardic but regular. GI normal to inspection, nondistended, normoactive bowel sounds GI Narrative: Obese Extremity normal to inspection Skin no rashes or lesions noted, no wounds and skin turgor normal General Skin Exam: no breakdown Neuro Neuro Narrative: Patient is sedated on the ventilator Psych thought process normal Psych Narrative: Patient is sedated and on the ventilator Assessment & Plan Assessment/Plan (1) Acute hypoxemic respiratory failure due to COVID-19: (2) COPD: (3) COVID-19: PLAN: 1. COVID-19 pneumonia with ARDS with an overlay of chronic obstructive pulmonary disease-patient remains on the ventilator at this time, pulmonary medicine is participating in her care. Patient is currently on IV D ecadron and Lasix #2 acute combined respiratory failure secondary to ARDS with an overlay of COPD-pulmonary medicine is adjusting vent settings #3 adult respiratory distress syndrome-pulmonary medicine is participating in her care #4 type 2 diabetes-blood sugars are being monitored, insulin will be given as needed #5 chronic obstructive pulmonary disease-complicates medical care #6 cerebrovascular disease-patient is currently on no aspirin for prevention at this time #7 acute kidney injury-resolved at this time #8 secondary bacterial pneumonia with Moraxella-patient is being treated with appropriate antibiotics Overall outlook for this patient remains extremely guarded, patient was made a DNR CC arrest with intubation by family Charges/Coding Visit Charges Inpatient E&M: 38770 Subs Hosp L2
[2021-05-12 16:55] LABS: Bedside Glucose 203 mg/dL (70-110)
[2021-05-12] MEDS: 0.9% Saline Lock 10 ML Syringe IV (21:19)
[2021-05-13] VITALS (30 sets, daily range): BP systolic 98–147; BP diastolic 57–75; PULSE 102–124; RESP 16–27; TEMP 38.1–38.9; O2SAT 89–97
[2021-05-13] MEDS: Acetaminophen 650 MG/20 ML UDC GT ×3 (00:25→22:55)
[2021-05-13 00:41] LABS: Bedside Glucose 164 mg/dL (70-110)
[2021-05-13] MEDS: CHLORHEXIDINE GLUC 2% CLOTH 1 EACH TOWELETTE TOPICAL (03:54)
[2021-05-13 04:05] LABS: Absolute Lymphocyte Count 1.07 X10^3/uL (0.83-4.51); Absolute Neutrophil Count 26.3 X10^3/uL (2.0-7.7); Basophil% 0.4 % (0-1); Eosinophil# 0.01 X10^3/uL; Hematocrit 40.2 % (37-47); Hemoglobin 11.6 g/dL (12.0-15.0); Lymphocyte # 1.07 X10^3/ul (0.83-4.51); Lymphocyte % 3.7 % (19-41); Mean Corp Hgb Conc 28.9 g/dL (32-36); Mean Corpuscular Hgb 23.9 pg (27.0-32.0); Mean Corpuscular Volume 82.9 fL (81-99); Mean Platelet Vol. 11.8 fl (6.2-12.0); Monocyte# 0.77 X10^3/uL; Monocyte% 2.7 % (0-10); NRBC Flagged by Analyzer 0.2 % (0-5); Neutrophil # 26.27 X10^3/uL (2.7-7.7); POSITIVE DIFFERENTIAL YES; Platelet Count 166 K/mm3 (150-450); RBC Distribution Width CV 19.5 % (11.6-14.6); Red Blood Count 4.85 M/mm3 (4.2-5.4); White Blood Count 28.6 K/mm3 (4.4-11.0)
[2021-05-13 04:29] LABS: Differential Indicated SCAN CRITERIA MET
[2021-05-13] MEDS: Propofol 10MG/Ml 1,000 MG/100 ML Bottle 10.4 MG CONT INF ×3 (04:30→17:40)
[2021-05-13] MEDS: TITRATION PARAMETER CHANGE 1 EACH IV (04:38)
[2021-05-13 04:43] LABS: ALB/GLOB Ratio 0.5 RATIO (0.9-2.4); AST(SGOT) 31 U/L (15-37); Alanine Aminotransfer ALT/SGPT 27 U/L (13-56); Albumin, Serum 1.8 g/dL (3.2-5.0); Alkaline Phosphatase 195 U/L (45-117); Anion Gap 3 (5-15); BUN 45 mg/dL (7-18); Calcium,Total 9.4 mg/dL (8.5-10.1); Chloride 107 mmol/L (98-107); Creatinine, Serum 0.68 mg/dL (0.55-1.02); EST Glomerular Filtration Rate 94 mL/min (>60); Est Glom Filt Rate - Afr Amer 113 mL/min (>60); Estimated Creatinine Clearance 73.69 ml/min; Globulin 3.8 g/dL (2.2-4.2); Glucose 161 mg/dL (74-106); Potassium 5.2 mmol/L (3.5-5.1); Protein, Total 5.6 g/dL (6.4-8.2); Sodium Level 143 mmol/L (136-145)
[2021-05-13 06:45] LABS: Bedside Glucose 139 mg/dL (70-110)
[2021-05-13] MEDS: Chlorhexidine 15 ML PO ×2 (08:14→22:53)
[2021-05-13] MEDS: Enoxaparin 100 MG/ML Syringe 90 MG SC ×2 (08:15→22:54)
[2021-05-13] MEDS: Senna/Docusate Sodium 1 Tablet 2 TABLET GT ×2 (08:18→22:55)
[2021-05-13] MEDS: dexAMETHasone 10 MG/ML Vial 6 MG IV (08:18)
[2021-05-13] MEDS: Carvedilol 12.5 MG Tablet NG ×2 (08:18→22:55)
[2021-05-13] MEDS: Furosemide 40 MG/4 ML Vial IV ×2 (08:18→17:48)
[2021-05-13] MEDS: Polyethylene Glycol 3350 17 GM PACKET GT ×2 (08:28→22:54)
--- NOTE | 2021-05-13 09:10 | PCM.PN.INT ---
Assessment & Plan Assessment/Plan (1) Acute hypoxemic respiratory failure due to COVID-19: (2) Subtherapeutic international normalized ratio (INR): (3) Encephalopathy due to 2019-nCoV: (4) Type 2 diabetes mellitus: (5) History of blood clot: (6) COPD: PLAN: RECOMMENDATIONS: 1. Continue Decadron to complete a 10-day course. 2. Continue to wean FiO2 for saturations greater than 90%. 3. Continue proning trials. 4. Diuretics as tolerated by hemodynamics and renal function. 5. Antibiotics per infectious disease. 6. Continue therapeutic Lovenox. 7. Continue appropriate GI prophylaxis. IMPRESSIONS: 1. Acute combined respiratory failure secondary to ARDS d/t COVID-19/CAP in the setting of COPD The patient initially was admitted to the hospital on May 04 after being emergently intubated in the emergency department in the setting of COVID-19 pneumonia. The patient did receive Tocilizumab and was started on Decadron. She also appears to have a secondary bacterial pneumonia with Moraxella isolated from sputum culture. Antimicrobials will be continued accordingly. Plan to continue to wean FiO2 as tolerated for saturations greater than 90%. Continue tube feeds as tolerated. Continue Lovenox as ordered. Despite the aforementioned, the patient's respiratory status still remains quite tenuous. Therefore, she will continue to undergo proning trials as tolerated. Continue diuresis as tolerated by hemodynamics and renal function. 2. Acute kidney injury Resolved. Likely prerenal in etiology and related to acute presentation. Okay to utilize diuretics as needed to maintain euvolemic state. 3. Recent UTI/A. fib/subtherapeutic INR/nonvaccinated status/diabetes mellitus type 2 Complicates care, management, recovery and prognosis. Continue sliding scale insulin coverage. CODE status: Discussed CODE status at length including difference between FULL code, DNR-CCA and DNR-CC status. Following discussions about the differences in these status, patient's family requested DNR CCA CODE STATUS. TIME: 34 minutes of critical care time, independent of procedures, was spent addressing the patient's acute combined respiratory failure secondary to ARDS in the setting of COVID-19, secondary bacterial pneumonia, acute kidney injury, review of all data and collaboration with the care team. Subjective Subjective The patient was seen and examined at the bedside this morning. Events from the last 24 hours have been reviewed. Today is day #10. The patient is currently afebrile and hemodynamically stable. The patient is currently in supine position with marginal oxygen saturations despite being on 100% FiO2 and a PEEP of 18. She remains sedated on fentanyl and propofol. The patient is currently documented to be overall net +10.1 L for the hospitalization. She remains on antimicrobials, Decadron, therapeutic Lovenox and scheduled Lasix. Objective Data Objective Data The patient's most recent lab work, culture data and imaging studies have all been personally reviewed. Rapid coronavirus antigen testing was positive on April 30. Sputum culture dated May 04 was positive for Moraxella. Vital Signs: Vital Signs Temp Pulse Resp BP Pulse Ox 100.6 F H 110 H 25 H 130/74 H 90 05/13/21 07:00 05/13/21 08:07 05/13/21 08:07 05/13/21 07:00 05/13/21 08:07 Oxygen Flow Rate (L/min) 15 Oxygen Delivery Method Mechanical Ventilator Weight: 87 kg Body Mass Index (BMI) 33.0 Intake & Output: Intake and Output for Last 24 Hours 05/11/21 05/12/21 05/13/21 23:59 23:59 23:59 Intake Total 4116.35 / 4173.20 1754.21 / 1819.71 559.03 / 559.03 Output Total 2635 / 2635 1470 / 1470 650 / 650 Balance 1481.35 / 1538.20 284.21 / 349.71 -90.97 / -90.97 Lab / Micro Data Attestation: I reviewed the patient's lab results. Result Diagrams: 05/13/21 03:48 05/13/21 03:48 Labs: Laboratory Results - last 24 hr 05/12/21 04:00: Plt Count 05/12/21 11:38: POC Glucose 205 H 05/12/21 16:44: POC Glucose 203 H 05/12/21 23:50: POC Glucose 164 H 05/13/21 03:48: WBC 28.6 H, RBC 4.85, Hgb 11.6 L, Hct 40.2, MCV 82.9, MCH 23.9 L, MCHC 28.9 L, RDW Std Deviation 54.0 H, RDW Coeff of Cami 19.5 H, Plt Count 166, MPV 11.8, Immature Gran % (Auto) 1.200 H, Neut % (Auto) 92.0 H, Lymph % (Auto) 3.7 L, [place] % (Auto) 2.7, Eos % (Auto) 0.0, Baso % (Auto) 0.4, Absolute Neuts (auto) 26.3 H, Absolute Lymphs (auto) 1.07, Nucleated RBC % 0.2 05/13/21 03:48: Sodium 143, Potassium 5.2 H, Chloride 107, Carbon Dioxide 33.0 H, Anion Gap 3 L, BUN 45 H, Creatinine 0.68, Estim Creat Clear Calc 73.69, Est GFR (MDRD) Af Amer 113, Est GFR (MDRD) Non-Af 94, BUN/Creatinine Ratio 66.0 H, Glucose 161 H, Calcium 9.4, Total Bilirubin 0.60, AST 31, ALT 27, Alkaline Phosphatase 195 H, Total Protein 5.6 L, Albumin 1.8 L, Globulin 3.8, Albumin/Globulin Ratio 0.5 L 05/13/21 06:31: POC Glucose 139 H Micro: Microbiology 05/04/21 05:11 Blood Culture (Wb) - Anticubital Right Blood Culture - Final No growth in 5 days. 05/04/21 05:33 Blood Culture (Wb) - Anticubital Left Blood Culture - Final No growth in 5 days. 05/04/21 08:10 Sputum, Induced/Lukens Gram Stain - Final 05/04/21 08:10 Sputum, Induced/Lukens Respiratory Culture - Final Moraxella(Elle.)Catarrhalis 05/04/21 05:31 Urine Catheter - Antonio Legionella Antigen - Final 05/04/21 05:31 Urine Catheter - Antonio Streptococcus pneumoniae Antigen (M - Final Physical Exam Const Constitutional Narrative: Currently in supine position. General Appearance: intubated and patient mechanically ventilated Nutritional Appearance: obese HEENT normocephalic and head/scalp atraumatic Mouth: endotracheal tube in place and OG tube in place Eyes PERRL and conjunctivae normal Neck supple General: trachea midline Resp Effort and Inspection: tachypneic Auscultation: diminished lung sounds; Negative for rales, rhonchi or wheezes Cardio S1 normal heart sound and S2 normal heart sound Rate: tachycardic GI normal to inspection, nondistended, normoactive bowel sounds Extremity no clubbing, cyanosis or edema Skin no rashes or lesions noted Neuro Sensorium / Orientation: sedated on vent Charges/Coding Procedures Hospitalists Procedures: [id number] Critial Care 1st Hr
--- NOTE | 2021-05-13 09:45 | PN.HOSP_ITS ---
Subjective Subjective Patient was seen and examined today, she remains sedated and on the ventilator. Objective Data Objective Data Vital Signs: Vital Signs Temp Pulse Resp BP Pulse Ox 100.6 F H 110 H 25 H 130/74 H 90 05/13/21 07:00 05/13/21 08:07 05/13/21 08:07 05/13/21 07:00 05/13/21 08:07 Oxygen Flow Rate (L/min) 15 Oxygen Delivery Method Mechanical Ventilator Weight: 87 kg Body Mass Index (BMI) 33.0 Intake & Output: Intake and Output for Last 24 Hours 05/11/21 05/12/21 05/13/21 23:59 23:59 23:59 Intake Total 4116.35 / 4173.20 1754.21 / 1819.71 559.03 / 559.03 Output Total 2635 / 2635 1470 / 1470 650 / 650 Balance 1481.35 / 1538.20 284.21 / 349.71 -90.97 / -90.97 Lab / Micro Data Result Diagrams: 05/13/21 03:48 05/13/21 03:48 Labs: Laboratory Results - last 24 hr 05/12/21 04:00: Plt Count 05/12/21 11:38: POC Glucose 205 H 05/12/21 16:44: POC Glucose 203 H 05/12/21 23:50: POC Glucose 164 H 05/13/21 03:48: WBC 28.6 H, RBC 4.85, Hgb 11.6 L, Hct 40.2, MCV 82.9, MCH 23.9 L , MCHC 28.9 L, RDW Std Deviation 54.0 H, RDW Coeff of Cami 19.5 H, Plt Count 166, MPV 11.8, Immature Gran % (Auto) 1.200 H, Neut % (Auto) 92.0 H, Lymph % (Auto) 3.7 L, [place] % (Auto) 2.7, Eos % (Auto) 0.0, Baso % (Auto) 0.4, Absolute Neuts (auto) 26.3 H, Absolute Lymphs (auto) 1.07, Nucleated RBC % 0.2 05/13/21 03:48: Sodium 143, Potassium 5.2 H, Chloride 107, Carbon Dioxide 33.0 H , Anion Gap 3 L, BUN 45 H, Creatinine 0.68, Estim Creat Clear Calc 73.69, Est GFR (MDRD) Af Amer 113, Est GFR (MDRD) Non-Af 94, BUN/Creatinine Ratio 66.0 H, Glucose 161 H, Calcium 9.4, Total Bilirubin 0.60, AST 31, ALT 27, Alkaline Phosphatase 195 H, Total Protein 5.6 L, Albumin 1.8 L, Globulin 3.8, Albumin/Globulin Ratio 0.5 L 05/13/21 06:31: POC Glucose 139 H Micro: Microbiology 05/04/21 05:11 Blood Culture (Wb) - Anticubital Right Blood Culture - Final No growth in 5 days. 05/04/21 05:33 Blood Culture (Wb) - Anticubital Left Blood Culture - Final No growth in 5 days. 05/04/21 08:10 Sputum, Induced/Lukens Gram Stain - Final 05/04/21 08:10 Sputum, Induced/Lukens Respiratory Culture - Final Moraxella(Elle.)Catarrhalis 05/04/21 05:31 Urine Catheter - Antonio Legionella Antigen - Final 05/04/21 05:31 Urine Catheter - Antonio Streptococcus pneumoniae Antigen (M - Final Physical Exam Narrative Constitutional Narrative: Patient is sedated on the ventilator Orientation / Consciousness: Patient is sedated and on the ventilator HEENT head/scalp atraumatic Head and Scalp: normocephalic Eyes conjunctivae normal Eyes Narrative: Slight proptosis Neck no JVD General: trachea midline Resp normal respiratory effort, no retractions, no use of accessory muscles and clear to auscultation bilaterally Resp Narrative: coarse breath sounds Auscultation: Negative for rales, rhonchi or wheezes Cardio regular rate, regular rhythm, S1 normal heart sound, S2 normal heart sound, no gallops and no clicks Cardio Narrative: Tachycardic but regular. GI normal to inspection, nondistended, normoactive bowel sounds GI Narrative: Obese Extremity normal to inspection Skin no rashes or lesions noted, no wounds and skin turgor normal General Skin Exam: no breakdown Neuro Neuro Narrative: Patient is sedated on the ventilator Psych Narrative: Patient is sedated and on the ventilator Const Constitutional Narrative: Patient is sedated on the ventilator General Appearance: cooperative, well kempt and well developed Orientation / Consciousness: awake, oriented to person, oriented to place and oriented to time HEENT normocephalic, head/scalp atraumatic and moist oral mucous membranes Eyes conjunctivae normal Eyes Narrative: Slight proptosis Neck nuchal rigidity, no lymphadenopathy, no JVD and thyroid normal General: trachea midline Resp normal respiratory effort, no retractions, no use of accessory muscles and clear to auscultation bilaterally Resp Narrative: coarse breath sounds Auscultation: Negative for rales, rhonchi or wheezes Cardio regular rate, regular rhythm, S1 normal heart sound, S2 normal heart sound, no murmurs, no rub, no gallops and no clicks Cardio Narrative: Tachycardic but regular. GI normal to inspection, nondistended, normoactive bowel sounds and non-distended GI Narrative: Obese Extremity normal to inspection and no clubbing, cyanosis or edema Skin no rashes or lesions noted, no wounds and skin turgor normal General Skin Exam: no breakdown Neuro Neuro Narrative: Patient is sedated on the ventilator Psych thought process normal Psych Narrative: Patient is sedated and on the ventilator Assessment & Plan Assessment/Plan (1) COPD: (2) Acute hypoxemic respiratory failure due to COVID-19: (3) COVID-19: PLAN: 1. COVID-19 pneumonia with ARDS with an overlay of chronic obstructive pulmonary disease-patient remains on the ventilator at this time, pulmonary medicine is participating in her care. Patient is currently on IV Decadron and Lasix #2 acute combined respiratory failure secondary to ARDS with an overlay of COPD- pulmonary medicine is adjusting vent settings #3 adult respiratory distress syndrome-pulmonary medicine is participating in her care #4 type 2 diabetes-blood sugars are being monitored, insulin will be given as needed #5 chronic obstructive pulmonary disease-complicates medical care #6 cerebrovascular disease-patient is currently on no aspirin for prevention at this time #7 acute kidney injury-resolved at this time #8 secondary bacterial pneumonia with Moraxella-patient is being treated with appropriate antibiotics Overall outlook for this patient remains extremely guarded, patient was made a DNR CC arrest with intubation by family Charges/Coding Visit Charges Inpatient E&M: 95405 Subs Hosp L2
[2021-05-13] MEDS: Ceftriaxone 1 GM/50 ML BAG IV (10:20)
[2021-05-13] MEDS: Insulin Lispro 100 UNIT/ML INSULN.PEN SC ×2 (11:42→17:40)
[2021-05-13 11:55] LABS: Bedside Glucose 165 mg/dL (70-110)
[2021-05-13 16:35] LABS: Bedside Glucose 183 mg/dL (70-110)
[2021-05-13] MEDS: 0.9% Saline Lock 10 ML Syringe IV (22:54)
[2021-05-14] VITALS (33 sets, daily range): BP systolic 80–118; BP diastolic 50–72; PULSE 92–121; RESP 16–23; TEMP 37.6–40; O2SAT 85–94
[2021-05-14] MEDS: Insulin Lispro 100 UNIT/ML INSULN.PEN SC ×5 (00:36→23:14)
[2021-05-14 00:41] LABS: Bedside Glucose 186 mg/dL (70-110)
[2021-05-14] MEDS: Propofol 10MG/Ml 1,000 MG/100 ML Bottle 13.1 MG CONT INF (01:35)
[2021-05-14 04:38] LABS: Absolute Lymphocyte Count 0.74 X10^3/uL (0.83-4.51); Absolute Neutrophil Count 24.3 X10^3/uL (2.0-7.7); Basophil# 0.09 X10^3/uL; Basophil% 0.3 % (0-1); Eosinophil# 0.07 X10^3/uL; Eosinophils% 0.3 % (0-5); Hematocrit 39.2 % (37-47); Hemoglobin 11.4 g/dL (12.0-15.0); Lymphocyte # 0.74 X10^3/ul (0.83-4.51); Lymphocyte % 2.8 % (19-41); Mean Corp Hgb Conc 29.1 g/dL (32-36); Mean Corpuscular Hgb 24.4 pg (27.0-32.0); Mean Corpuscular Volume 83.8 fL (81-99); Monocyte# 0.69 X10^3/uL; Monocyte% 2.6 % (0-10); NRBC Flagged by Analyzer 0.3 % (0-5); Neutrophil # 24.27 X10^3/uL (2.7-7.7); Neutrophil % 91.3 % (47-70); POSITIVE DIFFERENTIAL YES; Platelet Count 153 K/mm3 (150-450); RBC Distribution Width CV 19.9 % (11.6-14.6); RBC Distribution Width SD 56.6 fl (35.1-43.9); Red Blood Count 4.68 M/mm3 (4.2-5.4); White Blood Count 26.6 K/mm3 (4.4-11.0)
[2021-05-14 04:42] LABS: Differential Indicated SCAN CRITERIA MET
[2021-05-14 05:42] LABS: ALB/GLOB Ratio 0.4 RATIO (0.9-2.4); AST(SGOT) 25 U/L (15-37); Alanine Aminotransfer ALT/SGPT 22 U/L (13-56); Albumin, Serum 1.6 g/dL (3.2-5.0); Alkaline Phosphatase 172 U/L (45-117); Anion Gap 5 (5-15); BUN 48 mg/dL (7-18); BUN/Creat Ratio 73.6 RATIO (10-20); Calcium,Total 9.8 mg/dL (8.5-10.1); Chloride 108 mmol/L (98-107); Creatinine, Serum 0.65 mg/dL (0.55-1.02); EST Glomerular Filtration Rate 99 mL/min (>60); Est Glom Filt Rate - Afr Amer 119 mL/min (>60); Estimated Creatinine Clearance 77.09 ml/min; Glucose 157 mg/dL (74-106); Protein, Total 5.6 g/dL (6.4-8.2); Sodium Level 147 mmol/L (136-145)
[2021-05-14] MEDS: Propofol 10MG/Ml 1,000 MG/100 ML Bottle 10.4 MG CONT INF ×2 (06:00→14:04)
[2021-05-14] MEDS: TITRATION PARAMETER CHANGE 1 EACH IV (06:55)
[2021-05-14 07:01] LABS: Bedside Glucose 178 mg/dL (70-110)
[2021-05-14] MEDS: Chlorhexidine 15 ML PO ×2 (08:33→22:38)
[2021-05-14] MEDS: dexAMETHasone 10 MG/ML Vial 6 MG IV (08:34)
[2021-05-14] MEDS: Enoxaparin 100 MG/ML Syringe 90 MG SC ×2 (08:34→22:45)
[2021-05-14] MEDS: Furosemide 40 MG/4 ML Vial IV ×2 (08:34→18:03)
[2021-05-14] MEDS: Polyethylene Glycol 3350 17 GM PACKET GT ×2 (08:35→22:45)
[2021-05-14] MEDS: Carvedilol 12.5 MG Tablet NG (08:35)
[2021-05-14] MEDS: Senna/Docusate Sodium 1 Tablet 2 TABLET GT ×2 (08:35→22:44)
--- NOTE | 2021-05-14 08:43 | PCM.PN.INT ---
Assessment & Plan Assessment/Plan (1) Acute hypoxemic respiratory failure due to COVID-19: (2) Subtherapeutic international normalized ratio (INR): (3) Encephalopathy due to 2019-nCoV: (4) Type 2 diabetes mellitus: (5) History of blood clot: (6) COPD: PLAN: RECOMMENDATIONS: 1. Continue Decadron to complete a 10-day course. 2. Continue to wean FiO2 for saturations greater than 90%. 3. Continue proning trials. 4. Diuretics as tolerated by hemodynamics and renal function. 5. Antibiotics per infectious disease. 6. Continue therapeutic Lovenox. 7. Continue appropriate GI prophylaxis. 8. Add Lacri-Lube to eyes 9. Obtain EEG 10. Discussed goals of therapy with family IMPRESSIONS: 1. Acute combined respiratory failure secondary to ARDS d/t COVID-19/CAP in the setting of COPD The patient initially was admitted to the hospital on May 04 after being emergently intubated in the emergency department in the setting of COVID-19 pneumonia. The patient did receive Tocilizumab and was started on Decadron. She also appears to have a secondary bacterial pneumonia with Moraxella isolated from sputum culture. Antimicrobials will be continued accordingly. Plan to continue to wean FiO2 as tolerated for saturations greater than 90%. Continue tube feeds as tolerated. Continue Lovenox as ordered. Despite the aforementioned, the patient's respiratory status still remains quite tenuous. Therefore, she will continue to undergo proning trials as tolerated. Continue diuresis as tolerated by hemodynamics and renal function. 2. Acute kidney injury Resolved. Likely prerenal in etiology and related to acute presentation. Okay to utilize diuretics as needed to maintain euvolemic state. 3. Recent UTI/A. fib/subtherapeutic INR/nonvaccinated status/diabetes mellitus type 2/metabolic encephalopathy Complicates care, management, recovery and prognosis. Continue sliding scale insulin coverage. Patient was receiving significant sedation, but will obtain an EEG to help with discussions on goals of therapy. Nutrition may become an issue as patient is not receiving tube feeds while prone secondary to aspiration risk. CODE status: Previously DNR Comfort Care arrest status. May need to discuss with family about possible palliative measures TIME: 32 minutes of critical care time, independent of any procedures, was spent addressing the patient's acute combined respiratory failure secondary to ARDS in the setting of COVID-19, secondary bacterial pneumonia, acute kidney injury, review of all data and collaboration with the care team. Subjective Subjective Patient did okay overnight. Patient did have an increase in FiO2 after being moved to the supine position, which reportedly is normal. Patient still requiring high PEEP and FiO2 to maintain saturations. Patient was febrile overnight. Nursing is reporting the family has requested an EEG to see if this is even worth it. Objective Data Objective Data Vital Signs: Vital Signs Temp Pulse Resp BP Pulse Ox 38.0 C H 112 H 21 H 103/61 89 05/14/21 07:00 05/14/21 07:37 05/14/21 07:37 05/14/21 07:00 05/14/21 07:37 Oxygen Flow Rate (L/min) 15 Oxygen Delivery Method Mechanical Ventilator Weight: 86.6 kg Body Mass Index (BMI) 33.0 Intake & Output: Intake and Output for Last 24 Hours 05/12/21 05/13/21 05/14/21 23:59 23:59 23:59 Intake Total 1754.21 / 1819.71 1830.57 / 2008.67 574.87 / 574.87 Output Total 1470 / 1470 2850 / 2850 200 / 200 Balance 284.21 / 349.71 -1019.43 / -841.33 374.87 / 374.87 Lab / Micro Data Result Diagrams: 05/14/21 04:30 05/14/21 04:30 Labs: Laboratory Results - last 24 hr 05/13/21 11:36: POC Glucose 165 H 05/13/21 16:29: POC Glucose 183 H 05/14/21 00:32: POC Glucose 186 H 05/14/21 04:30: WBC 26.6 H, RBC 4.68, Hgb 11.4 L, Hct 39.2, MCV 83.8, MCH 24.4 L, MCHC 29.1 L, RDW Std Deviation 56.6 H, RDW Coeff of Cami 19.9 H, Plt Count 153, MPV 12.0, Immature Gran % (Auto) 2.700 H, Neut % (Auto) 91.3 H, Lymph % (Auto) 2.8 L, [place] % (Auto) 2.6, Eos % (Auto) 0.3, Baso % (Auto) 0.3, Absolute Neuts (auto) 24.3 H, Absolute Lymphs (auto) 0.74 L, Nucleated RBC % 0.3 05/14/21 04:30: Sodium 147 H, Potassium 5.0, Chloride 108 H, Carbon Dioxide 34.0 H, Anion Gap 5, BUN 48 H, Creatinine 0.65, Estim Creat Clear Calc 77.09, Est GFR (MDRD) Af Amer 119, Est GFR (MDRD) Non-Af 99, BUN/Creatinine Ratio 73.6 H, Glucose 157 H, Calcium 9.8, Total Bilirubin 0.80, AST 25, ALT 22, Alkaline Phosphatase 172 H, Total Protein 5.6 L, Albumin 1.6 L, Globulin 4.0, Albumin/Globulin Ratio 0.4 L 05/14/21 06:53: POC Glucose 178 H Micro: Microbiology 05/04/21 05:11 Blood Culture (Wb) - Anticubital Right Blood Culture - Final No growth in 5 days. 05/04/21 05:33 Blood Culture (Wb) - Anticubital Left Blood Culture - Final No growth in 5 days. 05/04/21 08:10 Sputum, Induced/Lukens Gram Stain - Final 05/04/21 08:10 Sputum, Induced/Lukens Respiratory Culture - Final Moraxella(Elle.)Catarrhalis 05/04/21 05:31 Urine Catheter - Antonio Legionella Antigen - Final 05/04/21 05:31 Urine Catheter - Antonio Streptococcus pneumoniae Antigen (M - Final Physical Exam Const Constitutional Narrative: Currently in supine position. General Appearance: intubated and patient mechanically ventilated Nutritional Appearance: obese HEENT normocephalic and head/scalp atraumatic Mouth: endotracheal tube in place and OG tube in place Eyes PERRL Eyes Narrative: Significant conjunctival injection of the right eye with periorbital edema Neck supple General: trachea midline Chest inspection of chest normal Chest: symmetrical chest wall rise Resp Effort and Inspection: tachypneic Auscultation: diminished lung sounds; Negative for rales, rhonchi or wheezes Cardio S1 normal heart sound and S2 normal heart sound Rate: regular rate Heart Sounds: Negative for gallop, murmur or rub GI normal to inspection, nondistended, normoactive bowel sounds Extremity no clubbing, cyanosis or edema Skin no rashes or lesions noted Neuro Sensorium / Orientation: sedated on vent Charges/Coding Procedures [facility]: [id number]
--- NOTE | 2021-05-14 10:09 | PCM.PN.HOSP ---
Subjective Subjective Intubated and sedated, continuing to attempt proning. Objective Data Objective Data Vital Signs: Vital Signs Temp Pulse Resp BP Pulse Ox 100.4 F H 112 H 21 H 103/61 89 05/14/21 07:00 05/14/21 07:37 05/14/21 07:37 05/14/21 07:00 05/14/21 07:37 Oxygen Flow Rate (L/min) 15 Oxygen Delivery Method Mechanical Ventilator Weight: 190 lb 14.725 oz Body Mass Index (BMI) 33.0 Intake & Output: Intake and Output for Last 24 Hours 05/13/21 05/14/21 05/15/21 03:59 03:59 03:59 Intake Total 1388.69 / 1514.09 1958.39 / 2075.99 405.05 / 405.05 Output Total 1425 / 1425 2700 / 2900 200 / 200 Balance -36.31 / 89.09 -741.61 / -824.01 205.05 / 205.05 Lab / Micro Data Result Diagrams: 05/14/21 04:30 05/14/21 04:30 Labs: Laboratory Results - last 24 hr 05/13/21 11:36: POC Glucose 165 H 05/13/21 16:29: POC Glucose 183 H 05/14/21 00:32: POC Glucose 186 H 05/14/21 04:30: WBC 26.6 H, RBC 4.68, Hgb 11.4 L, Hct 39.2, MCV 83.8, MCH 24.4 L, MCHC 29.1 L, RDW Std Deviation 56.6 H, RDW Coeff of Cami 19.9 H, Plt Count 153, MPV 12.0, Immature Gran % (Auto) 2.700 H, Neut % (Auto) 91.3 H, Lymph % (Auto) 2.8 L, [place] % (Auto) 2.6, Eos % (Auto) 0.3, Baso % (Auto) 0.3, Absolute Neuts (auto) 24.3 H, Absolute Lymphs (auto) 0.74 L, Nucleated RBC % 0.3 05/14/21 04:30: Sodium 147 H, Potassium 5.0, Chloride 108 H, Carbon Dioxide 34.0 H, Anion Gap 5, BUN 48 H, Creatinine 0.65, Estim Creat Clear Calc 77.09, Est GFR (MDRD) Af Amer 119, Est GFR (MDRD) Non-Af 99, BUN/Creatinine Ratio 73.6 H, Glucose 157 H, Calcium 9.8, Total Bilirubin 0.80, AST 25, ALT 22, Alkaline Phosphatase 172 H, Total Protein 5.6 L, Albumin 1.6 L, Globulin 4.0, Albumin/Globulin Ratio 0.4 L 05/14/21 06:53: POC Glucose 178 H Micro: Microbiology 05/04/21 05:11 Blood Culture (Wb) - Anticubital Right Blood Culture - Final No growth in 5 days. 05/04/21 05:33 Blood Culture (Wb) - Anticubital Left Blood Culture - Final No growth in 5 days. 05/04/21 08:10 Sputum, Induced/Lukens Gram Stain - Final 05/04/21 08:10 Sputum, Induced/Lukens Respiratory Culture - Final Moraxella(Elle.)Catarrhalis 05/04/21 05:31 Urine Catheter - Antonio Legionella Antigen - Final 05/04/21 05:31 Urine Catheter - Antonio Streptococcus pneumoniae Antigen (M - Final Physical Exam Const General Appearance: intubated and patient mechanically ventilated HEENT moist oral mucous membranes Head and Scalp: normocephalic Eyes PERRL Neck supple and no JVD Resp normal respiratory effort, no retractions and no use of accessory muscles Effort and Inspection: tachypneic Auscultation: diminished lung sounds; Negative for crackles, rales, rhonchi or wheezes Cardio regular rate, regular rhythm, S1 normal heart sound, S2 normal heart sound and no murmurs GI soft to palpation and non-distended; Negative for hepatosplenomegaly Extremity no clubbing, cyanosis or edema Skin no rashes or lesions noted Neuro Sensorium / Orientation: sedated on vent Psych Appearance: intubated Assessment & Plan Assessment/Plan (1) COPD: (2) Acute hypoxemic respiratory failure due to COVID-19: (3) COVID-19: PLAN: 1. Acute combined respiratory failure secondary to ARDS from COVID-19 pneumonia/Moraxella bacterial pneumonia ?Continue with Decadron and as needed Lasix ?Appreciate infectious disease input, continue with Rocephin ?Appreciate pulmonology's assistance ?It appears that the family has requested an EEG to decide if they should continue with care 2. HTN/HLD ?Blood pressure is stable, can continue with Coreg ?Hold atorvastatin and fenofibrate 3. DM 2 ?Hold Metformin, continue with sliding scale insulin ?Accu-Cheks AC at bedtime, continue to monitor and make adjustments DVT: Therapeutic Lovenox Charges/Coding Visit Charges Inpatient E&M: 60735 Subs Hosp L2
--- NOTE | 2021-05-14 10:44 | NURSING ---
early notification call placed to [facility], Dereje from Organ team called and obtained report. Dereje noted that patient is not a donation candidate and we should notify [facility] with time of cardiac .
--- NOTE | 2021-05-14 13:27 | TELEMED_ITS ---
[facility] has confirmed receipt of a request for visit. This document confirms receipt of the order initiating the consult. To find the results of the consultation, please view the patient's reports for the scanned Telemed Consult.
[2021-05-14] MEDS: Acetaminophen 650 MG/20 ML UDC GT ×2 (13:36→22:43)
[2021-05-14] MEDS: Carboxymethylcellulose sodium gel dropperette 1 EACH OPHTHALMIC ×2 (13:38→22:38)
--- NOTE | 2021-05-14 14:29 | PCM.RX.CS ---
Consult Pharmacy has been consulted to manage selected antiobiotic: Vancomycin Type of Consult: New start Suspected Infection: Other Labs: Sodium 147 mmol/L (136-145) H 05/14/21 04:30 Potassium 5.0 mmol/L (3.5-5.1) 05/14/21 04:30 Chloride 108 mmol/L (98-107) H 05/14/21 04:30 Carbon Dioxide 34.0 mmol/L (21.0-32.0) H 05/14/21 04:30 Anion Gap 5 (5-15) 05/14/21 04:30 BUN 48 mg/dL (7-18) H 05/14/21 04:30 Creatinine 0.65 mg/dL (0.55-1.02) 05/14/21 04:30 Est GFR (MDRD) Af Amer 119 mL/min (>60) 05/14/21 04:30 Est GFR (MDRD) Non-Af 99 mL/min (>60) 05/14/21 04:30 BUN/Creatinine Ratio 73.6 RATIO (10-20) H 05/14/21 04:30 Glucose 157 mg/dL (74-106) H 05/14/21 04:30 Microbiology: Microbiology 05/04/21 05:11 Blood Culture (Wb) - Anticubital Right Blood Culture - Final No growth in 5 days. 05/04/21 05:33 Blood Culture (Wb) - Anticubital Left Blood Culture - Final No growth in 5 days. 05/04/21 08:10 Sputum, Induced/Lukens Gram Stain - Final 05/04/21 08:10 Sputum, Induced/Lukens Respiratory Culture - Final Moraxella(Elle.)Catarrhalis 05/04/21 05:31 Urine Catheter - Antonio Legionella Antigen - Final 05/04/21 05:31 Urine Catheter - Antonio Streptococcus pneumoniae Antigen (M - Final Goal Trough: 15-20 mcg/mL Pharmacy Plan for Drug Dosing: NEW START IV VANCOMYCIN Consulting Physician: Dr. Lyon Goal Trough: 15-20 SrCr: 0.65 CrCl:77 mL/min Comments: 2g IV x1 loading dose administered 05/14/21 @1336 Vancomcyin Dose: 1250mg IV Q12h to start 05/15/21 @ 0200 Pending Level: 05/16/21 @0130 Pharmacy Service will continue to monitor and adjust dosing as required.
--- NOTE | 2021-05-14 14:36 | PCM.PN.ID ---
Physical Exam Narrative Worsening O2 and fever, on vent Const Constitutional Narrative: ill appearing Resp Auscultation: diminished lung sounds Cardio Rate: tachycardic GI soft to palpation and non-tender Skin no rashes or lesions noted ID ID: Route of nutrition/ use of supplements: [] Nutritional Intake: [] IV Site: [] Antonio Catheter: [] Assessment & Plan Assessment/Plan (1) Acute hypoxemic respiratory failure due to COVID-19: PLAN: Worsening condition, will check cxs and start vanc/zosyn. Completed ceftriaxone yesterday for moraxella. Will follow
[2021-05-14 15:15] LABS: BNP,B-Type NATRIURETIC PEPTIDE 183.6 pg/mL (0-100)
[2021-05-14 15:17] LABS: D-Dimer Quantitative (DVT/PE) 2.28 FEU/ug/m (0.27-0.49)
[2021-05-14 15:22] LABS: Procalcitonin 0.49 ng/mL (0.00-0.09)
[2021-05-14] MEDS: Piperacil/Tazobactam 3.375 GM Q8 PREMIX IV ×2 (16:04→21:30)
--- NOTE | 2021-05-14 16:10 | NURSING ---
pt proned at this time
[2021-05-14 17:45] LABS: Allen Test Positive; Base Excess 10 mmol/L (-2 to +2); Bicarbonate 36.7 mmol/L (22-26); Blood Gas Specimen Type ART; FI02 100; Mode AC; O2 Delivery Device Adult Vent; PEEP 18; PO2 52 mmHG (75-100); RR 16; SITE R Radial; SO2 78 % (95-99); Total Carbon Dioxide 39 mmol/L; Vt 450; pCO2 82.6 mmHg (35-45); pH 7.26 (7.35-7.45)
[2021-05-14] MEDS: 0.9% Saline Lock 10 ML Syringe IV ×2 (18:07→22:38)
[2021-05-14 18:50] LABS: Bedside Glucose 195 mg/dL (70-110)
[2021-05-14 18:50] LABS: Bedside Glucose 168 mg/dL (70-110)
[2021-05-14 23:30] LABS: Bedside Glucose 191 mg/dL (70-110)
[2021-05-15] VITALS (13 sets, daily range): BP systolic 88–147; BP diastolic 30–73; PULSE 75–118; RESP 16–27; TEMP 37.1–38.8; O2SAT 83–94
[2021-05-15] MEDS: Propofol 10MG/Ml 1,000 MG/100 ML Bottle 5.2 MG CONT INF (00:30)
--- NOTE | 2021-05-15 02:28 | PN_ITS ---
Progress Note Nursing team/respiratory team reporting unilateral absence of breath sounds. Nursing team discussed with organizational development manager who recommended hospitalist evaluation after which consideration should be made for a chest x-ray. Patient is in prone position at this time. Patient was evaluated at bedside. Patient with clear breath sounds on left posterior side but decreased breath sounds in right upper posterior lung roland. Lung sounds not completely absent in right posterior lung field by hospitalist examination. Reportedly before shift leader patient oxygen saturation was about 89% and now it is about 85%. Will defer chest x-ray to next de-proning .
[2021-05-15 05:06] LABS: Absolute Lymphocyte Count 0.92 X10^3/uL (0.83-4.51); Absolute Neutrophil Count 18.4 X10^3/uL (2.0-7.7); Basophil# 0.08 X10^3/uL; Basophil% 0.4 % (0-1); Eosinophil# 0.05 X10^3/uL; Eosinophils% 0.2 % (0-5); Hematocrit 41.6 % (37-47); Hemoglobin 11.4 g/dL (12.0-15.0); Lymphocyte # 0.92 X10^3/ul (0.83-4.51); Lymphocyte % 4.5 % (19-41); Mean Corp Hgb Conc 27.4 g/dL (32-36); Mean Corpuscular Hgb 23.1 pg (27.0-32.0); Mean Corpuscular Volume 84.2 fL (81-99); Mean Platelet Vol. 12.9 fl (6.2-12.0); Monocyte# 0.62 X10^3/uL; Monocyte% 3.1 % (0-10); NRBC Flagged by Analyzer 0.9 % (0-5); Neutrophil # 18.41 X10^3/uL (2.7-7.7); Neutrophil % 90.7 % (47-70); POSITIVE MORPHOLOGY YES; Platelet Count 163 K/mm3 (150-450); RBC Distribution Width CV 19.9 % (11.6-14.6); RBC Distribution Width SD 57.3 fl (35.1-43.9); Red Blood Count 4.94 M/mm3 (4.2-5.4); White Blood Count 20.3 K/mm3 (4.4-11.0)
[2021-05-15 05:09] LABS: Differential Indicated SCAN CRITERIA MET
--- NOTE | 2021-05-15 05:16 | NURSING ---
05/15/21 @ 0430 Family at bedside visiting waiting for Dr. Looney. Will continue to monitor.
[2021-05-15 05:29] LABS: ALB/GLOB Ratio 0.4 RATIO (0.9-2.4); AST(SGOT) 43 U/L (15-37); Alanine Aminotransfer ALT/SGPT 34 U/L (13-56); Albumin, Serum 1.7 g/dL (3.2-5.0); Alkaline Phosphatase 155 U/L (45-117); Anion Gap 6 (5-15); BUN 85 mg/dL (7-18); BUN/Creat Ratio 95.6 RATIO (10-20); Calcium,Total 9.8 mg/dL (8.5-10.1); Chloride 110 mmol/L (98-107); Creatinine, Serum 0.89 mg/dL (0.55-1.02); EST Glomerular Filtration Rate 69 mL/min (>60); Est Glom Filt Rate - Afr Amer 83 mL/min (>60); Globulin 4.2 g/dL (2.2-4.2); Glucose 171 mg/dL (74-106); Protein, Total 5.9 g/dL (6.4-8.2); Sodium Level 148 mmol/L (136-145)
[2021-05-15 05:37] LABS: Differential Comment SCANNED
[2021-05-15] MEDS: Piperacil/Tazobactam 3.375 GM Q8 PREMIX IV (05:45)
[2021-05-15] MEDS: TITRATION PARAMETER CHANGE 1 EACH IV (07:00)
[2021-05-15 07:05] LABS: Bedside Glucose 146 mg/dL (70-110)
--- NOTE | 2021-05-15 08:35 | RAD_ITS ---
STUDY: X-RAY CHEST REASON FOR EXAM: Female, 60 years old. Hypoxemia TECHNIQUE: Single AP portable view of the chest. COMPARISON: Comparison is made with prior study dated 05/10/2021. FINDINGS: An endotracheal tube is in situ. The tip is at 4.6 cm proximal to the anika. A right-sided PICC line catheter is seen with the tip at the junction of the superior vena cava and right atrium. Large right pneumothorax with complete collapse of the right lung. There is no demonstrated pleural abnormality. Normal size heart. Normal mediastinum and kathleen. Normal visualized pulmonary arteries. Normal visualized aortic arch and descending thoracic aorta. Normal visualized thoracic spine. Normal visualized ribs, clavicles, and shoulders. There is no demonstrated abnormality of the visualized soft tissue structures of the upper abdomen. RAD/Chest 1 View (Portable) IMPRESSION: Large right pneumothorax with complete collapse of the right lung. The referring physician was notified. Electronically Signed: Jeovanny Ellis MD at 9:28 EST , Service support ,
--- NOTE | 2021-05-15 08:50 | NURSING ---
Pt flipped from prone to back around 0840. CXR obtained.
--- NOTE | 2021-05-15 10:13 | PN.CC_ITS ---
Assessment & Plan Assessment/Plan (1) Acute hypoxemic respiratory failure due to COVID-19: (2) Subtherapeutic international normalized ratio (INR): (3) Encephalopathy due to 2019-nCoV: (4) Type 2 diabetes mellitus: (5) History of blood clot: (6) COPD: PLAN: RECOMMENDATIONS: 1. We will discuss with [employer] and information systems analyst prior to releasing body IMPRESSIONS: 1. Acute combined respiratory failure secondary to ARDS d/t COVID-19/CAP in the setting of COPD The patient initially was admitted to the hospital on May 04 after be ing emergently intubated in the emergency department in the setting of COVID-19 pneumonia. The patient did receive Tocilizumab and was started on Decadron. She also appears to have a secondary bacterial pneumonia with Moraxella isolated from sputum culture. Antimicrobials will be continued accordingly. Plan to continue to wean FiO2 as tolerated for saturations greater than 90%. Patient with cardiac arrest following probable development of a pneumothorax overnight. Patient with very poor prognosis at baseline. Patient made DNR Comfort Care arrest prior to event, so no CPR was initiated. 2. Acute kidney injury Resolved. Likely prerenal in etiology and related to acute presentation. Okay to utilize diuretics as needed to maintain euvolemic state. 3. Recent UTI/A. fib/subtherapeutic INR/nonvaccinated status/diabetes mellitus type 2/metabolic encephalopathy Complicates care, management, recovery and prognosis. Continue sliding scale insulin coverage. Patient was receiving significant sedation, but will obtain an EEG to help with discussions on goals of therapy. Nutrition may become an issue as patient is not receiving tube feeds while prone secondary to aspiration risk. TIME: 80 minutes of critical care time, independent of any procedures, was spent addressing the patient's acute combined respiratory failure secondary to ARDS in the setting of COVID-19, secondary bacterial pneumonia, acute kidney injury, review of all data and collaboration with the care team. Subjective Subjective Cold at approximately 2:30 in the morning secondary to hypotension and hypoxia. Patient was in the prone position at that time. Patient was evaluated by the hospitalist and chest x-ray was delayed until this morning. On my arrival this morning, family was present. Extended conversation with the patient's family about goals of therapy. Patient had been made a full code overnight until the family had an opportunity to discuss with a physician. After extensive conversation, the patient was made a DNR Comfort Care arrest but family was made to wait for supine positioning given concerns for decompensation. Objective Data Objective Data At approximately 8:30 AM, patient's family had left the room and was ready for a change in body position from the prone to supine. I was present in the doorway when this was taking place. Radiology was ready to take chest x-ray immediately upon change in position. Patient initially was saturating in the 80s in the prone position. Patient tolerated transition to the supine position with saturation slightly improving. Chest x-ray was immediately taken showing a large right pneumothorax. Patient was tolerating it hemodynamically, so arrangements were made to call surgery for a chest tube under controlled setting. However, patient became bradycardic and passed in less than 5 minutes after I left the room. Family was updated. Vital Signs: Vital Signs Temp Pulse Resp BP Pulse Ox 38.0 C H 75 19 H 147/30 H 94 05/15/21 08:00 05/15/21 08:40 05/15/21 08:40 05/15/21 08:40 05/15/21 08:40 Oxygen Flow Rate (L/min) 15 Oxygen Delivery Method Mechanical Ventilator Weight: 88.1 kg Body Mass Index (BMI) 33.0 Intake & Output: Intake and Output for Last 24 Hours 05/13/21 05/14/21 05/15/21 23:59 23:59 23:59 Intake Total 1830.57 / 2008.67 2332.82 / 2344.27 669.28 / 669.28 Output Total 2850 / 2850 725 / 725 150 / 150 Balance -1019.43 / -841.33 1607.82 / 1619.27 519.28 / 519.28 Lab / Micro Data Result Diagrams: 05/15/21 04:45 05/15/21 04:45 Labs: Laboratory Results - last 24 hr 05/14/21 13:35: POC Glucose 195 H 05/14/21 18:03: POC Glucose 168 H 05/14/21 23:13: POC Glucose 191 H 05/14/21 : D-Dimer Quant (PE/DVT) 2.28 H* 05/14/21 : B-Natriuretic Peptide 183.6 H 05/14/21 : Procalcitonin 0.49 H 05/15/21 04:45: WBC 20.3 H, RBC 4.94, Hgb 11.4 L, Hct 41.6, MCV 84.2, MCH 23.1 L , MCHC 27.4 L D, RDW Std Deviation 57.3 H, RDW Coeff of Cami 19.9 H, Plt Count 163, MPV 12.9 H, Immature Gran % (Auto) 1.100 H, Neut % (Auto) 90.7 H, Lymph % (Auto) 4.5 L, [place] % (Auto) 3.1, Eos % (Auto) 0.2, Baso % (Auto) 0.4, Absolute Neuts (auto) 18.4 H, Absolute Lymphs (auto) 0.92, Nucleated RBC % 0.9, Differ ential Comment SCANNED 05/15/21 04:45: Sodium 148 H, Potassium 5.0, Chloride 110 H, Carbon Dioxide 32.0, Anion Gap 6, BUN 85 H, Creatinine 0.89, Estim Creat Clear Calc 56.30, Est GFR (MDRD) Af Amer 83, Est GFR (MDRD) Non-Af 69, BUN/Creatinine Ratio 95.6 H, Glucose 171 H, Calcium 9.8, Total Bilirubin 1.40 H, AST 43 H, ALT 34, Alkaline Phosphatase 155 H, Total Protein 5.9 L, Albumin 1.7 L, Globulin 4.2, Albumin/Globulin Ratio 0.4 L 05/15/21 05:47: POC Glucose 146 H Micro: Microbiology 05/14/21 Unknown Blood Culture (Wb) - Right Forearm Blood Culture - Preliminary 05/04/21 05:11 Blood Culture (Wb) - Anticubital Right Blood Culture - Final No growth in 5 days. 05/04/21 05:33 Blood Culture (Wb) - Anticubital Left Blood Culture - Final No growth in 5 days. 05/04/21 08:10 Sputum, Induced/Lukens Gram Stain - Final 05/04/21 08:10 Sputum, Induced/Lukens Respiratory Culture - Final Moraxella(Elle.)Catarrhalis 05/04/21 05:31 Urine Catheter - Antonio Legionella Antigen - Final 05/04/21 05:31 Urine Catheter - Antonio Streptococcus pneumoniae Antigen (M - Final ABG Data ABG results: ABG 05/14/21 17:39 Specimen Type ART Sample Site R Radial pH 7.26 L Bicarbonate Actual 36.7 H Total CO2 39 Base Excess 10 H O2 Saturation 78 L O2 % 100 ABG pCO2 82.6 H* ABG pO2 52 L Earnest Test Positive Respiration Rate 16 O2 Delivery Device Adult Vent Vent Mode AC Tidal Volume 450 POC PEEP 18 Crit Call To/Read Back Yes Blood Gas Notified Whom maria guadalupe Radiography Diagnostic Testing: Radiology Impression Chest X-Ray 05/15/21 08:35 IMPRESSION: Large right pneumothorax with complete collapse of the right lung. The referring physician was notified. Electronically Signed: Jeovanny Ellis MD at 9:28 EST , Service support , Physical Exam Const Constitutional Narrative: Currently in prone position on initial assessment. General Appearance: intubated and patient mechanically ventilated Nutritional Appearance: obese HEENT normocephalic and head/scalp atraumatic Mouth: endotracheal tube in place and OG tube in place Eyes PERRL Eyes Narrative: Significant conjunctival injection of the right eye with periorbital edema Neck supple General: trachea midline Chest inspection of chest normal Chest: symmetrical chest wall rise Resp Effort and Inspection: tachypneic Auscultation: diminished lung sounds; Negative for rales, rhonchi or wheezes Percussion: hyperresonance right Cardio S1 normal heart sound and S2 normal heart sound Rate: tachycardic Heart Sounds: Negative for gallop, murmur or rub GI normal to inspection, nondistended, normoactive bowel sounds Extremity no clubbing, cyanosis or edema Skin no rashes or lesions noted Neuro Sensorium / Orientation: sedated on vent Charges/Coding Procedures Hospitalists Procedures: 46006 Critial Care 1st Hr Multi Select Codes Hospitalists' Procedures Procedures: 57734 Critial Care Addl 30 Min
--- NOTE | 2021-05-15 11:47 | PCM.DEATH ---
Preliminary Cause of Preliminary Cause of Preliminary Cause of : Acute combined respiratory failure secondary to ARDS from COVID-19 pneumonia as well as community-acquired pneumonia Principle Diagnosis Problem List: Active and Suspected Problems (Updated 05/08/21 @ 00:00 by Background Aggie) COVID-19 (Acute) Acute hypoxemic respiratory failure due to COVID-19 (Acute) Subtherapeutic international normalized ratio (INR) (Acute) Encephalopathy due to 2019-nCoV (Acute) Hospital Course 60-year-old female presented to the hospital on 05/04/2021 with shortness of breath. She was found to be positive for Covid and was unvaccinated. Apparently she had been having symptoms for about 2 weeks prior to her presentation. On admission to the ER she was intubated and transition to the ICU. She was outside of the window for remdesivir but was started on Decadron and was started on Actemra. She also did develop a bacterial pneumonia. Treatment was complicated by an OSVALDO and inability to diurese at times. We also began proning her which did see some response and improvement in her respiratory status and oxygenation. Overnight between 05/14/2021 and 05/15/2021, she developed some hypoxia while proned. There was felt that she did have bilateral breath sounds so she was taken out of prone position in the morning and a chest x-ray was obtained for further evaluation. The chest x-ray demonstrated a complete pneumothorax on the right. At that time family continued her DNR CCA status, between evaluation of the chest x-ray with pneumothorax and calling for chest tube placement, patient denied. Time of was 0850 on 05/15/2019. Visit Charges Inpatient E&M: 71433 Disch Hosp
== END 2021-05-15 08:50 | DRG 207 ==
LOC: ED 05:48 → ICU 07:49
PROVIDERS: Internal Medicine; Internal Medicine Critical Care Medicine; Internal Medicine Infectious Disease; Emergency Provider Emergency Medicine; PCP Family Medicine; Visit Provider Family Medicine
DX: U07.1 COVID-19 (principal); J80 Acute respiratory distress syndrome; J12.82 Pneumonia due to coronavirus disease 2019; G93.41 Metabolic encephalopathy; J15.8 Pneumonia due to other specified bacteria; J44.0 Chronic obstructive pulmonary disease with (acute) lower respiratory infection; N17.9 Acute kidney failure, unspecified; E87.0 Hyperosmolality and hypernatremia; F41.9 Anxiety disorder, unspecified; I25.10 Atherosclerotic heart disease of native coronary artery without angina pectoris; F32.A Depression, unspecified; E11.9 Type 2 diabetes mellitus without complications; I10 Essential (primary) hypertension; I48.91 Unspecified atrial fibrillation; R79.1 Abnormal coagulation profile; F17.200 Nicotine dependence, unspecified, uncomplicated; E87.8 Other disorders of electrolyte and fluid balance, not elsewhere classified; Z66 Do not resuscitate; E78.5 Hyperlipidemia, unspecified; Z28.3 Underimmunization status; Z79.899 Other long term (current) drug therapy; Z79.82 Long term (current) use of aspirin; Z79.01 Long term (current) use of anticoagulants; Z79.84 Long term (current) use of oral hypoglycemic drugs; Z86.718 Personal history of other venous thrombosis and embolism
CPT/HCPCS: 31500; 31720; 36415; 36569; 36600; 51702; 71045; 71275; 74018; 80048; 80053; 81001; 82550; 82803; 82962; 83605; 83615; 83880; 84145; 84478; 84484; 85025; 85379; 85384; 85610; 85730; 86140; 87040; 87070; 87077; 87149; 87186; 87205; 87449; 93005; 94002; 94003; 95819; 97802; 97803; 99251; 99285; J7030; J7040; J7050; Q9967; A4216; G0463; J1940; J3010; J3262